=== PATIENT | female | born 1940 | race Caucasian/White ===

== ENCOUNTER → 2016-05-16 | Outpatient (CLI) | payer MEDICARE, OTHER ==
[2015-11-30 11:00] VITALS: BP 110/49
[~2016-05-16] MED LIST: ALPR0.254 PO; AMIT10TA PO; ASPI-482 PO; CA C1TAB28 PO; DICL100G7 TP; DICY20TA3 PO; HYDR-2666 PO; HYDR-2762 PO; HYDR-971 PO; HYDR12.553 PO; HYDR12.58 PO; HYDR1POW19 MC; HYDR1TAB20 PO; LACT1CAP6 PO; LACT1CAP8 PO; LEVO250T25 PO; LEVO25TA2 PO; LEVO500T8 PO; LEVO50TA PO; LISI10TA2 PO; LISI20TA PO; LISI40TA PO; MILN25TA PO; MILN50TA PO; POTA10CA PO; ROPI0.5T PO; SIMV10TA3 PO; SIMV80TA PO; SIMV80TA3 PO; [UNRECOGNIZED DRUG - OTHER] PO
--- NOTE | 2016-05-17 10:22 | CARD ---
APPROVED REPORT EXAM: Two-dimensional and M-mode echocardiogram with Doppler and color Doppler. Other Information Quality : AverageHR: 75bpm Rhythm : NSR INDICATION Dyspnea 2D DIMENSIONS RVDd2.9 (2.9-3.5cm)Left Atrium(2D)2.7 (1.6-4.0cm) IVSd0.8 (0.7-1.1cm)Aortic Root(2D)2.2 (2.0-3.7cm) LVDd4.3 (3.9-5.9cm)LVOT Diameter2.1 (1.8-2.4cm) PWd0.8 (0.7-1.1cm)LVDs3.0 (2.5-4.0cm) FS (%) 31.5 %SV50.6 ml LVEF(%)59.6 (>50%) Aortic Valve AoV Peak Chad.112.9cm/sAoV VTI24.1cm AO Peak GR.5.1mmHgLVOT Peak Chad.95.8cm/s AO Mean GR.3mmHgAVA (VMAX)2.89cm2 Mitral Valve MV E Wkqldljs84.1cm/sMV E Peak Gr.5mmHg MV DECEL [id number] A Ekrevtti26.9cm/s MV E Mean Gr.2mmHgE/A Ratio1.2 MV A Yaoifnmr112ur Tricuspid Valve TR P. Uoqmqtcr761gk/sRAP MPOCTXIL5kiEh TR Peak Gr.15dqKtBKLB84ewWi Pulmonary Vein S1 Zfsrpfnj07.0cm/sD2 Ialevygb17.3cm/s PVa revsvtbf413odrf LEFT VENTRICLE The left ventricle is normal size. There is normal left ventricular wall thickness. Left ventricle sy stolic function is normal. The Ejection Fraction is 55-60%. There is normal LV segmental wall motion. The left ventricular diastolic function and filling is normal for age. There is no ventricular septa l defect visualized. RIGHT VENTRICLE The right ventricle is normal size. The right ventricular systolic function is normal. ATRIA The left atrium size is normal. The right atrium size is normal. The interatrial septum is intact wit h no evidence for an atrial septal defect or patent foramen ovale as noted on 2-D or Doppler imaging. AORTIC VALVE The aortic valve is mildly sclerotic. The aortic valve is trileaflet. Doppler and Color Flow revealed no significant aortic regurgitation. There is no significant aortic valvular stenosis. MITRAL VALVE Mitral annular calcification is mild. There is no evidence of mitral valve prolapse. There is no mitr al valve stenosis. Doppler and Color Flow revealed mild mitral regurgitation. TRICUSPID VALVE The tricuspid valve is normal in structure. Doppler and Color Flow revealed trace to mild tricuspid r egurgitation. The PA pressure was estimated at 42 mmHg. There is no tricuspid valve stenosis. PULMONIC VALVE The pulmonic valve is not well visualized. Doppler and Color Flow revealed mild pulmonic valvular reg urgitation. There is no pulmonic valvular stenosis. GREAT VESSELS The aortic root is normal in size. The ascending aorta is normal in size. Normal pulmonary venous cammy w (Doppler). The IVC is normal in size and collapses <50% with inspiration. PERICARDIAL EFFUSION There is no pleural effusion. There is no evidence of significant pericardial effusion. Critical Notification Critical Value: No <Conclusion> The left ventricle is normal size. Left ventricle systolic function is normal. The Ejection Fraction is 55-60%. There is normal left ventricular wall thickness. There is no significant aortic valvular stenosis. Doppler and Color Flow revealed no significant aortic regurgitation. Doppler and Color Flow revealed mild mitral regurgitation. Doppler and Color Flow revealed trace to mild tricuspid regurgitation. The PA pressure was estimated at 42 mmHg. Doppler and Color Flow revealed mild pulmonic valvular regurgitation.
== END | disposition home or self-care (01) ==
LOC: ECHO 09:01
PROVIDERS: ATTEND Internal Medicine Cardiovascular Disease
DX: R06.02 Shortness of breath (principal); I34.0 Nonrheumatic mitral (valve) insufficiency; I37.1 Nonrheumatic pulmonary valve insufficiency; I07.1 Rheumatic tricuspid insufficiency; I34.8 Other nonrheumatic mitral valve disorders
CPT/HCPCS: 93306

== ENCOUNTER → 2016-05-17 | Outpatient (CLI) | payer MEDICARE, OTHER ==
[2015-11-30 11:00] VITALS: BP 110/49
--- NOTE | 2016-05-17 10:33 | RAD ---
APPROVED REPORT Patient Location : OUT-PATIENT Indications Lower Extremity Pain : Bilateral Lower Extremity Edema : Bilateral HTN, BILAT PAIN AND SWELLING LOWER EXT Risk Factors Grayscale images of the bilateral greater and lesser saphenous veins deomonstrate no evidence of thro mbus on limited images. The R GSV measures 5.8 mm and has reflux time of less than 1 second. The left GSV measures 7.2 mm and has a reflux time less than 1 second. Negative reflux in the bilateral lesse r saphenous veins. Bilateral solitary lymph nodes noted measuring 1.4x0.6x14 (right), and 1.5x0.5x0.8 (left). Past History Compression Stockings : No Deep System Deep Venous Reflux present : No Lesser Saphenous Veins (LSV) Right Thigh extension noted : No Leftt Thigh extension noted : No Right Giacomini Vein : Present : No Reflux : No Leftt Giacomini Vein : Present : No Reflux : No Accessory Veins Right Anterior Accessory Vein : Present : Yes Reflux : No Leftt Anterior Accessory Vein : Present : Yes Reflux : No Right Posterior Accessory Vein : Present : No Reflux : No Left Posterior Accessory Vein : Present : No Reflux : No Critical Notification Critical Value: No <Conclusion> No evidence of reflux in the bilateral greater and lesser saphenous veins Bilateral groin lymph notes, correlate clinically.
--- NOTE | 2016-05-17 10:41 | RAD ---
APPROVED REPORT Right Lower Extremity Venous Study for DVT Patient Location: OUT-PATIENT Indications Lower Extremity Pain: Right Lower Extremity Edema: Right HTN, RLE SWELLING, PAIN, REDNESS Risk Factors RLE araujo scale images from the CFV to the below knee veins does not demonstrate any evidence of throm bus. The veins are compressible. Below knee veins not well visualized but there is edema present in t he subcutaneous tissues. Cannot rule out lymph node in the right groin measuring approximately 0.5 cm in greatest diameter. Critical Notification Critical Value: No <Conclusion> Negative DVT study Incidental lymph node, measuring 0.5 cm in greatest dimension, correlate clinically.
== END | disposition home or self-care (01) ==
LOC: KCIC US 09:10
PROVIDERS: ATTEND Internal Medicine Cardiovascular Disease
DX: M79.604 Pain in right leg (principal); M79.89 Other specified soft tissue disorders; R60.0 Localized edema; M79.605 Pain in left leg
CPT/HCPCS: 93970; 93971

== ENCOUNTER → 2017-01-16 | Outpatient (CLI) | payer MEDICARE, OTHER ==
[2015-11-30 11:00] VITALS: BP 110/49
[~2017-01-16] MED LIST changes: +DICL100G18 TP; -DICL100G7 TP; -HYDR-2666 PO; +HYDR-2758 PO; -LEVO25TA2 PO; +LEVO25TA55 PO; -POTA10CA PO; +POTASSIUM CHLO10 MEQ PO
--- NOTE | 2017-01-16 15:16 | RAD ---
2 views of the left tibia and fibula 01/16/2017 2:00 AM Indication: LUMP ON INSIDE OF LEG Comparison: None Findings: There is no fracture or dislocation identified. Articular surfaces are uninterrupted. Soft tissues are unremarkable. Impression: No evidence of acute osseous abnormality
== END | disposition home or self-care (01) ==
LOC: RAD 14:20
PROVIDERS: ATTEND Family Medicine
DX: M79.662 Pain in left lower leg (principal); R22.9 Localized swelling, mass and lump, unspecified
CPT/HCPCS: 73590

== ENCOUNTER → 2017-03-28 | Outpatient (CLI) | payer MEDICARE, OTHER | END | disposition home or self-care (01) | LOC: MAMMO 13:51 | DX: Z12.31 Encounter for screening mammogram for malignant neoplasm of breast (principal) | CPT/HCPCS: 77067 ==

== ENCOUNTER → 2017-11-10 | Outpatient (CLI) | payer MEDICARE, OTHER ==
[2015-11-30 11:00] VITALS: BP 110/49
[~2017-11-10] MED LIST changes: +LISI-130 PO; -LISI40TA PO; +POTA10TA12 PO; -POTASSIUM CHLO10 MEQ PO; -SIMV80TA3 PO; +SIMV80TA7 PO
--- NOTE | 2017-11-10 14:31 | CARD ---
MR#: [id number] Date of Study: 11/10/2017 Ordering Physician: LEÓN GOLDMAN, Referring Physician: LEÓN GOLDMAN, Tech: Neema Garcia STEPHANY APPROVED REPORT EXAM: Two-dimensional and M-mode echocardiogram with Doppler and color Doppler. Other Information Quality : Good INDICATION Murmur 2D DIMENSIONS RVDd2.0 (2.9-3.5cm)Left Atrium(2D)2.3 (1.6-4.0cm) IVSd1.1 (0.7-1.1cm)Aortic Root(2D)2.4 (2.0-3.7cm) LVDd3.0 (3.9-5.9cm)LVOT Diameter1.9 (1.8-2.4cm) PWd0.8 (0.7-1.1cm)LVDs2.2 (2.5-4.0cm) FS (%) 28.6 %SV20.2 ml LVEF(%)56.6 (>50%) Aortic Valve AoV Peak Chad.85.4cm/sAoV VTI17.3cm AO Peak GR.2.9mmHgLVOT Peak Chad.83.0cm/s AO Mean GR.2mmHgAVA (VMAX)2.67cm2 SITA (VTI)2.80cm2 Mitral Valve MV E Zlrokvat83.0cm/sMV DECEL TSOG775au MV A Ecepdkxk56.3cm/sE/A Ratio0.9 Tricuspid Valve TR P. Jokkcfeb511uh/sRAP NULBVECK6xrTz TR Peak Gr.34vlMdEASE22zkRq Pulmonary Vein S1 Kztzylrj49.9cm/sD2 Resfofqr56.8cm/s LEFT VENTRICLE The left ventricle is normal size. There is normal left ventricular wall thickness. The left ventricu lar systolic function is normal and the ejection fraction is within normal range. The Ejection Fracti on is 55-60%. There is normal LV segmental wall motion. Transmitral Doppler flow pattern is Grade I-a bnormal relaxation pattern. RIGHT VENTRICLE The right ventricle is normal size. The right ventricular systolic function is normal. ATRIA The left atrium size is normal. The right atrium size is normal. The interatrial septum is intact wit h no evidence for an atrial septal defect or patent foramen ovale as noted on 2-D or Doppler imaging. AORTIC VALVE The aortic valve is calcified but opens well. Doppler and Color Flow revealed no significant aortic r egurgitation. There is no significant aortic valvular stenosis. MITRAL VALVE The mitral valve is normal in structure and function. There is no evidence of mitral valve prolapse. There is no mitral valve stenosis. Doppler and Color-flow revealed trace mitral regurgitation. TRICUSPID VALVE The tricuspid valve is normal in structure and function. Doppler and Color Flow revealed mild tricusp id regurgitation. There is mild pulmonary hypertension. The PA pressure was estimated at 38 mmHg. The re is no tricuspid valve stenosis. PULMONIC VALVE The pulmonic valve is not well visualized. Doppler and Color Flow revealed mild pulmonic valvular reg urgitation. There is no pulmonic valvular stenosis. GREAT VESSELS The aortic root is normal in size. The ascending aorta is normal in size. The IVC is normal in size a nd collapses >50% with inspiration. PERICARDIAL EFFUSION There is no evidence of significant pericardial effusion. Critical Notification Critical Value: No <Conclusion> The left ventricle is normal size. The left ventricular systolic function is normal and the ejection fraction is within normal range. The Ejection Fraction is 55-60%. There is no significant aortic valvular stenosis. Doppler and Color Flow revealed no significant aortic regurgitation. Doppler and Color-flow revealed trace mitral regurgitation. Doppler and Color Flow revealed mild tricuspid regurgitation. There is mild pulmonary hypertension. The PA pressure was estimated at 38 mmHg. Signed by : León Goldman MD Electronically Approved : 11/10/2017 14:30:34
== END | disposition home or self-care (01) ==
LOC: ECHO 13:09
PROVIDERS: ATTEND Internal Medicine Cardiovascular Disease
DX: I08.8 Other rheumatic multiple valve diseases (principal); I27.20 Pulmonary hypertension, unspecified; E78.00 Pure hypercholesterolemia, unspecified; E03.9 Hypothyroidism, unspecified; G43.909 Migraine, unspecified, not intractable, without status migrainosus; Z90.49 Acquired absence of other specified parts of digestive tract; Z90.710 Acquired absence of both cervix and uterus; Z88.2 Allergy status to sulfonamides
CPT/HCPCS: 93306

== ENCOUNTER 2017-12-20 11:31 | Inpatient (IN) | payer MEDICARE, OTHER ==
[~2017-12-20] VITALS: Ht 149.9 cm; Wt 49.9 kg
--- NOTE | 2017-12-20 12:13 | PHYS DOC ---
Past Medical History Past Medical History: Arthritis, High Cholesterol, Hypertension, Hypothyroid Additional Past Medical Histor: THYROID DZ, RLS Past Surgical History: Appendectomy, Hysterectomy Additional Past Surgical Histo: REMOVED NODULE FROM THYROID, BACK, CATARACT, HERNIA Alcohol Use: None Drug Use: None Adult General Chief Complaint Chief Complaint: ABDOMINAL PAIN HPI HPI Patient is a 76 year old female who presents with abdominal pain. Pain started yesterday morning at 2:30 and came on suddenly. Since then the pain has been constant and worsening. She also complains of some distention of the abdomen. She does report normal bowel movements with the last being this morning. She is passing flatus. She denies fever or chills. No urinary symptoms. She did have some nausea this morning but no emesis. She does not currently have nausea. She has not had similar symptoms in the past. Her surgical history is positive for hysterectomy, appendectomy, cholecystectomy many years earlier. She also endorses one prior SBO in the 's that resolved w /o surgical intervention. Review of Systems Review of Systems Constitutional: Denies fever Eyes: Denies HENT: Denies Respiratory: Denies cough or shortness of breath Cardiovascular: No additional information not addressed in HPI GI: as documented above : Denies dysuria Integument: Denies rash or skin lesions Neurologic: Denies headache All other systems were reviewed and found to be within normal limits, except as documented in this note. Current Medications Current Medications Current Medications Medications (Trade) Dose Ordered Sig/Kirk Start Time Stop Time Status Last Admin Dose Admin Fentanyl Citrate (Fentanyl 2ml Vial) 50 mcg 1X ONCE 12/20/17 12:15 12/20/17 12:16 DC 12/20/17 12:21 50 MCG Info (CONTRAST GIVEN -- Rx MONITORING) 1 each PRN DAILY PRN 12/20/17 12:30 12/22/17 12:29 Iohexol (Omnipaque 300 Mg/ml) 75 ml 1X ONCE 12/20/17 12:15 12/20/17 12:16 DC 12/20/17 12:15 75 ML Morphine Sulfate (Morphine Sulfate) 5 mg 1X ONCE 12/20/17 12:45 12/20/17 12:46 DC 12/20/17 13:09 5 MG Ondansetron HCl (Zofran) 4 mg 1X ONCE 12/20/17 12:15 12/20/17 12:16 DC 12/20/17 12:21 4 MG Sodium Chloride 500 ml @ 250 mls/hr 1X ONCE 12/20/17 12:15 12/20/17 14:14 DC 12/20/17 12:15 250 MLS/HR Allergies Allergies Allergies Coded Allergies Type Severity Reaction Last Updated Verified Sulfa (Sulfonamide Antibiotics) Allergy Intermediate Nausea and Vomiting Yes Physical Exam Physical Exam Constitutional: Well developed, well nourished, mild distress 2/2 pain HENT: Normocephalic, atraumatic, bilateral external ears normal, oropharynx moist Eyes: PERRLA, EOMI, conjunctiva normal Neck: Normal range of motion, no tenderness Cardiovascular:Heart rate regular rhythm Lungs & Thorax: Bilateral breath sounds clear Abdomen: mildly distended, diffusely TTP, no rebound Skin: Warm, dry, no erythema Back: No tenderness Extremities: No tenderness, no edema Neurologic: Alert and oriented X 3 Psychologic: Affect normal Current Patient Data Vital Signs Vital Signs Date Time Temp Pulse Resp B/P (MAP) Pulse Ox O2 Delivery O2 Flow Rate FiO2 12/20/17 12:21 20 12/20/17 12:13 92 141/65 (90) 98 Room Air 12/20/17 11:40 98.4 98.4 Lab Values Laboratory Tests Test 12/20/17 11:35 12/20/17 11:48 Urine Collection Type Void Urine Color Yellow Urine Clarity Clear Urine pH 5.0 Urine Specific [place] >=1.030 Urine Protein Negative mg/dL (NEG-TRACE) Urine Glucose (UA) Negative mg/dL (NEG) Urine Ketones (Stick) Negative mg/dL (NEG) Urine Blood Small (NEG) Urine Nitrite Negative (NEG) Urine Bilirubin Negative (NEG) Urine Urobilinogen Dipstick 0.2 mg/dL (0.2 mg/dL) Urine Leukocyte Esterase Negative (NEG) Urine RBC Rare /HPF (0-2) Urine WBC 5-10 /HPF (0-4) Urine Squamous Epithelial Cells Few /LPF Urine Bacteria Mod /HPF (0-FEW) Urine Hyaline Casts Occasional /HPF Urine Mucus Slight /LPF White Blood Count 10.7 x10^3/uL (4.0-11.0) Red Blood Count 3.88 x10^6/uL (3.50-5.40) Hemoglobin 12.3 g/dL (12.0-15.5) Hematocrit 35.2 % (36.0-47.0) L Mean Corpuscular Volume 91 fL (79-100) Mean Corpuscular Hemoglobin 32 pg (25-35) Mean Corpuscular Hemoglobin Concent 35 g/dL (31-37) Red Cell Distribution Width 13.8 % (11.5-14.5) Platelet Count 272 x10^3/uL (140-400) Neutrophils (%) (Auto) 86 % (31-73) H Lymphocytes (%) (Auto) 7 % (24-48) L Monocytes (%) (Auto) 6 % (0-9) Eosinophils (%) (Auto) 1 % (0-3) Basophils (%) (Auto) 0 % (0-3) Neutrophils # (Auto) 9.3 x10^3uL (1.8-7.7) H Lymphocytes # (Auto) 0.8 x10^3/uL (1.0-4.8) L Monocytes # (Auto) 0.6 x10^3/uL (0.0-1.1) Eosinophils # (Auto) 0.1 x10^3/uL (0.0-0.7) Basophils # (Auto) 0.0 x10^3/uL (0.0-0.2) Sodium Level 132 mmol/L (136-145) L Potassium Level 3.6 mmol/L (3.5-5.1) Chloride Level 96 mmol/L (98-107) L Carbon Dioxide Level 24 mmol/L (21-32) Anion Gap 12 (6-14) Blood Urea Nitrogen 13 mg/dL (7-20) Creatinine 0.7 mg/dL (0.6-1.0) Estimated GFR (Cockcroft-Gault) 81.6 Glucose Level 128 mg/dL (70-99) H Calcium Level 9.6 mg/dL (8.5-10.1) Total Bilirubin 0.6 mg/dL (0.2-1.0) Direct Bilirubin 0.2 mg/dL (0.0-0.2) Aspartate Amino Transferase (AST) 17 U/L (15-37) Alanine Aminotransferase (ALT) 18 U/L (14-59) Alkaline Phosphatase 41 U/L (46-116) L Total Protein 8.1 g/dL (6.4-8.2) Albumin 4.1 g/dL (3.4-5.0) Lipase 75 U/L (73-393) Laboratory Tests 12/20/17 11:48 Laboratory Tests 12/20/17 11:48 EKG EKG [] Radiology/Procedures Radiology/Procedures Findings: The lung bases are clear. There is a peripheral low-attenuation area located posteriorly in the right lobe of the liver. This measures about 1 cm. No other liver parenchymal abnormality is seen. The spleen appears normal. Both kidneys enhance with contrast. No mass or obstruction is seen. The adrenal glands are not enlarged. The pancreas appears normal. No retroperitoneal or mesenteric adenopathy is seen. There is no apparent abdominal soft tissue mass. There is distention of much of the colon with gas. There is narrowing of the sigmoid colon with suggestion of some wall thickening over several centimeters. There is no obvious adjacent inflammation. A few diverticula are seen. Images through the pelvis show no apparent abnormality of the distal ureters or bladder. No pelvic or inguinal adenopathy is seen. There is no apparent pelvic soft tissue mass or other inflammatory process. IMPRESSION: There is diffuse colonic dilatation with relative narrowing through the sigmoid colon, where there appears to be some wall thickening. No obstructing mass is seen, and the appearance of the colon is more suggestive of an area of colitis rather than neoplasm. Endoscopic correlation may still be useful if symptoms do not resolve. Course & Med Decision Making Course & Med Decision Making Pertinent Labs and Imaging studies reviewed. (See chart for details) 12:05: Patient is seen and examined. Meds for pain. Standard abd pain workup. 14:00: All labs are reviewed. CT scan is also reviewed. The labs did not reveal any acute findings. The CT scan as documented above does reveal some dilated loops of bowel. There are a few small air-fluid levels as well. Cerner for early small bowel obstruction or ileus is present. The patient does not have any vomiting so NG tube was not placed. In the emergency department, the patient was given a single dose of fentanyl which did not relieve her pain symptoms. Following this, she was given morphine which did offer some relief of pain. Plan is for admission to the hospital. Patient is kept nothing by mouth and IV fluids are started. I spoke to her primary care physician who was agreeable to admit the patient, Dr. Kinsey. Consults placed for surgery to also follow this patient. Prior to admission all of her questions are answered and she is agreeable to the plan of care. Dragon Disclaimer Dragon Disclaimer This electronic medical record was generated, in whole or in part, using a voice recognition dictation system. Departure Departure Referrals: NYLA KINSEY MD (PCP) ERIK COATS DO Dec 20, 2017 12:13
[2017-12-20] MEDS ORDERED: ONDANSETRON PF 4 MG/2 ML VIAL. IV ONE (12:15)
[2017-12-20] MEDS ORDERED: IOHEXOL 300 MG/ML 100ML VIAL. IV ONE (12:15)
[2017-12-20] MEDS ORDERED: fentaNYL PF VIAL 100 MCG/2 ML VIAL IV ONE (12:15)
[2017-12-20] MEDS ORDERED: IV NORMAL SALINE 500ML BAG 500 ML IV ONE (12:15)
[2017-12-20 12:28] LABS: BASO % 0 % (0-3); EOS # 0.1 x10^3/uL (0.0-0.7); EOS % 1 % (0-3); HEMATOCRIT 35.2 % (36.0-47.0); HEMOGLOBIN 12.3 g/dL (12.0-15.5); LYMPH # 0.8 x10^3/uL (1.0-4.8); LYMPH % 7 % (24-48); MEAN CORPUSCULAR HEMOGLOBIN 32 pg (25-35); MEAN CORPUSCULAR HGB CONC 35 g/dL (31-37); MEAN CORPUSCULAR VOLUME 91 fL (79-100); MONO # 0.6 x10^3/uL (0.0-1.1); MONO % 6 % (0-9); NEUT # 9.3 x10^3uL (1.8-7.7); NEUT % 86 % (31-73); PLATELET COUNT 272 x10^3/uL (140-400); RED BLOOD COUNT 3.88 x10^6/uL (3.50-5.40); RED CELL DISTRIBUTION WIDTH 13.8 % (11.5-14.5); WHITE BLOOD COUNT 10.7 x10^3/uL (4.0-11.0)
[2017-12-20 12:29] LABS: BILIRUBIN,URINE NEGATIVE (NEG); CLARITY,URINE CLEAR; COLOR,URINE YELLOW; NITRITE,URINE NEGATIVE (NEG); PROTEIN,URINE NEGATIVE (NEG-TRACE); UROBILINOGEN,URINE 0.2 mg/dL (0.2 mg/dL)
[2017-12-20] MEDS ORDERED: CONTRAST GIVEN. MC PRN (12:30)
[2017-12-20 12:33] LABS: CALCIUM 9.6 mg/dL (8.5-10.1); CREATININE 0.7 mg/dL (0.6-1.0); GFR 81.6; POTASSIUM 3.6 mmol/L (3.5-5.1)
[2017-12-20 12:35] LABS: BACTERIA,URINE MOD /HPF (0-FEW); RBC,URINE RARE /HPF (0-2); SQUAMOUS EPITHELIAL CELL,UR FEW /LPF
[2017-12-20 12:36] LABS: HYALINE CASTS, URINE OCCASIONAL /HPF
[2017-12-20 12:39] LABS: ALBUMIN 4.1 g/dL (3.4-5.0); DIRECT BILIRUBIN 0.2 mg/dL (0.0-0.2); TOTAL BILIRUBIN 0.6 mg/dL (0.2-1.0); TOTAL PROTEIN 8.1 g/dL (6.4-8.2)
[2017-12-20] MEDS ORDERED: MORPHINE SULFATE 10 MG/ML VIAL. IV ONE ×2 (12:45→15:00)
--- NOTE | 2017-12-20 13:13 | RAD ---
CT ABD PELV W/ IV CONTRST ONLY dated 12/20/2017 12:44 PM Indication:lower abd pain x2days
Omni 300 75ml, no priors Comparison: No comparison is available. Technique: Helical CT images were performed. One or more of the following individualized dose reduction techniques were utilized for this examination: 1. Automated exposure control 2. Adjustment of the mA and/or kV according to patient size 3. Use of iterative reconstruction technique Findings: The lung bases are clear. There is a peripheral low-attenuation area located posteriorly in the right lobe of the liver. This measures about 1 cm. No other liver parenchymal abnormality is seen. The spleen appears normal. Both kidneys enhance with contrast. No mass or obstruction is seen. The adrenal glands are not enlarged. The pancreas appears normal. No retroperitoneal or mesenteric adenopathy is seen. There is no apparent abdominal soft tissue mass. There is distention of much of the colon with gas. There is narrowing of the sigmoid colon with suggestion of some wall thickening over several centimeters. There is no obvious adjacent inflammation. A few diverticula are seen. Images through the pelvis show no apparent abnormality of the distal ureters or bladder. No pelvic or inguinal adenopathy is seen. There is no apparent pelvic soft tissue mass or other inflammatory process. IMPRESSION: There is diffuse colonic dilatation with relative narrowing through the sigmoid colon, where there appears to be some wall thickening. No obstructing mass is seen, and the appearance of the colon is more suggestive of an area of colitis rather than neoplasm. Endoscopic correlation may still be useful if symptoms do not resolve. Electronically signed by: Roman Early Jr., MD (12/20/2017 1:09 PM) [facility] [place]
[2017-12-20] MEDS ORDERED: ONDANSETRON PF 4 MG/2 ML VIAL. IV PRN (13:30)
[2017-12-20] MEDS: MORPHINE SULFATE 4 MG/ML VIAL. IV PRN ×3 (15:00→21:05)
[2017-12-20 16:17] VITALS: BP 147/66
[2017-12-20] MEDS: IV NORMAL SALINE 1000ML BAG 1,000 ML IV SCH (17:18)
[2017-12-20 19:00] VITALS: BP 142/63
[2017-12-20 23:00] VITALS: BP 138/71
[2017-12-20] MEDS: MORPHINE SULFATE 10 MG/ML VIAL. IV PRN (23:15)
[2017-12-20] MEDS ORDERED: MORPHINE SULFATE 4 MG/ML VIAL. IV PRN (23:15)
[2017-12-21] MEDS: MORPHINE SULFATE 10 MG/ML VIAL. IV PRN ×7 (02:37→22:55)
[2017-12-21] MEDS: IV NORMAL SALINE 1000ML BAG 1,000 ML IV SCH (02:42)
[2017-12-21 05:32] LABS: BASO % 0 % (0-3); EOS # 0.1 x10^3/uL (0.0-0.7); EOS % 1 % (0-3); HEMATOCRIT 33.3 % (36.0-47.0); HEMOGLOBIN 11.1 g/dL (12.0-15.5); LYMPH # 0.9 x10^3/uL (1.0-4.8); LYMPH % 12 % (24-48); MEAN CORPUSCULAR HEMOGLOBIN 31 pg (25-35); MEAN CORPUSCULAR HGB CONC 34 g/dL (31-37); MEAN CORPUSCULAR VOLUME 92 fL (79-100); MONO # 0.6 x10^3/uL (0.0-1.1); MONO % 8 % (0-9); NEUT # 5.8 x10^3uL (1.8-7.7); NEUT % 78 % (31-73); PLATELET COUNT 249 x10^3/uL (140-400); RED BLOOD COUNT 3.63 x10^6/uL (3.50-5.40); RED CELL DISTRIBUTION WIDTH 14.5 % (11.5-14.5); WHITE BLOOD COUNT 7.3 x10^3/uL (4.0-11.0)
[2017-12-21 05:47] LABS: CALCIUM 8.3 mg/dL (8.5-10.1); CREATININE 0.7 mg/dL (0.6-1.0); GFR 81.6; POTASSIUM 3.1 mmol/L (3.5-5.1)
[2017-12-21 06:00] VITALS: BP 113/57
--- NOTE | 2017-12-21 09:42 | PDOC2 ---
CONSULT Date of Consult Date of Consult DATE: 12/21/17 TIME: 09:38 Reason for Consult Reason for Consult: Abdominal pain and distention Referring Physician Referring Physician: Jw Identification/Chief Complaint Chief Complaint Abdominal pain and distention Source Source: Patient History of Present Illness Reason for Visit: 76-year-old female developed severe abdominal pain yesterday eating worse throughout the day which is why she came to the emergency department she also states that her abdomen feels very distended she did have a bowel movement yesterday mostly loose. She denies any nausea vomiting. She is never had a colonoscopy. Denies any family history of colon cancer. Past Medical History Cardiovascular: HTN, Hyperlipidemia Pulmonary: No pertinent hx GI: No pertinent hx Hepatobiliary: No pertinent hx Psych: No pertinent hx Rheumatologic: No pertinent hx Infectious disease: No pertinent hx ENT: No pertinent hx Renal/: No pertinent hx Endocrine: No pertinent hx Dermatology: No pertinent hx Past Surgical History Past Surgical History: Appendectomy, Cholecystectomy, Other (thyroidectomy) Family History Family History: No Significant Social History ALCOHOL: rare Lives: with Family Current Problem List Problem List Problems Medical Problems: (1) Abdominal pain Status: Acute Current Medications Current Medications Current Medications Fentanyl Citrate (Fentanyl 2ml Vial) 50 mcg 1X ONCE IV Last administered on at 12:21; Start 12/20/17 at 12:15; Stop 12/20/17 at 12:16; Status DC Sodium Chloride 500 ml @ 250 mls/hr 1X ONCE IV Last administered on at 12:15; Start 12/20/17 at 12:15; Stop 12/20/17 at 14:14; Status DC Ondansetron HCl (Zofran) 4 mg 1X ONCE IV Last administered on 12/20/17at 12:21 ; Start 12/20/17 at 12:15; Stop 12/20/17 at 12:16; Status DC Iohexol (Omnipaque 300 Mg/ml) 75 ml 1X ONCE IV Last administered on at 12:15; Start 12/20/17 at 12:15; Stop 12/20/17 at 12:16; Status DC Info (CONTRAST GIVEN -- Rx MONITORING) 1 each PRN DAILY PRN MC SEE COMMENTS; Start 12/20/17 at 12:30; Stop 12/22/17 at 12:29 Morphine Sulfate (Morphine Sulfate) 5 mg 1X ONCE IV Last administered on 12/20at 13:09; Start 12/20/17 at 12:45; Stop 12/20/17 at 12:46; Status DC Ondansetron HCl (Zofran) 4 mg PRN Q8HRS PRN IV NAUSEA/VOMITING; Start at 13:30; Stop 12/21/17 at 13:29 Morphine Sulfate (Morphine Sulfate) 4 mg PRN Q2HR PRN IV PAIN Last administered on 12/20/17at 21:05; Start 12/20/17 at 13:30; Stop 12/21/17 at 13 :29 Sodium Chloride 1,000 ml @ 75 mls/hr [id number] IV Last administered on at 02:42; Start 12/20/17 at 13:22; Stop 12/21/17 at 13:21 Morphine Sulfate (Morphine Sulfate) 5 mg 1X ONCE IV ; Start 12/20/17 at 15:00 ; Stop 12/20/17 at 15:01; Status DC Influenza Virus Vaccine (Afluria Trivalent [id number] Syringe) 0.5 ml ONCE ONCE VAX IM Last administered on 12/20/17at 17:20; Start 12/20/17 at 16:00; Stop 12/20/17 at 16:01; Status DC Morphine Sulfate (Morphine Sulfate) 6 mg PRN Q2HR PRN IV PAIN Last administered on 12/21/17at 07:36; Start 12/20/17 at 23:15 Morphine Sulfate (Morphine Sulfate) 6 mg PRN Q2HR PRN IV PAIN; Start 12/20/17 at 23:15; Status UNV Active Scripts Active Levaquin (Levofloxacin) 250 Mg Tablet 250 Mg PO DAILY06 complete course originated on 11/25. Reported Potassium Chloride 10 Meq Capsule.er 20 Meq PO BID Synthroid (Levothyroxine Sodium) 50 Mcg Tablet 1 Tab PO DAILY Simvastatin 80 Mg Tablet 1 Tab PO DAILY Lisinopril 40 Mg Tablet 1 Tab PO DAILY Hydrocodone-Apap 7.5-325 (Hydrocodone Bit/Acetaminophen) 1 Each Tablet 1 Tab PO PRN Q4HRS PRN Allergies Allergies: Coded Allergies: Sulfa (Sulfonamide Antibiotics) (Verified Allergy, Intermediate, Nausea and Vomiting, 05/13/13) ROS Gastrointestinal: Yes Abdominal Pain Physical Exam General: Alert, Oriented X3, Cooperative, mild distress HEENT: Atraumatic, PERRLA, EOMI Lungs: Clear to auscultation, Normal air movement Heart: Regular rate, No murmurs Abdomen: Normal bowel sounds, Soft, Other (tender to palpation left lower quadrant mildly distended) Extremities: No edema Skin: No significant lesion Neuro: Normal speech Psych/Mental Status: Mental status NL Vitals VITALS Vital Signs Date Time Temp Pulse Resp B/P (MAP) Pulse Ox O2 Delivery O2 Flow Rate FiO2 12/21/17 07:36 Room Air 12/21/17 06:00 98.6 93 18 113/57 (75) 95 98.6 Labs Labs Laboratory Tests Test 12/20/17 11:35 12/20/17 11:48 12/21/17 04:45 Urine Collection Type Void Urine Color Yellow Urine Clarity Clear Urine pH 5.0 Urine Specific Faith >=1.030 Urine Protein Negative mg/dL (NEG-TRACE) Urine Glucose (UA) Negative mg/dL (NEG) Urine Ketones (Stick) Negative mg/dL (NEG) Urine Blood Small (NEG) Urine Nitrite Negative (NEG) Urine Bilirubin Negative (NEG) Urine Urobilinogen Dipstick 0.2 mg/dL (0.2 mg/dL) Urine Leukocyte Esterase Negative (NEG) Urine RBC Rare /HPF (0-2) Urine WBC 5-10 /HPF (0-4) Urine Squamous Epithelial Cells Few /LPF Urine Bacteria Mod /HPF (0-FEW) Urine Hyaline Casts Occasional /HPF Urine Mucus Slight /LPF White Blood Count 10.7 x10^3/uL (4.0-11.0) 7.3 x10^3/uL (4.0-11.0) Red Blood Count 3.88 x10^6/uL (3.50-5.40) 3.63 x10^6/uL (3.50-5.40) Hemoglobin 12.3 g/dL (12.0-15.5) 11.1 g/dL (12.0-15.5) Hematocrit 35.2 % (36.0-47.0) 33.3 % (36.0-47.0) Mean Corpuscular Volume 91 fL (79-100) 92 fL (79-100) Mean Corpuscular Hemoglobin 32 pg (25-35) 31 pg (25-35) Mean Corpuscular Hemoglobin Concent 35 g/dL (31-37) 34 g/dL (31-37) Red Cell Distribution Width 13.8 % (11.5-14.5) 14.5 % (11.5-14.5) Platelet Count 272 x10^3/uL (140-400) 249 x10^3/uL (140-400) Neutrophils (%) (Auto) 86 % (31-73) 78 % (31-73) Lymphocytes (%) (Auto) 7 % (24-48) 12 % (24-48) Monocytes (%) (Auto) 6 % (0-9) 8 % (0-9) Eosinophils (%) (Auto) 1 % (0-3) 1 % (0-3) Basophils (%) (Auto) 0 % (0-3) 0 % (0-3) Neutrophils # (Auto) 9.3 x10^3uL (1.8-7.7) 5.8 x10^3uL (1.8-7.7) Lymphocytes # (Auto) 0.8 x10^3/uL (1.0-4.8) 0.9 x10^3/uL (1.0-4.8) Monocytes # (Auto) 0.6 x10^3/uL (0.0-1.1) 0.6 x10^3/uL (0.0-1.1) Eosinophils # (Auto) 0.1 x10^3/uL (0.0-0.7) 0.1 x10^3/uL (0.0-0.7) Basophils # (Auto) 0.0 x10^3/uL (0.0-0.2) 0.0 x10^3/uL (0.0-0.2) Sodium Level 132 mmol/L (136-145) 140 mmol/L (136-145) Potassium Level 3.6 mmol/L (3.5-5.1) 3.1 mmol/L (3.5-5.1) Chloride Level 96 mmol/L (98-107) 102 mmol/L (98-107) Carbon Dioxide Level 24 mmol/L (21-32) 26 mmol/L (21-32) Anion Gap 12 (6-14) 12 (6-14) Blood Urea Nitrogen 13 mg/dL (7-20) 7 mg/dL (7-20) Creatinine 0.7 mg/dL (0.6-1.0) 0.7 mg/dL (0.6-1.0) Estimated GFR (Cockcroft-Gault) 81.6 81.6 Glucose Level 128 mg/dL (70-99) 96 mg/dL (70-99) Calcium Level 9.6 mg/dL (8.5-10.1) 8.3 mg/dL (8.5-10.1) Total Bilirubin 0.6 mg/dL (0.2-1.0) Direct Bilirubin 0.2 mg/dL (0.0-0.2) Aspartate Amino Transf (AST/SGOT) 17 U/L (15-37) Alanine Aminotransferase (ALT/SGPT) 18 U/L (14-59) Alkaline Phosphatase 41 U/L (46-116) Total Protein 8.1 g/dL (6.4-8.2) Albumin 4.1 g/dL (3.4-5.0) Lipase 75 U/L (73-393) Laboratory Tests Test 12/20/17 11:35 12/20/17 11:48 12/21/17 04:45 Urine Collection Type Void Urine Color Yellow Urine Clarity Clear Urine pH 5.0 Urine Specific Faith >=1.030 Urine Protein Negative mg/dL (NEG-TRACE) Urine Glucose (UA) Negative mg/dL (NEG) Urine Ketones (Stick) Negative mg/dL (NEG) Urine Blood Small (NEG) Urine Nitrite Negative (NEG) Urine Bilirubin Negative (NEG) Urine Urobilinogen Dipstick 0.2 mg/dL (0.2 mg/dL) Urine Leukocyte Esterase Negative (NEG) Urine RBC Rare /HPF (0-2) Urine WBC 5-10 /HPF (0-4) Urine Squamous Epithelial Cells Few /LPF Urine Bacteria Mod /HPF (0-FEW) Urine Hyaline Casts Occasional /HPF Urine Mucus Slight /LPF White Blood Count 10.7 x10^3/uL (4.0-11.0) 7.3 x10^3/uL (4.0-11.0) Red Blood Count 3.88 x10^6/uL (3.50-5.40) 3.63 x10^6/uL (3.50-5.40) Hemoglobin 12.3 g/dL (12.0-15.5) 11.1 g/dL (12.0-15.5) Hematocrit 35.2 % (36.0-47.0) 33.3 % (36.0-47.0) Mean Corpuscular Volume 91 fL (79-100) 92 fL (79-100) Mean Corpuscular Hemoglobin 32 pg (25-35) 31 pg (25-35) Mean Corpuscular Hemoglobin Concent 35 g/dL (31-37) 34 g/dL (31-37) Red Cell Distribution Width 13.8 % (11.5-14.5) 14.5 % (11.5-14.5) Platelet Count 272 x10^3/uL (140-400) 249 x10^3/uL (140-400) Neutrophils (%) (Auto) 86 % (31-73) 78 % (31-73) Lymphocytes (%) (Auto) 7 % (24-48) 12 % (24-48) Monocytes (%) (Auto) 6 % (0-9) 8 % (0-9) Eosinophils (%) (Auto) 1 % (0-3) 1 % (0-3) Basophils (%) (Auto) 0 % (0-3) 0 % (0-3) Neutrophils # (Auto) 9.3 x10^3uL (1.8-7.7) 5.8 x10^3uL (1.8-7.7) Lymphocytes # (Auto) 0.8 x10^3/uL (1.0-4.8) 0.9 x10^3/uL (1.0-4.8) Monocytes # (Auto) 0.6 x10^3/uL (0.0-1.1) 0.6 x10^3/uL (0.0-1.1) Eosinophils # (Auto) 0.1 x10^3/uL (0.0-0.7) 0.1 x10^3/uL (0.0-0.7) Basophils # (Auto) 0.0 x10^3/uL (0.0-0.2) 0.0 x10^3/uL (0.0-0.2) Sodium Level 132 mmol/L (136-145) 140 mmol/L (136-145) Potassium Level 3.6 mmol/L (3.5-5.1) 3.1 mmol/L (3.5-5.1) Chloride Level 96 mmol/L (98-107) 102 mmol/L (98-107) Carbon Dioxide Level 24 mmol/L (21-32) 26 mmol/L (21-32) Anion Gap 12 (6-14) 12 (6-14) Blood Urea Nitrogen 13 mg/dL (7-20) 7 mg/dL (7-20) Creatinine 0.7 mg/dL (0.6-1.0) 0.7 mg/dL (0.6-1.0) Estimated GFR (Cockcroft-Gault) 81.6 81.6 Glucose Level 128 mg/dL (70-99) 96 mg/dL (70-99) Calcium Level 9.6 mg/dL (8.5-10.1) 8.3 mg/dL (8.5-10.1) Total Bilirubin 0.6 mg/dL (0.2-1.0) Direct Bilirubin 0.2 mg/dL (0.0-0.2) Aspartate Amino Transf (AST/SGOT) 17 U/L (15-37) Alanine Aminotransferase (ALT/SGPT) 18 U/L (14-59) Alkaline Phosphatase 41 U/L (46-116) Total Protein 8.1 g/dL (6.4-8.2) Albumin 4.1 g/dL (3.4-5.0) Lipase 75 U/L (73-393) Images Images CT scan of the abdomen showing thickening of the sigmoid colon was some narrowing of the lumen and gaseous distention of the proximal colon Assessment/Plan Assessment/Plan Colitis versus sigmoid colon tumor Have requested a consult for gastroenterology for possible colonoscopy We'll follow up on colonoscopy results CLYDE THORPE MD Dec 21, 2017 09:42
--- NOTE | 2017-12-21 10:32 | PDOC2 ---
GI CONSULT Reason For Consult: Concern for possible neoplasm in sigmoid colon HPI: HPI: Jerrod Abdullahi is a 76 years old female patient with past medical history of hypertension, hyperlipidemia, hypothyroidism, congestive heart failure ( likely diastolic) and restless leg syndrome. Patient was admitted to the hospital after she presented with abdominal pain. that has worsened since Friday Patient reported that she has chronic constipation in the last several months and may go 3-4 days with out bowel movement. She rreports her stool has varying consistency from hard stool to loose bowel movement. She has chronic gas pain with bloating. She denies any overt GI bleeding with no hematemesis,melena or hematochezia. She has poor appetite but has not had significant weight loss. Patient reports she has lorenza stressed as she has been taking care of her sick lately. She appears to be tearful at time of exam and worried she may have colon cancer. She reports she had multiple colonoscopic exam in the past with the last one done by three years ago.the daughter reports that she was told have diverticulosis and hemorrhoids but no polyps. She was told to have repast colonoscopy in 5 years time as per the daughter. Patient denies smoking cigarettes, using illicit drugs or drinking alcohols. Patient reports that her grandmother might have had colon cancer. . PMH: PMH: Hypertension Hyperlipidemia Hypothyroidism Congestive heart failure Restless leg syndrome Social History: Smoke: No ALCOHOL: rare Drugs: None ROS: GEN: Denies fevers, chills, sweats HEENT: Denies blurred vision, sore throat CV: Denies chest pain RESP: Denies shortness of air, cough GI: Per HPI : Denies hematuria, dysuria ENDO: Denies weight changes NEURO: Denies confusion, dizziness MSK: Denies weakness, joint pain/swelling SKIN: Denies jaundice, pruritus Vitals: Vitals: Vital Signs Date Time Temp Pulse Resp B/P (MAP) Pulse Ox O2 Delivery O2 Flow Rate FiO2 12/21/17 10:26 Room Air 12/21/17 06:00 98.6 93 18 113/57 (75) 95 98.6 Labs: Labs: Laboratory Tests Test 12/20/17 11:35 12/20/17 11:48 12/21/17 04:45 Urine Collection Type Void Urine Color Yellow Urine Clarity Clear Urine pH 5.0 Urine Specific Rickreall >=1.030 Urine Protein Negative mg/dL (NEG-TRACE) Urine Glucose (UA) Negative mg/dL (NEG) Urine Ketones (Stick) Negative mg/dL (NEG) Urine Blood Small (NEG) Urine Nitrite Negative (NEG) Urine Bilirubin Negative (NEG) Urine Urobilinogen Dipstick 0.2 mg/dL (0.2 mg/dL) Urine Leukocyte Esterase Negative (NEG) Urine RBC Rare /HPF (0-2) Urine WBC 5-10 /HPF (0-4) Urine Squamous Epithelial Cells Few /LPF Urine Bacteria Mod /HPF (0-FEW) Urine Hyaline Casts Occasional /HPF Urine Mucus Slight /LPF White Blood Count 10.7 x10^3/uL (4.0-11.0) 7.3 x10^3/uL (4.0-11.0) Red Blood Count 3.88 x10^6/uL (3.50-5.40) 3.63 x10^6/uL (3.50-5.40) Hemoglobin 12.3 g/dL (12.0-15.5) 11.1 g/dL (12.0-15.5) Hematocrit 35.2 % (36.0-47.0) 33.3 % (36.0-47.0) Mean Corpuscular Volume 91 fL (79-100) 92 fL (79-100) Mean Corpuscular Hemoglobin 32 pg (25-35) 31 pg (25-35) Mean Corpuscular Hemoglobin Concent 35 g/dL (31-37) 34 g/dL (31-37) Red Cell Distribution Width 13.8 % (11.5-14.5) 14.5 % (11.5-14.5) Platelet Count 272 x10^3/uL (140-400) 249 x10^3/uL (140-400) Neutrophils (%) (Auto) 86 % (31-73) 78 % (31-73) Lymphocytes (%) (Auto) 7 % (24-48) 12 % (24-48) Monocytes (%) (Auto) 6 % (0-9) 8 % (0-9) Eosinophils (%) (Auto) 1 % (0-3) 1 % (0-3) Basophils (%) (Auto) 0 % (0-3) 0 % (0-3) Neutrophils # (Auto) 9.3 x10^3uL (1.8-7.7) 5.8 x10^3uL (1.8-7.7) Lymphocytes # (Auto) 0.8 x10^3/uL (1.0-4.8) 0.9 x10^3/uL (1.0-4.8) Monocytes # (Auto) 0.6 x10^3/uL (0.0-1.1) 0.6 x10^3/uL (0.0-1.1) Eosinophils # (Auto) 0.1 x10^3/uL (0.0-0.7) 0.1 x10^3/uL (0.0-0.7) Basophils # (Auto) 0.0 x10^3/uL (0.0-0.2) 0.0 x10^3/uL (0.0-0.2) Sodium Level 132 mmol/L (136-145) 140 mmol/L (136-145) Potassium Level 3.6 mmol/L (3.5-5.1) 3.1 mmol/L (3.5-5.1) Chloride Level 96 mmol/L (98-107) 102 mmol/L (98-107) Carbon Dioxide Level 24 mmol/L (21-32) 26 mmol/L (21-32) Anion Gap 12 (6-14) 12 (6-14) Blood Urea Nitrogen 13 mg/dL (7-20) 7 mg/dL (7-20) Creatinine 0.7 mg/dL (0.6-1.0) 0.7 mg/dL (0.6-1.0) Estimated GFR (Cockcroft-Gault) 81.6 81.6 Glucose Level 128 mg/dL (70-99) 96 mg/dL (70-99) Calcium Level 9.6 mg/dL (8.5-10.1) 8.3 mg/dL (8.5-10.1) Total Bilirubin 0.6 mg/dL (0.2-1.0) Direct Bilirubin 0.2 mg/dL (0.0-0.2) Aspartate Amino Transf (AST/SGOT) 17 U/L (15-37) Alanine Aminotransferase (ALT/SGPT) 18 U/L (14-59) Alkaline Phosphatase 41 U/L (46-116) Total Protein 8.1 g/dL (6.4-8.2) Albumin 4.1 g/dL (3.4-5.0) Lipase 75 U/L (73-393) Allergies: Coded Allergies: Sulfa (Sulfonamide Antibiotics) (Verified Allergy, Intermediate, Nausea and Vomiting, 05/13/13) Medications: Current Medications Medications (Trade) Dose Ordered Sig/Kirk Route PRN Reason Start Time Stop Time Status Last Admin Dose Admin Fentanyl Citrate (Fentanyl 2ml Vial) 50 mcg 1X ONCE IV 12/20/17 12:15 12/20/17 12:16 DC 12/20/17 12:21 Sodium Chloride 500 ml @ 250 mls/hr 1X ONCE IV 12/20/17 12:15 12/20/17 14:14 DC 12/20/17 12:15 Ondansetron HCl (Zofran) 4 mg 1X ONCE IV 12/20/17 12:15 12/20/17 12:16 DC 12/20/17 12:21 Iohexol (Omnipaque 300 Mg/ml) 75 ml 1X ONCE IV 12/20/17 12:15 12/20/17 12:16 DC 12/20/17 12:15 Morphine Sulfate (Morphine Sulfate) 5 mg 1X ONCE IV 12/20/17 12:45 12/20/17 12:46 DC 12/20/17 13:09 Morphine Sulfate (Morphine Sulfate) 4 mg PRN Q2HR PRN IV PAIN 12/20/17 13:30 12/21/17 13:29 12/20/17 21:05 Sodium Chloride 1,000 ml @ 75 mls/hr [id number] IV 12/20/17 13:22 12/21/17 13:21 12/21/17 02:42 Influenza Virus Vaccine (Afluria Trivalent [id number] Syringe) 0.5 ml ONCE ONCE VAX IM 12/20/17 16:00 12/20/17 16:01 DC 12/20/17 17:20 Morphine Sulfate (Morphine Sulfate) 6 mg PRN Q2HR PRN IV PAIN 12/20/17 23:15 12/21/17 10:26 Imaging: [facility] [address] [address] IMAGING REPORT Signed PATIENT: JERROD ABDULLAHI V ACCOUNT: [id number] : 1940 LOCATION: ER AGE: 76 SEX: F EXAM STATUS: REG ER ORD. PHYSICIAN: ERIK COATS DO REASON: Abdominal pain PROCEDURE: CT ABD PELV W/ IV CONTRST ONLY CT ABD PELV W/ IV CONTRST ONLY dated 12/20/2017 12:44 PM Indication:lower abd pain x2days
Omni 300 75ml, no priors Comparison: No comparison is available. Technique: Helical CT images were performed. One or more of the following individualized dose reduction techniques were utilized for this examination: 1. Automated exposure control 2. Adjustment of the mA and/or kV according to patient size 3. Use of iterative reconstruction technique Findings: The lung bases are clear. There is a peripheral low-attenuation area located posteriorly in the right lobe of the liver. This measures about 1 cm. No other liver parenchymal abnormality is seen. The spleen appears normal. Both kidneys enhance with contrast. No mass or obstruction is seen. The adrenal glands are not enlarged. The pancreas appears normal. No retroperitoneal or mesenteric adenopathy is seen. There is no apparent abdominal soft tissue mass. There is distention of much of the colon with gas. There is narrowing of the sigmoid colon with suggestion of some wall thickening over several centimeters. There is no obvious adjacent inflammation. A few diverticula are seen. Images through the pelvis show no apparent abnormality of the distal ureters or bladder. No pelvic or inguinal adenopathy is seen. There is no apparent pelvic soft tissue mass or other inflammatory process. IMPRESSION: There is diffuse colonic dilatation with relative narrowing through the sigmoid colon, where there appears to be some wall thickening. No obstructing mass is seen, and the appearance of the colon is more suggestive of an area of colitis rather than neoplasm. Endoscopic correlation may still be useful if symptoms do not resolve. Electronically signed by: León Early Jr., MD (12/20/2017 1:09 PM) [facility] [place] DICTATED and SIGNED BY: LEÓN EARLY Jr, MD DATE: 12/20/17 1304 PE: GEN: NAD HEENT: Atraumatic, PERRLA LUNGS: CTAB HEART: RRR, no murmurs ABD: NABS, S/ND/NT, no masses EXTREMITY: No edema SKIN: No rashes, no jaundice NEURO/PSYCH: A & O 3 A/P: A/P: A 76 years old female patient who is currently admitted to the hospital with concern of colitis versus underlying neoplasm in sigmoid colon after she presented with abdominal pain. She had multiple colonoscopic exam in the past with the last one done three years ago by as per patient. The exam was unremarkable except report of diverticulosis and hemorrhoids as per patient and her daughter. Abdominal exam notable for old well healed midline lower abdominal scar. Has moderate distension of the abdomen that is tympanitic to percussion. The abdomen was soft to palpation with no tenderness. Labs notable for normocytic anemia with Hgb 11.1. Imaging of abdomen and pelvis with computed tomography notable for diffuse colonic dilatation with relative narrowing through the sigmoid colon with some wall thickening. Concern she has at least partial large bowel obstruction based on my exam and imaging. 1- Abdominal pain. 2- partal large bowel obstruction with moderately distended abdomen. 3- Concern for sigmoid colon neoplasm versus colitis. 4- Normocytic anemia. Recommendations - Please send for folate, B12 and iron studies including ferritin. - Patient may not tolerate a large volume bowel prep with evidence of partial large bowel obstruction. - Please give her enema this evening and in the morning. - We will plan for flexible sigmoidoscopy tomorrow. - We will give further recommendations based on the lower endoscopic exam findings. - GI available for any Q's. MEGHANN HINTON MD Dec 21, 2017 10:32
[2017-12-21 11:00] VITALS: BP 108/55
[2017-12-21] MEDS: LISINOPRIL 20 MG TABLET PO SCH (13:00)
--- NOTE | 2017-12-21 13:07 | HP ---
ADMIT DATE: 12/20/2017 CHIEF COMPLAINT AND HISTORY OF PRESENT ILLNESS: This is a 76-year-old white female who is well known to me in followup in the office. The patient was awoken on the morning of admission with abdominal pain at 02:15 a.m. She eventually took herself to the Emergency Room where she was also felt she was quite distended. She was found to have sigmoid colon narrowing on CT scanning of the abdomen and pelvis with diffuse colonic dilation with a relative narrowing through the sigmoid colon where there appeared to be some wall thickening. No obstructing mass was seen and it was felt that the appearance of the colon was more consistent with colitis and neoplasm. She did have a colonoscopy approximately 3 years ago that was normal. PAST MEDICAL HISTORY: Remarkable for diffuse arthritis, hyperlipidemia, hypertension, hypothyroidism, restless legs. PAST SURGICAL HISTORY: She has had a prior hernia surgery, hysterectomy, thyroid nodule removal, back surgery. MEDICATIONS: Brought with the patient, listed on the computer, have been addressed. ALLERGIES: SHE IS ALLERGIC TO SULFA. SOCIAL HISTORY: She is , lives at home with her , is a nonsmoker, nondrinker, does not use drugs. FAMILY HISTORY: Noncontributory. REVIEW OF SYSTEMS: Remarkable for no significant change in stools recently. She denies any fevers, chills, sweats associated with this. PHYSICAL EXAMINATION: GENERAL: She is well-developed, well-nourished white female, in mild distress. VITAL SIGNS: Stable. She is afebrile. HEAD, EYES, EARS, NOSE, THROAT: Unremarkable. NECK: Supple, without adenopathy or thyromegaly. CHEST: Clear to auscultation. HEART: Regular rate and rhythm without S3, S4, or murmur. ABDOMEN: Mildly diffusely distended and diffusely tender to palpation without rebound or guarding, hepatosplenomegaly or masses. EXTREMITIES: Without cyanosis, clubbing, edema. NEUROLOGIC: She is intact. LABORATORY DATA: Initial laboratory shows a white count of 10,700 with 80% segs, hemoglobin is 12.3. Sodium initially 132, glucose 128. Urine is unremarkable. IMPRESSION: 1. Abdominal distention and pain with sigmoid narrowing as described above. 2. Multiple other problems listed above. PLAN: The patient is admitted. Surgery and GI will be consulted. Had been started on antibiotics for colitis. The patient will be monitored, managed and treated appropriately. NYLA KINSEY MD DR: Delia JOB#: [id number] / [id number]
[2017-12-21] MEDS: PIPERACILLIN/TAZOBACTAM 3.375 GM in IV NORMAL SALINE 50ML 50 ML IV SCH ×3 (14:13→22:54)
[2017-12-21] MEDS: LEVOTHYROXINE 50 MCG TABLET PO SCH (14:16)
[2017-12-21] MEDS: POTASSIUM CHLORIDE 10 MEQ TABLET.ER. PO SCH ×2 (14:17→17:26)
[2017-12-21] MEDS ORDERED: PRAM0.25 PO (14:25)
[2017-12-21] MEDS ORDERED: FURO20TA3 PO (14:25)
[2017-12-21 15:00] VITALS: BP 104/50
[2017-12-21] MEDS ORDERED: SODIUM PHOSPHATES 19/7GM 133 ML ENEMA. PR ONE (17:30)
[2017-12-21] MEDS ORDERED: MAGNESIUM CITRATE 296 ML SOLUTION. PO ONE (18:30)
[2017-12-21 19:45] VITALS: BP 117/47
[2017-12-21] MEDS ORDERED: DOCUSATE SODIUM 283 MG/5 ML ENEMA. PR PRN ×2 (20:00)
[2017-12-21] MEDS: ATORVASTATIN CALCIUM 40 MG TABLET. PO SCH (20:45)
[2017-12-21 23:25] VITALS: BP 119/60
[2017-12-22 03:31] VITALS: BP 131/70
[2017-12-22] MEDS: LEVOTHYROXINE 50 MCG TABLET PO SCH (03:34)
[2017-12-22] MEDS: MORPHINE SULFATE 10 MG/ML VIAL. IV PRN ×5 (03:34→23:11)
[2017-12-22] MEDS: PIPERACILLIN/TAZOBACTAM 3.375 GM in IV NORMAL SALINE 50ML 50 ML IV SCH ×3 (06:00→17:32)
[2017-12-22] MEDS ORDERED: SODIUM PHOSPHATES 19/7GM 133 ML ENEMA. PR ONE (06:00)
[2017-12-22] MEDS ORDERED: IV RINGERS,LACTATED 1000ML 1,000 ML IV SCH ×2 (07:24→07:45)
[2017-12-22] MEDS ORDERED: LIDOCAINE 1% PF 2 ML VIAL. ID PRN (07:45)
[2017-12-22] MEDS ORDERED: fentaNYL PF VIAL 100 MCG/2 ML VIAL IV PRN ×2 (07:45)
[2017-12-22] MEDS ORDERED: MIDAZOLAM HCL/PF 2 MG/2 ML VIAL. IV PRN (07:45)
--- NOTE | 2017-12-22 08:16 | PDOC ---
SURGICAL PROGRESS NOTE Subjective down for scope will fu on results Vital Signs Vital Signs Date Time Temp Pulse Resp B/P (MAP) Pulse Ox O2 Delivery O2 Flow Rate FiO2 12/22/17 08:09 97.8 100 18 98 97.8 12/22/17 07:35 Room Air 12/22/17 03:31 131/70 (90) I&O Intake and Output 12/22/17 07:00 Intake Total 0 ml Balance 0 ml Intake Oral 0 ml # Voids 13 # Bowel Movements 4 Labs Laboratory Tests Test 12/20/17 11:35 12/20/17 11:48 12/21/17 04:45 Urine Collection Type Void Urine Color Yellow Urine Clarity Clear Urine pH 5.0 Urine Specific [place] >=1.030 Urine Protein Negative mg/dL (NEG-TRACE) Urine Glucose (UA) Negative mg/dL (NEG) Urine Ketones (Stick) Negative mg/dL (NEG) Urine Blood Small (NEG) Urine Nitrite Negative (NEG) Urine Bilirubin Negative (NEG) Urine Urobilinogen Dipstick 0.2 mg/dL (0.2 mg/dL) Urine Leukocyte Esterase Negative (NEG) Urine RBC Rare /HPF (0-2) Urine WBC 5-10 /HPF (0-4) Urine Squamous Epithelial Cells Few /LPF Urine Bacteria Mod /HPF (0-FEW) Urine Hyaline Casts Occasional /HPF Urine Mucus Slight /LPF White Blood Count 10.7 x10^3/uL (4.0-11.0) 7.3 x10^3/uL (4.0-11.0) Red Blood Count 3.88 x10^6/uL (3.50-5.40) 3.63 x10^6/uL (3.50-5.40) Hemoglobin 12.3 g/dL (12.0-15.5) 11.1 g/dL (12.0-15.5) Hematocrit 35.2 % (36.0-47.0) 33.3 % (36.0-47.0) Mean Corpuscular Volume 91 fL (79-100) 92 fL (79-100) Mean Corpuscular Hemoglobin 32 pg (25-35) 31 pg (25-35) Mean Corpuscular Hemoglobin Concent 35 g/dL (31-37) 34 g/dL (31-37) Red Cell Distribution Width 13.8 % (11.5-14.5) 14.5 % (11.5-14.5) Platelet Count 272 x10^3/uL (140-400) 249 x10^3/uL (140-400) Neutrophils (%) (Auto) 86 % (31-73) 78 % (31-73) Lymphocytes (%) (Auto) 7 % (24-48) 12 % (24-48) Monocytes (%) (Auto) 6 % (0-9) 8 % (0-9) Eosinophils (%) (Auto) 1 % (0-3) 1 % (0-3) Basophils (%) (Auto) 0 % (0-3) 0 % (0-3) Neutrophils # (Auto) 9.3 x10^3uL (1.8-7.7) 5.8 x10^3uL (1.8-7.7) Lymphocytes # (Auto) 0.8 x10^3/uL (1.0-4.8) 0.9 x10^3/uL (1.0-4.8) Monocytes # (Auto) 0.6 x10^3/uL (0.0-1.1) 0.6 x10^3/uL (0.0-1.1) Eosinophils # (Auto) 0.1 x10^3/uL (0.0-0.7) 0.1 x10^3/uL (0.0-0.7) Basophils # (Auto) 0.0 x10^3/uL (0.0-0.2) 0.0 x10^3/uL (0.0-0.2) Sodium Level 132 mmol/L (136-145) 140 mmol/L (136-145) Potassium Level 3.6 mmol/L (3.5-5.1) 3.1 mmol/L (3.5-5.1) Chloride Level 96 mmol/L (98-107) 102 mmol/L (98-107) Carbon Dioxide Level 24 mmol/L (21-32) 26 mmol/L (21-32) Anion Gap 12 (6-14) 12 (6-14) Blood Urea Nitrogen 13 mg/dL (7-20) 7 mg/dL (7-20) Creatinine 0.7 mg/dL (0.6-1.0) 0.7 mg/dL (0.6-1.0) Estimated GFR (Cockcroft-Gault) 81.6 81.6 Glucose Level 128 mg/dL (70-99) 96 mg/dL (70-99) Calcium Level 9.6 mg/dL (8.5-10.1) 8.3 mg/dL (8.5-10.1) Total Bilirubin 0.6 mg/dL (0.2-1.0) Direct Bilirubin 0.2 mg/dL (0.0-0.2) Aspartate Amino Transf (AST/SGOT) 17 U/L (15-37) Alanine Aminotransferase (ALT/SGPT) 18 U/L (14-59) Alkaline Phosphatase 41 U/L (46-116) Total Protein 8.1 g/dL (6.4-8.2) Albumin 4.1 g/dL (3.4-5.0) Lipase 75 U/L (73-393) Iron Level 17 ug/dL (50-170) Total Iron Binding Capacity 271 ug/dL (250-450) Iron Saturation 6 % (15-34) Ferritin 120 ng/mL (8-252) Problem List Problems Medical Problems: (1) Abdominal pain Status: Acute NICKEL,MELY Finn [employer]ATOR Dec 22, 2017 08:16
[2017-12-22] MEDS ORDERED: PROPOFOL 40 ML IV ONE (08:30)
--- NOTE | 2017-12-22 08:51 | PDOC4 ---
PROCEDURE Procedure :Limited colonoscopy partial large bowel obstruction anesthesia- propofol Findings- tortuosity in sigmoid- segmental colitis ( likely mild ischemic colitis)- no mass or polyp- scope passed into transverse Plan- liquid diet, Miralax TJ DWYER MD Dec 22, 2017 08:51
[2017-12-22] MEDS: POLYETHYLENE GLYCOL 3350 17 GM PACKET. PO SCH (09:30)
[2017-12-22] MEDS: POTASSIUM CHLORIDE 10 MEQ TABLET.ER. PO SCH ×2 (11:03→17:32)
[2017-12-22] MEDS: LISINOPRIL 20 MG TABLET PO SCH (11:03)
[2017-12-22 11:10] VITALS: BP 145/60
[2017-12-22 15:00] VITALS: BP 98/50
[2017-12-22 19:00] VITALS: BP 121/54
[2017-12-22] MEDS: ATORVASTATIN CALCIUM 40 MG TABLET. PO SCH (20:29)
[2017-12-22 23:00] VITALS: BP 129/46
[2017-12-22] MEDS: HYDROcodone/APAP 7.5/325MG 1 TAB TABLET PO PRN (23:11)
[2017-12-23] MEDS: PIPERACILLIN/TAZOBACTAM 3.375 GM in IV NORMAL SALINE 50ML 50 ML IV SCH ×4 (00:31→17:11)
[2017-12-23 03:00] VITALS: BP 138/59
[2017-12-23] MEDS: MORPHINE SULFATE 10 MG/ML VIAL. IV PRN ×4 (03:50→21:39)
[2017-12-23 07:00] VITALS: BP 146/56
[2017-12-23] MEDS: LEVOTHYROXINE 50 MCG TABLET PO SCH (07:15)
--- NOTE | 2017-12-23 08:47 | PN ---
DATE: 12/23/2017 SUBJECTIVE: The patient is awake and alert, getting ready to eat breakfast, still has abdominal pain and bloating. OBJECTIVE: VITAL SIGNS: Stable. She is afebrile. CHEST: Clear. HEART: Regular. ABDOMEN: Still mildly distended. Lab is remarkable for low potassium on her last BMP and we will replace the same. Colonoscopy yesterday with findings of some sigmoid narrowing, most likely secondary felt by GI to ischemic colitis, mild, with the scope being passed into the transverse colon. IMPRESSION: Sigmoid narrowing likely due to ischemic colitis with abdominal distention and pain, currently on IV antibiotics for the same. PLAN: Continue present. Follow GI's lead as far as further management of this to resolution. NYLA KINSEY MD DR: CRISTA/shon JOB#: [id number] / [id number]
[2017-12-23] MEDS: POTASSIUM CHLORIDE 10 MEQ TABLET.ER. PO SCH ×2 (08:56→17:11)
[2017-12-23] MEDS: LISINOPRIL 20 MG TABLET PO SCH (08:57)
[2017-12-23] MEDS: POLYETHYLENE GLYCOL 3350 17 GM PACKET. PO SCH (08:57)
[2017-12-23] MEDS ORDERED: POTASSIUM CHLORIDE 20 MEQ TABLET.ER. PO ONE (09:00)
--- NOTE | 2017-12-23 09:36 | PDOC ---
MELY CORBIN APRN 12/23/17 0936: SURGICAL PROGRESS NOTE Subjective pain off and on loose stools no n/v Vital Signs Vital Signs Date Time Temp Pulse Resp B/P (MAP) Pulse Ox O2 Delivery O2 Flow Rate FiO2 12/23/17 08:57 93 146/56 12/23/17 07:00 97.9 18 99 Room Air 97.9 12/23/17 04:20 97.0 I&O Intake and Output 12/23/17 07:00 Intake Total 2520 ml Balance 2520 ml Intake Oral 1820 ml IV Total 700 ml # Voids 8 # Bowel Movements 1 General: Alert, Oriented X3, Cooperative, No acute distress Abdomen: Soft, Other (mild diffuse TTP) Problem List Problems Medical Problems: (1) Abdominal pain Status: Acute Assessment/Plan ischemic colitis medical therapy CLYDE THORPE MD 12/23/17 1020: SURGICAL PROGRESS NOTE Assessment/Plan Patient seen and examined by me continues to have some mild abdominal discomfort. Abdomen is soft nondistended mildly tender to palpation left lower quadrant. Colonoscopy results reviewed showing ischemic colitis no obstruction. No surgical plans at this time agree with Naveed assessment and plan MELY CORBIN APRN Dec 23, 2017 09:36 CLYDE THORPE MD Dec 23, 2017 10:20
[2017-12-23 11:00] VITALS: BP 150/54
--- NOTE | 2017-12-23 14:08 | PATHOLOGY ---
[facility] Accession Number: [id number] . 01 Material submitted: . SIGMOID BX . 01 Clinical history: . Bowel obstruction, segmental colitis . 02 Diagnosis: Colon biopsies, sigmoid colon: - Focal acute colitis. See comment. . (JPM/at;12/23/2017) QTA/12/23/2017 . 02 Comment: Sections of the sigmoid colon biopsy reveal several segments of colonic mucosa containing a few mucosal - associated lymphoid aggregates. There is focal mild mucosal edema and acute inflammatory cell infiltration of the lamina propria. The colonic glands appear viable and show no evidence of necrosis. The findings are consistent with an acute self-limited colitis or infectious colitis. There is no evidence of ischemic colitis or chronic destructive colitis. . (JPM/at;12/23/2017) . 02 Electronically signed: . Caleb Wu MD, Pathologist NPI- [id number] . 01 Gross description: . The specimen is received in formalin, labeled "Patricia Abdullahi, sigmoid biopsy". Received are two segments of pale gillespie soft tissue measuring 0.4 and 0.7 cm in maximum dimensions. The specimen is submitted entirely in cassette A1. (CAA; 12/22/2017) QAC/QAC . 02 Pathologist provided ICD-10: K52.9 . 02 CPT . 127121 Specimen Comment: A courtesy copy of this report has been sent to Specimen Comment: [phone], . Specimen Comment: Report sent to / DR KINSEY Specimen Comment: A duplicate report has been generated due to demographic updates. Performed at: [address], [place], [place] [id number] MD Duane Chacko MD Phone: [phone] Performed at: [address] [id number] MD Caleb Wu MD Phone: [phone]
--- NOTE | 2017-12-23 14:16 | PDOC ---
Subjective: Subjective: D/w daughter Lucia this morning - still has abd pain, noted after eating soup yesterday. I saw the pt earlier during [employer] downtime - describes "black diarrhea" ( says dark brown and black) yesterday and this afternoon. Takes Pepto at home. Has abd cramping - lower, bilateral. Hard to establish a pattern but think generally after eating - did better w/ cream of wheat for breakfast, had more pain after soup for lunch. In general, feels "sore." Objective: Vital Signs: Vital Signs Date Time Temp Pulse Resp B/P (MAP) Pulse Ox O2 Delivery O2 Flow Rate FiO2 12/23/17 11:05 Room Air 12/23/17 11:00 98.4 85 18 150/54 (86) 98 98.4 12/23/17 04:20 97.0 Imaging: CT A/P 12/20 IMPRESSION: There is diffuse colonic dilatation with relative narrowing through the sigmoid colon, where there appears to be some wall thickening. No obstructing mass is seen, and the appearance of the colon is more suggestive of an area of colitis rather than neoplasm. Endoscopic correlation may still be useful if symptoms do not resolve. Limited colonoscopy 12/22/17 tortuosity in sigmoid- segmental colitis ( likely mild ischemic colitis)- no mass or polyp- scope passed into transverse PE: GEN: NAD LUNGS: CTAB HEART: RRR ABD: vague tender BLQ (left > right), BS+ NEURO/PSYCH: A & O 3 A/P: Abd pain, distention - better -on CT: colonic dilatation, narrowing in sigmoid w/ wall thickening -on scope: sigmoid tortuosity, segmental colitis (?ischemic) "Black" diarrhea -on Pepto at home, had prep prior to 'scope here -- Still some concern w/ cramping and diarrhea. Will review additional recs w/ Dr. Lazar. SU URRUTIA Dec 23, 2017 14:16
[2017-12-23 15:00] VITALS: BP 151/69
[2017-12-23 15:55] LABS: HEMATOCRIT 32.2 % (36.0-47.0); HEMOGLOBIN 10.9 g/dL (12.0-15.5); RED BLOOD COUNT 3.55 x10^6/uL (3.50-5.40); RED CELL DISTRIBUTION WIDTH 14.1 % (11.5-14.5); WHITE BLOOD COUNT 5.3 x10^3/uL (4.0-11.0)
[2017-12-23] MEDS ORDERED: FUROSEMIDE 20 MG TABLET PO PRN (16:30)
[2017-12-23 19:30] VITALS: BP 147/74
[2017-12-23] MEDS: ACETAMINOPHEN 325 MG TABLET. PO PRN (20:28)
[2017-12-23] MEDS: LACTOBACILLUS RHAMNOSUS GG 1 CAPSULE. PO SCH (20:29)
[2017-12-23] MEDS: ATORVASTATIN CALCIUM 40 MG TABLET. PO SCH (20:29)
[2017-12-23 23:03] VITALS: BP 118/66
[2017-12-24] MEDS: PIPERACILLIN/TAZOBACTAM 3.375 GM in IV NORMAL SALINE 50ML 50 ML IV SCH ×5 (00:42→23:57)
[2017-12-24] MEDS: HYDROcodone/APAP 7.5/325MG 1 TAB TABLET PO PRN ×3 (00:45→23:56)
[2017-12-24 03:22] VITALS: BP 122/68
[2017-12-24 05:02] LABS: CALCIUM 7.9 mg/dL (8.5-10.1); CREATININE 0.6 mg/dL (0.6-1.0); GFR 97.5; POTASSIUM 3.8 mmol/L (3.5-5.1)
[2017-12-24] MEDS: LEVOTHYROXINE 50 MCG TABLET PO SCH (06:25)
[2017-12-24] MEDS: MORPHINE SULFATE 10 MG/ML VIAL. IV PRN ×5 (06:30→20:54)
[2017-12-24 07:00] VITALS: BP 172/75
[2017-12-24] MEDS ORDERED: ONDANSETRON PF 4 MG/2 ML VIAL. IV PRN (07:15)
[2017-12-24] MEDS: LISINOPRIL 20 MG TABLET PO SCH (08:14)
[2017-12-24] MEDS: POTASSIUM CHLORIDE 10 MEQ TABLET.ER. PO SCH ×2 (08:14→16:26)
[2017-12-24] MEDS: LACTOBACILLUS RHAMNOSUS GG 1 CAPSULE. PO SCH ×2 (08:14→20:54)
[2017-12-24] MEDS: POLYETHYLENE GLYCOL 3350 17 GM PACKET. PO SCH (08:20)
[2017-12-24 09:24] LABS: INFLUENZA A PATIENT NEGATIVE (NEGATIVE); INFLUENZA B PATIENT NEGATIVE (NEGATIVE)
[2017-12-24 11:00] VITALS: BP 157/64
--- NOTE | 2017-12-24 13:04 | PDOC ---
Subjective: Subjective: I returned to talk to her yesterday afternoon. She takes hydrocodone regularly at home for arthritis pain and headaches, admits to occasional constipation. She also takes Pepto Bismol for "nervous stomach" - denies nausea, vomiting, reflux, and diarrhea - just feels nervous/anxious sometimes, relates to ' s health problems occasionally. Today is not feeling as well. Lower abdominal cramping is better and she is not having diarrhea - says "little pieces" of stool. However, feels like there is a tight belt across her mid abdomen and feels a little bloated. Doesn't feel like eating much - says she was nauseated earlier but might have been related to sinus drainage. Wonders if she has abd pain related to a hernia. D/w daughter Lucia - felt feverish last night, c/o feeling chilled despite having heat turned up in her room and being under blankets. No evidence of sinus drainage - thinks nausea a separate issue. Hasn't eaten much last night or today. Objective: Objective: Continued on IV atbx. Tmax documented 99.1. Vital Signs: Vital Signs Date Time Temp Pulse Resp B/P (MAP) Pulse Ox O2 Delivery O2 Flow Rate FiO2 12/24/17 12:21 Room Air 12/24/17 11:00 98.6 82 16 157/64 (95) 98 98.6 12/24/17 07:00 97.0 Labs: Laboratory Tests Test 12/23/17 15:45 12/24/17 03:15 12/24/17 08:30 White Blood Count 5.3 x10^3/uL Red Blood Count 3.55 x10^6/uL Hemoglobin 10.9 g/dL Hematocrit 32.2 % Mean Corpuscular Volume 91 fL Mean Corpuscular Hemoglobin 31 pg Mean Corpuscular Hemoglobin Concent 34 g/dL Red Cell Distribution Width 14.1 % Platelet Count 282 x10^3/uL Sodium Level 133 mmol/L Potassium Level 3.8 mmol/L Chloride Level 98 mmol/L Carbon Dioxide Level 27 mmol/L Anion Gap 8 Blood Urea Nitrogen 2 mg/dL Creatinine 0.6 mg/dL Estimated GFR (Cockcroft-Gault) 97.5 Glucose Level 87 mg/dL Calcium Level 7.9 mg/dL Influenza Type A Antigen Negative Influenza Type B Antigen Negative Material submitted: . SIGMOID BX Clinical history: . Bowel obstruction, segmental colitis Diagnosis: Colon biopsies, sigmoid colon: - Focal acute colitis. See comment. (JPM/at;12/23/2017) QTA/12/23/2017 Comment: Sections of the sigmoid colon biopsy reveal several segments of colonic mucosa containing a few mucosal - associated lymphoid aggregates. There is focal mild mucosal edema and acute inflammatory cell infiltration of the lamina propria. The colonic glands appear viable and show no evidence of necrosis. The findings are consistent with an acute self-limited colitis or infectious colitis. There is no evidence of ischemic colitis or chronic destructive colitis. PE: GEN: looks a bit uncomfortable LUNGS: CTAB HEART: RRR ABD: NABS, perhaps a bit more distended and less soft, tender across at level of umbilicus NEURO/PSYCH: A & O 3 A/P: Abd pain, distention, nausea -on CT: colonic dilatation, narrowing in sigmoid w/ wall thickening -on scope: sigmoid tortuosity, segmental colitis (no ischemia on biopsies) -some h/o constipation, takes hydrocodone and Pepto JORDANA H/o Arley fundoplication -- Some difference in pain today, perhaps more distention. Reviewed w/ Dr. Lazar - check abd x-ray, keep only on liquids. SU URRUTIA Dec 24, 2017 13:04
[2017-12-24] MEDS: PANTOPRAZOLE 40 MG TABLET.DR. PO SCH (13:26)
--- NOTE | 2017-12-24 14:10 | PN ---
DATE: 12/24/2017 LOCATION: She is in room 416. SUBJECTIVE: The patient is awake, alert and is getting ready to eat some cream of wheat. She did have some vomiting earlier and Zofran has been added to her regimen. She also ran a low grade fever again yesterday and received Tylenol for the same. OBJECTIVE: VITAL SIGNS: Stable with a T-max of 99.8. GENERAL: GI feels full liquid diet at this point is the most she should have. CHEST: Clear. HEART: Regular. ABDOMEN: Probably a little less distended and it may be due to the vomiting earlier. NEUROLOGIC: She is intact. LABORATORY DATA: Hemoglobin is 10.9. Potassium is up to 3.8. ASSESSMENT: 1. Ischemic colitis with functional partial colonic obstruction. 2. Abdominal pain. 3. Vomiting. 4. Hypokalemia, improved. 5. Low-grade fevers. PLAN: Continue antibiotics. Diet will be per GI and discharge planning per GI. NYLA KINSEY MD DR: CRISTA/shon JOB#: [id number] / [id number]
[2017-12-24 15:00] VITALS: BP 147/71
--- NOTE | 2017-12-24 15:41 | RAD ---
Acute abdomen series with chest, 3 views, 12/24/2017: HISTORY: Abdominal pain, nausea, distention There is mild gaseous distention of the stomach. There is a moderate amount gas in large and small bowel in a nonspecific pattern. The amount of bowel gas has diminished since the CT study of 12/20/2017. No free air is evident in the abdomen. Numerous surgical clips are present in the upper abdomen. The heart size and poor a vascularity are normal. No pulmonary consolidation is seen. There is no evidence of pleural fluid. IMPRESSION: 1. Gaseous distention of predominantly large bowel evident on 12/20/2017 has improved. 2. No acute abnormality in the chest. Electronically signed by: Cj Simon MD (12/24/2017 3:39 PM) [facility]
[2017-12-24 19:21] VITALS: BP 142/67
[2017-12-24] MEDS: ATORVASTATIN CALCIUM 40 MG TABLET. PO SCH (20:54)
[2017-12-24] MEDS: PRAMIPEXOLE 0.25 MG TABLET. PO SCH (20:54)
[2017-12-24 23:07] VITALS: BP 141/68
[2017-12-25] MEDS: ACETAMINOPHEN 325 MG TABLET. PO PRN (01:36)
[2017-12-25] MEDS: MORPHINE SULFATE 10 MG/ML VIAL. IV PRN ×4 (01:36→22:07)
[2017-12-25 03:39] VITALS: BP 141/71
[2017-12-25 05:33] LABS: BASO % 1 % (0-3); EOS # 0.2 x10^3/uL (0.0-0.7); EOS % 4 % (0-3); HEMATOCRIT 32.6 % (36.0-47.0); HEMOGLOBIN 11.2 g/dL (12.0-15.5); LYMPH # 1.5 x10^3/uL (1.0-4.8); LYMPH % 31 % (24-48); MEAN CORPUSCULAR HEMOGLOBIN 31 pg (25-35); MEAN CORPUSCULAR HGB CONC 34 g/dL (31-37); MEAN CORPUSCULAR VOLUME 90 fL (79-100); MONO # 0.6 x10^3/uL (0.0-1.1); MONO % 12 % (0-9); NEUT # 2.6 x10^3uL (1.8-7.7); NEUT % 53 % (31-73); PLATELET COUNT 287 x10^3/uL (140-400); RED BLOOD COUNT 3.62 x10^6/uL (3.50-5.40)
[2017-12-25 05:54] LABS: ALBUMIN 3.1 g/dL (3.4-5.0); ALBUMIN/GLOBULIN RATIO 0.8 (1.0-1.7); CREATININE 0.6 mg/dL (0.6-1.0); GFR 97.5; POTASSIUM 3.7 mmol/L (3.5-5.1); TOTAL BILIRUBIN 0.4 mg/dL (0.2-1.0); TOTAL PROTEIN 6.8 g/dL (6.4-8.2)
[2017-12-25] MEDS: PIPERACILLIN/TAZOBACTAM 3.375 GM in IV NORMAL SALINE 50ML 50 ML IV SCH ×3 (06:13→18:26)
[2017-12-25] MEDS: HYDROcodone/APAP 7.5/325MG 1 TAB TABLET PO PRN ×3 (06:13→20:56)
[2017-12-25] MEDS: LEVOTHYROXINE 50 MCG TABLET PO SCH (06:14)
[2017-12-25 07:00] VITALS: BP_SYST 130; BP_SYST 86; BP_DIAS 54; BP_DIAS 69
[2017-12-25] MEDS: POLYETHYLENE GLYCOL 3350 17 GM PACKET. PO SCH (09:00)
[2017-12-25] MEDS: PANTOPRAZOLE 40 MG TABLET.DR. PO SCH (09:44)
[2017-12-25] MEDS: LISINOPRIL 20 MG TABLET PO SCH (09:45)
[2017-12-25] MEDS: POTASSIUM CHLORIDE 10 MEQ TABLET.ER. PO SCH ×2 (09:45→18:25)
[2017-12-25] MEDS: LACTOBACILLUS RHAMNOSUS GG 1 CAPSULE. PO SCH ×2 (09:46→20:56)
[2017-12-25 11:00] VITALS: BP 158/76
--- NOTE | 2017-12-25 11:19 | PDOC ---
Subjective: Subjective: Better today - mid abd "tightness" comes and goes - no pattern necessarily. No stools. Indicates would like something other than broth. Objective: Vital Signs: Vital Signs Date Time Temp Pulse Resp B/P (MAP) Pulse Ox O2 Delivery O2 Flow Rate FiO2 12/25/17 09:45 85 141/71 12/25/17 08:00 Room Air 12/25/17 07:00 97.3 16 98 97.3 12/25/17 06:51 97.0 Labs: Laboratory Tests Test 12/25/17 04:15 White Blood Count 5.0 x10^3/uL Red Blood Count 3.62 x10^6/uL Hemoglobin 11.2 g/dL Hematocrit 32.6 % Mean Corpuscular Volume 90 fL Mean Corpuscular Hemoglobin 31 pg Mean Corpuscular Hemoglobin Concent 34 g/dL Red Cell Distribution Width 14.0 % Platelet Count 287 x10^3/uL Neutrophils (%) (Auto) 53 % Lymphocytes (%) (Auto) 31 % Monocytes (%) (Auto) 12 % Eosinophils (%) (Auto) 4 % Basophils (%) (Auto) 1 % Neutrophils # (Auto) 2.6 x10^3uL Lymphocytes # (Auto) 1.5 x10^3/uL Monocytes # (Auto) 0.6 x10^3/uL Eosinophils # (Auto) 0.2 x10^3/uL Basophils # (Auto) 0.0 x10^3/uL Sodium Level 133 mmol/L Potassium Level 3.7 mmol/L Chloride Level 97 mmol/L Carbon Dioxide Level 26 mmol/L Anion Gap 10 Blood Urea Nitrogen 2 mg/dL Creatinine 0.6 mg/dL Estimated GFR (Cockcroft-Gault) 97.5 BUN/Creatinine Ratio 3 Glucose Level 74 mg/dL Calcium Level 8.0 mg/dL Total Bilirubin 0.4 mg/dL Aspartate Amino Transf (AST/SGOT) 19 U/L Alanine Aminotransferase (ALT/SGPT) 17 U/L Alkaline Phosphatase 29 U/L Total Protein 6.8 g/dL Albumin 3.1 g/dL Albumin/Globulin Ratio 0.8 Imaging: Acute Abd Series 12/24 IMPRESSION: 1. Gaseous distention of predominantly large bowel evident on 12/20/2017 has improved. 2. No acute abnormality in the chest. PE: GEN: NAD, walking back from restroom, RN present to check BP - looks much better today LUNGS: CTAB HEART: RRR ABD: softer and less distended, less tender, BS+ NEURO/PSYCH: A & O 3 A/P: Abd "tightness" and distention/partial bowel obstruction and colitis - better JORDANA - stable -reviewed office records: EGD in 2011 w/ inflammation in distal esophagus (no Ronquillo's), esophageal ring (dilated), small hiatal hernia, erythema and congestion in the antrum (no biopsy), and normal duodenum Arley fundoplication 2010 last complete colonoscopy 06/2013 w/ sigmoid diverticulosis w/ tortuosity -- Try full liquids. Add dicyclomine. She has Miralax ordered. ?still needs IV atbx - will check w/ SU Hurt Dec 25, 2017 11:19
[2017-12-25] MEDS ORDERED: DICYCLOMINE HCL 10 MG CAPSULE PO PRN (11:30)
[2017-12-25 15:00] VITALS: BP 135/58
[2017-12-25 19:00] VITALS: BP 136/66
[2017-12-25] MEDS: ATORVASTATIN CALCIUM 40 MG TABLET. PO SCH (20:56)
[2017-12-25] MEDS: PRAMIPEXOLE 0.25 MG TABLET. PO SCH (20:56)
[2017-12-25 23:00] VITALS: BP 133/64
[2017-12-26 03:34] VITALS: BP 113/53
[2017-12-26] MEDS: PIPERACILLIN/TAZOBACTAM 3.375 GM in IV NORMAL SALINE 50ML 50 ML IV SCH ×3 (05:12)
[2017-12-26] MEDS: MORPHINE SULFATE 10 MG/ML VIAL. IV PRN ×2 (05:12→14:03)
[2017-12-26] MEDS: LEVOTHYROXINE 50 MCG TABLET PO SCH (06:40)
[2017-12-26 07:00] VITALS: BP 121/70
[2017-12-26] MEDS ORDERED: metroNIDAZOLE 500 MG TABLET PO SCH (09:00)
[2017-12-26] MEDS: POLYETHYLENE GLYCOL 3350 17 GM PACKET. PO SCH (09:00)
[2017-12-26] MEDS ORDERED: CIPROFLOXACIN HCL 250 MG TABLET. PO SCH (09:00)
[2017-12-26] MEDS: PANTOPRAZOLE 40 MG TABLET.DR. PO SCH (09:27)
[2017-12-26] MEDS: LACTOBACILLUS RHAMNOSUS GG 1 CAPSULE. PO SCH ×2 (09:27→20:28)
[2017-12-26] MEDS: POTASSIUM CHLORIDE 10 MEQ TABLET.ER. PO SCH ×2 (09:28→17:38)
[2017-12-26] MEDS: LISINOPRIL 20 MG TABLET PO SCH (09:28)
[2017-12-26] MEDS: HYDROcodone/APAP 7.5/325MG 1 TAB TABLET PO PRN ×3 (09:29→21:54)
[2017-12-26 11:00] VITALS: BP 147/77
--- NOTE | 2017-12-26 11:14 | PN ---
DATE: 12/25/2017 PATIENT LOCATION: She is in room 416. SUBJECTIVE: The patient is awake and alert, generally is feeling somewhat better and is still on a full liquid diet at this point in time per GI. She denies any stools. OBJECTIVE: VITAL SIGNS: Stable. She is afebrile. GENERAL: She is awake and alert. CHEST: Clear. HEART: Regular. ABDOMEN: Soft and much less distended. DIAGNOSTIC DATA: KUB shows improvement from yesterday and the same. ASSESSMENT: Ischemic colitis with partial obstruction, improving. PLAN: Advance diet per GI. When she is taking these, I feel she can go. She is still on IV antibiotics and we will defer to GI with how much longer that needs to go. NYLA KINSEY MD DR: CRISTA/shon JOB#: [id number] / [id number]
--- NOTE | 2017-12-26 11:23 | PDOC ---
Subjective: Subjective: Feeling better. Had some loose stools. Still has intermittent mid abdominal tightness but better overall. Tolerating full liquids - would like more, feels really hungry. Objective: Vital Signs: Vital Signs Date Time Temp Pulse Resp B/P (MAP) Pulse Ox O2 Delivery O2 Flow Rate FiO2 12/26/17 10:30 Room Air 12/26/17 09:28 82 121/70 12/26/17 07:00 98.5 18 98 98.5 12/26/17 05:42 97.0 PE: GEN: NAD LUNGS: CTAB HEART: RRR ABD: NABS, noticeably softer, "sore" NEURO/PSYCH: A & O 3 A/P: Partial bowel obstruction and colitis - resolving JORDANA - last EGD 2011, last complete colonoscopy 2013 -- Okay to stop atbx. Will review possibility of advancing diet w/ Dr. Lazar. Hopefully can DC soon. SU URRUTIA Dec 26, 2017 11:23
[2017-12-26 15:00] VITALS: BP 128/74
[2017-12-26 19:00] VITALS: BP 149/85
--- NOTE | 2017-12-26 19:28 | PN ---
DATE: 12/26/2017 LOCATION: She is in room 416. SUBJECTIVE: The patient is awake, alert, getting ready to eat a full liquid breakfast. States the GI wanted her to be on a full regular diet for at least a day prior to discharge. She has daily feeling somewhat better, has had multiple loose stools in the last 24 hours. OBJECTIVE: VITAL SIGNS: Stable. She is afebrile. CHEST: Clear. HEART: Regular. ABDOMEN: Soft and distention is essentially resolved. NEUROLOGIC: She is intact. ASSESSMENT: 1. Colitis with sigmoid colon narrowing and functional obstruction. 2. Abdominal pain, improved. 3. Vomiting, resolved. 4. Hypokalemia, resolved. PLAN: Advance diet per GI. When she is tolerating full regular diet, she could be discharged from my perspective. I am going to change her antibiotics over today to p.o. antibiotics. NYLA KINSEY MD DR: CRISTA/shon JOB#: [id number] / [id number]
[2017-12-26] MEDS: PRAMIPEXOLE 0.25 MG TABLET. PO SCH (20:27)
[2017-12-26] MEDS: ATORVASTATIN CALCIUM 40 MG TABLET. PO SCH (20:28)
[2017-12-26 23:00] VITALS: BP 147/82
[2017-12-27] MEDS: MORPHINE SULFATE 10 MG/ML VIAL. IV PRN ×2 (01:12→09:07)
[2017-12-27 03:00] VITALS: BP 138/84
[2017-12-27] MEDS: HYDROcodone/APAP 7.5/325MG 1 TAB TABLET PO PRN ×2 (05:57→10:52)
[2017-12-27] MEDS: LEVOTHYROXINE 50 MCG TABLET PO SCH (05:57)
[2017-12-27] MEDS: PANTOPRAZOLE 40 MG TABLET.DR. PO SCH (05:57)
[2017-12-27 07:00] VITALS: BP 164/69
[2017-12-27] MEDS: LACTOBACILLUS RHAMNOSUS GG 1 CAPSULE. PO SCH (09:09)
[2017-12-27] MEDS: POTASSIUM CHLORIDE 10 MEQ TABLET.ER. PO SCH (09:09)
[2017-12-27] MEDS: LISINOPRIL 20 MG TABLET PO SCH (09:10)
[2017-12-27] MEDS: POLYETHYLENE GLYCOL 3350 17 GM PACKET. PO SCH (09:10)
--- NOTE | 2017-12-27 10:23 | DISCH ---
DISCHARGE INSTRUCTIONS Condition on Discharge Condition on Discharge: Stable Activity After Discharge Activity Instructions for Disc: No restrictions, Activity as tolerated Lifting Instructions after Dis: No heavy lifting, No pulling or pushing Driving Instructions after Dis: Other, see below Weight Bearing Status after Di: Full weight bearing Diet after Discharge Diet after Discharge: Regular Diet Texture: Regular Liquid Texture: Thin Liquid Swallowing Supervision: None needed Wound Incision Care Wound/Incision Care: No wound care needed Contacting the after DC Call your doctor for: Concerns you may have Follow-Up Follow up with: dr schneider 2d Treatment/Equipment after DC Adaptive Equipment Issued: None ANU LEE MD Dec 27, 2017 10:23
--- NOTE | 2017-12-27 10:28 | PDOC ---
Provider Note Provider Note [id number] ANU LEE MD Dec 27, 2017 10:28
[2017-12-27 11:00] VITALS: BP 178/90
--- NOTE | 2017-12-27 20:41 | DS ---
DATE OF DISCHARGE: 12/27/2017 HOSPITAL SUMMARY: A 76-year-old admitted with recurrent abdominal pain. CBC, chemistry profile, all laboratory studies were unremarkable. CT scan showed some diffuse colonic dilatation with narrowing through the sigmoid colon with mild wall thickening present. She initially was treated with Cipro and metronidazole, but this was stopped the day prior to dismissal as there was no clinical evidence of actual diverticulitis present. Limited colonoscopy was done on 12/22/2017 which revealed a small segmental colitis area, possibly ischemic in nature, but mild and scope was able to be passed to the transverse colon. The patient is eating and drinking and is comfortable to be discharged as an outpatient at this point. FINAL DIAGNOSIS: Segmental colitis, likely ischemic in nature. OPERATIONS AND PROCEDURES: Colonoscopy. COMPLICATIONS: None. CONSULTATIONS: Dr. Coe and Dr. Umaña. DISPOSITION: She will continue all home meds the same. Avoid tobacco, high fiber diet and avoid anticholinergic medication if possible. She will see Dr. Escalera in 2 days and followup and her prognosis is guarded. ANU LEE MD DR: SHIRA/shon JOB#: [id number] / [id number]
== END 2017-12-27 15:50 | disposition home or self-care (01) | DRG 394 ==
LOC: ER 11:31 → 4 NORTH 13:00
PROVIDERS: ADMIT Family Medicine; ATTEND Family Medicine
PROC: 0DBN8ZX Excision of Sigmoid Colon, Via Natural or Artificial Opening Endoscopic, Diagnostic (ICD-10-PCS; principal; 2017-12-20)
DX: K55.9 Vascular disorder of intestine, unspecified (principal); I50.32 Chronic diastolic (congestive) heart failure; K56.600 Partial intestinal obstruction, unspecified as to cause; E78.5 Hyperlipidemia, unspecified; E78.00 Pure hypercholesterolemia, unspecified; E87.6 Hypokalemia; G25.81 Restless legs syndrome; I11.0 Hypertensive heart disease with heart failure; E03.9 Hypothyroidism, unspecified; K57.30 Diverticulosis of large intestine without perforation or abscess without bleeding; M19.90 Unspecified osteoarthritis, unspecified site; D64.9 Anemia, unspecified; Z90.49 Acquired absence of other specified parts of digestive tract; Z90.710 Acquired absence of both cervix and uterus; Z88.2 Allergy status to sulfonamides; Z79.899 Other long term (current) drug therapy
CPT/HCPCS: 36415; 45331; 74022; 74177; 80048; 80053; 80076; 81001; 82607; 82728; 83540; 83550; 83690; 85025; 85027; 87804; 88305; 90471; 90756; 96361; 96374; 96375; J2270; J2405; J2543; J2704; J3010; J3490; J7030; J7040; J7120; Q9967; 99285-25; Q2035

== ENCOUNTER → 2018-04-27 | Outpatient (CLI) | payer MEDICARE, OTHER ==
[~2018-04-27] MED LIST changes: +FURO20TA3 PO; -HYDR-2758 PO; +HYDR-2761 PO; -HYDR-2762 PO; +HYDR-2765 PO; +HYDR-3164 PO; -HYDR-971 PO; +PRAM0.25 PO; +SIMV80TA17 PO; -SIMV80TA7 PO
--- NOTE | 2018-04-28 10:53 | RAD ---
DATE: April 28, 2019 EXAM: MAMMO DEJA SCREENING BILATERAL HISTORY: Screening study. COMPARISON: 2015 and 2017. 2-D digital mammographic views of both breasts were performed in the CC and MLO projections. 3-D digital tomosynthesis images of both breasts were performed in the CC and MLO projections and reviewed on a computer workstation. This study was interpreted with the benefit of Computerized Aided Detection (CAD). FINDINGS: Breast Density: SCATTERED The breast parenchyma shows scattered fibroglandular densities. Breast parenchyma level B.. There are no dominant suspicious masses, suspicious microcalcifications or evidence of architectural distortion. IMPRESSION: No mammographic indicators for malignancy. BI-RADS CATEGORY: 1 NEGATIVE RECOMMENDED FOLLOW-UP: 12M 12 MONTH FOLLOW-UP PQRS compliance statement: Patient information was entered into a reminder system with a target due date April 28, 2019 for the next mammogram. Mammography is a sensitive method for finding small breast cancers, but it does not detect them all and is not a substitute for careful clinical examination. A negative mammogram does not negate a clinically suspicious finding and should not result in delay in biopsying a clinically suspicious abnormality. "Our facility is accredited by the [employer] Mammography Program." The patient's breast density may affect the ability of mammography to detect breast cancer. There are 4 categories of breast density, A, B, C and D. Breast density A means that most of the breast tissue is replaced with adipose tissue and therefore is not dense. Breast density B means that the breast tissue is mildly dense and scattered. Breast density C means that the breast tissue is heterogeneously dense. Breast density D means that the breast tissue is very dense. Breast densities especially C and D may decrease the sensitivity of mammography to detect breast cancer. Therefore, the patient may benefit from 3-D breast mammography (3D breast tomography) as a part of their screening mammogram. Insurance may or may not pay for this additional imaging. The patient's breast density based on today's mammogram is category B.
== END | disposition home or self-care (01) ==
LOC: MAMMO 10:32
PROVIDERS: ATTEND Family Medicine
DX: Z12.31 Encounter for screening mammogram for malignant neoplasm of breast (principal)
CPT/HCPCS: 77063; 77067

== ENCOUNTER → 2018-10-19 | Outpatient (CLI) | payer MEDICARE, OTHER ==
--- NOTE | 2018-10-20 11:23 | RAD ---
MR#: [id number] Date of Study: 10/19/2018 Ordering Physician: LEÓN ELLISON, Referring Physician: LEÓN ELLISON, Tech: Florentin Rodriguez MBA, RDMS, RVT, RDCS, RTR APPROVED REPORT Patient Location: OUT-PATIENT Indications Rest Pain:Bilaterally VELOCITY AND DOPPLER WAVEFORM ANALYSIS RIGHT cm/secWaveformSeverity LEFT cm/secWaveform Severity dCFA 149.0BiphasicdCFA 127.0Triphasic Prof Fem Art. 72.0BiphasicProf Fem Art. 64.0Biphasic Fem Art Prox. 123.0TriphasicFem Art Prox. 135.0Triphasic Fem Art Mid. 125.0TriphasicFem Art Mid. 124.0Triphasic Fem Art Dist. 82.0TriphasicFem Art Dist. 116.0Triphasic Pop Art(Fossa) 82.0TriphasicPop Art(AK) 76.0Biphasic ROVING HAND Prox. 91.0TriphasicPTA Prox. 86.0Biphasic ROVING HAND Dist. 105.0TriphasicPTA Dist. 105.0Biphasic Per Art Mid. 66.0BiphasicPer Art Mid. 60.0Biphasic LEO Prox. 53.0BiphasicATA Prox. 81.0Triphasic DPA 96TriphasicDPA 142Triphasic Findings Grayscale images of the bilateral lower extremity arterial vessels reveals mild diffuse plaque. No si gnificant high-grade stenosis is identified. Normal triphasic color Doppler flow and spectral signals are noted. There is three-vessel runoff below the knee. Critical Notification Critical Value: No <Conclusion> No significant lower extremity arterial disease noted. Signed by : Remberto Gomez, Electronically Approved : 10/20/2018 11:23:09
== END | disposition home or self-care (01) ==
LOC: US 13:02
PROVIDERS: ATTEND Internal Medicine Cardiovascular Disease
DX: M79.605 Pain in left leg (principal); M79.604 Pain in right leg
CPT/HCPCS: 93925

== ENCOUNTER 2018-11-03 07:30 | Inpatient (IN) | payer MEDICARE, OTHER ==
[~2018-11-03] VITALS: Ht 147.3 cm; Wt 44.0 kg
[2018-11-03] VITALS (8 sets, daily range): BP systolic 97–136; BP diastolic 52–71
[~2018-11-03 07:30] MED LIST changes: +HYDROmorphone 2 MG/ML VIAL IV PRN; +IV RINGERS,LACTATED 1000ML 1,000 ML IV SCH; +LIDOCAINE 1% PF 2 ML VIAL. ID PRN; +ONDANSETRON PF 4 MG/2 ML VIAL. IV PRN; +PROCHLORPERAZINE 10 MG/2 ML VIAL. IV PRN; +fentaNYL PF VIAL 100 MCG/2 ML VIAL IV PRN
[2018-11-03] MEDS ORDERED: SIMV40TA3 PO (08:29)
[2018-11-03] MEDS ORDERED: FURO20TA3 PO (08:31)
[2018-11-03] MEDS ORDERED: POTA10TA12 PO (08:32)
[2018-11-03] MEDS ORDERED: LACT1CAP8 PO (08:33)
[2018-11-03] MEDS ORDERED: AMLO5TAB4 PO (08:33)
[2018-11-03] MEDS ORDERED: PARO20TA3 PO (08:33)
[2018-11-03] MEDS ORDERED: CELE200C PO (08:34)
[2018-11-03] MEDS ORDERED: ROCURONIUM 50 MG/5 ML VIAL. ONE (09:35)
[2018-11-03] MEDS ORDERED: PROPOFOL 20 ML IV ONE (09:35)
[2018-11-03] MEDS ORDERED: ONDANSETRON PF 4 MG/2 ML VIAL. ONE (09:35)
[2018-11-03] MEDS ORDERED: LIDOCAINE 2% PF 5 ML VIAL. ONE (09:35)
[2018-11-03] MEDS ORDERED: DEXAMETHASONE SOD PHOS 4 MG/ML VIAL ONE (09:35)
[2018-11-03] MEDS ORDERED: fentaNYL PF VIAL 250 MCG/5 ML VIAL ONE (09:35)
--- NOTE | 2018-11-03 10:34 | HP ---
ADMIT DATE: 11/03/2018 PREOPERATIVE HISTORY AND PHYSICAL CHIEF COMPLAINT: Left hip pain. HISTORY: The patient is known to me from previous hyaluronic acid, viscosupplementation shots for both knees, which are otherwise doing well. She has been having ongoing and recurrent trochanteric bursitis, recurrent post-injection and stretching that is continuing to affect her activities of daily living. PAST MEDICAL HISTORY: Significant for hypothyroidism, depression, hyperlipidemia and hypertension. PAST SURGICAL HISTORY: Appendectomy, hysterectomy, x 2, cholecystectomy, laparoscopic hiatal hernia repair with Arley fundoplication. FAMILY HISTORY: Denies any family history. SOCIAL HISTORY: Denies smoking, alcohol or drug use. She does take care of her at home who has a frequent history of falls and she tried to catch him the other day ended up falling and having some bruising on the left side of her body. MEDICATIONS: List is reviewed. ALLERGIES: INCLUDE SULFA. REVIEW OF SYSTEMS: Negative for any chest pain, shortness of breath, recent fever, chills, constitutional symptoms. Both knees are doing well following the injections. PHYSICAL EXAMINATION: VITAL SIGNS: Height 4 feet 10 inches, weight 96.8 pounds, BMI 20. Remainder of her vitals are documented in the chart. HEENT: Atraumatic, normocephalic. HEART: Regular rate and rhythm. LUNGS: Clear to auscultation bilaterally. ABDOMEN: Benign. EXTREMITIES: Examination of the left hip reveals tenderness over the trochanteric bursa compared to the right. Negative straight leg raise sign. Leg lengths are equal. Normal alignment, stability, bilateral knees and ankles. IMPRESSION: Left hip trochanteric bursitis. TREATMENT PLAN: She was previously discussed in clinic and I previously discussed the possibility of arthroscopic treatment with iliotibial band release and debridement of the trochanteric bursa, given her ongoing limiting symptoms, especially since her knees are doing well. She is aware of the possibility of medical or other anesthetic complications, infection, continued pain, weakness, among others. All her questions were answered. She wishes to proceed with surgical evaluation and treatment and likely as expected for overnight admission with physical therapy as well, especially as her is unable to provide any care for her at home. SADIA KAY MD DR: NATALIE/shon JOB#: [id number] / [id number]
[2018-11-03] MEDS ORDERED: BUPIVACAINE MPF 0.5% 30 ML VIAL. ONE (10:35)
[2018-11-03] MEDS ORDERED: ROPIVacaine 0.2% PF 10 ML VIAL. ONE (10:35)
[2018-11-03] MEDS ORDERED: ePHEDrine PF IN SALINE 50 MG/10 ML SYRINGE. IV ONE (11:47)
[2018-11-03] MEDS ORDERED: SEVOFLURANE 61 TO 120 MINUTES. IH ONE (11:48)
[2018-11-03] MEDS ORDERED: GLYCOPYRROLATE 1 MG/5 ML VIAL. ONE (11:50)
[2018-11-03] MEDS ORDERED: NEOSTIGMINE METHYLSULFATE 5 MG/5 ML SYRINGE. ONE (11:50)
[2018-11-03] MEDS ORDERED: IV NORMAL SALINE 1000ML BAG 1,000 ML IV SCH (11:57)
[2018-11-03] MEDS ORDERED: MORPHINE SULFATE 2 MG/ML VIAL. IV PRN (12:00)
[2018-11-03] MEDS ORDERED: 0.9 % SODIUM CHLORIDE 10 ML DISP.SYRIN. IV PRN (12:00)
[2018-11-03] MEDS ORDERED: IV DEXTROSE 5% 250 ML BAG. IV PRN (12:00)
[2018-11-03] MEDS ORDERED: DEXTROSE 50% 25 GM / 50ML DISP.SYRIN. IV PRN (12:00)
[2018-11-03] MEDS ORDERED: PROCHLORPERAZINE 5 MG TABLET. PO PRN (12:00)
[2018-11-03] MEDS ORDERED: CALCIUM CARBONATE 500 MG TAB.CHEW PO PRN (12:00)
[2018-11-03] MEDS ORDERED: fentaNYL PF VIAL 100 MCG/2 ML VIAL IV PRN (12:00)
[2018-11-03] MEDS ORDERED: diphenhydrAMINE 50 MG/ML VIAL IV PRN (12:00)
[2018-11-03] MEDS: ONDANSETRON ODT 4 MG TAB.RAPDIS. PO SCH ×3 (12:00→23:14)
[2018-11-03] MEDS ORDERED: ZOLPIDEM 5 MG TABLET. PO PRN (12:00)
[2018-11-03] MEDS: ONDANSETRON PF 4 MG/2 ML VIAL. IV SCH ×3 (12:00→23:14)
--- NOTE | 2018-11-03 12:17 | PDOC4 ---
Operative Note Operative Note Date of surgery: 11/03/2018 Preoperative diagnosis: Refractory trochanteric bursitis left hip Postoperative diagnosis: Same Operative procedure: Left hip arthroscopy release iliotibial band and debridement trochanteric bursa Surgeon: Naseem Assist: Chris Grajeda nurse practitioner Anesthesia: Gen. Estimated blood loss: 30 mL Complications: None Operative indications: Please see my preoperative history and physical for details operative indications Operative text: Patient was identified procedure verified patient placed in the supine position on operating table. After adequate amounts of general anesthesia were administered she was placed decubitus left side up all bony prominences well-padded and stabilized with the Stulberg hip positioner. The left hip was then prepped and draped in standard sterile fashion. After timeout was performed patient procedure identified and verified arthroscopic portals were established proximal and distal to the greater trochanter along the midline of the femur laterally arthroscopic trocar was used to clear subcutaneous tissue off the iliotibial band bleeding points were controlled by bipolar electrocautery and under direct visualization the bipolar electrocautery was used to release the iliotibial band along the lateral midline iliotibial band opened up widely trochanteric bursa was debrided with the arthroscopic shaver again bleeding points controlled by electrocautery and release of the band noted above the i ntact insertion of the gluteus medius were muscle fibers were visualized as well as over the visualization of the vastus lateralis. Motion of the hip was verified with minimal contact of the iliotibial band after release third flushing with arthroscopic fluid subcutaneous closure with Vicryl suture skin closure with nylon suture sterile dressings were applied patient was returned r ecovery room in stable condition having tolerated procedure well SADIA KAY MD Nov 03, 2018 12:17
[2018-11-03] MEDS ORDERED: MORPHINE SULFATE 2 MG/ML VIAL. ONE (12:30)
[2018-11-03] MEDS: MORPHINE SULFATE 2 MG/ML VIAL. IV PRN ×2 (12:33→12:52)
[2018-11-03] MEDS ORDERED: HYDROmorphone 2 MG/ML VIAL ONE (13:07)
--- NOTE | 2018-11-03 13:25 | NUR ---
Rec'd from PACU per bed, alert/oriented, dressing clean, dry & intact, ambulated to bathroom with assistance of 1 person & walker, bilateral SCD's, IVF infusing into left wrist, oriented to surroundings, call light within reach, dtr here to see
[2018-11-03] MEDS: FERROUS SULFATE 325 MG TABLET. PO SCH (16:48)
[2018-11-03] MEDS: ceFAZolin SODIUM IV Push 1 GM VIAL. IVP SCH ×2 (16:49→23:14)
[2018-11-03] MEDS: PRAMIPEXOLE 0.25 MG TABLET. PO SCH (21:11)
[2018-11-03] MEDS: oxyCODONE IR 5 MG TABLET PO PRN (21:11)
[2018-11-03] MEDS: ATORVASTATIN CALCIUM 20 MG TABLET PO SCH (21:11)
[2018-11-03] MEDS: HYDROcodone/APAP 7.5/325MG 1 TAB TABLET PO PRN (23:14)
[2018-11-04 03:10] VITALS: BP 97/65
[2018-11-04] MEDS ORDERED: MAGNESIUM HYDROXIDE 2,400 MG/30 ML ORAL.SUSP. PO PRN (06:00)
[2018-11-04] MEDS: ONDANSETRON ODT 4 MG TAB.RAPDIS. PO SCH (06:00)
[2018-11-04 06:07] VITALS: BP 106/72
[2018-11-04] MEDS: ONDANSETRON PF 4 MG/2 ML VIAL. IV SCH (06:09)
[2018-11-04] MEDS: LEVOTHYROXINE 50 MCG TABLET PO SCH (06:09)
[2018-11-04] MEDS: traMADol 50 MG TABLET PO SCH ×3 (06:09→18:16)
[2018-11-04] MEDS: ceFAZolin SODIUM IV Push 1 GM VIAL. IVP SCH (06:10)
--- NOTE | 2018-11-04 07:24 | PDOC ---
ORTHO PROGRESS NOTES Subjective Patient states painful before meds taken bet better now. Post-op Day: 1 Procedure Left hip iliotibial band release and debridement of trochanteric bursa. Vitals Vital Signs Date Time Temp Pulse Resp B/P (MAP) Pulse Ox O2 Delivery O2 Flow Rate FiO2 11/04/18 06:10 16 99 Room Air 11/04/18 06:07 98.5 106 106/72 (83) 98.5 11/03/18 13:10 3.0 Notes Awake and alert Assessment and Plan POD # ! S/P left hip iliotibial band release with debridement of trochanteric bursa motor and sensory intact distally dressing dry and intact calf soft and non tender PT then home later this afternoon SARKIS MEIER APRN Nov 04, 2018 07:24
[2018-11-04 08:34] VITALS: BP 102/51
[2018-11-04] MEDS: SENNOSIDES/DOCUSATE 8.6/50MG TABLET. PO SCH (08:36)
[2018-11-04] MEDS: MELOXICAM 7.5 MG TABLET PO SCH (08:36)
[2018-11-04] MEDS: PARoxetine 20 MG TABLET PO SCH (08:36)
[2018-11-04] MEDS: LACTOBACILLUS RHAMNOSUS GG 1 CAPSULE. PO SCH (08:36)
[2018-11-04] MEDS: ACETAMINOPHEN 500 MG TABLET PO SCH ×2 (08:37→21:03)
[2018-11-04] MEDS: FERROUS SULFATE 325 MG TABLET. PO SCH ×2 (08:37→16:56)
[2018-11-04] MEDS: POTASSIUM CHLORIDE 10 MEQ TABLET.ER. PO SCH (08:37)
[2018-11-04] MEDS: MULTIVITAMIN with MINERAL TABLET. PO SCH (08:37)
[2018-11-04] MEDS: FUROSEMIDE 20 MG TABLET PO SCH (08:47)
[2018-11-04] MEDS: amLODIPine BESYLATE 5 MG TABLET PO SCH (08:47)
[2018-11-04 11:20] VITALS: BP 115/56
[2018-11-04] MEDS ORDERED: ONDANSETRON ODT 4 MG TAB.RAPDIS. PO PRN (12:00)
[2018-11-04] MEDS ORDERED: ONDANSETRON PF 4 MG/2 ML VIAL. IV PRN (12:00)
[2018-11-04] MEDS: HYDROcodone/APAP 7.5/325MG 1 TAB TABLET PO PRN (13:15)
[2018-11-04] MEDS ORDERED: BISACODYL 10 MG SUPP.RECT. PR PRN (16:00)
[2018-11-04 18:38] VITALS: BP 113/54
[2018-11-04] MEDS: PRAMIPEXOLE 0.25 MG TABLET. PO SCH (21:03)
[2018-11-04] MEDS: ATORVASTATIN CALCIUM 20 MG TABLET PO SCH (21:03)
[2018-11-05] MEDS: traMADol 50 MG TABLET PO SCH ×4 (00:31→17:11)
[2018-11-05] MEDS: LEVOTHYROXINE 50 MCG TABLET PO SCH (05:53)
[2018-11-05 06:40] VITALS: BP 125/71
[2018-11-05] MEDS: POTASSIUM CHLORIDE 10 MEQ TABLET.ER. PO SCH (08:06)
[2018-11-05] MEDS: SENNOSIDES/DOCUSATE 8.6/50MG TABLET. PO SCH (08:06)
[2018-11-05] MEDS: MULTIVITAMIN with MINERAL TABLET. PO SCH (08:06)
[2018-11-05] MEDS: FERROUS SULFATE 325 MG TABLET. PO SCH ×2 (08:06→17:10)
[2018-11-05] MEDS: PARoxetine 20 MG TABLET PO SCH (08:06)
[2018-11-05] MEDS: amLODIPine BESYLATE 5 MG TABLET PO SCH (08:06)
[2018-11-05] MEDS: MELOXICAM 7.5 MG TABLET PO SCH (08:07)
[2018-11-05] MEDS: FUROSEMIDE 20 MG TABLET PO SCH (08:07)
[2018-11-05] MEDS: LACTOBACILLUS RHAMNOSUS GG 1 CAPSULE. PO SCH (08:09)
[2018-11-05] MEDS: ACETAMINOPHEN 500 MG TABLET PO SCH (08:09)
[2018-11-05] MEDS: oxyCODONE IR 5 MG TABLET PO PRN (15:00)
[2018-11-05 18:00] VITALS: BP 130/70
--- NOTE | 2018-11-05 18:01 | NUR ---
Patient left the building around 1800 in a wheelchair with her daughter. Discharge education done by this nurse, therapy, and the doctor prior to discharge. Teaching was completed with the patient and her daughter present. Aquacel dressing instructions were discussed and also when to make a follow up appointment. Script given for lortab to the patient. They both stated understanding and had no concerns upon discharge.
== END 2018-11-05 18:02 | disposition home or self-care (01) | DRG 502 ==
LOC: EDSTATUS 07:30 → OPSVCIP 08:48 → 4 SOUTHEST 13:32
PROVIDERS: ADMIT Orthopaedic Surgery; ATTEND Orthopaedic Surgery
PROC: 0JN Subcutaneous Tissue and Fascia, Release (ICD-10-PCS; 2018-11-03)
PROC: 0Y3 Anatomical Regions, Lower Extremities, Control (ICD-10-PCS; 2018-11-03)
PROC: 0MBM4ZZ Excision of Left Hip Bursa and Ligament, Percutaneous Endoscopic Approach (ICD-10-PCS; principal; 2018-11-03 10:05)
DX: M70.62 Trochanteric bursitis, left hip (principal); E03.9 Hypothyroidism, unspecified; F32.9 Major depressive disorder, single episode, unspecified; I10 Essential (primary) hypertension; E78.5 Hyperlipidemia, unspecified; Z90.710 Acquired absence of both cervix and uterus; Z90.49 Acquired absence of other specified parts of digestive tract; Z91.81 History of falling; Z88.2 Allergy status to sulfonamides
CPT/HCPCS: A7015; J0171; J0690; J1100; J1170; J2001; J2270; J2405; J2704; J2710; J2795; J3010; J3490; J7030; J7120; 97110; 97116; 97150; 97530; 97535; G0378

== ENCOUNTER → 2018-11-13 | Outpatient (CLI) | payer MEDICARE, OTHER ==
[2018-11-05 18:00] VITALS: BP 130/70
[~2018-11-13] MED LIST changes: +AMLO5TAB4 PO; +CELE200C PO; -HYDROmorphone 2 MG/ML VIAL IV PRN; -IV RINGERS,LACTATED 1000ML 1,000 ML IV SCH; -LIDOCAINE 1% PF 2 ML VIAL. ID PRN; -ONDANSETRON PF 4 MG/2 ML VIAL. IV PRN; +PARO20TA3 PO; -PROCHLORPERAZINE 10 MG/2 ML VIAL. IV PRN; +SIMV40TA3 PO; -fentaNYL PF VIAL 100 MCG/2 ML VIAL IV PRN
[2018-11-13 14:03] LABS: BASO % 1 % (0-3); EOS # 0.2 x10^3/uL (0.0-0.7); EOS % 3 % (0-3); HEMATOCRIT 29.1 % (36.0-47.0); HEMOGLOBIN 9.8 g/dL (12.0-15.5); LYMPH # 1.6 x10^3/uL (1.0-4.8); LYMPH % 26 % (24-48); MEAN CORPUSCULAR HEMOGLOBIN 32 pg (25-35); MEAN CORPUSCULAR HGB CONC 34 g/dL (31-37); MEAN CORPUSCULAR VOLUME 94 fL (79-100); MONO # 0.8 x10^3/uL (0.0-1.1); MONO % 12 % (0-9); NEUT # 3.7 x10^3/uL (1.8-7.7); NEUT % 59 % (31-73); PLATELET COUNT 477 x10^3/uL (140-400); RED BLOOD COUNT 3.11 x10^6/uL (3.50-5.40); RED CELL DISTRIBUTION WIDTH 15.6 % (11.5-14.5); WHITE BLOOD COUNT 6.2 x10^3/uL (4.0-11.0)
--- NOTE | 2018-11-13 14:03 | EKG ---
[facility] [address] [place] [address] Test Date: 2018-11-13 Test Time: 14:06:27 Pat Name: JERROD MCCARTNEY Department: Room: Gender: F Family Service Worker: : 1940 Requested By: GERBER BAILEY Order Number: [id number] Reading MD: Remberto Gomez MD Measurements Intervals [place] Rate: 74 P: 58 AR: 158 QRS: 20 QRSD: 86 T: 49 QT: 400 QTc: 444 Interpretive Statements SINUS RHYTHM Electronically Signed On 11-17-2018 14:25:14 CDT by Remberto Gomez MD
[2018-11-13 14:20] LABS: ALBUMIN 3.7 g/dL (3.4-5.0); ALBUMIN/GLOBULIN RATIO 1.1 (1.0-1.7); CALCIUM 9.4 mg/dL (8.5-10.1); CREATININE 0.6 mg/dL (0.6-1.0); GFR 97.2; POTASSIUM 3.5 mmol/L (3.5-5.1); TOTAL BILIRUBIN 0.9 mg/dL (0.2-1.0); TOTAL PROTEIN 7.2 g/dL (6.4-8.2)
== END | disposition home or self-care (01) ==
LOC: SURGPAT 13:34
PROVIDERS: ATTEND Neurological Surgery
DX: Z01.818 Encounter for other preprocedural examination (principal); M48.061 Spinal stenosis, lumbar region without neurogenic claudication; Z88.2 Allergy status to sulfonamides
CPT/HCPCS: 36415; 80053; 85025; 87641; 93005

== ENCOUNTER → 2018-11-19 | Day surgery (SDC) | payer MEDICARE, OTHER ==
[2018-11-13 13:55] VITALS: BP 159/74
--- NOTE | 2018-11-18 16:45 | HP ---
ADMIT DATE: 11/27/2018 PREOPERATIVE HISTORY AND PHYSICAL DATE OF SURGERY: 11/27/18 HISTORY OF PRESENT ILLNESS: The patient is a pleasant 77-year-old who in 2014 underwent laminectomy and discectomy at L3-L4 and did well. Her current problem is low back pain and pain which radiates into her left hip and lateral thigh and leg. She notes left greater than right calf numbness and tingling. She says that standing and walking increase her discomfort. Sitting helps her. She takes [place] daily. She has had physical therapy, which was not of significant benefit. She has been working with Dr. Gusman with regard to her left hip and leg pain. PAST MEDICAL HISTORY: Arthritis, headaches and migraines, hypertension, rheumatoid arthritis, ulcers, depression, osteoporosis, stomach and intestinal disease, thyroid disease. PAST SURGICAL HISTORY: Tonsillectomy in 1949, C-sections in 1967 and 1972, hysterectomy in 1986, cholecystectomy in 1987, thyroid surgery in 2005, cataract surgery in 2009, eyelid surgery in 2009, hiatal hernia repair in 2010, lumbar microdecompression at L3-L4. FAMILY HISTORY: Alzheimer disease, cancer, diabetes, cardiac disease, hypertension and migraines. SOCIAL HISTORY: She is and currently lives with the spouse. She is retired. She is a nondrinker and nonsmoker. She has no personal history of illicit drug use or prescription misuse. She rarely exercises. ALLERGIES: SULFA. CURRENT MEDICATIONS: Simvastatin, Synthroid, amlodipine, potassium, pramipexole dihydrochloride, probiotic, arthritis, melatonin, [place], furosemide. REVIEW OF SYSTEMS: A 12-point review of systems was obtained and is noncontributory except for the mentioned above. PHYSICAL EXAMINATION: On neurosurgery examination: GENERAL APPEARANCE: Alert, pleasant, no acute distress. HEAD: Normocephalic and atraumatic. SKIN: Warm and dry. Well-healed lumbar incision. MUSCULOSKELETAL: Lumbar paraspinal muscle bulk is normal, restricted range of motion of the lumbar spine, normal range of motion of the lower extremities bilaterally. EXTREMITIES: No clubbing, cyanosis or edema. NEUROLOGIC: Alert and oriented x 3, normal recent and remote memory. Strength 5/5 in bilateral upper and lower extremities, sensory was intact to light touch in the upper and lower extremities, reflexes were present and symmetric in upper and lower extremities bilaterally, normal gait. IMAGING DATA: I reviewed a lumbar MRI scan. Postoperative changes are seen at L3-L4 on the left. She does have lumbar spinal stenosis of moderate degree present at L4-L5. ASSESSMENT: Spinal stenosis, lumbar region with neurogenic claudication. PLAN: I believe the problem is at L4-L5 contributing to her pain. I recommend a lumbar bilateral microdecompressive surgery at this level to see if this might help her. I did discuss this with her including the risks and expected postoperative course. She understands. She would like to go ahead. We will make the arrangements. GERBER BAILEY MD DR: VIDHYA/shon JOB#: [id number] / [id number] MIKE
[~2018-11-19] VITALS: Ht 147.3 cm; Wt 46.7 kg
[~2018-11-19] MED LIST changes: +BACITRACIN 50,000 UNIT in IV NORMAL SALINE 1000ML BAG 1,000 ML IRR ONE; +BUPIVACAINE-EPI 0.5%-1:200000 MPF 30 ML VIAL. INJ ONE; +DEXAMETHASONE SOD PHOS 20 MG/5 ML VIAL. ONE; +DOCU-109 PO; +GELATIN SPONGE SIZE 100. ONE; +HYDROmorphone 2 MG/ML VIAL IV PRN; +IV RINGERS,LACTATED 1000ML 1,000 ML IV SCH; +KETOROLAC 60 MG/2 ML VIAL. ONE; +LIDOCAINE 1% PF 2 ML VIAL. ID PRN; +LIDOCAINE 2% PF 5 ML VIAL. ONE; +MORPHINE SULFATE 2 MG/ML VIAL. IV PRN; +ONDANSETRON PF 4 MG/2 ML VIAL. IV PRN; +ONDANSETRON PF 4 MG/2 ML VIAL. ONE; +PROCHLORPERAZINE 10 MG/2 ML VIAL. IV PRN; +PROPOFOL 0 ML IV ONE; +REMIFENTANIL 2 MG VIAL. IV ONE; +ROCURONIUM 50 MG/5 ML VIAL. ONE; +THROMBIN TOPICAL 20,000 UNIT SPRAY.SYRN KIT TP ONE; +fentaNYL PF VIAL 100 MCG/2 ML VIAL IV PRN
== END ==
LOC: SURG 07:24
PROVIDERS: ATTEND Neurological Surgery
DX: M48.062 Spinal stenosis, lumbar region with neurogenic claudication (principal); Z53.9 Procedure and treatment not carried out, unspecified reason; E78.00 Pure hypercholesterolemia, unspecified; I11.0 Hypertensive heart disease with heart failure; I50.9 Heart failure, unspecified; K44.9 Diaphragmatic hernia without obstruction or gangrene; K57.30 Diverticulosis of large intestine without perforation or abscess without bleeding; F41.9 Anxiety disorder, unspecified; Z98.890 Other specified postprocedural states; Z98.42 Cataract extraction status, left eye; Z98.41 Cataract extraction status, right eye; Z90.710 Acquired absence of both cervix and uterus; Z90.721 Acquired absence of ovaries, unilateral; Z96.1 Presence of intraocular lens
CPT/HCPCS: J1885; J3490; J1100; J2001; J2405; J2704; J7030

== ENCOUNTER 2018-11-27 08:41 | Observation (INO) | payer MEDICARE, OTHER ==
[~2018-11-27] VITALS: Ht 149.9 cm; Wt 46.9 kg
[~2018-11-27 08:41] MED LIST changes: +DESFLURANE > 120 MINUTES IH ONE; -DOCU-109 PO; -GELATIN SPONGE SIZE 100. ONE; +GELATIN SPONGE SIZE 12-7MM SPONGE. ONE; +GLYCOPYRROLATE 1 MG/5 ML VIAL. ONE; -MORPHINE SULFATE 2 MG/ML VIAL. IV PRN; +PHENYLEPHRINE 10 MG/ML VIAL. ONE; -PROPOFOL 0 ML IV ONE; +PROPOFOL 20 ML IV ONE; +PROPOFOL 50 ML IV ONE; +ceFAZolin 2GM PREMIX 2 GM/50 ML BAG IV ONE
[2018-11-27] MEDS ORDERED: fentaNYL PF VIAL 100 MCG/2 ML VIAL ONE ×2 (10:45→14:26)
[2018-11-27] MEDS ORDERED: DESFLURANE > 120 MINUTES IH ONE (12:07)
[2018-11-27] MEDS ORDERED: NEOSTIGMINE METHYLSULFATE 5 MG/5 ML SYRINGE. ONE (12:57)
[2018-11-27] MEDS ORDERED: GELATIN SPONGE SIZE 12-7MM SPONGE. ONE ×2 (13:02)
[2018-11-27] MEDS ORDERED: DOCU-109 PO (14:05)
--- NOTE | 2018-11-27 14:08 | DISCH ---
DISCHARGE INSTRUCTIONS Condition on Discharge Condition on Discharge: Stable Activity After Discharge Activity Instructions for Disc: Activity as tolerated, Avoid exertion Bathing Instructions: Shower-keep dressing dry Lifting Instructions after Dis: No heavy lifting, No pulling or pushing Exercise Instruction after Dis: Exercise per therapy, Progress as tolerated Driving Instructions after Dis: Do not drive today Weight Bearing Status after Di: As tolerated Diet after Discharge Diet after Discharge: Regular Additional Diet Restrictions: resume home diet Diet Texture: Regular Liquid Texture: Thin Liquid Swallowing Supervision: None needed Wound Incision Care Wound/Incision Care: Ice to area for comfort Other wound/incision instructi: may remove dressing in 48 hours if dry then may shower, no soaking Contacting the DRKayla after DC Call your doctor for: Concerns you may have Follow-Up Follow up with: Dr. Hernandez's nurse in 2 weeks [phone] Treatment/Equipment after DC Adaptive Equipment Issued: GERBER Soriano MD Nov 27, 2018 14:08
[2018-11-27] MEDS ORDERED: MORPHINE SULFATE 2 MG/ML VIAL. ONE (14:13)
[2018-11-27] MEDS: MORPHINE SULFATE 2 MG/ML VIAL. IV PRN ×2 (14:23→14:38)
[2018-11-27] MEDS: fentaNYL PF VIAL 100 MCG/2 ML VIAL IV PRN ×2 (14:29→14:38)
[2018-11-27] MEDS: POTASSIUM CL 20MEQ D5-0.45NACL 1,000 ML IV SCH (14:50)
[2018-11-27] MEDS ORDERED: CALCIUM CARBONATE 500 MG TAB.CHEW PO PRN (15:00)
[2018-11-27] MEDS ORDERED: MAG HYDROX/ALUMINUM HYD/SIMETH 30 ML ORAL.SUSP PO PRN (15:00)
[2018-11-27] MEDS ORDERED: 0.9 % SODIUM CHLORIDE 10 ML DISP.SYRIN. IV PRN (15:00)
[2018-11-27] MEDS ORDERED: diphenhydrAMINE HCL 25 MG CAPSULE PO PRN (15:00)
[2018-11-27] MEDS ORDERED: ACETAMINOPHEN 325 MG TABLET. PO PRN (15:00)
[2018-11-27] MEDS ORDERED: HYDROcodone/APAP 7.5/325MG 1 TAB TABLET PO PRN ×2 (15:00)
[2018-11-27] MEDS ORDERED: MAGNESIUM HYDROXIDE 2,400 MG/30 ML ORAL.SUSP. PO PRN (15:00)
--- NOTE | 2018-11-27 15:12 | OP ---
DATE OF SURGERY: 11/27/2018 PREOPERATIVE DIAGNOSES: Lumbar spinal stenosis, L4-L5. POSTOPERATIVE DIAGNOSIS: Lumbar spinal stenosis, L4-L5. OPERATION PERFORMED: Bilateral hemilaminotomies with decompression of dura and nerve root, L4-L5. The operation was done with EMG monitoring, SSEP monitoring, fluoroscopy, microscopic dissection. SURGEON: Fred Bailey M.D. SUPERINTENDENT [employer]: Dionna Spencer APRN assisted with the surgery. She assisted with the exposure, the bilateral microdecompression as well as the closure. OPERATIVE INDICATIONS: The patient is a pleasant 77-year-old woman who developed intractable back and bilateral leg pain and was found to have lumbar spinal stenosis at L4-L5. I recommended bilateral lumbar microdecompressive surgery. I spoke with her about the surgery and the risks. I also discussed the technique of the operation and expected postoperative course and she wished to go ahead. DESCRIPTION OF PROCEDURE: Following general endotracheal anesthesia, the patient was positioned prone on the Pasquale table. Lumbar region prepped and draped in the standard fashion. JOLYNN hose and AV impulse boots were applied for DVT prophylaxis. A microscope was draped. Fluoroscopy was draped and brought into the field. Monitoring was established. Ancef 2 gram was given less than 1 hour prior to initiation of surgery. Using fluoroscopic guidance, an incision was made directly over the L4-L5 interspace, dissected skin and subcutaneous tissue, reflected the paraspinal muscles toward the left and placed a microdisk retractor. I brought in the microscope and using the high speed air drill, I burred down a generous hemilaminotomy. I then trimmed away the very thickened ligamentum flavum, which was markedly compressing the L5 roots and peeled this back and I performed partial foraminotomies and fully decompressed the entire region. There were a number of large epidural veins, which I coagulated and I fully decompressed this area. I removed the retractor, obtained hemostasis in the muscle and then switched to the right side in a similar fashion, burred down a generous hemilaminotomy through the microscope using microscopic technique. I trimmed away thickened ligamentum flavum and I performed a partial foraminotomy and I fully decompressed the area. I explored carefully on both sides and assured myself, the disc was flat, no discectomy was warranted. Again, there was a large epidural vein, which I coagulated. At this point, then I irrigated with antibiotic solution. After removing the retractors, I obtained hemostasis in the muscle and I assured myself that hemostasis was excellent. I closed the fascia with absorbable sutures and the skin was closed with 4-0 subcuticular stitch. The operation went very well and I was quite pleased with the surgery. FRED BAILEY MD DR: VIDHYA/shon JOB#: [id number] / [id number] MIKE
[2018-11-27 15:15] VITALS: BP 132/61
[2018-11-27] MEDS ORDERED: INFLUENZA VAX SCREEN BY RX. MC PRN (18:15)
[2018-11-27 19:00] VITALS: BP 136/64
[2018-11-27] MEDS: DOCUSATE SODIUM 100 MG CAPSULE. PO SCH (20:05)
[2018-11-27] MEDS: HYDROcodone/APAP 7.5/325MG 1 TAB TABLET PO PRN (20:10)
[2018-11-27] MEDS ORDERED: ATORVASTATIN CALCIUM 40 MG TABLET. PO SCH (21:00)
[2018-11-27] MEDS ORDERED: PRAMIPEXOLE 0.25 MG TABLET. PO SCH (21:00)
[2018-11-27 22:51] VITALS: BP 126/51
[2018-11-28 03:00] VITALS: BP 140/61
[2018-11-28] MEDS: HYDROcodone/APAP 7.5/325MG 1 TAB TABLET PO PRN ×2 (03:03→09:03)
[2018-11-28] MEDS: POTASSIUM CL 20MEQ D5-0.45NACL 1,000 ML IV SCH (04:10)
[2018-11-28 07:00] VITALS: BP 132/55
[2018-11-28] MEDS ORDERED: LEVOTHYROXINE 50 MCG TABLET PO SCH (07:00)
[2018-11-28] MEDS ORDERED: PARoxetine 20 MG TABLET PO SCH (09:00)
[2018-11-28] MEDS ORDERED: FLU VAX QS 2019-20 (36MOS+)/PF 0.5 ML SYRINGE. VAX IM ONE (09:00)
[2018-11-28] MEDS ORDERED: CELECOXIB 100 MG CAPSULE. PO SCH (09:00)
[2018-11-28] MEDS ORDERED: LACTOBACILLUS RHAMNOSUS GG 1 CAPSULE. PO SCH (09:00)
[2018-11-28] MEDS ORDERED: POTASSIUM CHLORIDE 10 MEQ TABLET.ER. PO SCH (09:00)
[2018-11-28] MEDS ORDERED: FUROSEMIDE 20 MG TABLET PO SCH (09:00)
[2018-11-28] MEDS ORDERED: amLODIPine BESYLATE 5 MG TABLET PO SCH (09:00)
[2018-11-28] MEDS: DOCUSATE SODIUM 100 MG CAPSULE. PO SCH (09:04)
[2018-11-28 11:00] VITALS: BP 115/51
--- NOTE | 2018-11-28 14:41 | NUR ---
Pt. discharged to home, verbalized understanding of discharge instructions. Back dressing CDI.
--- NOTE | 2018-12-01 15:07 | PATHOLOGY ---
[facility] Accession Number: [id number] . 01 Material submitted: . vertebral column - LUMBAR DECOMPRESSION . 01 Clinical history: . Lumbar stenosis . 02 Diagnosis: Segments of fibrocartilaginous tissue and bone, lumbar decompression: - Degenerative changes of fibrocartilaginous tissue. . (JPM:[facility] 12/01/2018) [facility] 12/01/2018 1259 Local . 02 Comment: There is no evidence of an acute inflammatory process or malignancy. (JPM:[facility] 12/01/2018) . 02 Electronically signed: . Caleb Wu MD, Pathologist NPI- [id number] . 01 Gross description: . The specimen is received in formalin, labeled "South, Patricia, lumbar decompression" and consists of multiple fragments of yellow-gillespie soft tissue and bone measuring 3.9 x 2.9 x 0.8 cm in aggregate. A brewery representative portion is submitted in A1 following decalcification. (SDY; 11/30/2018) [facility] 12/01/2018 1257 Local . 02 Pathologist provided ICD-10: M51.36 . 02 CPT . 174531, [id number] Specimen Comment: A courtesy copy of this report has been sent to Specimen Comment: [phone], . Specimen Comment: Report sent to / DR KINSEY Specimen Comment: Report sent to Performed at: 01 [facility] [address], [place] [id number] MD Duane Chakco MD Phone: [phone] Performed at: 02 [facility] [address], [place] [id number] MD Caleb Wu MD Phone: [phone]
== END 2018-11-28 14:26 | disposition home or self-care (01) ==
LOC: SURG 08:41 → 4 NORTH 14:59
PROVIDERS: ADMIT Neurological Surgery; ATTEND Neurological Surgery
DX: M48.061 Spinal stenosis, lumbar region without neurogenic claudication (principal); I10 Essential (primary) hypertension; F32.9 Major depressive disorder, single episode, unspecified; M19.90 Unspecified osteoarthritis, unspecified site; M81.0 Age-related osteoporosis without current pathological fracture; G43.909 Migraine, unspecified, not intractable, without status migrainosus; E07.9 Disorder of thyroid, unspecified; Z88.2 Allergy status to sulfonamides
CPT/HCPCS: 36415; 63030; 76000; 84132; 88304; 88311; 90471; 90686; 97161; A7015; G0378; G0379; J0696; J1100; J1885; J2001; J2270; J2405; J2704; J2710; J3010; J3490; J7030

== ENCOUNTER 2019-01-02 15:52 | Emergency (ER) | payer MEDICARE, OTHER ==
[~2019-01-02] VITALS: Ht 149.9 cm; Wt 46.7 kg
[~2019-01-02 15:52] MED LIST changes: -BACITRACIN 50,000 UNIT in IV NORMAL SALINE 1000ML BAG 1,000 ML IRR ONE; -BUPIVACAINE-EPI 0.5%-1:200000 MPF 30 ML VIAL. INJ ONE; -DESFLURANE > 120 MINUTES IH ONE; -DEXAMETHASONE SOD PHOS 20 MG/5 ML VIAL. ONE; +DOCU-109 PO; -GELATIN SPONGE SIZE 12-7MM SPONGE. ONE; -GLYCOPYRROLATE 1 MG/5 ML VIAL. ONE; -HYDROmorphone 2 MG/ML VIAL IV PRN; -IV RINGERS,LACTATED 1000ML 1,000 ML IV SCH; -KETOROLAC 60 MG/2 ML VIAL. ONE; -LIDOCAINE 1% PF 2 ML VIAL. ID PRN; -LIDOCAINE 2% PF 5 ML VIAL. ONE; -ONDANSETRON PF 4 MG/2 ML VIAL. IV PRN; -ONDANSETRON PF 4 MG/2 ML VIAL. ONE; -PHENYLEPHRINE 10 MG/ML VIAL. ONE; -PROCHLORPERAZINE 10 MG/2 ML VIAL. IV PRN; -PROPOFOL 20 ML IV ONE; -PROPOFOL 50 ML IV ONE; -REMIFENTANIL 2 MG VIAL. IV ONE; -ROCURONIUM 50 MG/5 ML VIAL. ONE; +SIMV10TA15 PO; -SIMV10TA3 PO; +SIMV40TA18 PO; -SIMV40TA3 PO; -THROMBIN TOPICAL 20,000 UNIT SPRAY.SYRN KIT TP ONE; -ceFAZolin 2GM PREMIX 2 GM/50 ML BAG IV ONE; -fentaNYL PF VIAL 100 MCG/2 ML VIAL IV PRN
[2019-01-02 16:47] LABS: BASO % 0 % (0-3); EOS # 0.1 x10^3/uL (0.0-0.7); EOS % 2 % (0-3); HEMOGLOBIN 12.4 g/dL (12.0-15.5); LYMPH # 2.4 x10^3/uL (1.0-4.8); LYMPH % 28 % (24-48); MEAN CORPUSCULAR HEMOGLOBIN 30 pg (25-35); MEAN CORPUSCULAR HGB CONC 34 g/dL (31-37); MEAN CORPUSCULAR VOLUME 90 fL (79-100); MONO % 12 % (0-9); NEUT # 5.1 x10^3/uL (1.8-7.7); NEUT % 59 % (31-73); PLATELET COUNT 364 x10^3/uL (140-400); RED BLOOD COUNT 4.12 x10^6/uL (3.50-5.40); RED CELL DISTRIBUTION WIDTH 13.8 % (11.5-14.5); WHITE BLOOD COUNT 8.7 x10^3/uL (4.0-11.0)
[2019-01-02 16:57] LABS: PROTHROMBIN TIME PATIENT 11.9 SEC (11.7-14.0)
[2019-01-02 16:58] LABS: CALCIUM 8.8 mg/dL (8.5-10.1); CREATININE 0.7 mg/dL (0.6-1.0); GFR 81.1; POTASSIUM 3.4 mmol/L (3.5-5.1)
[2019-01-02 17:03] LABS: ALBUMIN 3.9 g/dL (3.4-5.0); ALBUMIN/GLOBULIN RATIO 1.1 (1.0-1.7); MAGNESIUM 2.1 mg/dL (1.8-2.4); TOTAL BILIRUBIN 0.3 mg/dL (0.2-1.0); TOTAL PROTEIN 7.5 g/dL (6.4-8.2)
--- NOTE | 2019-01-02 17:19 | PHYS DOC ---
Past Medical History Past Medical History: Arthritis, High Cholesterol, Hypertension, Hypothyroid Additional Past Medical Histor: THYROID DZ, RLS Past Surgical History: Appendectomy, Hysterectomy Additional Past Surgical Histo: REMOVED NODULE FROM THYROID, BACK, CATARACT, HERNIA Alcohol Use: None Drug Use: None Adult General Chief Complaint Chief Complaint: ALTERED MENTAL STATUS HPI HPI Patient is a 78 year old female who presents with her mother with complaining of confusion. Patient's daughter states for the last few days she is acting confused and forgetting about events and asking about something that did not happened at all. Patient's daughter she had history of hypernatremia and she wondered if she has electrolyte problem again. Patient denies chest pain, obdulio rtness of breath, urinary symptom, nausea and vomiting, focal neuro deficit, headache, blurred vision, falls. Patient is alert and oriented 3 and answers the questions appropriately. Review of Systems Review of Systems Constitutional: Denies fever or chills [] Eyes: Denies change in visual acuity, redness, or eye pain [] HENT: Denies nasal congestion or sore throat [] Respiratory: Denies cough or shortness of breath [] Cardiovascular: No additional information not addressed in HPI [] GI: Denies abdominal pain, nausea, vomiting, bloody stools or diarrhea [] : Denies dysuria or hematuria [] Musculoskeletal: Denies back pain or joint pain [] Integument: Denies rash or skin lesions [] Neurologic: Denies headache, focal weakness or sensory changes [] Endocrine: Denies polyuria or polydipsia [] All other systems were reviewed and found to be within normal limits, except as documented in this note. Allergies Allergies Allergies Coded Allergies Type Severity Reaction Last Updated Verified Sulfa (Sulfonamide Antibiotics) Adverse Reaction Intermediate Nausea and Vomiting 11/27/18 Yes Physical Exam Physical Exam Constitutional: Well developed, well nourished, no acute distress, non-toxic appearance. [] HENT: Normocephalic, atraumatic, bilateral external ears normal, oropharynx mo ist, no oral exudates, nose normal. [] Eyes: PERRLA, EOMI, conjunctiva normal, no discharge. [] Neck: Normal range of motion, no tenderness, supple, no stridor. [] Cardiovascular:Heart rate regular rhythm, no murmur [] Lungs & Thorax: Bilateral breath sounds clear to auscultation [] Abdomen: Bowel sounds normal, soft, no tenderness, no masses, no pulsatile masses. [] Skin: Warm, dry, no erythema, no rash. [] Back: No tenderness, no CVA tenderness. [] Extremities: No tenderness, no cyanosis, no clubbing, ROM intact, no edema. [] Neurologic: Alert and oriented X 3, normal motor function, normal sensory function, no focal deficits noted. [] Psychologic: Affect normal, judgement normal, mood normal. [] Current Patient Data Vital Signs Vital Signs Date Time Temp Pulse Resp B/P (MAP) Pulse Ox O2 Delivery O2 Flow Rate FiO2 01/02/19 16:25 98.6 77 14 158/71 (100) 96 Room Air 98.6 Lab Values Laboratory Tests Test 01/02/19 16:22 01/02/19 17:10 White Blood Count 8.7 x10^3/uL (4.0-11.0) Red Blood Count 4.12 x10^6/uL (3.50-5.40) Hemoglobin 12.4 g/dL (12.0-15.5) Hematocrit 37.0 % (36.0-47.0) Mean Corpuscular Volume 90 fL (79-100) Mean Corpuscular Hemoglobin 30 pg (25-35) Mean Corpuscular Hemoglobin Concent 34 g/dL (31-37) Red Cell Distribution Width 13.8 % (11.5-14.5) Platelet Count 364 x10^3/uL (140-400) Neutrophils (%) (Auto) 59 % (31-73) Lymphocytes (%) (Auto) 28 % (24-48) Monocytes (%) (Auto) 12 % (0-9) H Eosinophils (%) (Auto) 2 % (0-3) Basophils (%) (Auto) 0 % (0-3) Neutrophils # (Auto) 5.1 x10^3/uL (1.8-7.7) Lymphocytes # (Auto) 2.4 x10^3/uL (1.0-4.8) Monocytes # (Auto) 1.0 x10^3/uL (0.0-1.1) Eosinophils # (Auto) 0.1 x10^3/uL (0.0-0.7) Basophils # (Auto) 0.0 x10^3/uL (0.0-0.2) Prothrombin Time 11.9 SEC (11.7-14.0) Prothrombin Time INR 0.9 (0.8-1.1) Sodium Level 137 mmol/L (136-145) Potassium Level 3.4 mmol/L (3.5-5.1) L Chloride Level 97 mmol/L (98-107) L Carbon Dioxide Level 33 mmol/L (21-32) H Anion Gap 7 (6-14) Blood Urea Nitrogen 19 mg/dL (7-20) Creatinine 0.7 mg/dL (0.6-1.0) Estimated GFR (Cockcroft-Gault) 81.1 BUN/Creatinine Ratio 27 (6-20) H Glucose Level 95 mg/dL (70-99) Lactic Acid Level 0.9 mmol/L (0.4-2.0) Calcium Level 8.8 mg/dL (8.5-10.1) Magnesium Level 2.1 mg/dL (1.8-2.4) Total Bilirubin 0.3 mg/dL (0.2-1.0) Aspartate Amino Transferase (AST) 12 U/L (15-37) L Alanine Aminotransferase (ALT) 16 U/L (14-59) Alkaline Phosphatase 40 U/L (46-116) L Creatine Kinase 37 U/L (26-192) Troponin I Quantitative < 0.017 ng/mL (0.000-0.055) SE-Wrf-A-Type Natriuretic Peptide 124 pg/mL (0-449) Total Protein 7.5 g/dL (6.4-8.2) Albumin 3.9 g/dL (3.4-5.0) Albumin/Globulin Ratio 1.1 (1.0-1.7) Urine Collection Type Unknown Urine Color Yellow Urine Clarity Clear Urine pH 6.5 Urine Specific Rowdy 1.020 Urine Protein Negative mg/dL (NEG-TRACE) Urine Glucose (UA) Negative mg/dL (NEG) Urine Ketones (Stick) Negative mg/dL (NEG) Urine Blood Negative (NEG) Urine Nitrite Negative (NEG) Urine Bilirubin Negative (NEG) Urine Urobilinogen Dipstick 0.2 mg/dL (0.2 mg/dL) Urine Leukocyte Esterase Negative (NEG) Urine RBC Occ /HPF (0-2) Urine WBC 0 /HPF (0-4) Urine Squamous Epithelial Cells Few /LPF Urine Bacteria Few /HPF (0-FEW) Urine Mucus Marked /LPF Laboratory Tests 01/02/19 16:22 Laboratory Tests 01/02/19 16:22 EKG EKG EKG interpreted by me. EKG at 1644 showed normal sinus rhythm at rate of 75, left chacon axis, normal CO and QT intervals, no acute distress. Elevation. Radiology/Procedures Radiology/Procedures []Signed PATIENT: JERROD MCCARTNEY V ACCOUNT: [id number] : 1940 LOCATION: ER AGE: 78 SEX: F EXAM STATUS: REG ER ORD. PHYSICIAN: ANURADHA HUERTAS MD REASON: confusion PROCEDURE: CHEST PA & LATERAL Chest PA and lateral: Reason for examination: Confusion. Comparison is made to previous chest dated 12/24/2017. The heart size is normal. Mediastinum is unremarkable. Lung kline are clear. No acute bony abnormalities are seen. Impression: No acute cardiopulmonary disease. CT head without contrast: Axial images were obtained through the brain. No contrast was administered. Exposure: One or more of the following individualized dose reduction techniques were utilized for this examination: 1. Automated exposure control 2. Adjustment of the mA and/or kV according to patient size 3. Use of iterative reconstruction technique. Ventricular systems are symmetric and not abnormally dilated considering patient's advanced age. No midline shift is seen. There is no evidence of intracranial hemorrhage, infarct, mass or edema. No abnormalities of seen at the orbits. The paranasal sinuses and mastoid air cells are clear. No acute abnormality seen in the skull. IMPRESSION: No acute intracranial abnormality evident. Electronically signed by: Natasha Martinez MD (01/02/2019 5:16 PM) [facility] DICTATED and SIGNED BY: NATASHA MARTINEZ MD DATE: 01/02/19 7847 Course & Med Decision Making Course & Med Decision Making Pertinent Labs and Imaging studies reviewed. (See chart for details) [] Dragon Disclaimer Dragon Disclaimer This electronic medical record was generated, in whole or in part, using a voice recognition dictation system. Departure Departure Impression: Primary Impression: Confusion Additional Impressions: Hypokalemia Hypochloremia Disposition: 01 HOME, SELF-CARE (at 1804) Condition: STABLE Referrals: NYLA KINSEY MD (PCP) Patient Instructions: Hypokalemia, Insomnia Additional Instructions: Drink plenty of liquids Follow-up with your primary care physician in 3-5 days Return to ER if not getting better Problem Qualifiers ANURADHA HUERTAS MD Jan 02, 2019 17:19
[2019-01-02 17:28] LABS: BILIRUBIN,URINE NEGATIVE (NEG); CLARITY,URINE CLEAR; COLOR,URINE YELLOW; NITRITE,URINE NEGATIVE (NEG); PH,URINE 6.5; PROTEIN,URINE NEGATIVE (NEG-TRACE); UROBILINOGEN,URINE 0.2 mg/dL (0.2 mg/dL)
[2019-01-02 17:30] VITALS: BP 155/68
[2019-01-02 17:38] LABS: BACTERIA,URINE FEW /HPF (0-FEW); RBC,URINE OCC /HPF (0-2); SQUAMOUS EPITHELIAL CELL,UR FEW /LPF; WBC,URINE 0 /HPF (0-4)
--- NOTE | 2019-01-04 07:37 | EKG ---
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
== END 2019-01-02 18:15 | disposition home or self-care (01) ==
LOC: ER 15:52
DX: R41.0 Disorientation, unspecified (principal); E87.6 Hypokalemia; E87.8 Other disorders of electrolyte and fluid balance, not elsewhere classified; E78.00 Pure hypercholesterolemia, unspecified; R51 Headache; I10 Essential (primary) hypertension; E03.9 Hypothyroidism, unspecified; Z88.2 Allergy status to sulfonamides
CPT/HCPCS: 36415; 70450; 71046; 80053; 81001; 82550; 83605; 83735; 83880; 84484; 85025; 85610; 93005; 99285-25

== ENCOUNTER → 2019-01-26 | Outpatient (CLI) | payer MEDICARE, OTHER ==
[2019-01-02 17:30] VITALS: BP 155/68
[~2019-01-26] MED LIST changes: +GADOTERATE 5 MMOL/10ML VIAL. IVP ONE
--- NOTE | 2019-01-26 18:16 | RAD ---
MRI Lumbar Spine without and with contrast History: Lumbar radiculopathy Technique: Multiplanar, multi sequential pre and postcontrast MR imaging was performed of the lumbar spine. Comparison: None Findings: There is grade 1 anterior spondylolisthesis at L4-5 and L3-4. Lumbar vertebral body stature is maintained. Conus terminates at T12-L1. There is no nodular enhancement conus or cauda equina. There is nonspecific edema of the posterior subcutaneous fat of the lower back with associated enhancement. There is also fluid collection in the posterior paraspinous soft tissues extending posterior to the L4 spinous process, fluid collection in this region about 2.1 cm CC by about 0.4 cm transverse by about 3.4 cm AP with posterior extent near the skin surface/wound site. There are also small pockets of fluid at sites of bilateral laminectomies at L4-5, on the left about 1.3 cm AP by 0.6 cm transverse and on the right about 1 cm AP by 0.5 cm transverse. There is [id number]-juwudmru L3-4 and mild L4-5 degenerative disc disease, mild disc desiccation L1-2 and L2-3. There is small hemangioma of the L5 vertebral body. L1-L2: There is very shallow protrusion in the right lateral recess. Neural foramina and spinal canal are adequate. L2-L3: There is shallow posterior protrusion centrally. Spinal canal and neural foramina are adequate. L3-L4: There is posterior annular tear. There is left laminectomy defect. Spinal canal is adequate. Neural foramina are overall adequate. There is right facet degenerative change and mild buckling of the ligamentum flavum. L4-L5: There have been laminectomies and partial facetectomies bilaterally. As stated previously, there are small fluid collections at sites of laminectomies with surrounding enhancement. There is partial uncovering of the posterior aspect of the gastric due to spondylolisthesis. Combination of findings results in overall mild spinal stenosis, degree lateral recess stenosis bilaterally. Left neural foramen is adequate. There is an enhancing fibrosis in the inferior right neural foramen contacting the undersurface exiting right L4 nerve root. L5-S1: Neural foramina and spinal canal are adequate. Impression: 1. There has been bilateral laminectomies and partial facetectomies at L4-5. There are nonspecific fluid collections posteriorly at sites of laminectomies extending posteriorly, also fluid collection coursing posterior to the L4 spinous process extending closer to the skin surface, uncertain sterility. There is mild spinal stenosis L4-5. There is grade 1 anterior spondylolisthesis L4-5 and to lesser degree at L3-4. There is mild to moderate L3-4 and mild L4-5 degenerative disc disease. Electronically signed by: Robin Peter MD (01/26/2019 6:13 PM) [id number]
--- NOTE | 2019-01-26 18:29 | RAD ---
Study: LUMBAR SPINE FLEX/EXTI ONLY Indication: Lumbar radiculopathy. Comparison: Same day lumbar spine MRI. Findings: Lateral flexion and extension views are submitted for review. Grade 1 anterolisthesis of L4 on L5 more so than L3 on L4 or. No change in alignment upon flexion or extension. Partially visualized surgical changes of dorsal decompression at L4-L5. Degenerative changes as better characterized on the MRI. Scattered surgical clips and vascular calcifications. Osteopenia. Impression: Grade 1 anterolisthesis of L4 on L5 more so than L3 on L4. No change in alignment upon flexion or extension. Electronically signed by: DELMI NEUMANN MD (01/26/2019 6:26 PM) [facility]
== END | disposition home or self-care (01) ==
LOC: MRI 13:28
PROVIDERS: ATTEND Neurological Surgery
DX: M43.16 Spondylolisthesis, lumbar region (principal); M51.16 Intervertebral disc disorders with radiculopathy, lumbar region; M48.061 Spinal stenosis, lumbar region without neurogenic claudication
CPT/HCPCS: 72120; 72158; A9575

== ENCOUNTER → 2019-03-31 | Outpatient (CLI) | payer MEDICARE, OTHER ==
[~2019-03-31] MED LIST changes: -GADOTERATE 5 MMOL/10ML VIAL. IVP ONE; +IOHEXOL 180 MG/ML 10 ML VIAL. ONE; +POTASSIUM CHLO10 ME1 PO; +methylPREDNISolone ACETATE 40 MG/ML VIAL. ONE; +methylPREDNISolone ACETATE 80 MG/ML VIAL. ONE
--- NOTE | 2019-04-01 03:32 | PAIN ---
DATE OF SERVICE: 03/31/2019 INITIAL CONSULTATION FOR PAIN CLINIC CHIEF COMPLAINT: Low back and right greater than left lower extremity pain. HISTORY OF PRESENT ILLNESS: This is a 78-year-old female who presents with history of pain in the low back and right lower extremity, status post lumbar laminectomy in 11/2018 with good results. States she fell about 4-5 weeks after the procedure and reports the pain returned in the low back, right lower extremity, has been fairly steady since that time, radiating to posterior gluteus, posterolateral thigh, lateral anterior thigh, medial thigh, posterior calf, posterior thigh as well. The patient reports it awakens her from sleep at least 3 times a night, does not affect her bowel or bladder control, does affect her ability to walk. She uses a walker occasionally, does not have one with her today; however, the patient reports she has tried hydrocodone, which does decrease the pain, also Tylenol and she had some trigger point injections in her hip, which did not help very well. She has not had any formal physical therapies recently, any chiropractic treatments or other modalities at this time. The patient did have MRI scan of the lumbar spine dated 01/25/2019 showing bilateral laminectomies at L4-L5 and nonspecific fluid collections posterior to the site of laminectomy extending posteriorly. The patient shows mild stenosis at L4-L5 with grade 1 anterior spondylolisthesis at L4-L5 and to a lesser degree at L3-L4, [id number] at L3-L4 and L4-L5 degenerative disk disease with enhancing fibrosis at the L4-L5 level, inferior right neural foramen and contacting undersurface, exiting right L4 nerve root. The patient rates her disability from 0-10, 10 being the worst, is a 10 with family and home responsibilities and occupation, 9 with recreation and social activity, 8 with self-care and 7 with life support activities. The patient reports no loss of motor function in the lower extremities, but significant fatigability of the right leg with walking, standing, changing positions, better with sitting down or lying down, but again is awakening her from sleep at least 3 times at night. PAST MEDICAL HISTORY: Significant for hypertension, arthritis. PREVIOUS SURGERIES: Include hysterectomy, cataract extractions, blepharoplasty, tonsillectomy, IT band release on the left hip, thyroidectomy, appendectomy, cholecystectomy and lumbar laminectomy x 2, most recently in 11/2018. CURRENT MEDICATIONS: Include hydrocodone, Lasix, pramipexole, Colace, Synthroid, Celebrex, probiotics, potassium, paroxetine, and Norvasc. ALLERGIES: THE PATIENT IS ALLERGIC TO SULFA. FAMILY HISTORY: Significant for no major medical conditions that she is aware of at least. SOCIAL HISTORY: The patient does not drink alcohol, does not use any illegal, illicit or recreational drugs, does not smoke. She is and lives locally in [place], [place] and has her daughter accompanying her to visit today. REVIEW OF SYSTEMS: The patient's review of systems is positive for those items mentioned in history of present illness. All systems reviewed and otherwise negative. It is complete, full and well documented on the patient's chart. PHYSICAL EXAMINATION: VITAL SIGNS: The patient's blood pressure is 149/72, pulse 91, respirations 18, temperature 98.7 degrees Fahrenheit, height is 4 feet 10 inches, weight is 107 pounds. GENERAL: The patient is awake, alert, oriented, appropriate, very pleasant demeanor. HEENT: Head shows normocephalic, atraumatic. Extraocular movements are intact and symmetrical. Oral cavity: Mucous membranes moist and pink. Dentition is intact. NECK: Shows anterior throat supple without palpable lymphadenopathy noted. Swallow reflex symmetrical. CHEST: Shows normal on inspection. Breath sounds clear to auscultation bilaterally. HEART: Shows S1, S2 clear. No murmurs auscultated. ABDOMEN: Soft, nontender, nondistended. No palpable organomegaly is noted. No rebound or guarding demonstrated. BACK: Shows spine grossly in the midline, normal-appearing cervical lordotic curvature, thoracic kyphotic curvature is slightly increased and some flattening of lumbar lordotic curvature with well-healed surgical scarring noted. Lumbar paraspinous musculature shows symmetrical on inspection, on palpation shows some moderate tenderness diffusely in the middle and lower distribution of paraspinous muscles bilaterally, but only diffusely without significant radiation. The patient has good rotational motion of lumbar spine, both laterally as well as extension and flexion without significant increase in pain, no tenderness over the spinous processes, sacrum or sacroiliac regions. EXTREMITIES: The patient's lower extremities show deep tendon reflexes at 1+ in the patellar and tendo-calcaneus tendons are equal. Motor exam is strong with 5/5 dorsiflexion, extension, quadriceps and hamstring flexion and symmetrical. Peripheral pulses are 1+ posterior tibia. No peripheral edema is noted. Lower extremities are warm and dry to touch, equal in color and appearance. Straight leg raise noted to be positive on the right about 40 degrees with decreased pain with knee flexion, left side is negative. Gaenslen's and Rom's maneuvers are negative bilaterally as well. The patient is able to stand, has difficulty trying to stand on her toes as she loses balance easily, but is walking with a normal appearing gait, does not appear to favor the right or left lower extremity significantly for short distance in the office, again not using any assistive devices to ambulate. SKIN: Shows warm and dry, good turgor. No edema. No sores, rashes or bruising throughout. IMPRESSION: 1. This is a 78-year-old female with approximate 4-month history of low back and right lower extremity pain in a radicular fashion. 2. Previous lumbar laminectomy. 3. Lumbar MRI scan as noted. 4. Hypertension. 5. Arthritis. PLAN: Options were discussed with the patient and the patient's daughter who is accompanied with her to visit today including conservative medical managements, continued physical therapies, interventional techniques and she would like to pursue interventional techniques. We discussed a lumbar epidural steroid injection using description as well as anatomical models to describe the procedure. Risks were then discussed including, but not limited to bleeding, infection, possibility of epidural hematoma, subsequent neurological compromise, dural puncture, headaches, spinal cord and/or nerve damage, side effects of steroid medication and poor results regarding pain control. The patient understands and wished to proceed. The patient will return to clinic in approximately 2 weeks for followup. She was counseled as to return appointment, activity level and side effects to be aware of. DIAGNOSES: Lumbar radiculopathy with lumbar degenerative disk disease and lumbar spinal stenosis and post-lumbar laminectomy syndrome. PROCEDURE: Lumbar epidural steroid injection with translaminar approach at L4-L5 level using C-arm fluoroscopic guidance under sterile prep and drape using local anesthetic. MEDICATION INJECTED: A total of 120 mg Depo-Medrol plus 10 mL of preservative-free normal saline and 2 mL of contrast. CONDITION AT DISCHARGE: Stable. The patient did have a slight headache following the injection, but after about 30 minutes, this resolved. The patient was discharged under her own power with the accompaniment of her daughter. ERIK FORD MD DR: DAVE/shon JOB#: [id number] / [id number] NYLA Small MD
== END | disposition home or self-care (01) ==
LOC: PNCL 08:16
PROVIDERS: ATTEND Anesthesiology
DX: M51.16 Intervertebral disc disorders with radiculopathy, lumbar region (principal); M48.061 Spinal stenosis, lumbar region without neurogenic claudication; M96.1 Postlaminectomy syndrome, not elsewhere classified; M79.662 Pain in left lower leg; I10 Essential (primary) hypertension; M19.90 Unspecified osteoarthritis, unspecified site; Z90.710 Acquired absence of both cervix and uterus; Z90.49 Acquired absence of other specified parts of digestive tract; Z98.890 Other specified postprocedural states; Z79.899 Other long term (current) drug therapy; Z88.1 Allergy status to other antibiotic agents
CPT/HCPCS: 62323; J1030; J1040; Q9965

== ENCOUNTER → 2019-04-12 | Outpatient (CLI) | payer MEDICARE, OTHER ==
--- NOTE | 2019-04-12 12:44 | PAIN ---
DATE OF SERVICE: 04/12/2019 PROGRESS NOTE FOR PAIN CLINIC DIAGNOSES: Lumbar radiculopathy with lumbar degenerative disk disease, lumbar spinal stenosis, and post-lumbar laminectomy syndrome. HISTORY OF PRESENT ILLNESS: The patient is a 78-year-old female who returns for followup status post lumbar epidural steroid injection x 1. The patient reports about 25% improvement after the last injection with pain returning in the low back and right lower extremity, posterior gluteus, posterior thigh, posterior lateral thigh, anterior thigh, medial thigh, medial and posterior lower leg. The patient reports it is aching, sharp, tight, shooting, tingling, becoming more noticeable with walking and standing. Initially, she was doing much better, increased her distance walking, doing household activities with greater ease and comfort and traveling with greater ease, but the pain has returned now over the past 1-1/2 days. The patient reports no new motor or sensory deficits, no new bowel or bladder incontinence. Rates her pain as an 8 on a scale of 10 at its worst over the past week, 8 on average and 6 at its least and is an 8 today. PHYSICAL EXAMINATION: VITAL SIGNS: The patient's blood pressure is 138/80, pulse 76, respirations 18, temperature 98.3 degrees Fahrenheit. Height is 4 feet 10 inches, weight is 109 pounds. GENERAL: The patient is awake, alert, oriented, appropriate, very pleasant demeanor. HEENT: Head shows normocephalic, atraumatic. Extraocular movements are intact and symmetrical. Oral cavity: Mucous membranes moist and pink. Dentition is intact. NECK: Shows anterior throat supple without palpable lymphadenopathy noted. Swallow reflex symmetrical. CHEST: Shows normal on inspection. Breath sounds clear bilaterally. HEART: Shows S1, S2 clear. No murmurs auscultated. ABDOMEN: Soft, nontender, nondistended. BACK: Shows spine grossly in the midline, slight exaggerated thoracic kyphosis, some minor flattening of lumbar lordotic curvature. Well-healed surgical scars again noted. Lumbar paraspinous muscle shows symmetrical on inspection, on palpation shows some moderate tenderness diffusely bilaterally, going diffusely without significant radiation. EXTREMITIES: The patient's lower extremities show deep tendon reflexes at 1+ in the patellar and tendo-calcaneus tendons. Motor exam is approximately 4 on a scale of 5 on the right, 5/5 on the left with dorsiflexion, extension, quadriceps and hamstring flexion. Peripheral pulses are 1+ posterior tibia. No peripheral edema bilaterally. Options were discussed with the patient. The patient's old chart was reviewed as her current medication regimen updated. Current review of systems updated today as well. We will proceed with a second in a series of lumbar epidural steroid injections today with fluoroscopic guidance. Risks were again discussed including, but not limited to bleeding, infection, possibility of epidural hematoma, subsequent neurological compromise, dural puncture, headaches, spinal cord and/or nerve damage, side effects of steroid medication, and poor results regarding pain control. The patient understands and wished to proceed. The patient will return to clinic in approximately 2 weeks for followup. She was counseled on return appointment, activity level, and side effects to be aware of. DIAGNOSIS: Lumbar radiculopathy with lumbar degenerative disk disease, lumbar spinal stenosis, and post-lumbar laminectomy syndrome. PROCEDURE: Lumbar epidural steroid injection with translaminar approach L5-S1 level using C-arm fluoroscopic guidance under sterile prep and drape using local anesthetic. MEDICATION INJECTED: A total of 120 mg Depo-Medrol plus 10 mL of preservative-free normal saline and 2 mL of contrast. CONDITION AT DISCHARGE: Stable. The patient tolerated the procedure well, had no complications. ERIK FORD MD DR: DAVE/shon JOB#: [id number] / [id number]
== END ==
LOC: PNCL 10:14
PROVIDERS: ATTEND Anesthesiology
DX: M51.16 Intervertebral disc disorders with radiculopathy, lumbar region (principal); M48.061 Spinal stenosis, lumbar region without neurogenic claudication; M96.1 Postlaminectomy syndrome, not elsewhere classified
CPT/HCPCS: 62323; J1030; J1040; Q9965

== ENCOUNTER → 2019-04-26 | Outpatient (CLI) | payer MEDICARE, OTHER ==
--- NOTE | 2019-04-26 21:29 | PAIN ---
DATE OF SERVICE: 04/26/2019 PROGRESS NOTE FOR PAIN CLINIC DIAGNOSES: Lumbar radiculopathy with lumbar degenerative disc disease and lumbar spinal stenosis. HISTORY OF PRESENT ILLNESS: This is a 78-year-old female who returns for followup status post lumbar epidural steroid injections x 2. The patient reports only minimal decrease in pain in her low back and right lower extremity. The patient reports still some pain in the low back itself and it increased in the left hip, but better with stretching and strengthening. The patient reports her pain is 10 on a scale of 10 at its worst over the past week, 9 on average, 8 at its least, and is an 8 today. Describes as aching and shooting across the low back into the right lower extremity, posterior gluteus, posterior thigh, lateral thigh, and medial lower leg as well as in the calf on the right side. The patient reports it is radiating, becoming more constant, more unbearable with activity. The patient reports after the injection her pain is gone for about 100% for about 2-3 days, then the pain returns fairly quickly and then it persists. The patient reports no new motor or sensory deficits, no new bowel or bladder incontinence. PHYSICAL EXAMINATION: VITAL SIGNS: The patient's blood pressure is 140/88, pulse 81, respirations 18, temperature is 98.2 degrees Fahrenheit, height is 4 feet 10 inches, and weight is 113 pounds. GENERAL: The patient is awake, alert, oriented, appropriate, very pleasant demeanor. HEENT: Shows normocephalic and atraumatic. Extraocular movements are intact and symmetrical. Oral cavity, mucous membranes are moist and pink. Dentition is intact. NECK: Shows anterior throat supple without palpable lymphadenopathy noted. Swallow reflex symmetrical. CHEST: Shows normal on inspection. Breath sounds are clear bilaterally. HEART: Shows S1 and S2 clear. No murmurs auscultated. ABDOMEN: Soft, nontender, and nondistended. BACK: Shows spine grossly in the midline. Normal-appearing thoracic kyphosis and minor flattening of the lumbar lordotic curvature. Well-healed surgical scarring noted. Lumbar paraspinous muscle shows symmetrical on inspection. With palpation, some mild tenderness throughout the upper, middle, and lower distribution of paraspinous muscles bilaterally, but only diffusely without radiation. The patient has good rotational motion of lumbar spine without significant increase in pain. EXTREMITIES: Lower extremities show deep tendon reflexes 1+ in the patellar and tendo-calcaneus tendons. Motor exam is approximately 4 on a scale of 5 on the right, 5/5 on the left with dorsiflexion and extension. Peripheral pulses are 1+. No peripheral edema is noted. Options were discussed with the patient. The patient's old chart was reviewed as her current medication regimen updated. Current review of systems updated today as well. We will proceed with a third in the series of lumbar epidural steroid injection today with fluoroscopic guidance. Risks were again discussed including, but not limited to bleeding, infection, possibility of epidural hematoma, subsequent neurological compromise, dural puncture, headaches, spinal cord and/or nerve damage, side effects of steroid medication, and poor results regarding pain control. The patient understands and wished to proceed. The patient will return to the clinic in approximately 2 weeks for followup. She was counseled on return appointment, activity level, and side effects to be aware of. DIAGNOSES: Lumbar radiculopathy with lumbar degenerative disc disease and lumbar spinal stenosis and lumbar post-laminectomy syndrome. PROCEDURE: Lumbar epidural steroid injection, translaminar approach L5-S1 level using C-arm fluoroscopic guidance under sterile prep and drape using local anesthetic. MEDICATION INJECTED: A total of 120 mg of Depo-Medrol plus 10 mL of preservative-free normal saline and 2 mL of contrast. CONDITION AT DISCHARGE: Stable. The patient tolerated the procedure well, had no complications. ERIK FORD MD DR: DAVE/shon JOB#: [id number] / [id number]
== END ==
LOC: PNCL 14:13
PROVIDERS: ATTEND Anesthesiology
DX: M51.16 Intervertebral disc disorders with radiculopathy, lumbar region (principal); M48.061 Spinal stenosis, lumbar region without neurogenic claudication; M96.1 Postlaminectomy syndrome, not elsewhere classified
CPT/HCPCS: 62323; J1030; J1040; Q9965

== ENCOUNTER → 2019-05-10 | Outpatient (CLI) | payer MEDICARE, OTHER ==
[~2019-05-10] MED LIST changes: -IOHEXOL 180 MG/ML 10 ML VIAL. ONE; -methylPREDNISolone ACETATE 40 MG/ML VIAL. ONE; -methylPREDNISolone ACETATE 80 MG/ML VIAL. ONE
--- NOTE | 2019-05-10 19:16 | RAD ---
BILATERAL SCREENING MAMMOGRAM, 3-D History: Routine screening. Comparison: 126 2017-201812/29/2015 10/25/2014. Technique: MLO and CC digital tomosynthesis (3D) images obtained. Radiologist reviewed these images on dedicated workstation. Findings: Breast Tissue Density B : There are scattered areas of fibroglandular density. There are no dominant masses, suspicious microcalcifications, or architectural distortion. Benign calcifications are present. IMPRESSION: No mammographic evidence of malignancy. Recommend routine screening. BI-RADS category 1: Negative. The images were reviewed with computer-aided detection. Patient information is entered into reminder system with a target due date for the next screening mammogram. Mammography is the most sensitive method for finding small breast cancers, but it does not detect them all and is not a substitute for careful clinical examination. A negative mammogram does not negate a clinically suspicious finding and should not result in delay in biopsying a clinically suspicious abnormality. "Our facility is accredited by the [employer] Mammography Program." Electronically signed by: Thong Das MD (05/10/2019 7:13 PM) [id number]
== END ==
LOC: MAMMO 13:59
PROVIDERS: ATTEND Family Medicine
DX: Z12.31 Encounter for screening mammogram for malignant neoplasm of breast (principal)
CPT/HCPCS: 77063; 77067

== ENCOUNTER → 2019-05-24 | Outpatient (CLI) | payer MEDICARE, OTHER ==
--- NOTE | 2019-05-24 10:56 | RAD ---
Examination: ABDOMEN LTD History: Right upper quadrant fullness Comparison/Correlation: CT abdomen and pelvis with contrast 12/20/2017 Findings: Limited right upper quadrant abdominal wall ultrasound exam was performed. The patient was imaged while supine and standing. The intraperitoneal organs were not imaged for purposes of this exam. No mass, fluid collection, or hernia identified. Impression: Normal ultrasound examination of the right upper quadrant abdominal wall. Electronically signed by: Thong Das MD (05/24/2019 10:53 AM) [id number]
== END | disposition home or self-care (01) ==
LOC: US 09:58
PROVIDERS: ATTEND Family Medicine
DX: R19.01 Right upper quadrant abdominal swelling, mass and lump (principal)
CPT/HCPCS: 76705

== ENCOUNTER → 2019-07-12 | Outpatient (CLI) | payer MEDICARE, OTHER ==
[~2019-07-12] MED LIST changes: -DICL100G18 TP; +DICL100G54 TP
--- NOTE | 2019-07-12 12:33 | RAD ---
EXAM: Lumbar spine, flexion and extension. HISTORY: Pain. COMPARISON: 01/26/2019 FINDINGS: Lateral neutral, flexion and extension views of the lumbar spine are obtained. There is grade 1-2 anterolisthesis of L4 and L5 which measures approximately 11 mm in neutral position and increases to approximately 14 mm with flexion. This does not change with extension. There are bilateral pars defects at this level. There is grade 1 anterolisthesis of L3 on L4 which measures 3 mm in neutral position and increases to 4 mm with flexion. There is endplate remodeling predominantly at L4-L5. There is facet arthropathy predominantly at L4-5. IMPRESSION: 1. Grade 1-2 anterolisthesis of L4 and L5 which increases with flexion. There are associated pars defects at this level. There is also minimal grade 1 anterolisthesis of L3 on L4 which slightly increases with flexion. 2. Degenerative endplate remodeling and facet arthropathy predominantly at L4-L5. Electronically signed by: Lulu Morales MD (07/12/2019 12:30 PM) [email or web address]
== END | disposition home or self-care (01) ==
LOC: RAD 11:09
PROVIDERS: ATTEND Neurological Surgery
DX: M47.816 Spondylosis without myelopathy or radiculopathy, lumbar region (principal); M43.16 Spondylolisthesis, lumbar region
CPT/HCPCS: 72020; 72120

== ENCOUNTER → 2019-07-12 | Outpatient (CLI) | payer MEDICARE, OTHER ==
--- NOTE | 2019-07-13 10:03 | RAD ---
MR#: [id number] Date of Study: 07/12/2019 Ordering Physician: LEÓN ELLISON, Referring Physician: LEÓN ELLISON, Tech: Florentin Rodriguez MBA, RDMS, RVT, RDCS, RTR APPROVED REPORT Patient Location: OUT-PATIENT Indications Rest Pain:Bilaterally VELOCITY AND DOPPLER WAVEFORM ANALYSIS RIGHT cm/secWaveformSeverity LEFT cm/secWaveform Severity dCFA 152.0BiphasicdCFA 156.0Biphasic Prof Fem Art. 64.0BiphasicProf Fem Art. 72.0Biphasic Fem Art Prox. 125.0BiphasicFem Art Prox. 121.0Biphasic Fem Art Mid. 127.0BiphasicFem Art Mid. 124.0Biphasic Fem Art Dist. 109.0BiphasicFem Art Dist. 115.0Biphasic Pop Art(Fossa) 81.0BiphasicPop Art(AK) 103.0Biphasic SUPERVISOR INSPECTION ROOM Prox. 90.0BiphasicPTA Prox. 110.0Biphasic SUPERVISOR INSPECTION ROOM Dist. 107.0BiphasicPTA Dist. 67.0Biphasic Per Art Mid. 50.0BiphasicPer Art Mid. 74.0Biphasic LEO Prox. 63.0BiphasicATA Prox. 62.0Biphasic DPA 56BiphasicDPA 95Biphasic Findings Flynn scale images demonstrate mild diffuse luminal irregularities. Biphasic spectral waveforms with normal velocities Critical Notification Critical Value: No <Conclusion> 1. No significant lower extremity arterial disease Signed by : Remberto Gomez, Electronically Approved : 07/13/2019 10:02:29
== END | disposition home or self-care (01) ==
LOC: US 11:04
PROVIDERS: ATTEND Internal Medicine Cardiovascular Disease
DX: M79.604 Pain in right leg (principal); M79.605 Pain in left leg
CPT/HCPCS: 93925

== ENCOUNTER → 2019-07-12 | Outpatient (CLI) | payer MEDICARE, OTHER ==
--- NOTE | 2019-07-12 13:32 | CARD ---
MR#: [id number] Date of Study: 07/12/2019 Ordering Physician: LEÓN GOLDMAN, Referring Physician: LEÓN GOLDMAN, Tech: Neema Garcia STEPHANY APPROVED REPORT EXAM: Two-dimensional and M-mode echocardiogram with Doppler and color Doppler. Other Information Quality : Good INDICATION Congestive Heart Failure 2D DIMENSIONS RVDd2.4 (2.9-3.5cm)Left Atrium(2D)3.0 (1.6-4.0cm) IVSd1.0 (0.7-1.1cm)Aortic Root(2D)2.5 (2.0-3.7cm) LVDd3.9 (3.9-5.9cm)LVOT Diameter2.0 (1.8-2.4cm) PWd1.0 (0.7-1.1cm)LVDs2.3 (2.5-4.0cm) FS (%) 30.0 %SV47.2 ml LVEF(%)60.0 (>50%) Aortic Valve AoV Peak Chad.114.4cm/sAoV VTI19.5cm AO Peak GR.5.2mmHgLVOT Peak Chad.91.3cm/s AO Mean GR.3mmHgAVA (VMAX)2.43cm2 SITA (VTI)3.60cm2 Mitral Valve MV E Mxidavax49.0cm/sMV DECEL [id number] MV A Ixtbyecu10.1cm/sE/A Ratio0.9 Tricuspid Valve TR P. Svdmlrvi363oo/sRAP [id number] TR Peak Gr.42ojAaLLKR08ihXe Pulmonary Vein S1 Zyxzwiol30.6cm/sD2 Kmbxmudp78.4cm/s LEFT VENTRICLE The left ventricle is normal size. There is borderline concentric left ventricular hypertrophy. The l eft ventricular systolic function is normal and the ejection fraction is within normal range. The Eje ction Fraction is 55-60%. There is normal LV segmental wall motion. Transmitral Doppler flow pattern is Grade I-abnormal relaxation pattern. RIGHT VENTRICLE The right ventricle is normal size. The right ventricular systolic function is normal. ATRIA The left atrium size is normal. The right atrium size is normal. The interatrial septum is intact wit h no evidence for an atrial septal defect or patent foramen ovale as noted on 2-D or Doppler imaging. AORTIC VALVE The aortic valve is mildly thickened but opens well. Doppler and Color Flow revealed no significant a ortic regurgitation. There is no significant aortic valvular stenosis. MITRAL VALVE The mitral valve is calcified but opens well. There is no evidence of mitral valve prolapse. There is no mitral valve stenosis. Doppler and Color-flow revealed trace to mild mitral regurgitation. TRICUSPID VALVE The tricuspid valve is normal in structure and function. Doppler and Color Flow revealed trace tricus pid regurgitation. The PA pressure was estimated at 26 mmHg. There is no tricuspid valve stenosis. PULMONIC VALVE The pulmonic valve is not well visualized. Doppler and Color Flow revealed mild pulmonic valvular reg urgitation. There is no pulmonic valvular stenosis. GREAT VESSELS The aortic root is normal in size. The ascending aorta is normal in size. The IVC is normal in size a nd collapses >50% with inspiration. PERICARDIAL EFFUSION There is no evidence of significant pericardial effusion. Critical Notification Critical Value: No <Conclusion> The left ventricle is normal size. The left ventricular systolic function is normal and the ejection fraction is within normal range. The Ejection Fraction is 55-60%. There is borderline concentric left ventricular hypertrophy. Doppler and Color Flow revealed no significant aortic regurgitation. There is no significant aortic valvular stenosis. Doppler and Color-flow revealed trace to mild mitral regurgitation. Doppler and Color Flow revealed trace tricuspid regurgitation. The PA pressure was estimated at 26 mmHg. Signed by : León Goldman MD Electronically Approved : 07/12/2019 13:31:53
== END | disposition home or self-care (01) ==
LOC: ECHO 10:57
PROVIDERS: ATTEND Internal Medicine Cardiovascular Disease
DX: I08.8 Other rheumatic multiple valve diseases (principal); I50.33 Acute on chronic diastolic (congestive) heart failure
CPT/HCPCS: 93306

== ENCOUNTER → 2019-08-25 | Outpatient (CLI) | payer MEDICARE, OTHER ==
[2019-08-25 14:02] LABS: BASO # 0.1 x10^3/uL (0.0-0.2); BASO % 1 % (0-3); EOS # 0.2 x10^3/uL (0.0-0.7); EOS % 3 % (0-3); HEMATOCRIT 36.9 % (36.0-47.0); HEMOGLOBIN 12.5 g/dL (12.0-15.5); LYMPH # 1.7 x10^3/uL (1.0-4.8); LYMPH % 29 % (24-48); MEAN CORPUSCULAR HEMOGLOBIN 31 pg (25-35); MEAN CORPUSCULAR HGB CONC 34 g/dL (31-37); MEAN CORPUSCULAR VOLUME 91 fL (79-100); MONO # 0.6 x10^3/uL (0.0-1.1); MONO % 10 % (0-9); NEUT # 3.4 x10^3/uL (1.8-7.7); NEUT % 57 % (31-73); PLATELET COUNT 288 x10^3/uL (140-400); RED BLOOD COUNT 4.06 x10^6/uL (3.50-5.40); WHITE BLOOD COUNT 5.9 x10^3/uL (4.0-11.0)
[2019-08-25 14:11] LABS: PROTHROMBIN TIME PATIENT 12.7 SEC (11.7-14.0)
[2019-08-25 14:29] LABS: ALBUMIN 3.7 g/dL (3.4-5.0); ALBUMIN/GLOBULIN RATIO 1.3 (1.0-1.7); CALCIUM 8.9 mg/dL (8.5-10.1); CREATININE 0.7 mg/dL (0.6-1.0); GFR 81.1; POTASSIUM 3.6 mmol/L (3.5-5.1); TOTAL BILIRUBIN 0.4 mg/dL (0.2-1.0); TOTAL PROTEIN 6.5 g/dL (6.4-8.2)
== END | disposition home or self-care (01) ==
LOC: EDSTATUS 13:00 → SURG 13:04 → SURGPAT 13:25
PROVIDERS: ATTEND Neurological Surgery
DX: Z01.818 Encounter for other preprocedural examination (principal); Z11.59 Encounter for screening for other viral diseases; M43.16 Spondylolisthesis, lumbar region; M54.16 Radiculopathy, lumbar region; I08.8 Other rheumatic multiple valve diseases; I50.33 Acute on chronic diastolic (congestive) heart failure; Z79.899 Other long term (current) drug therapy
CPT/HCPCS: 36415; 80053; 82306; 85025; 85610; 85730; 87641; U0003

== ENCOUNTER 2019-08-30 06:10 | Inpatient (IN) | payer MEDICARE, OTHER ==
--- NOTE | 2019-08-27 17:59 | PREOP HP ---
DATE OF SERVICE: 08/30/2019 PREOPERATIVE HISTORY AND PHYSICAL DATE OF SURGERY: 08/30/2019. HISTORY OF PRESENT ILLNESS: The patient is a pleasant 78-year-old who is having difficulty with low back pain and pain which radiates into both of her hips and anterior thighs as well as her lateral thighs and anterior lateral legs to her feet. Both sides are about the same. She rates her pain as a 9/10. Activity increases her pain. Lying down helps her. She has been taking [place]. She is using a walker. She had 3 epidural steroid injections, which she did say gave her no long lasting relief. PAST MEDICAL HISTORY: Arthritis, headaches and migraines, hypertension, rheumatoid arthritis, ulcers, depression, osteoporosis, stomach or intestinal disease, thyroid disease. PAST SURGICAL HISTORY: She had tonsillectomy in 1949, C-sections in 1967 and 1972, hysterectomy in 1986, cholecystectomy in 1987, thyroid surgery in 2005, cataract surgery in 2009, eyelid surgery in 2009, hiatal hernia repair in 2010, lumbar decompression L3-L4 with Dr. Bailey in 2013, hemorrhage in 2015, lumbar decompression L4-L5 bilaterally in 2018. FAMILY HISTORY: Alzheimer's disease, cancer, diabetes, cardiac disease, hypertension, migraine headaches. SOCIAL HISTORY: She is . Lives with her spouse. She is retired. She does not drink alcohol. She is a nonsmoker. She consumes caffeine minimally. She exercises rarely. ALLERGIES: SULFA. CURRENT MEDICATIONS: Simvastatin, Synthroid, amlodipine, potassium, pramipexole, probiotic, melatonin, [place], and furosemide. REVIEW OF SYSTEMS: A 12-point review of systems was obtained and is noncontributory except that mentioned above. PHYSICAL EXAMINATION: NEUROSURGERY EXAMINATION: GENERAL APPEARANCE: Alert, pleasant, no acute distress. HEAD: Normocephalic, atraumatic. SKIN: Warm and dry. Well-healed lumbar incision. MUSCULOSKELETAL: Lumbar paraspinal muscle bulk is normal, restricted range of motion of the lumbar spine, vefh-ah-ldgbiwpy tenderness of the lower lumbar spine with palpation, normal range of motion of the lower extremities bilaterally. EXTREMITIES: No clubbing, cyanosis or edema. NEUROLOGIC: Alert and oriented x 3, normal recent and remote memory, strength 5/5 in bilateral lower extremities, sensory was intact to light touch in the lower extremities bilaterally, reflexes were trace and symmetric in bilateral lower extremities, negative straight leg raising bilaterally, forward stooped antalgic gait with a walker. IMAGING: I again reviewed the imaging study. There is an anterolisthesis primarily at L4-L5, which increases when comparing plain lumbar spine films to the MRI scanner when she is supine. There is also lesser anterolisthesis of L3-L4. There is surgical decompression at L4-L5. Additionally, I reviewed flexion and extension x-rays, which do show motion at L4-L5 on flexion and extension views. ASSESSMENT/ PLAN: I believe the motion at L4-L5 is responsible for her pain. I have recommended an instrumented fusion at this level. I did discuss this with her and also spoke with her daughter via telephone. She understands the surgery and the surgical risks as well as the expected postoperative course. She would like to go ahead. We will make the arrangements. GERBER BAILEY MD DR: VIDHYA/shon JOB#: [id number] / [id number] MIKE
[2019-08-30] VITALS (8 sets, daily range): BP systolic 98–137; BP diastolic 46–71
[~2019-08-30] VITALS: Ht 147.3 cm; Wt 53.5 kg
[~2019-08-30 06:10] MED LIST changes: +BACITRACIN 50,000 UNIT in IV NORMAL SALINE 1000ML BAG 1,000 ML IRR ONE
[2019-08-30] MEDS ORDERED: GELATIN SPONGE SIZE 100. ONE (06:55)
[2019-08-30] MEDS ORDERED: THROMBIN TOPICAL 20,000 UNIT SPRAY.SYRN KIT TP ONE (06:56)
[2019-08-30] MEDS ORDERED: KETOROLAC 60 MG/2 ML VIAL. ONE (06:56)
[2019-08-30] MEDS ORDERED: BUPIVACAINE-EPI 0.5%-1:200000 MPF 30 ML VIAL. ONE (06:56)
[2019-08-30] MEDS ORDERED: LIDOCAINE 1% PF 2 ML VIAL. ID PRN (07:00)
[2019-08-30] MEDS ORDERED: MORPHINE SULFATE 2 MG/ML VIAL. IV PRN (07:00)
[2019-08-30] MEDS ORDERED: PROCHLORPERAZINE 10 MG/2 ML VIAL. IV PRN (07:00)
[2019-08-30] MEDS ORDERED: ONDANSETRON PF 4 MG/2 ML VIAL. IV PRN (07:00)
[2019-08-30] MEDS ORDERED: fentaNYL PF VIAL 100 MCG/2 ML VIAL IV PRN (07:00)
[2019-08-30] MEDS ORDERED: IV RINGERS,LACTATED 1000ML 1,000 ML IV SCH (07:00)
[2019-08-30] MEDS ORDERED: HYDROmorphone 2 MG/ML VIAL IV PRN (07:00)
--- NOTE | 2019-08-30 08:16 | RAD ---
Examination: CT LUMBAR SPINE WO CONTRAST History: Reason: BRAIN LAB, LUMBAR RADICULOPATHY, LOW BACK PAIN. / Spl. Instructions: / History: Comparison/Correlation: 07/12/2019 lumbar spine x-ray exams, 12/20/2017 CT abdomen and pelvis with contrast Findings: Axial images of the lumbar spine were obtained without contrast. Sagittal and coronal reformatted images were provided. T11-12: Unremarkable T12-L1: Concentric disc bulge. No nerve root effacement. L1-2: Slight concentric disc bulge, disc osteophyte complex with mild effacement of the thecal sac L2-3: Moderate concentric disc bulge. Moderate to severe spinal canal stenosis. No nerve root effacement. L3-4: Concentric disc bulge. Moderate spinal canal stenosis. Left-sided laminotomy defect. L4-5: Grade 2 anterolisthesis of L4 over L5. Moderate severe spinal canal stenosis. Moderate disc space narrowing. Absence of the bilateral L4 lower facet laterally noted. This is new since 12/20/2017. Correlate with surgical history. L5-S1: Unremarkable Vertebral body heights are adequate. No bony destructive findings. The partially visualized lung bases are unremarkable. Epigastric surgical clips are present. Diverticulosis of the sigmoid colon is present. Retained contrast within the sigmoid colon is present. Impression: Grade 2 anterolisthesis of L4 over L5 with moderate to severe spinal canal stenosis and disc space narrowing. Anterolisthesis of L4 over L5 is new since the previous CT abdomen and pelvis with contrast dated 12/20/2017. It is similar upon comparison with x-ray exams of 07/12/2019. Postoperative findings. L3-4 moderate spinal canal stenosis. Concentric disc bulge. Moderate L2-3 concentric concentric disc bulge with spinal canal stenosis. Slight L1-2 concentric disc bulge. PQRS Compliance Statement: One or more of the following individualized dose reduction techniques were utilized for this examination: 1. Automated exposure control 2. Adjustment of the mA and/or kV according to patient size 3. Use of iterative reconstruction technique Electronically signed by: Thong Das MD (08/30/2019 8:13 AM) [id number]
[2019-08-30] MEDS ORDERED: SUCCINYLCHOLINE 200 MG/10 ML VIAL. ONE (08:19)
[2019-08-30] MEDS ORDERED: ROCURONIUM 50 MG/5 ML VIAL. ONE (08:19)
[2019-08-30] MEDS ORDERED: DEXAMETHASONE SOD PHOS 20 MG/5 ML VIAL. ONE (08:20)
[2019-08-30] MEDS ORDERED: PROPOFOL 10 MG/ML (20ML) VIAL. IV ONE (08:20)
[2019-08-30] MEDS ORDERED: REMIFENTANIL 2 MG VIAL. IV ONE (08:20)
[2019-08-30] MEDS ORDERED: ONDANSETRON PF 4 MG/2 ML VIAL. ONE (08:20)
[2019-08-30] MEDS ORDERED: fentaNYL PF VIAL 100 MCG/2 ML VIAL ONE ×2 (08:21→12:58)
[2019-08-30] MEDS ORDERED: PROPOFOL 50 ML IV ONE ×2 (10:59)
[2019-08-30] MEDS ORDERED: DESFLURANE > 120 MINUTES IH ONE (11:15)
[2019-08-30] MEDS ORDERED: NEOSTIGMINE METHYLSULFATE 5 MG/5 ML SYRINGE. ONE (11:16)
[2019-08-30] MEDS ORDERED: POTASSIUM CL 20MEQ D5-0.45NACL 1,000 ML IV SCH (12:56)
[2019-08-30] MEDS ORDERED: PROCHLORPERAZINE 10 MG/2 ML VIAL. ONE (12:58)
[2019-08-30] MEDS ORDERED: MAGNESIUM HYDROXIDE 2,400 MG/30 ML ORAL.SUSP. PO PRN (13:00)
[2019-08-30] MEDS ORDERED: CALCIUM CARBONATE 500 MG TAB.CHEW PO PRN (13:00)
[2019-08-30] MEDS: fentaNYL PF VIAL 100 MCG/2 ML VIAL IV PRN ×2 (13:00→13:33)
[2019-08-30] MEDS ORDERED: MAG HYDROX/ALUMINUM HYD/SIMETH 30 ML ORAL.SUSP PO PRN (13:00)
[2019-08-30] MEDS ORDERED: 0.9 % SODIUM CHLORIDE 10 ML DISP.SYRIN. IV PRN (13:00)
[2019-08-30] MEDS ORDERED: NALOXONE 0.4 MG/ML VIAL. IV PRN (13:00)
[2019-08-30] MEDS ORDERED: ACETAMINOPHEN 325 MG TABLET. PO PRN (13:00)
[2019-08-30] MEDS ORDERED: diphenhydrAMINE HCL 25 MG CAPSULE PO PRN (13:00)
[2019-08-30] MEDS: oxyCODONE/APAP 5/325 1 TAB TABLET PO PRN (14:33)
[2019-08-30] MEDS: fentaNYL PF VIAL 100 MCG/2 ML VIAL IVP PRN ×2 (16:33→21:32)
[2019-08-30] MEDS: ceFAZolin SODIUM IV Push 1 GM VIAL. IVP SCH (18:07)
--- NOTE | 2019-08-30 19:44 | NUR ---
1430 Rec'd from PACU per bed, alert/oriented, states discomfort level 10/10, appears restless, moving BLE constantly, dressing to back (midline) clean, dry & intact, sm hip dressing with shadowing noted, bilateral JOLYNN hose & LOUIE for DVT prevention, noted bruising around neck & right hand form surgical positioning, oriented to surroundings, call light within reach. Notified pt/dtr pain medication may be held at times r/t low blood pressure, pt/family aware of this from conversation with PACU, call light within reach, will continue to observe
[2019-08-30] MEDS: PRAMIPEXOLE 0.25 MG TABLET. PO SCH (20:32)
[2019-08-30] MEDS: LACTOBACILLUS RHAMNOSUS GG 1 CAPSULE. PO SCH (20:32)
[2019-08-30] MEDS: DOCUSATE SODIUM 100 MG CAPSULE. PO SCH ×2 (21:00)
[2019-08-31] MEDS: ceFAZolin SODIUM IV Push 1 GM VIAL. IVP SCH ×2 (01:23→08:11)
[2019-08-31] MEDS: oxyCODONE/APAP 5/325 1 TAB TABLET PO PRN ×3 (01:31→10:54)
[2019-08-31 02:40] VITALS: BP 154/72
[2019-08-31] MEDS: METHOCARBAMOL 750 MG TABLET PO PRN (03:55)
--- NOTE | 2019-08-31 04:45 | NUR ---
pt up several times to use the bathroom patient stated missing the hat when she void denies pressure on the bladder area bladder scan pt showing 114 ml at this time
--- NOTE | 2019-08-31 04:53 | NUR ---
pt voided 100 ml at this time
[2019-08-31] MEDS: LEVOTHYROXINE 50 MCG TABLET PO SCH (06:28)
[2019-08-31 07:00] VITALS: BP 142/77
[2019-08-31] MEDS: LACTOBACILLUS RHAMNOSUS GG 1 CAPSULE. PO SCH ×2 (08:03→21:06)
[2019-08-31] MEDS: POTASSIUM CHLORIDE 10 MEQ TABLET.ER. PO SCH (08:04)
[2019-08-31] MEDS: PARoxetine 20 MG TABLET PO SCH (08:04)
[2019-08-31] MEDS: DOCUSATE SODIUM 100 MG CAPSULE. PO SCH ×4 (08:04→21:00)
[2019-08-31] MEDS: FUROSEMIDE 20 MG TABLET PO SCH (08:04)
[2019-08-31] MEDS: amLODIPine BESYLATE 5 MG TABLET PO SCH (08:05)
[2019-08-31 11:00] VITALS: BP 124/66
--- NOTE | 2019-08-31 13:34 | NUR ---
Reminded several times to call for assistance when needing to get up from bed/toilet r/t bed alarm going off as she has been exiting bed or toilet without assistance
--- NOTE | 2019-08-31 14:39 | PDOC ---
PROGRESS NOTES Subjective Subjective POD #1 S/P Instrumented fusion L4-5 resting in bed, back / incisional pain nauseated, would like to switch back to [place] has ambulated in laws awaiting brace Objective Objective Vital Signs Date Time Temp Pulse Resp B/P (MAP) Pulse Ox O2 Delivery O2 Flow Rate FiO2 08/31/19 11:00 97.9 90 16 124/66 (85) 94 Room Air 97.9 08/31/19 06:28 2.0 Intake and Output 08/31/19 07:00 Intake Total 1355 ml Output Total 1130 ml Balance 225 ml Intake Oral 455 ml IV Total 900 ml Output Urine Total 1100 ml Estimated Blood Loss 30 ml # Voids 6 Physical Exam General: Alert, Oriented X3, Cooperative MUSCULOSKELETAL: Other (MATHIAS) Neuro: Normal speech, Other (strength 5/5 in BLE) Skin: Other (Dressing C,D,I, flat) Plan Plan of Care encouraged increased activity as tolerated brace PT Likely dc tomorrow Comment Review of Relevant I have reviewed the following items domingo (where applicable) has been applied. Medications Current Medications Ondansetron HCl (Zofran) 4 mg PRN Q6HRS PRN IV NAUSEA/VOMITING; Start 08/30/19 at 07:00; Stop 08/30/19 at 17:55; Status DC Fentanyl Citrate (Fentanyl 2ml Vial) 25 mcg PRN Q5MIN PRN IV MILD PAIN 1-3; Start 08/30/19 at 07:00; Stop 08/30/19 at 17:55; Status DC Fentanyl Citrate (Fentanyl 2ml Vial) 50 mcg PRN Q5MIN PRN IV MODERATE TO SEVERE PAIN Last administered on 08/30/19at 13:33; Start 08/30/19 at 07:00; Stop 08/30/19 at 17:55; Status DC Morphine Sulfate (Morphine Sulfate) 1 mg PRN Q10MIN PRN IV SEVERE PAIN 7-10; Start 08/30/19 at 07:00; Stop 08/30/19 at 17:55; Status DC Ringer's Solution 1,000 ml @ 30 mls/hr Q24H IV Last administered on 08/30/19at 07:15; Start 08/30/19 at 07:00; Stop 08/30/19 at 17:55; Status DC Lidocaine HCl (Xylocaine-Mpf 1% 2ml Vial) 2 ml PRN 1X PRN ID PRIOR TO IV START; Start 08/30/19 at 07:00; Stop 08/30/19 at 17:55; Status DC Hydromorphone HCl (Dilaudid) 0.5 mg PRN Q10MIN PRN IV SEV PAIN, Second choice; Start 08/30/19 at 07:00; Stop 08/30/19 at 17:55; Status DC Prochlorperazine Edisylate (Compazine) 5 mg PACU PRN PRN IV NAUSEA, MRX1 Last administered on 08/30/19at 13:00; Start 08/30/19 at 07:00; Stop 08/30/19 at 17:55; Status DC Bacitracin 19576 unit/Sodium Chloride 1,000 ml @ 1,000 mls/hr 1X ONCE IRR Last administered on 08/30/19at 09:39; Start 08/30/19 at 06:00; Stop 08/30/19 at 06:59; Status DC Gelatin (Gelfoam Size 100) 1 each STK-MED ONCE .ROUTE Last administered on 08/30/19at 09:39; Start 08/30/19 at 06:55; Stop 08/30/19 at 06:56; Status DC Bupivacaine HCl/ Epinephrine Bitart (Sensorcain-Epi 0.5%-1:824064 Mpf) 30 ml STK-MED ONCE .ROUTE Last administered on 08/30/19at 09:39; Start 08/30/19 at 06:56; Stop 08/30/19 at 06:56; Status DC Ketorolac Tromethamine (Toradol Im) 60 mg STK-MED ONCE .ROUTE Last administered on 08/30/19at 09:39; Start 08/30/19 at 06:56; Stop 08/30/19 at 06:56; Status DC Thrombin 20,000 unit STK-MED ONCE TP Last administered on 08/30/19at 09:39; Start 08/30/19 at 06:56; Stop 08/30/19 at 06:56; Status DC Cefazolin Sodium/ Dextrose 50 ml @ 100 mls/hr 1X PREOP PRN IV PRIOR TO PROCEDURE Last administered on 08/30/19at 09:05; Start 08/30/19 at 08:00; Stop 08/31/19 at 07:59; Status DC Succinylcholine Chloride (Anectine) 200 mg STK-MED ONCE .ROUTE ; Start 08/30/19 at 08:19; Stop 08/30/19 at 08:19; Status DC Rocuronium Taylor (Zemuron) 50 mg STK-MED ONCE .ROUTE ; Start 08/30/19 at 08:19; Stop 08/30/19 at 08:19; Status DC Propofol (Diprivan) 200 mg STK-MED ONCE IV ; Start 08/30/19 at 08:20; Stop 08/30/19 at 08:21; Status DC Dexamethasone Sodium Phosphate (Decadron) 20 mg STK-MED ONCE .ROUTE ; Start 08/30/19 at 08:20; Stop 08/30/19 at 08:21; Status DC Ondansetron HCl (Zofran) 4 mg STK-MED ONCE .ROUTE ; Start 08/30/19 at 08:20; Stop 08/30/19 at 08:21; Status DC Remifentanil HCl (Ultiva) 2 mg STK-MED ONCE IV ; Start 08/30/19 at 08:20; Stop 08/30/19 at 08:21; Status DC Fentanyl Citrate (Fentanyl 2ml Vial) 100 mcg STK-MED ONCE .ROUTE ; Start 08/30/19 at 08:21; Stop 08/30/19 at 08:21; Status DC Propofol 50 ml @ As Directed STK-MED ONCE IV ; Start 08/30/19 at 10:59; Stop 08/30/19 at 10:59; Status DC Propofol 50 ml @ As Directed STK-MED ONCE IV ; Start 08/30/19 at 10:59; Stop 08/30/19 at 10:59; Status DC Desflurane (Suprane) 90 ml STK-MED ONCE IH ; Start 08/30/19 at 11:15; Stop 08/30/19 at 11:16; Status DC Neostigmine Taylor (Neostigmine Methylsulfate) 5 mg STK-MED ONCE .ROUTE ; Start 08/30/19 at 11:16; Stop 08/30/19 at 11:16; Status DC Fentanyl Citrate (Fentanyl 2ml Vial) 100 mcg STK-MED ONCE .ROUTE ; Start 08/30/19 at 12:58; Stop 08/30/19 at 12:59; Status DC Prochlorperazine Edisylate (Compazine) 10 mg STK-MED ONCE .ROUTE ; Start 08/30/19 at 12:58; Stop 08/30/19 at 12:59; Status DC Amlodipine Besylate (Norvasc) 5 mg DAILY PO Last administered on 08/31/19 08:05; Start 08/31/19 at 09:00 Docusate Sodium (Colace) 100 mg BID PO Last administered on 08/31/19at 08:04; Start 08/30/19 at 21:00 Furosemide (Lasix) 20 mg DAILY PO Last administered on 08/31/19 08:04; Start 08/31/19 at 09:00 Levothyroxine Sodium (Synthroid) 50 mcg DAILY06 PO Last administered on 08/31/19 06:28; Start 08/31/19 at 06:00 Paroxetine HCl (Paxil) 20 mg DAILY PO Last administered on 08/31/19 08:04; Start 08/31/19 at 09:00 Pramipexole Dihydrochloride (miraPEX) 0.25 mg HS PO Last administered on 08/30/19at 20:32; Start 08/30/19 at 21:00 Lactobacillus Rhamnosus (Culturelle) 1 cap BID PO Last administered on 08/31/19 08:03; Start 08/30/19 at 21:00 Potassium Chloride (Klor-Con) 10 meq DAILYWBKFT PO Last administered on 08/31/19at 08:04; Start 08/31/19 at 08:00 Fentanyl Citrate (Fentanyl 2ml Vial) 50 mcg PRN Q2HR PRN IVP PAIN Last administered on 08/30/19at 21:32; Start 08/30/19 at 13:00 Acetaminophen (Tylenol) 650 mg PRN Q6HRS PRN PO MILD PAIN / TEMP > 100.3'F; Start 08/30/19 at 13:00 Al Hydroxide/Mg Hydroxide (Mylanta Plus Xs) 30 ml PRN Q3HRS PRN PO HEARTBURN / GAS; Start 08/30/19 at 13:00 Calcium Carbonate/ Glycine (Tums) 500 mg PRN Q3HRS PRN PO INDIGESTION; Start 08/30/19 at 13:00 Diphenhydramine HCl (Benadryl) 25 mg PRN Q6HRS PRN PO ITCHING; Start 08/30/19 at 13:00 Naloxone HCl (Narcan) 0.1 mg PRN Q2MIN PRN IV ADMIN; Start 08/30/19 at 13:00 Sodium Chloride (Normal Saline Flush) 3 ml QSHIFT PRN IV AFTER MEDS AND BLOOD DRAWS; Start 08/30/19 at 13:00 Potassium Chloride/Dextrose/ Sod Cl 1,000 ml @ 75 mls/hr [id number] IV Last administered on 08/30/19at 14:33; Start 08/30/19 at 12:56; Stop 08/31/19 at 08:13; Status DC Oxycodone/ Acetaminophen (Percocet 5/325) 1 tab PRN Q4HRS PRN PO MILD PAIN, 1ST CHOICE Last administered on 08/31/19at 10:54; Start 08/30/19 at 13:00 Methocarbamol (Robaxin) 750 mg PRN TID PRN PO MUSCLE SPASMS Last administered on 08/31/19at 03:55; Start 08/30/19 at 13:00 Docusate Sodium (Colace) 100 mg BID PO ; Start 08/30/19 at 21:00 Magnesium Hydroxide (Milk Of Magnesia) 2,400 mg PRN Q12HR PRN PO CONSTIPATION; Start 08/30/19 at 13:00 Cefazolin Sodium (Ancef) 1 gm Q8H IVP Last administered on 08/31/19at 08:11; Start 08/30/19 at 17:00; Stop 08/31/19 at 09:01; Status DC Active Scripts Active Colace (Docusate Sodium) 100 Mg Capsule 100 Mg PO BID Reported Celebrex (Celecoxib) 200 Mg Capsule 1 Cap PO DAILY Norvasc (Amlodipine Besylate) 5 Mg Tablet 1 Tab PO DAILY Probiotic (Lactobacillus Combo No.11) 1 Each Cap.sprink 1 Each PO DAILY Paroxetine Hcl 20 Mg Tablet 1 Tab PO DAILY Potassium Chloride 10 Meq Tablet.er 10 Meq PO DAILY Furosemide 20 Mg Tablet 1 Tab PO DAILY Pramipexole Dihydrochloride (Pramipexole Di-Hcl) 0.25 Mg Tablet 0.25 Mg PO HS Synthroid (Levothyroxine Sodium) 50 Mcg Tablet 1 Tab PO DAILY Hydrocodone-Apap 7.5-325 (Hydrocodone Bit/Acetaminophen) 1 Each Tablet 1 Tab PO PRN Q6HRS PRN Vitals/I & O Vital Sign - Last 24 Hours 08/30/19 08/30/19 08/30/19 08/30/19 14:45 15:00 15:15 15:30 Pulse 98 100 103 109 B/P (MAP) 121/63 (82) 122/57 (78) 126/54 (78) 98/46 (63) Pulse Ox 100 98 98 99 O2 Delivery Nasal Cannula Nasal Cannula Nasal Cannula Nasal Cannula O2 Flow Rate 2.0 2.0 2.0 2.0 08/30/19 08/30/19 08/30/19 08/30/19 16:33 19:30 19:36 21:32 Temp 98.3 98.3 Pulse 99 Resp 20 20 B/P (MAP) 128/62 (84) Pulse Ox 99 2 O2 Delivery Nasal Cannula Nasal Cannula Nasal Cannula Nasal Cannula O2 Flow Rate 2.0 2.0 2.0 08/30/19 08/30/19 08/31/19 08/31/19 22:02 22:15 01:31 02:40 Temp 99.2 99.8 99.2 99.8 Pulse 99 110 Resp 20 18 18 20 B/P (MAP) 137/71 (93) 154/72 (99) Pulse Ox 95 94 94 97 O2 Delivery Nasal Cannula Nasal Cannula Nasal Cannula Nasal Cannula O2 Flow Rate 2.0 2.0 2.0 2.0 08/31/19 08/31/19 08/31/19 08/31/19 02:45 06:28 07:00 08:05 Temp 98.3 98.3 Pulse 112 111 Resp 18 20 16 B/P (MAP) 142/77 (98) 122/66 Pulse Ox 97 O2 Delivery Nasal Cannula Nasal Cannula Room Air O2 Flow Rate 2.0 2.0 08/31/19 08/31/19 08/31/19 08:30 10:54 11:00 Temp 97.9 97.9 Pulse 90 Resp 16 B/P (MAP) 124/66 (85) Pulse Ox 94 O2 Delivery Room Air Room Air Room Air Intake and Output 08/30/19 08/30/19 08/31/19 15:00 23:00 07:00 Intake Total 915 ml 240 ml 200 ml Output Total 930 ml 200 ml Balance -15 ml 240 ml 0 ml Justicifation of Admission Dx: Justifications for Admission: Justification of Admission Dx: Yes Comments: s/p lumbar fusion, pain SHADY LOERA CHIEF MEDICAL TECHNOLOGIST Aug 31, 2019 14:39
[2019-08-31 15:00] VITALS: BP 124/62
--- NOTE | 2019-08-31 15:02 | NUR ---
Transferred across from nurses desk for pt safety, stated she didn't feel good and wants to go home, found getting up on side of bed without assistance, will continue to observe, in bathroom at present
[2019-08-31] MEDS: HYDROcodone/APAP 7.5/325MG 1 TAB TABLET PO PRN ×2 (15:57→21:58)
[2019-08-31 19:00] VITALS: BP 132/66
--- NOTE | 2019-08-31 19:58 | NUR ---
Spoke with aure/ Lucia Nava about possible SNF for continued therapy, inability to care for self safely, spouse & son here also to witness events, thinking about [facility] as short term solution, will continue to give support, spoke with shoe planner early about this issue also.
[2019-08-31] MEDS: PRAMIPEXOLE 0.25 MG TABLET. PO SCH (21:06)
[2019-08-31 23:08] VITALS: BP 138/64
[2019-09-01 03:00] VITALS: BP_SYST 130; BP_SYST 138; BP_DIAS 64
--- NOTE | 2019-09-01 03:59 | NUR ---
Patient is confused and disoriented at times. Looking for her " in the front room." Ambulates w/ a slumped over posture and slowly. Needs frequent cues.
[2019-09-01] MEDS: HYDROcodone/APAP 7.5/325MG 1 TAB TABLET PO PRN ×3 (04:20→18:21)
[2019-09-01] MEDS: LEVOTHYROXINE 50 MCG TABLET PO SCH (07:08)
[2019-09-01 07:15] VITALS: BP 159/77
[2019-09-01] MEDS: PARoxetine 20 MG TABLET PO SCH (08:15)
[2019-09-01] MEDS: LACTOBACILLUS RHAMNOSUS GG 1 CAPSULE. PO SCH ×2 (08:15→20:51)
[2019-09-01] MEDS: amLODIPine BESYLATE 5 MG TABLET PO SCH (08:16)
[2019-09-01] MEDS: POTASSIUM CHLORIDE 10 MEQ TABLET.ER. PO SCH (08:16)
[2019-09-01] MEDS: FUROSEMIDE 20 MG TABLET PO SCH (09:00)
[2019-09-01] MEDS: DOCUSATE SODIUM 100 MG CAPSULE. PO SCH ×2 (09:00→20:51)
[2019-09-01 11:08] VITALS: BP 157/79
[2019-09-01] MEDS: METHOCARBAMOL 750 MG TABLET PO PRN ×2 (13:36→22:23)
[2019-09-01 15:07] VITALS: BP 130/56
--- NOTE | 2019-09-01 16:17 | PDOC ---
PROGRESS NOTES Subjective Subjective POD #2 Sitting up on side of bed leg pain improved back/ incisional pain, controlled with meds ambulated in laws Objective Objective Vital Signs Date Time Temp Pulse Resp B/P (MAP) Pulse Ox O2 Delivery O2 Flow Rate FiO2 09/01/19 15:07 98.4 83 20 130/56 (80) 96 Room Air 98.4 08/31/19 06:28 2.0 Intake and Output 09/01/19 07:00 Intake Total 300 ml Balance 300 ml Intake Oral 300 ml # Voids 7 Physical Exam General: Alert, Cooperative MUSCULOSKELETAL: Other (MATHIAS) Neuro: Other (Normal strength in LE) Skin: Other (Dressing C,D,I, flat) Plan Plan of Care encouraged increased activity as tolerated PT will dc home tomorrow with services D/W RN and daughter Comment Review of Relevant I have reviewed the following items domingo (where applicable) has been applied. Medications Current Medications Ondansetron HCl (Zofran) 4 mg PRN Q6HRS PRN IV NAUSEA/VOMITING; Start 08/30/19 at 07:00; Stop 08/30/19 at 17:55; Status DC Fentanyl Citrate (Fentanyl 2ml Vial) 25 mcg PRN Q5MIN PRN IV MILD PAIN 1-3; Start 08/30/19 at 07:00; Stop 08/30/19 at 17:55; Status DC Fentanyl Citrate (Fentanyl 2ml Vial) 50 mcg PRN Q5MIN PRN IV MODERATE TO SEVERE PAIN Last administered on 08/30/19at 13:33; Start 08/30/19 at 07:00; Stop 08/30/19 at 17:55; Status DC Morphine Sulfate (Morphine Sulfate) 1 mg PRN Q10MIN PRN IV SEVERE PAIN 7-10; Start 08/30/19 at 07:00; Stop 08/30/19 at 17:55; Status DC Ringer's Solution 1,000 ml @ 30 mls/hr Q24H IV Last administered on 08/30/19at 07:15; Start 08/30/19 at 07:00; Stop 08/30/19 at 17:55; Status DC Lidocaine HCl (Xylocaine-Mpf 1% 2ml Vial) 2 ml PRN 1X PRN ID PRIOR TO IV START; Start 08/30/19 at 07:00; Stop 08/30/19 at 17:55; Status DC Hydromorphone HCl (Dilaudid) 0.5 mg PRN Q10MIN PRN IV SEV PAIN, Second choice; Start 08/30/19 at 07:00; Stop 08/30/19 at 17:55; Status DC Prochlorperazine Edisylate (Compazine) 5 mg PACU PRN PRN IV NAUSEA, MRX1 Last administered on 08/30/19at 13:00; Start 08/30/19 at 07:00; Stop 08/30/19 at 17:55; Status DC Bacitracin 02495 unit/Sodium Chloride 1,000 ml @ 1,000 mls/hr 1X ONCE IRR Last administered on 08/30/19at 09:39; Start 08/30/19 at 06:00; Stop 08/30/19 at 06:59; Status DC Gelatin (Gelfoam Size 100) 1 each STK-MED ONCE .ROUTE Last administered on 08/30/19at 09:39; Start 08/30/19 at 06:55; Stop 08/30/19 at 06:56; Status DC Bupivacaine HCl/ Epinephrine Bitart (Sensorcain-Epi 0.5%-1:525677 Mpf) 30 ml STK-MED ONCE .ROUTE Last administered on 08/30/19at 09:39; Start 08/30/19 at 06:56; Stop 08/30/19 at 06:56; Status DC Ketorolac Tromethamine (Toradol Im) 60 mg STK-MED ONCE .ROUTE Last administered on 08/30/19at 09:39; Start 08/30/19 at 06:56; Stop 08/30/19 at 06:56; Status DC Thrombin 20,000 unit STK-MED ONCE TP Last administered on 08/30/19at 09:39; Start 08/30/19 at 06:56; Stop 08/30/19 at 06:56; Status DC Cefazolin Sodium/ Dextrose 50 ml @ 100 mls/hr 1X PREOP PRN IV PRIOR TO PROCEDURE Last administered on 08/30/19at 09:05; Start 08/30/19 at 08:00; Stop 08/31/19 at 07:59; Status DC Succinylcholine Chloride (Anectine) 200 mg STK-MED ONCE .ROUTE ; Start 08/30/19 at 08:19; Stop 08/30/19 at 08:19; Status DC Rocuronium Hasty (Zemuron) 50 mg STK-MED ONCE .ROUTE ; Start 08/30/19 at 08:19; Stop 08/30/19 at 08:19; Status DC Propofol (Diprivan) 200 mg STK-MED ONCE IV ; Start 08/30/19 at 08:20; Stop 08/30/19 at 08:21; Status DC Dexamethasone Sodium Phosphate (Decadron) 20 mg STK-MED ONCE .ROUTE ; Start 08/30/19 at 08:20; Stop 08/30/19 at 08:21; Status DC Ondansetron HCl (Zofran) 4 mg STK-MED ONCE .ROUTE ; Start 08/30/19 at 08:20; Stop 08/30/19 at 08:21; Status DC Remifentanil HCl (Ultiva) 2 mg STK-MED ONCE IV ; Start 08/30/19 at 08:20; Stop 08/30/19 at 08:21; Status DC Fentanyl Citrate (Fentanyl 2ml Vial) 100 mcg STK-MED ONCE .ROUTE ; Start 08/30/19 at 08:21; Stop 08/30/19 at 08:21; Status DC Propofol 50 ml @ As Directed STK-MED ONCE IV ; Start 08/30/19 at 10:59; Stop 08/30/19 at 10:59; Status DC Propofol 50 ml @ As Directed STK-MED ONCE IV ; Start 08/30/19 at 10:59; Stop 08/30/19 at 10:59; Status DC Desflurane (Suprane) 90 ml STK-MED ONCE IH ; Start 08/30/19 at 11:15; Stop 08/30/19 at 11:16; Status DC Neostigmine Hasty (Neostigmine Methylsulfate) 5 mg STK-MED ONCE .ROUTE ; Start 08/30/19 at 11:16; Stop 08/30/19 at 11:16; Status DC Fentanyl Citrate (Fentanyl 2ml Vial) 100 mcg STK-MED ONCE .ROUTE ; Start 08/30/19 at 12:58; Stop 08/30/19 at 12:59; Status DC Prochlorperazine Edisylate (Compazine) 10 mg STK-MED ONCE .ROUTE ; Start 08/30/19 at 12:58; Stop 08/30/19 at 12:59; Status DC Amlodipine Besylate (Norvasc) 5 mg DAILY PO Last administered on 09/01/19 08:16; Start 08/31/19 at 09:00 Docusate Sodium (Colace) 100 mg BID PO Last administered on 08/31/19at 08:04; Start 08/30/19 at 21:00; Stop 09/01/19 at 07:38; Status DC Furosemide (Lasix) 20 mg DAILY PO Last administered on 08/31/19at 08:04; Start 08/31/19 at 09:00 Levothyroxine Sodium (Synthroid) 50 mcg DAILY06 PO Last administered on 09/01/19 07:08; Start 08/31/19 at 06:00 Paroxetine HCl (Paxil) 20 mg DAILY PO Last administered on 09/01/19at 08:15; Start 08/31/19 at 09:00 Pramipexole Dihydrochloride (miraPEX) 0.25 mg HS PO Last administered on 08/31/19at 21:06; Start 08/30/19 at 21:00 Lactobacillus Rhamnosus (Culturelle) 1 cap BID PO Last administered on 09/01/19at 08:15; Start 08/30/19 at 21:00 Potassium Chloride (Klor-Con) 10 meq DAILYWBKFT PO Last administered on 09/01/19at 08:16; Start 08/31/19 at 08:00 Fentanyl Citrate (Fentanyl 2ml Vial) 50 mcg PRN Q2HR PRN IVP PAIN Last administered on 08/30/19at 21:32; Start 08/30/19 at 13:00 Acetaminophen (Tylenol) 650 mg PRN Q6HRS PRN PO MILD PAIN / TEMP > 100.3'F; Start 08/30/19 at 13:00 Al Hydroxide/Mg Hydroxide (Mylanta Plus Xs) 30 ml PRN Q3HRS PRN PO HEARTBURN / GAS; Start 08/30/19 at 13:00 Calcium Carbonate/ Glycine (Tums) 500 mg PRN Q3HRS PRN PO INDIGESTION; Start 08/30/19 at 13:00 Diphenhydramine HCl (Benadryl) 25 mg PRN Q6HRS PRN PO ITCHING; Start 08/30/19 at 13:00 Naloxone HCl (Narcan) 0.1 mg PRN Q2MIN PRN IV ADMIN; Start 08/30/19 at 13:00 Sodium Chloride (Normal Saline Flush) 3 ml QSHIFT PRN IV AFTER MEDS AND BLOOD DRAWS; Start 08/30/19 at 13:00 Potassium Chloride/Dextrose/ Sod Cl 1,000 ml @ 75 mls/hr [id number] IV Last administered on 08/30/19at 14:33; Start 08/30/19 at 12:56; Stop 08/31/19 at 08:13; Status DC Oxycodone/ Acetaminophen (Percocet 5/325) 1 tab PRN Q4HRS PRN PO MILD PAIN, 1ST CHOICE Last administered on 08/31/19at 10:54; Start 08/30/19 at 13:00; Stop 08/31/19 at 14:43; Status DC Methocarbamol (Robaxin) 750 mg PRN TID PRN PO MUSCLE SPASMS Last administered on 09/01/19at 13:36; Start 08/30/19 at 13:00 Docusate Sodium (Colace) 100 mg BID PO ; Start 08/30/19 at 21:00 Magnesium Hydroxide (Milk Of Magnesia) 2,400 mg PRN Q12HR PRN PO CONSTIPATION; Start 08/30/19 at 13:00 Cefazolin Sodium (Ancef) 1 gm Q8H IVP Last administered on 08/31/19at 08:11; Start 08/30/19 at 17:00; Stop 08/31/19 at 09:01; Status DC Acetaminophen/ Hydrocodone Bitart (Lortab 7.5/325) 1 tab PRN Q6HRS PRN PO MODERATE-SEVERE PAIN Last administered on 09/01/19at 10:31; Start 08/31/19 at 16:00 Active Scripts Active Colace (Docusate Sodium) 100 Mg Capsule 100 Mg PO BID Reported Celebrex (Celecoxib) 200 Mg Capsule 1 Cap PO DAILY Norvasc (Amlodipine Besylate) 5 Mg Tablet 1 Tab PO DAILY Probiotic (Lactobacillus Combo No.11) 1 Each Cap.sprink 1 Each PO DAILY Paroxetine Hcl 20 Mg Tablet 1 Tab PO DAILY Potassium Chloride 10 Meq Tablet.er 10 Meq PO DAILY Furosemide 20 Mg Tablet 1 Tab PO DAILY Pramipexole Dihydrochloride (Pramipexole Di-Hcl) 0.25 Mg Tablet 0.25 Mg PO HS Synthroid (Levothyroxine Sodium) 50 Mcg Tablet 1 Tab PO DAILY Hydrocodone-Apap 7.5-325 (Hydrocodone Bit/Acetaminophen) 1 Each Tablet 1 Tab PO PRN Q6HRS PRN Vitals/I & O Vital Sign - Last 24 Hours 08/31/19 08/31/19 08/31/19 08/31/19 19:00 20:00 21:58 23:00 Temp 100.2 100.2 Pulse 103 Resp 18 20 16 B/P (MAP) 132/66 (88) Pulse Ox 95 O2 Delivery Room Air Room Air Room Air Room Air 08/31/19 09/01/19 09/01/19 09/01/19 23:08 03:00 04:20 05:50 Temp 99.6 98.9 99.6 98.9 Pulse 99 89 Resp 18 18 22 22 B/P (MAP) 138/64 (88) 130/64 (86) Pulse Ox 94 94 O2 Delivery Room Air Room Air Room Air 09/01/19 09/01/19 09/01/19 09/01/19 07:15 07:35 08:16 10:31 Temp 99.4 99.4 Pulse 90 90 Resp 16 B/P (MAP) 159/77 (104) 159/77 Pulse Ox 95 O2 Delivery Room Air Room Air Room Air 09/01/19 09/01/19 09/01/19 11:08 11:30 15:07 Temp 100.2 98.4 100.2 98.4 Pulse 96 83 Resp 18 20 B/P (MAP) 157/79 (105) 130/56 (80) Pulse Ox 96 96 O2 Delivery Room Air Room Air Room Air Intake and Output 08/31/19 08/31/19 09/01/19 15:00 23:00 07:00 Intake Total 100 ml 200 ml Balance 100 ml 200 ml Justicifation of Admission Dx: Justifications for Admission: Justification of Admission Dx: Yes SHADY LOERA PERSONNEL RECORDS CLERK Sep 01, 2019 16:17
[2019-09-01 19:00] VITALS: BP 131/55
[2019-09-01] MEDS: PRAMIPEXOLE 0.25 MG TABLET. PO SCH (20:51)
[2019-09-01 23:00] VITALS: BP 114/46
[2019-09-02] MEDS: HYDROcodone/APAP 7.5/325MG 1 TAB TABLET PO PRN ×2 (00:44→10:39)
[2019-09-02 03:00] VITALS: BP 125/53
[2019-09-02] MEDS: LEVOTHYROXINE 50 MCG TABLET PO SCH (06:13)
[2019-09-02] MEDS: METHOCARBAMOL 750 MG TABLET PO PRN (06:39)
[2019-09-02 07:15] VITALS: BP 91/64
[2019-09-02] MEDS: DOCUSATE SODIUM 100 MG CAPSULE. PO SCH (08:55)
[2019-09-02] MEDS: PARoxetine 20 MG TABLET PO SCH (08:55)
[2019-09-02] MEDS: POTASSIUM CHLORIDE 10 MEQ TABLET.ER. PO SCH (08:55)
[2019-09-02] MEDS: LACTOBACILLUS RHAMNOSUS GG 1 CAPSULE. PO SCH (08:55)
[2019-09-02] MEDS: FUROSEMIDE 20 MG TABLET PO SCH (09:00)
[2019-09-02] MEDS: amLODIPine BESYLATE 5 MG TABLET PO SCH (09:00)
--- NOTE | 2019-09-02 09:52 | SNU/HH DC ---
DISCHARGE WITH HOME HEALTH DISCHARGE INFORMATION: Discharge Date: Sep 02, 2019 Final Diagnosis: m43.16 Condition on Discharge: Stable CODE STATUS: Code Status: Full HOME HEALTH: Face to Face: I certify this patient is under my care and that I, or a nurse practitioner or physician's clerical administrative assistant working with me, had a face to face encounter that meets the physician face to face encounter requirements with this patient on []. RN For Eval/Treatment: Yes Physical Therapy For: Evalulation/Treatment Pt Meets Homebound Status: Unsteady balance w/ amb,, Poor cognition POST DISCHARGE ORDERS: Activity Instructions for Disc: Activity as tolerated, Avoid exertion Weight Bearing Status after Di: As tolerated Bathing Instructions: Shower-keep dressing dry DIET AFTER DISCHARGE: Cardiac Wound/Incision Care: Ice to area for comfort Other wound/incision instructi: daily dressing change as needed FOLLOW-UP: PCP to follow Home Health: Dr. Bailey to follow Follow up with: Dr. Bailey in 2 weeks [phone] TREATMENT/EQUIPMENT ORDERS: Adaptive Equipment Issued: Maximus CERTIFICATION STATEMENT: Certification Statement: Certification Statement: Based on the above finding, I certify that this patient is confined to the home and needs intermittent prison care, physical therapy and/or speech therapy, or continues to need occupational therapy.~ This patient is under my care, and I have initiated the establishment of the plan of care.~ This patient will be followed by myself or a community physician who will periodically review the plan of care. Home Meds Active Scripts Docusate Sodium (COLACE) 100 Mg Capsule, 100 MG PO BID for constipation, #60 CAP Prov:GERBER BAILEY MD 11/27/18 Reported Medications Amlodipine Besylate (NORVASC) 5 Mg Tablet, 1 TAB PO DAILY for HTN, #30 TAB 5 Refills 11/03/18 Lactobacillus Combo No.11 (PROBIOTIC) 1 Each Cap.sprink, 1 EACH PO DAILY for supplement, CAP 11/03/18 Paroxetine Hcl (PAROXETINE HCL) 20 Mg Tablet, 1 TAB PO DAILY for antidepresant, #30 TAB 5 Refills 11/03/18 Potassium Chloride (POTASSIUM CHLORIDE) 10 Meq Tablet.er, 10 MEQ PO DAILY for supplement, TAB 11/03/18 Furosemide (FUROSEMIDE) 20 Mg Tablet, 1 TAB PO DAILY for fluid retention, #90 TAB 1 Refill 11/03/18 Pramipexole Di-Hcl (PRAMIPEXOLE DIHYDROCHLORIDE) 0.25 Mg Tablet, 0.25 MG PO HS for RESTLESS LEG SYNDROME, TAB 12/21/17 Levothyroxine Sodium (SYNTHROID) 50 Mcg Tablet, 1 TAB PO DAILY, #30 TAB 5 Refills 11/25/15 Hydrocodone Bit/Acetaminophen (HYDROCODONE-APAP 7.5-325 ) 1 Each Tablet, 1 TAB PO PRN Q6HRS PRN for PAIN, TAB 0 Refills 08/30/13 Discontinued Reported Medications Celecoxib (CELEBREX) 200 Mg Capsule, 1 CAP PO DAILY for pain, #30 CAP 2 Refills 11/03/18 GERBER BAILEY MD Sep 02, 2019 09:51
--- NOTE | 2019-09-02 10:00 | NUR ---
Pt is more alert and calling for assistance. Ambulating with steady gait with walker. No c/o at this time. Cont. monitor
[2019-09-02 11:04] VITALS: BP 117/45
[2019-09-02 15:02] VITALS: BP 118/64
--- NOTE | 2019-09-02 15:23 | PDOC ---
PROGRESS NOTES Subjective Subjective seen at 1210 sitting up in chair back / incisional pain improved today wants to go home Objective Objective Vital Signs Date Time Temp Pulse Resp B/P (MAP) Pulse Ox O2 Delivery O2 Flow Rate FiO2 09/02/19 15:02 98.2 88 20 118/64 (82) 97 Room Air 98.2 08/31/19 06:28 2.0 Intake and Output 09/02/19 07:00 Intake Total 360 ml Balance 360 ml Intake Oral 360 ml # Voids 3 Physical Exam General: Alert, Oriented X3, Cooperative, No acute distress Neuro: Normal speech, Other (strength normal in LE) Skin: Other (Dressing C,D,I, flat) Plan Plan of Care dc home with home health f/u in 2 weeks D/W RN and daughter Comment Review of Relevant I have reviewed the following items domingo (where applicable) has been applied. Medications Current Medications Ondansetron HCl (Zofran) 4 mg PRN Q6HRS PRN IV NAUSEA/VOMITING; Start 08/30/19 at 07:00; Stop 08/30/19 at 17:55; Status DC Fentanyl Citrate (Fentanyl 2ml Vial) 25 mcg PRN Q5MIN PRN IV MILD PAIN 1-3; Start 08/30/19 at 07:00; Stop 08/30/19 at 17:55; Status DC Fentanyl Citrate (Fentanyl 2ml Vial) 50 mcg PRN Q5MIN PRN IV MODERATE TO SEVERE PAIN Last administered on 08/30/19at 13:33; Start 08/30/19 at 07:00; Stop 08/30/19 at 17:55; Status DC Morphine Sulfate (Morphine Sulfate) 1 mg PRN Q10MIN PRN IV SEVERE PAIN 7-10; Start 08/30/19 at 07:00; Stop 08/30/19 at 17:55; Status DC Ringer's Solution 1,000 ml @ 30 mls/hr Q24H IV Last administered on 08/30/19at 07:15; Start 08/30/19 at 07:00; Stop 08/30/19 at 17:55; Status DC Lidocaine HCl (Xylocaine-Mpf 1% 2ml Vial) 2 ml PRN 1X PRN ID PRIOR TO IV START; Start 08/30/19 at 07:00; Stop 08/30/19 at 17:55; Status DC Hydromorphone HCl (Dilaudid) 0.5 mg PRN Q10MIN PRN IV SEV PAIN, Second choice; Start 08/30/19 at 07:00; Stop 08/30/19 at 17:55; Status DC Prochlorperazine Edisylate (Compazine) 5 mg PACU PRN PRN IV NAUSEA, MRX1 Last administered on 08/30/19at 13:00; Start 08/30/19 at 07:00; Stop 08/30/19 at 17 :55; Status DC Bacitracin 77726 unit/Sodium Chloride 1,000 ml @ 1,000 mls/hr 1X ONCE IRR Last administered on 08/30/19at 09:39; Start 08/30/19 at 06:00; Stop 08/30/19 at 06:59; Status DC Gelatin (Gelfoam Size 100) 1 each STK-MED ONCE .ROUTE Last administered on 08/30/19at 09:39; Start 08/30/19 at 06:55; Stop 08/30/19 at 06:56; Status DC Bupivacaine HCl/ Epinephrine Bitart (Sensorcain-Epi 0.5%-1:308777 Mpf) 30 ml STK-MED ONCE .ROUTE Last administered on 08/30/19at 09:39; Start 08/30/19 at 06:56; Stop 08/30/19 at 06:56; Status DC Ketorolac Tromethamine (Toradol Im) 60 mg STK-MED ONCE .ROUTE Last administered on 08/30/19at 09:39; Start 08/30/19 at 06:56; Stop 08/30/19 at 06:56; Status DC Thrombin 20,000 unit STK-MED ONCE TP Last administered on 08/30/19at 09:39; Start 08/30/19 at 06:56; Stop 08/30/19 at 06:56; Status DC Cefazolin Sodium/ Dextrose 50 ml @ 100 mls/hr 1X PREOP PRN IV PRIOR TO PROCEDURE Last administered on 08/30/19at 09:05; Start 08/30/19 at 08:00; Stop 08/31/19 at 07:59; Status DC Succinylcholine Chloride (Anectine) 200 mg STK-MED ONCE .ROUTE ; Start 08/30/19 at 08:19; Stop 08/30/19 at 08:19; Status DC Rocuronium [place] (Zemuron) 50 mg STK-MED ONCE .ROUTE ; Start 08/30/19 at 08:19; Stop 08/30/19 at 08:19; Status DC Propofol (Diprivan) 200 mg STK-MED ONCE IV ; Start 08/30/19 at 08:20; Stop 08/30/19 at 08:21; Status DC Dexamethasone Sodium Phosphate (Decadron) 20 mg STK-MED ONCE .ROUTE ; Start 08/30/19 at 08:20; Stop 08/30/19 at 08:21; Status DC Ondansetron HCl (Zofran) 4 mg STK-MED ONCE .ROUTE ; Start 08/30/19 at 08:20; Stop 08/30/19 at 08:21; Status DC Remifentanil HCl (Ultiva) 2 mg STK-MED ONCE IV ; Start 08/30/19 at 08:20; Stop 08/30/19 at 08:21; Status DC Fentanyl Citrate (Fentanyl 2ml Vial) 100 mcg STK-MED ONCE .ROUTE ; Start at 08:21; Stop 08/30/19 at 08:21; Status DC Propofol 50 ml @ As Directed STK-MED ONCE IV ; Start 08/30/19 at 10:59; Stop 08/30/19 at 10:59; Status DC Propofol 50 ml @ As Directed STK-MED ONCE IV ; Start 08/30/19 at 10:59; Stop 08/30/19 at 10:59; Status DC Desflurane (Suprane) 90 ml STK-MED ONCE IH ; Start 08/30/19 at 11:15; Stop 08/30/19 at 11:16; Status DC Neostigmine [place] (Neostigmine Methylsulfate) 5 mg STK-MED ONCE .ROUTE ; Start 08/30/19 at 11:16; Stop 08/30/19 at 11:16; Status DC Fentanyl Citrate (Fentanyl 2ml Vial) 100 mcg STK-MED ONCE .ROUTE ; Start 08/30/19 at 12:58; Stop 08/30/19 at 12:59; Status DC Prochlorperazine Edisylate (Compazine) 10 mg STK-MED ONCE .ROUTE ; Start 08/30/19 at 12:58; Stop 08/30/19 at 12:59; Status DC Amlodipine Besylate (Norvasc) 5 mg DAILY PO Last administered on 09/01/19 08:16; Start 08/31/19 at 09:00 Docusate Sodium (Colace) 100 mg BID PO Last administered on 08/31/19at 08:04; Start 08/30/19 at 21:00; Stop 09/01/19 at 07:38; Status DC Furosemide (Lasix) 20 mg DAILY PO Last administered on 08/31/19 08:04; Start 08/31/19 at 09:00 Levothyroxine Sodium (Synthroid) 50 mcg DAILY06 PO Last administered on 09/02/19 06:13; Start 08/31/19 at 06:00 Paroxetine HCl (Paxil) 20 mg DAILY PO Last administered on 09/02/19 08:55; Start 08/31/19 at 09:00 Pramipexole Dihydrochloride (miraPEX) 0.25 mg HS PO Last administered on 09/01/19at 20:51; Start 08/30/19 at 21:00 Lactobacillus Rhamnosus (Culturelle) 1 cap BID PO Last administered on 09/02/19 08:55; Start 08/30/19 at 21:00 Potassium Chloride (Klor-Con) 10 meq [id number] PO Last administered on 09/02/19 08:55; Start 08/31/19 at 08:00 Fentanyl Citrate (Fentanyl 2ml Vial) 50 mcg PRN Q2HR PRN IVP PAIN Last administered on 08/30/19at 21:32; Start 08/30/19 at 13:00 Acetaminophen (Tylenol) 650 mg PRN Q6HRS PRN PO MILD PAIN / TEMP > 100.3'F Last administered on 09/02/19 06:39; Start 08/30/19 at 13:00 Al Hydroxide/Mg Hydroxide (Mylanta Plus Xs) 30 ml PRN Q3HRS PRN PO HEARTBURN / GAS; Start 08/30/19 at 13:00 Calcium Carbonate/ Glycine (Tums) 500 mg PRN Q3HRS PRN PO INDIGESTION; Start 08/30/19 at 13:00 Diphenhydramine HCl (Benadryl) 25 mg PRN Q6HRS PRN PO ITCHING; Start 08/30/19 at 13:00 Naloxone HCl (Narcan) 0.1 mg PRN Q2MIN PRN IV ADMIN; Start 08/30/19 at 13:00 Sodium Chloride (Normal Saline Flush) 3 ml QSHIFT PRN IV AFTER MEDS AND BLOOD DRAWS; Start 08/30/19 at 13:00 Potassium Chloride/Dextrose/ Sod Cl 1,000 ml @ 75 mls/hr [id number] IV Last administered on 08/30/19at 14:33; Start 08/30/19 at 12:56; Stop 08/31/19 at 08:13; Status DC Oxycodone/ Acetaminophen (Percocet 5/325) 1 tab PRN Q4HRS PRN PO MILD PAIN, 1ST CHOICE Last administered on 08/31/19at 10:54; Start 08/30/19 at 13:00; Stop 08/31/19 at 14:43; Status DC Methocarbamol (Robaxin) 750 mg PRN TID PRN PO MUSCLE SPASMS Last administered on 09/02/19at 06:39; Start 08/30/19 at 13:00 Docusate Sodium (Colace) 100 mg BID PO Last administered on 09/02/19at 08:55; Start 08/30/19 at 21:00 Magnesium Hydroxide (Milk Of Magnesia) 2,400 mg PRN Q12HR PRN PO CONSTIPATION; Start 08/30/19 at 13:00 Cefazolin Sodium (Ancef) 1 gm Q8H IVP Last administered on 08/31/19at 08:11; Start 08/30/19 at 17:00; Stop 08/31/19 at 09:01; Status DC Acetaminophen/ Hydrocodone Bitart (Lortab 7.5/325) 1 tab PRN Q6HRS PRN PO MODERATE-SEVERE PAIN Last administered on 09/02/19at 10:39; Start 08/31/19 at 16:00 Active Scripts Active Colace (Docusate Sodium) 100 Mg Capsule 100 Mg PO BID Reported Norvasc (Amlodipine Besylate) 5 Mg Tablet 1 Tab PO DAILY Probiotic (Lactobacillus Combo No.11) 1 Each Cap.sprink 1 Each PO DAILY Paroxetine Hcl 20 Mg Tablet 1 Tab PO DAILY Potassium Chloride 10 Meq Tablet.er 10 Meq PO DAILY Furosemide 20 Mg Tablet 1 Tab PO DAILY Pramipexole Dihydrochloride (Pramipexole Di-Hcl) 0.25 Mg Tablet 0.25 Mg PO HS Synthroid (Levothyroxine Sodium) 50 Mcg Tablet 1 Tab PO DAILY Hydrocodone-Apap 7.5-325 (Hydrocodone Bit/Acetaminophen) 1 Each Tablet 1 Tab PO PRN Q6HRS PRN Vitals/I & O Vital Sign - Last 24 Hours 09/01/19 09/01/19 09/01/19 09/01/19 18:21 19:00 19:21 19:30 Temp 100.6 100.6 Pulse 101 Resp 18 18 B/P (MAP) 131/55 (80) Pulse Ox 97 97 O2 Delivery Room Air Room Air Room Air Room Air 09/01/19 09/02/19 09/02/19 09/02/19 23:00 00:44 01:44 03:00 Temp 99.9 99.7 99.9 99.7 Pulse 94 84 Resp 18 20 18 B/P (MAP) 114/46 (68) 125/53 (77) Pulse Ox 97 97 96 O2 Delivery Room Air Room Air Room Air Room Air 09/02/19 09/02/19 09/02/19 09/02/19 07:15 08:15 10:39 11:04 Temp 98.9 99.1 98.9 99.1 Pulse 85 86 Resp 16 16 B/P (MAP) 91/64 (73) 117/45 (69) Pulse Ox 95 96 O2 Delivery Room Air Room Air Room Air Room Air 09/02/19 15:02 Temp 98.2 98.2 Pulse 88 Resp 20 B/P (MAP) 118/64 (82) Pulse Ox 97 O2 Delivery Room Air Intake and Output 09/01/19 09/01/19 09/02/19 15:00 23:00 07:00 Intake Total 120 ml 240 ml Balance 120 ml 240 ml Justicifation of Admission Dx: Justifications for Admission: Justification of Admission Dx: Yes SHADY LOERA [employer] Sep 02, 2019 15:23
--- NOTE | 2019-09-02 15:30 | NUR ---
Discharge instructions given with prescriptions. Answered questions and concerns. Both pt and daughter verbalized understanding. Also demonstrate how to change dressing. Extra dressings given. Pt discharged home with home health. Escorted out by w/c.
--- NOTE | 2019-09-08 18:37 | OP ---
DATE OF SURGERY: 08/30/2019 PREOPERATIVE DIAGNOSES: Spondylolisthesis at L4-L5 with motion on flexion and extension films and lumbar radiculopathy. POSTOPERATIVE DIAGNOSES: Spondylolisthesis at L4-L5 with motion on flexion and extension films and lumbar radiculopathy. OPERATION PERFORMED: Posterior instrumentation, L4-L5 with posterolateral fusion, L4-L5. The operation was done with EMG monitoring, SSEP monitoring, fluoroscopy, microscopic dissection, stimulated EMG monitoring, BrainLAB guidance. SURGEON: Fred Bailey M.D. FAMILY LIVING EDUCATOR: NYA Macias assisted with the surgery. She assisted with the exposure, the placement of the pedicle screws and placement of the fusion bone in the lateral gutters as well as the closure. OPERATIVE INDICATIONS: The patient is a pleasant 78-year-old woman who is having difficulty with back and pain, which radiated into both of her lower extremities. She had undergone 2 previous lumbar surgeries at L4-5. On imaging studies, there was a definite spondylolisthesis at that level with evidence of motion. I recommended an instrumented lumbar fusion. I spoke with her about the surgery and the risks after she failed with conservative measures. She understood, she wished to go ahead. DESCRIPTION OF PROCEDURE: Following general endotracheal anesthesia, the patient was positioned prone on the Pasquale table. Lumbar region prepped and draped in standard fashion. JOLYNN hose and AV impulse boots were applied for DVT prophylaxis. The microscope was draped. Fluoroscopy was draped and brought into the field. Monitoring was established. Ancef 2 grams was given less than 1 hour prior to initiation of the surgery. She was prepped and draped in standard fashion and the BrainLAB system was first initialized. Following this, bilateral incisions were made over the L4-L5 pedicles beginning on the left side. I dissected down through skin and subcutaneous tissue and placed self-retaining retractors. I exposed the facets as well as the transverse processes. I did aspirate 20 mL of bone marrow at this time from the left iliac crest. I then drilled in the posterior aspect of the pedicle of L4 and L5, followed by the black ball, followed by ball tip probe, followed by tap. I then placed wax in the openings as well. I excoriated the lateral portion of the facets and the transverse processes and then packed bone in the lateral gutter. The screws were placed using the [place] system screws. Toni was placed. The system was torqued. I then went to the contralateral side. I made the skin incision, dissected down through skin and subcutaneous tissue and exposed the facets and the lateral facets as well as the transverse processes of L4 and L5 and again drilled in the posterior aspect of the pedicles followed by the black ball tip probe tap. I did use stimulated EMG monitoring during this time. I then excoriated the transverse processes and lateral pedicles and facets and placed packed allograft bone, which had been mixed with bone graft material into the lateral gutter and then the screws were placed and the system on this side was also torqued. Fluoroscopic images were obtained when we irrigated. They looked quite good. The wounds were closed with absorbable suture after we obtain excellent hemostasis. The skin was closed with a 4-0 subcuticular stitch. I felt that the surgery went very well. FRED BAILEY MD DR: VIDHYA/shon JOB#: [id number] / [id number] MIKE
--- NOTE | 2019-09-09 14:08 | DS ---
DATE OF DISCHARGE: 09/02/2019 DATE OF SURGERY: 08/30/2019 DISCHARGE DIAGNOSES: Spondylolisthesis at L4-L5 with motion on flexion and extension films with lumbar radiculopathy. OPERATION PERFORMED: Posterior instrumentation, L4-L5 with posterolateral fusion, L4-L5. HISTORY OF PRESENT ILLNESS: The patient is a pleasant 78-year-old woman who is having difficulty with back pain, which radiates to both of her lower extremities. She had undergone 2 previous lumbar surgeries at L4-5. On imaging studies, there was a definite spondylolisthesis at that level with evidence of motion. I recommended an instrumented lumbar fusion. I spoke with her about the surgery, the risk and the technique as well as the expected postoperative course. She understood and wished to proceed. HOSPITAL COURSE: She was admitted to the floor postoperatively. She did well. She has been up ambulating in the room and in the halls with physical therapy. Her pain is well controlled. She is in good condition to discharge home with home health services. DISCHARGE INSTRUCTIONS: She was instructed regarding activity, restrictions and incision care. She will follow up with us in 2 weeks in the office. She understands to call us with any questions or concerns. GERBER BAILEY MD DR: KHARI/shon JOB#: [id number] / [id number]
== END 2019-09-02 15:30 | disposition home health service (06) | DRG 460 ==
LOC: OPSVCIP 06:10 → 4 NORTH 15:17
PROVIDERS: ADMIT Neurological Surgery; ATTEND Neurological Surgery
PROC: 07DR0ZZ Extraction of Iliac Bone Marrow, Open Approach (ICD-10-PCS; 2019-08-30)
PROC: 4A11X4G Monitoring of Peripheral Nervous Electrical Activity, Intraoperative, External Approach (ICD-10-PCS; 2019-08-30)
PROC: 0SG00K1 Fusion of Lumbar Vertebral Joint with Nonautologous Tissue Substitute, Posterior Approach, Posterior Column, Open Approach (ICD-10-PCS; principal; 2019-08-30 08:30)
DX: M43.16 Spondylolisthesis, lumbar region (principal); I10 Essential (primary) hypertension; M06.9 Rheumatoid arthritis, unspecified; M54.16 Radiculopathy, lumbar region; E07.9 Disorder of thyroid, unspecified; F32.9 Major depressive disorder, single episode, unspecified; G43.909 Migraine, unspecified, not intractable, without status migrainosus; M19.90 Unspecified osteoarthritis, unspecified site; M81.0 Age-related osteoporosis without current pathological fracture; Z82.0 Family history of epilepsy and other diseases of the nervous system; Z82.49 Family history of ischemic heart disease and other diseases of the circulatory system; Z83.3 Family history of diabetes mellitus; Z90.49 Acquired absence of other specified parts of digestive tract; Z90.710 Acquired absence of both cervix and uterus; Z88.2 Allergy status to sulfonamides; Z79.899 Other long term (current) drug therapy
CPT/HCPCS: 36415; 72131; 76000; 86850; 86900; 86901; A7015; C1713; J0330; J0690; J0780; J1100; J1885; J2405; J2704; J2710; J3010; J3480; J7030; J7120; 97116-GP; 97530-GO; 97530-GP; 97535-GO; G0378

== ENCOUNTER → 2019-09-27 | Outpatient (CLI) | payer MEDICARE, OTHER ==
[2019-09-02 15:02] VITALS: BP 118/64
[~2019-09-27] MED LIST changes: -BACITRACIN 50,000 UNIT in IV NORMAL SALINE 1000ML BAG 1,000 ML IRR ONE
--- NOTE | 2019-09-27 16:52 | KCIC ---
EXAM: Lumbar spine, 3 views. HISTORY: Pain. Fusion. COMPARISON: 08/30/2019 FINDINGS: 3 views of the lumbar spine are obtained. There is instrumented posterior spinal fusion at L4-L5. There is grade 1-2 anterolisthesis, endplate remodeling and disc space narrowing at this level. There is also grade 1 anterolisthesis of L3 on L4 with associated endplate remodeling and disc space during which are stable in appearance. There is facet arthropathy predominantly at the lumbosacral junction. There are surgical clips within the left upper quadrant. IMPRESSION: 1. Instrumented fusion at L4-L5. There is grade 1-2 anterolisthesis and degenerative change at this level, not appreciably changed. 2. Mild grade 1 anterolisthesis of L3 on L4 with associated degenerative change, also stable in appearance. 3. Facet arthropathy predominantly at the lumbosacral junction. Electronically signed by: Lulu Morales MD (09/27/2019 4:49 PM) [id number]
== END | disposition home or self-care (01) ==
LOC: KCIC 14:14
PROVIDERS: ATTEND Neurological Surgery
DX: M47.817 Spondylosis without myelopathy or radiculopathy, lumbosacral region (principal); M43.26 Fusion of spine, lumbar region; M43.16 Spondylolisthesis, lumbar region
CPT/HCPCS: 72100

== ENCOUNTER 2019-09-30 20:34 | Inpatient (IN) | payer MEDICARE, OTHER ==
[~2019-09-30] VITALS: Ht 149.9 cm; Wt 44.8 kg
[2019-09-30] MEDS ORDERED: IV NORMAL SALINE 1000ML BAG 1,000 ML IV SCH (20:56)
[2019-09-30] MEDS ORDERED: ACETAMINOPHEN 325 MG TABLET. PO PRN (21:00)
[2019-09-30] MEDS ORDERED: diphenhydrAMINE HCL 25 MG CAPSULE PO PRN (21:00)
[2019-09-30] MEDS ORDERED: NALOXONE 0.4 MG/ML VIAL. IV PRN ×2 (21:00)
[2019-09-30] MEDS ORDERED: 0.9 % SODIUM CHLORIDE 10 ML DISP.SYRIN. IV PRN (21:00)
[2019-09-30] MEDS ORDERED: HYDROcodone/APAP 5/325MG 1 TAB TABLET PO PRN (21:00)
[2019-09-30] MEDS ORDERED: MAG HYDROX/ALUMINUM HYD/SIMETH 30 ML ORAL.SUSP PO PRN (21:00)
[2019-09-30 21:24] VITALS: BP 159/81
[2019-09-30] MEDS: PRAMIPEXOLE 0.25 MG TABLET. PO SCH (21:55)
[2019-09-30] MEDS: DOCUSATE SODIUM 100 MG CAPSULE. PO SCH (21:55)
[2019-09-30] MEDS: HYDROcodone/APAP 5/325MG 1 TAB TABLET PO PRN (21:55)
[2019-09-30 23:40] VITALS: BP 169/77
[2019-10-01] MEDS: fentaNYL PF VIAL 100 MCG/2 ML VIAL IVP PRN ×8 (00:13→22:22)
[2019-10-01 01:07] LABS: BASO % 0 % (0-3); EOS % 0 % (0-3); HEMATOCRIT 36.1 % (36.0-47.0); LYMPH # 1.2 x10^3/uL (1.0-4.8); LYMPH % 15 % (24-48); MEAN CORPUSCULAR HEMOGLOBIN 29 pg (25-35); MEAN CORPUSCULAR HGB CONC 33 g/dL (31-37); MEAN CORPUSCULAR VOLUME 88 fL (79-100); MONO # 0.4 x10^3/uL (0.0-1.1); MONO % 5 % (0-9); NEUT % 79 % (31-73); PLATELET COUNT 384 x10^3/uL (140-400); RED CELL DISTRIBUTION WIDTH 14.3 % (11.5-14.5); WHITE BLOOD COUNT 7.6 x10^3/uL (4.0-11.0)
[2019-10-01 01:34] LABS: CALCIUM 8.2 mg/dL (8.5-10.1); CREATININE 0.6 mg/dL (0.6-1.0); GFR 96.9
[2019-10-01 03:35] VITALS: BP 176/91
[2019-10-01] MEDS: LEVOTHYROXINE 50 MCG TABLET PO SCH (06:00)
[2019-10-01 07:00] VITALS: BP 167/84
[2019-10-01] MEDS ORDERED: BACITRACIN 50,000 UNIT in IV NORMAL SALINE 1000ML BAG 1,000 ML IRR ONE (07:00)
[2019-10-01] MEDS ORDERED: BUPIVACAINE-EPI 0.5%-1:200000 MPF 30 ML VIAL. ONE (07:19)
[2019-10-01] MEDS ORDERED: THROMBIN TOPICAL 20,000 UNIT SPRAY.SYRN KIT TP ONE (07:19)
[2019-10-01] MEDS ORDERED: KETOROLAC 60 MG/2 ML VIAL. ONE (07:19)
[2019-10-01] MEDS ORDERED: GELATIN SPONGE SIZE 100. ONE (07:19)
--- NOTE | 2019-10-01 07:49 | PDOC ---
GENERAL General: seen and examined. lots pain cw right lumbar radiculopathy. admitted for surgery today. chest clear, heart regular, abdomen benign. ok for surgery. VITAL SIGNS/I&O Vital Signs/I&O: Vital Signs Date Time Temp Pulse Resp B/P (MAP) Pulse Ox O2 Delivery O2 Flow Rate FiO2 10/01/19 06:58 20 98 Room Air 10/01/19 03:35 98.5 84 176/91 (119) 98.5 I & O 09/30/19 09/30/19 10/01/19 15:00 23:00 07:00 Intake Total 60 ml Balance 60 ml ALLERGIES Allergies: Allergies Coded Allergies Type Severity Reaction Last Updated Verified Sulfa (Sulfonamide Antibiotics) Adverse Reaction Mild Nausea and Vomiting 10/01/19 Yes acetaminophen Adverse Reaction Mild Hallucination 10/01/19 Yes oxycodone Adverse Reaction Mild Hallucination 10/01/19 Yes MEDS Medications: Current Medications Medications (Trade) Dose Ordered Sig/Kirk Route PRN Reason Start Time Stop Time Status Last Admin Dose Admin Docusate Sodium (Colace) 100 mg BID PO 09/30/19 21:00 09/30/19 21:55 Pramipexole Dihydrochloride (miraPEX) 0.25 mg HS PO 09/30/19 21:00 09/30/19 21:55 Acetaminophen/ Hydrocodone Bitart (Lortab 5/325) 2 tab PRN Q4HRS PRN PO MODERATE PAIN, SEVERE PAIN 09/30/19 21:00 09/30/19 21:55 Fentanyl Citrate (Fentanyl 2ml Vial) 50 mcg PRN Q2HR PRN IVP SEVERE PAIN 7-10 09/30/19 21:15 10/01/19 06:28 LAB Lab: Laboratory Tests Test 09/30/19 22:35 10/01/19 00:11 SARS-CoV-2 Antigen (Rapid) Negative (NEGATIVE) White Blood Count 7.6 x10^3/uL (4.0-11.0) Red Blood Count 4.10 x10^6/uL (3.50-5.40) Hemoglobin 12.0 g/dL (12.0-15.5) Hematocrit 36.1 % (36.0-47.0) Mean Corpuscular Volume 88 fL (79-100) Mean Corpuscular Hemoglobin 29 pg (25-35) Mean Corpuscular Hemoglobin Concent 33 g/dL (31-37) Red Cell Distribution Width 14.3 % (11.5-14.5) Platelet Count 384 x10^3/uL (140-400) Neutrophils (%) (Auto) 79 % (31-73) H Lymphocytes (%) (Auto) 15 % (24-48) L Monocytes (%) (Auto) 5 % (0-9) Eosinophils (%) (Auto) 0 % (0-3) Basophils (%) (Auto) 0 % (0-3) Neutrophils # (Auto) 6.0 x10^3/uL (1.8-7.7) Lymphocytes # (Auto) 1.2 x10^3/uL (1.0-4.8) Monocytes # (Auto) 0.4 x10^3/uL (0.0-1.1) Eosinophils # (Auto) 0.0 x10^3/uL (0.0-0.7) Basophils # (Auto) 0.0 x10^3/uL (0.0-0.2) Sodium Level 132 mmol/L (136-145) L Potassium Level 3.0 mmol/L (3.5-5.1) L Chloride Level 97 mmol/L (98-107) L Carbon Dioxide Level 27 mmol/L (21-32) Anion Gap 8 (6-14) Blood Urea Nitrogen 19 mg/dL (7-20) Creatinine 0.6 mg/dL (0.6-1.0) Estimated GFR (Cockcroft-Gault) 96.9 Glucose Level 119 mg/dL (70-99) H Calcium Level 8.2 mg/dL (8.5-10.1) L Laboratory Tests 10/01/19 00:11 Laboratory Tests 10/01/19 00:11 Justicifation of Admission Dx: Justifications for Admission: Justification of Admission Dx: Yes NYLA KINSEY MD Oct 01, 2019 07:49
[2019-10-01] MEDS ORDERED: MULTIVITAMIN with MINERAL TABLET. PO SCH (09:00)
[2019-10-01] MEDS: FUROSEMIDE 20 MG TABLET PO SCH (09:00)
[2019-10-01] MEDS ORDERED: MIDAZOLAM HCL/PF 2 MG/2 ML VIAL. IV PRN (09:15)
[2019-10-01] MEDS ORDERED: fentaNYL PF VIAL 100 MCG/2 ML VIAL IV PRN (09:15)
[2019-10-01] MEDS ORDERED: LIDOCAINE 2% PF 5 ML VIAL. ONE (09:21)
[2019-10-01] MEDS ORDERED: PROPOFOL 10 MG/ML (20ML) VIAL. IV ONE ×2 (09:21→14:22)
[2019-10-01] MEDS ORDERED: 0.9 % SODIUM CHLORIDE 20 ML VIAL. IJ ONE ×2 (09:21→13:18)
[2019-10-01] MEDS ORDERED: REMIFENTANIL 1 MG VIAL. IV ONE ×2 (09:22→13:18)
[2019-10-01] MEDS ORDERED: SUCCINYLCHOLINE 200 MG/10 ML VIAL. ONE (09:22)
[2019-10-01] MEDS ORDERED: ROCURONIUM 50 MG/5 ML VIAL. ONE (09:22)
[2019-10-01] MEDS: IV RINGERS,LACTATED 1000ML 1,000 ML IV SCH ×2 (09:26→15:23)
[2019-10-01] MEDS ORDERED: PROPOFOL 50 ML IV ONE (09:33)
--- NOTE | 2019-10-01 11:00 | HP ---
ADMIT DATE: 09/30/2019 HISTORY OF PRESENT ILLNESS: The patient is a pleasant woman who underwent lumbar fusion surgery with posterior instrumentation and posterolateral fusion at L4-L5 on 08/30/2019. She did well following that surgery and discharged home. Over the last few weeks, she has noted increasing right leg pain. Over the weekend, her pain became severe. The pain is in her back and radiates down her right leg. She denies any pain on the left side. She has been taking hydrocodone as needed. We did try oral steroids as well, which did not help her. She was admitted to the hospital for further evaluation and treatment. PAST MEDICAL HISTORY: Arthritis, headaches, hypertension, rheumatoid arthritis, ulcers, depression, osteoporosis, thyroid disease. PAST SURGICAL HISTORY: Lumbar surgery on 08/29 as mentioned above, tonsillectomy, C-sections, hysterectomy, cholecystectomy, thyroid surgery, cataract surgery, hernia repair, lumbar decompressive surgery at L3-L4 in 2013, lumbar decompressive surgery at L4-L5 in 2019. FAMILY HISTORY: Alzheimer's, cancer, diabetes, cardiac disease, hypertension, and headaches. SOCIAL HISTORY: , lives with her spouse. She is retired. She does not drink alcohol. She is a nonsmoker. ALLERGIES: SULFA. CURRENT MEDICATIONS: See the MRAD. REVIEW OF SYSTEMS: A 12-point review of systems was performed and is noncontributory except that mentioned above. PHYSICAL EXAMINATION: GENERAL: Alert, pleasant, in significant distress with back and right leg pain. HEAD: Normocephalic, atraumatic. SKIN: Warm and dry. Incision has healed well. MUSCULOSKELETAL: Lumbar paraspinal muscle bulk is normal, restricted range of motion of the lumbar spine, moderate tenderness of the lower lumbar spine with palpation. Normal range of motion of the lower extremities bilaterally. EXTREMITIES: No clubbing, cyanosis or edema. NEUROLOGIC: Alert and oriented x 3. Recent and remote memory is normal. Strength is 5/5 in the lower extremities bilaterally. Sensory is intact to light touch in the lower extremities bilaterally. Reflexes were trace and symmetric in the lower extremities bilaterally. IMAGING DATA: I reviewed a lumbar CT scan, there is an anterolisthesis at L4-L5. The instrumentation is seen. It appears that the anterolisthesis has increased from her postoperative films. ASSESSMENT AND PLAN: I believe the motion at L4-L5 is responsible for her pain. I recommended revising fusion and reducing the anterolisthesis at L4-L5. I spoke with her about this. She and her daughter understand the rationale, the technique, the risk and the expected postoperative course. They would like to proceed. GERBER BAILEY MD DR: KHARI/shon JOB#: [id number] / [id number]
--- NOTE | 2019-10-01 11:16 | NUR ---
SW following. Discussed with RN, pt having surgery today to remove hardware. Pt from home with family. PT/OT to work with pt after surgery. SW will continue to follow.
[2019-10-01] MEDS: POTASSIUM CHLORIDE 10MEQ 100 ML IV SCH ×2 (11:30→13:30)
[2019-10-01] MEDS ORDERED: ONDANSETRON PF 4 MG/2 ML VIAL. ONE (11:51)
[2019-10-01] MEDS ORDERED: DEXAMETHASONE SOD PHOS 4 MG/ML VIAL ONE (11:51)
[2019-10-01] MEDS ORDERED: METOPROLOL TARTRATE 5 MG/5 ML VIAL. IVP ONE (14:56)
[2019-10-01] MEDS ORDERED: PROCHLORPERAZINE 10 MG/2 ML VIAL. ONE (15:02)
[2019-10-01] MEDS ORDERED: MORPHINE SULFATE 4 MG/ML VIAL. ONE (15:03)
[2019-10-01] MEDS ORDERED: MORPHINE SULFATE 4 MG/ML VIAL. IV ONE (15:15)
[2019-10-01] MEDS: PROCHLORPERAZINE 10 MG/2 ML VIAL. IV PRN ×2 (15:29→15:49)
--- NOTE | 2019-10-01 16:08 | RAD ---
EXAM: CT Lumbar Spine without IV contrast INDICATION: Reason: with brainlab, pre op / Spl. Instructions: / History: TECHNIQUE: Multi-detector row CT images were obtained through the lumbar spine without the use of IV contrast. BrainLab protocol utilized. Post-processing sagittal and coronal reconstructed images were obtained for interpretation. All CT scans performed at this facility utilize dose optimization techniques as appropriate to the exam, including the following: Automated exposure control and adjustment of the mA and/or KV according to patient size (this includes techniques or standardized protocols for targeted exams where dose is indication/reason for exam). COMPARISON: 09/30/[address] without IV contrast. FINDINGS: The lowest fully formed disc is referred to as the L5-S1 level. ALIGNMENT: Alignment again shows grade 1-2 anterolisthesis of L4 on L5 of 1.2 cm, similar to prior. Stable minimal anterolisthesis of L3 on L4 as well. OSSEOUS: Bones show no new acute fracture or aggressive osseous lesions. Stable superior endplate fracture at L5 with mild loss of height. Posterior decompressive surgical changes at L4-L5 with colin and pedicle screw construct fusion are again seen. As previously noted, the L5 screws are eccentrically positioned in L5 and slightly cephalad to the pedicles. DISC SPACES: Multilevel disc bulging with mild loss of height. This is most conspicuous at L4-5 where anterolisthesis is also evident. FACET JOINTS: Facet hypertrophic change is present at L5-S1, relatively mild. SPINAL CANAL: Severe canal stenosis at L4-L5 due to anterolisthesis and disc loss of height. NEUROFORAMINA: Varying degrees of foraminal narrowing due to disc loss of height, similar to prior. SOFT TISSUES: Postoperative changes with surgical clips in the midline upper abdomen around the stomach are noted. Stable left posterior subcutaneous fluid collection, only partially imaged. IMPRESSION: Similar appearance to the lumbar spine with L4-L5 anterolisthesis and minimal L3-L4 anterolisthesis, status post previous posterior decompression and colin and pedicle screw construct fusion with malpositioning of the L5 screws and anterior endplate fracture at L5 in similar configuration. Images acquired for presurgical planning using BrainLab protocol. Electronically signed by: Taylor Pulido MD (10/01/2019 4:05 PM) [id number]
[2019-10-01] MEDS ORDERED: fentaNYL PF VIAL 100 MCG/2 ML VIAL ONE (16:30)
[2019-10-01] MEDS: fentaNYL PF VIAL 100 MCG/2 ML VIAL IV PRN ×2 (16:32→16:47)
--- NOTE | 2019-10-01 17:00 | NUR ---
returned from surgery. pain is "tolerable at this time. daughter at bedside. up to the bsc with 1 voided approx 150 cc returned to bed. is eating supper.and tolerating well. dressing to back is clean and dry
[2019-10-01 18:00] VITALS: BP 158/68
[2019-10-01] MEDS: POTASSIUM CHLORIDE 10 MEQ TABLET.ER. PO SCH (18:00)
[2019-10-01] MEDS: LACTOBACILLUS RHAMNOSUS GG 1 CAPSULE. PO SCH (18:00)
[2019-10-01] MEDS: DOCUSATE SODIUM 100 MG CAPSULE. PO SCH ×2 (18:00→19:58)
[2019-10-01] MEDS: PARoxetine 20 MG TABLET PO SCH (18:00)
[2019-10-01] MEDS: amLODIPine BESYLATE 5 MG TABLET PO SCH (18:01)
[2019-10-01] MEDS: PRAMIPEXOLE 0.25 MG TABLET. PO SCH (19:58)
[2019-10-01 23:00] VITALS: BP 135/56
[2019-10-02] MEDS: fentaNYL PF VIAL 100 MCG/2 ML VIAL IVP PRN ×2 (01:27→04:03)
[2019-10-02 03:00] VITALS: BP 157/70
--- NOTE | 2019-10-02 04:00 | NUR ---
Hydrocodone 2 tabs given for c/o "restless leg syndrome." "That's what I take at home for it."
[2019-10-02] MEDS: LEVOTHYROXINE 50 MCG TABLET PO SCH (05:09)
[2019-10-02] MEDS: HYDROcodone/APAP 5/325MG 1 TAB TABLET PO PRN ×4 (05:09→22:50)
[2019-10-02 07:00] VITALS: BP 131/62
[2019-10-02] MEDS: DOCUSATE SODIUM 100 MG CAPSULE. PO SCH ×2 (08:00→21:02)
[2019-10-02] MEDS: LACTOBACILLUS RHAMNOSUS GG 1 CAPSULE. PO SCH (08:00)
[2019-10-02] MEDS: PARoxetine 20 MG TABLET PO SCH (08:01)
[2019-10-02] MEDS: amLODIPine BESYLATE 5 MG TABLET PO SCH (08:01)
[2019-10-02] MEDS: POTASSIUM CHLORIDE 10 MEQ TABLET.ER. PO SCH (08:01)
[2019-10-02 08:29] LABS: CALCIUM 7.6 mg/dL (8.5-10.1); CREATININE 0.5 mg/dL (0.6-1.0); GFR 119.6; POTASSIUM 3.2 mmol/L (3.5-5.1)
[2019-10-02] MEDS: FUROSEMIDE 20 MG TABLET PO SCH (09:00)
--- NOTE | 2019-10-02 10:00 | PDOC ---
Provider Note Provider Note sleeping after surg- labs ok, dc per dr ca Justicifation of Admission Dx: Justifications for Admission: Justification of Admission Dx: Yes ANU LEE MD Oct 02, 2019 10:00
[2019-10-02 11:00] VITALS: BP 122/85
[2019-10-02] MEDS: PRAMIPEXOLE 0.25 MG TABLET. PO SCH ×2 (11:47→21:02)
[2019-10-02] MEDS: ALPRAZolam 0.25 MG TABLET PO PRN (11:47)
--- NOTE | 2019-10-02 13:32 | PDOC ---
PROGRESS NOTES Subjective Subjective patient seen and examined at 1130 POD #1 s/p laminectomy and revision of fusion L4-5 c/o back pain, no leg pain brace on normal strength in BLE PT will need SNF D/W daughter and RN Objective Objective Vital Signs Date Time Temp Pulse Resp B/P (MAP) Pulse Ox O2 Delivery O2 Flow Rate FiO2 10/02/19 12:58 20 Room Air 10/02/19 11:00 98.8 82 122/85 (97) 93 98.8 10/01/19 15:39 10.0 Intake and Output 10/02/19 07:00 Intake Total 1350 ml Output Total 720 ml Balance 630 ml Intake Oral 100 ml IV Total 1250 ml Output Urine Total 700 ml Estimated Blood Loss 20 ml # Voids 2 Comment Review of Relevant I have reviewed the following items domingo (where applicable) has been applied. Labs Laboratory Tests Test 09/30/19 22:35 10/01/19 00:11 10/02/19 07:40 Coronavirus (PCR) Not detected (Not Detected) SARS-CoV-2 Antigen (Rapid) Negative (NEGATIVE) White Blood Count 7.6 x10^3/uL (4.0-11.0) Red Blood Count 4.10 x10^6/uL (3.50-5.40) Hemoglobin 12.0 g/dL (12.0-15.5) Hematocrit 36.1 % (36.0-47.0) Mean Corpuscular Volume 88 fL (79-100) Mean Corpuscular Hemoglobin 29 pg (25-35) Mean Corpuscular Hemoglobin Concent 33 g/dL (31-37) Red Cell Distribution Width 14.3 % (11.5-14.5) Platelet Count 384 x10^3/uL (140-400) Neutrophils (%) (Auto) 79 % (31-73) Lymphocytes (%) (Auto) 15 % (24-48) Monocytes (%) (Auto) 5 % (0-9) Eosinophils (%) (Auto) 0 % (0-3) Basophils (%) (Auto) 0 % (0-3) Neutrophils # (Auto) 6.0 x10^3/uL (1.8-7.7) Lymphocytes # (Auto) 1.2 x10^3/uL (1.0-4.8) Monocytes # (Auto) 0.4 x10^3/uL (0.0-1.1) Eosinophils # (Auto) 0.0 x10^3/uL (0.0-0.7) Basophils # (Auto) 0.0 x10^3/uL (0.0-0.2) Sodium Level 132 mmol/L (136-145) 134 mmol/L (136-145) Potassium Level 3.0 mmol/L (3.5-5.1) 3.2 mmol/L (3.5-5.1) Chloride Level 97 mmol/L (98-107) 99 mmol/L (98-107) Carbon Dioxide Level 27 mmol/L (21-32) 28 mmol/L (21-32) Anion Gap 8 (6-14) 7 (6-14) Blood Urea Nitrogen 19 mg/dL (7-20) 11 mg/dL (7-20) Creatinine 0.6 mg/dL (0.6-1.0) 0.5 mg/dL (0.6-1.0) Estimated GFR (Cockcroft-Gault) 96.9 119.6 Glucose Level 119 mg/dL (70-99) 92 mg/dL (70-99) Calcium Level 8.2 mg/dL (8.5-10.1) 7.6 mg/dL (8.5-10.1) Laboratory Tests Test 10/02/19 07:40 Sodium Level 134 mmol/L (136-145) Potassium Level 3.2 mmol/L (3.5-5.1) Chloride Level 99 mmol/L (98-107) Carbon Dioxide Level 28 mmol/L (21-32) Anion Gap 7 (6-14) Blood Urea Nitrogen 11 mg/dL (7-20) Creatinine 0.5 mg/dL (0.6-1.0) Estimated GFR (Cockcroft-Gault) 119.6 Glucose Level 92 mg/dL (70-99) Calcium Level 7.6 mg/dL (8.5-10.1) Medications Current Medications Amlodipine Besylate (Norvasc) 5 mg DAILY PO Last administered on 10/02/19at 08:01; Start 10/01/19 at 09:00 Docusate Sodium (Colace) 100 mg BID PO Last administered on 10/02/19at 08:00; Start 09/30/19 at 21:00 Furosemide (Lasix) 20 mg DAILY PO ; Start 10/01/19 at 09:00 Levothyroxine Sodium (Synthroid) 50 mcg DAILY06 PO Last administered on 10/02/19at 05:09; Start 10/01/19 at 06:00 Paroxetine HCl (Paxil) 20 mg DAILY PO Last administered on 10/02/19at 08:01; Start 10/01/19 at 09:00 Pramipexole Dihydrochloride (miraPEX) 0.25 mg HS PO Last administered on 10/01/19at 19:58; Start 09/30/19 at 21:00; Stop 10/02/19 at 11:08; Status DC Lactobacillus Rhamnosus (Culturelle) 1 cap DAILY PO Last administered on 10/02/19at 08:00; Start 10/01/19 at 09:00 Potassium Chloride (Klor-Con) 10 meq DAILYWBKFT PO Last administered on 10/02/19at 08:01; Start 10/01/19 at 08:00 Multivitamins (Thera M Plus) 1 tab DAILY PO ; Start 10/01/19 at 09:00; Status Cancel Acetaminophen (Tylenol) 650 mg PRN Q6HRS PRN PO MILD PAIN / TEMP > 100.3'F; Start 09/30/19 at 21:00 Al Hydroxide/Mg Hydroxide (Mylanta Plus Xs) 30 ml PRN Q3HRS PRN PO HEARTBURN / GAS; Start 09/30/19 at 21:00 Diphenhydramine HCl (Benadryl) 25 mg PRN Q6HRS PRN PO ITCHING; Start 09/30/19 at 21:00 Naloxone HCl (Narcan) 0.1 mg PRN Q2MIN PRN IV SEE COMMENTS; Start 09/30/19 at 21:00; Stop 09/30/19 at 21:16; Status DC Sodium Chloride (Normal Saline Flush) 3 ml QSHIFT PRN IV AFTER MEDS AND BLOOD DRAWS; Start 09/30/19 at 21:00 Naloxone HCl (Narcan) 0.4 mg PRN Q2MIN PRN IV SEE INSTRUCTIONS; Start 09/30/19 at 21:00; Status Cancel Sodium Chloride 1,000 ml @ 25 mls/hr Q24H IV ; Start 09/30/19 at 20:56; Stop 10/02/19 at 00:44; Status DC Acetaminophen/ Hydrocodone Bitart (Lortab 5/325) 1 tab PRN Q4HRS PRN PO MILD PAIN 1-3; Start 09/30/19 at 21:00 Acetaminophen/ Hydrocodone Bitart (Lortab 5/325) 2 tab PRN Q4HRS PRN PO MODERATE PAIN, SEVERE PAIN Last administered on 10/02/19at 12:58; Start 09/30/19 at 21:00 Fentanyl Citrate (Fentanyl 2ml Vial) 50 mcg PRN Q2HR PRN IVP SEVERE PAIN 7-10 Last administered on 10/02/19at 04:03; Start 09/30/19 at 21:15 Cefazolin Sodium/ Dextrose 50 ml @ 100 mls/hr PREOP PRN PRN IV PREOP Last administered on 10/01/19at 11:32; Start 10/01/19 at 07:00; Stop 10/01/19 at 14:10; Status DC Bacitracin 62361 unit/Sodium Chloride 1,000 ml @ 1,000 mls/hr 1X ONCE IRR Las t administered on 10/01/19at 12:01; Start 10/01/19 at 07:00; Stop 10/01/19 at 07:59; Status DC Gelatin (Gelfoam Size 100) 1 each STK-MED ONCE .ROUTE Last administered on 10/01/19at 12:01; Start 10/01/19 at 07:19; Stop 10/01/19 at 07:19; Status DC Bupivacaine HCl/ Epinephrine Bitart (Sensorcain-Epi 0.5%-1:358476 Mpf) 30 ml STK-MED ONCE .ROUTE Last administered on 10/01/19at 12:01; Start 10/01/19 at 07:19; Stop 10/01/19 at 07:19; Status DC Ketorolac Tromethamine (Toradol Im) 60 mg STK-MED ONCE .ROUTE Last administered on 10/01/19at 12:01; Start 10/01/19 at 07:19; Stop 10/01/19 at 07:20; Status DC Thrombin 20,000 unit STK-MED ONCE TP Last administered on 10/01/19at 12:01; Start 10/01/19 at 07:19; Stop 10/01/19 at 07:20; Status DC Potassium Chloride/Water 100 ml @ 50 mls/hr Q1H IV Last administered on 10/01/19at 13:30; Start 10/01/19 at 08:00; Stop 10/01/19 at 09:59; Status DC Midazolam HCl (Versed) 2 mg PRN 1X PRN IV PRIOR TO PROCEDURE; Start 10/01/19 at 09:15; Stop 10/01/19 at 18:00; Status DC Fentanyl Citrate (Fentanyl 2ml Vial) 25 mcg PRN Q5MIN PRN IV X 2 DOSES FOR PAIN; Start 10/01/19 at 09:15; Stop 10/01/19 at 18:00; Status DC Fentanyl Citrate (Fentanyl 2ml Vial) 50 mcg PRN Q5MIN PRN IV X 2 DOSES FOR PAIN Last administered on 10/01/19at 16:47; Start 10/01/19 at 09:15; Stop 10/01/19 at 18:00; Status DC Ringer's Solution 1,000 ml @ 125 mls/hr Q8H IV Last administered on 10/01/19at 15:23; Start 10/01/19 at 09:12; Stop 10/01/19 at 21:11; Status DC Propofol (Diprivan) 200 mg STK-MED ONCE IV ; Start 10/01/19 at 09:21; Stop 10/01/19 at 09:22; Status DC Lidocaine HCl (Lidocaine Pf 2% Vial) 5 ml STK-MED ONCE .ROUTE ; Start 10/01/19 at 09:21; Stop 10/01/19 at 09:22; Status DC Sodium Chloride (SODIUM CHLORIDE 20ml) 20 ml STK-MED ONCE IJ ; Start 10/01/19 at 09:21; Stop 10/01/19 at 09:22; Status DC Succinylcholine Chloride (Anectine) 200 mg STK-MED ONCE .ROUTE ; Start 10/01/19 at 09:22; Stop 10/01/19 at 09:22; Status DC Rocuronium [place] (Zemuron) 50 mg STK-MED ONCE .ROUTE ; Start 10/01/19 at 09:22; Stop 10/01/19 at 09:22; Status DC Remifentanil HCl (Ultiva) 1 mg STK-MED ONCE IV ; Start 10/01/19 at 09:22; Stop 10/01/19 at 09:22; Status DC Propofol 50 ml @ As Directed STK-MED ONCE IV ; Start 10/01/19 at 09:33; Stop 10/01/19 at 09:33; Status DC Ondansetron HCl (Zofran) 4 mg STK-MED ONCE .ROUTE ; Start 10/01/19 at 11:51; Stop 10/01/19 at 11:52; Status DC Dexamethasone Sodium Phosphate (Decadron) 4 mg STK-MED ONCE .ROUTE ; Start 10/01/19 at 11:51; Stop 10/01/19 at 11:52; Status DC Remifentanil HCl (Ultiva) 1 mg STK-MED ONCE IV ; Start 10/01/19 at 13:18; Stop 10/01/19 at 13:18; Status DC Sodium Chloride (SODIUM CHLORIDE 20ml) 20 ml STK-MED ONCE IJ ; Start 10/01/19 at 13:18; Stop 10/01/19 at 13:18; Status DC Propofol (Diprivan) 200 mg STK-MED ONCE IV ; Start 10/01/19 at 14:22; Stop 10/01/19 at 14:23; Status DC Metoprolol Tartrate (Lopressor Vial) 5 mg STK-MED ONCE IVP ; Start 10/01/19 at 14:56; Stop 10/01/19 at 14:56; Status DC Prochlorperazine Edisylate (Compazine) 10 mg STK-MED ONCE .ROUTE ; Start at 15:02; Stop 10/01/19 at 15:03; Status DC Morphine Sulfate (Morphine Sulfate) 4 mg STK-MED ONCE .ROUTE ; Start 10/01/19 at 15:03; Stop 10/01/19 at 15:03; Status DC Morphine Sulfate (Morphine Sulfate) 4 mg 1X ONCE IV Last administered on 10/01/19at 15:39; Start 10/01/19 at 15:15; Stop 10/01/19 at 15:16; Status DC Prochlorperazine Edisylate (Compazine) 5 mg PRN Q10MIN PRN IV NAUSEA/VOMITING Last administered on 10/01/19at 15:49; Start 10/01/19 at 15:07; Stop 10/01/19 at 22:00; Status DC Fentanyl Citrate (Fentanyl 2ml Vial) 100 mcg STK-MED ONCE .ROUTE ; Start 10/01/19 at 16:30; Stop 10/01/19 at 16:30; Status DC Pramipexole Dihydrochloride (miraPEX) 0.5 mg HS PO ; Start 10/02/19 at 21:00 Pramipexole Dihydrochloride (miraPEX) 0.25 mg QAM PO Last administered on 10/02/19at 11:47; Start 10/02/19 at 11:15 Alprazolam (Xanax) 0.25 mg TID PRN PRN PO ANXIETY / AGITATION Last administered on 10/02/19at 11:47; Start 10/02/19 at 11:15 Active Scripts Active Colace (Docusate Sodium) 100 Mg Capsule 100 Mg PO BID Reported Norvasc (Amlodipine Besylate) 5 Mg Tablet 1 Tab PO DAILY Probiotic (Lactobacillus Combo No.11) 1 Each Cap.sprink 1 Each PO DAILY Paroxetine Hcl 20 Mg Tablet 1 Tab PO DAILY Potassium Chloride 10 Meq Tablet.er 10 Meq PO QODAY [id number] Furosemide 20 Mg Tablet 1 Tab PO QODAY [id number] Pramipexole Dihydrochloride (Pramipexole Di-Hcl) 0.25 Mg Tablet 0.25 Mg PO HS Synthroid (Levothyroxine Sodium) 50 Mcg Tablet 1 Tab PO DAILY Hydrocodone-Apap 7.5-325 (Hydrocodone Bit/Acetaminophen) 1 Each Tablet 1 Tab PO PRN Q6HRS PRN Vitals/I & O Vital Sign - Last 24 Hours 10/01/19 10/01/19 10/01/19 10/01/19 15:14 15:14 15:29 15:39 Temp 98.1 98.1 Pulse 85 95 Resp 20 20 20 B/P (MAP) 115/85 136/85 Pulse Ox 100 98 100 O2 Delivery Simple Mask Mask Simple Mask Simple Mask O2 Flow Rate 10 10 10 10.0 10/01/19 10/01/19 10/01/19 10/01/19 15:44 15:59 16:14 16:29 Pulse 87 86 86 78 Resp 20 20 20 20 B/P (MAP) 131/63 144/61 155/69 158/78 Pulse Ox 99 98 98 96 O2 Delivery Room Air Room Air Room Air Room Air 10/01/19 10/01/19 10/01/19 10/01/19 16:32 16:44 16:47 18:00 Temp 98.2 98.2 Pulse 78 94 Resp 20 20 20 18 B/P (MAP) 178/78 158/68 (98) Pulse Ox 99 99 95 97 O2 Delivery Room Air Room Air Room Air Room Air 10/01/19 10/01/19 10/01/19 10/01/19 18:01 19:36 20:00 20:10 Pulse 76 Resp 20 16 B/P (MAP) 138/74 O2 Delivery Room Air Room Air 10/01/19 10/01/19 10/01/19 10/02/19 22:22 22:55 23:00 01:27 Temp 98.2 98.2 Pulse 82 Resp 24 16 16 20 B/P (MAP) 135/56 (82) Pulse Ox 97 O2 Delivery Room Air Room Air Room Air Room Air 10/02/19 10/02/19 10/02/19 10/02/19 02:00 03:00 04:03 04:35 Temp 98.1 98.1 Pulse 88 Resp 16 16 22 20 B/P (MAP) 157/70 (99) Pulse Ox 99 O2 Delivery Room Air Room Air Room Air 10/02/19 10/02/19 10/02/19 10/02/19 05:09 06:13 07:00 08:01 Temp 98.9 98.9 Pulse 83 88 Resp 22 20 18 B/P (MAP) 131/62 (85) 157/70 Pulse Ox 97 O2 Delivery Room Air Room Air Room Air 10/02/19 10/02/19 11:00 12:58 Temp 98.8 98.8 Pulse 82 Resp 18 20 B/P (MAP) 122/85 (97) Pulse Ox 93 O2 Delivery Room Air Room Air Intake and Output 10/01/19 10/01/19 10/02/19 15:00 23:00 07:00 Intake Total 0 ml 1250 ml 100 ml Output Total 720 ml Balance 0 ml 530 ml 100 ml Justicifation of Admission Dx: Justifications for Admission: Justification of Admission Dx: Yes GERBER BAILEY MD Oct 02, 2019 13:32
[2019-10-02 15:00] VITALS: BP 135/64
[2019-10-02 19:00] VITALS: BP 139/52
[2019-10-02 23:00] VITALS: BP 156/60
[2019-10-03 03:00] VITALS: BP 149/64
[2019-10-03] MEDS: LEVOTHYROXINE 50 MCG TABLET PO SCH (05:40)
[2019-10-03] MEDS: HYDROcodone/APAP 5/325MG 1 TAB TABLET PO PRN ×4 (05:41→22:08)
[2019-10-03 07:00] VITALS: BP 141/64
--- NOTE | 2019-10-03 08:38 | PDOC ---
Provider Note Provider Note stable, K+ 3.2 so will boost po- will need snf at dc Justicifation of Admission Dx: Justifications for Admission: Justification of Admission Dx: Yes ANU LEE MD Oct 03, 2019 08:38
[2019-10-03] MEDS: POTASSIUM CHLORIDE 10 MEQ TABLET.ER. PO SCH ×3 (09:00→17:55)
[2019-10-03] MEDS: PRAMIPEXOLE 0.25 MG TABLET. PO SCH ×2 (09:01→21:13)
[2019-10-03] MEDS: FUROSEMIDE 20 MG TABLET PO SCH (09:01)
[2019-10-03] MEDS: LACTOBACILLUS RHAMNOSUS GG 1 CAPSULE. PO SCH (09:01)
[2019-10-03] MEDS: DOCUSATE SODIUM 100 MG CAPSULE. PO SCH ×2 (09:01→21:13)
[2019-10-03] MEDS: ALPRAZolam 0.25 MG TABLET PO PRN (09:01)
[2019-10-03] MEDS: PARoxetine 20 MG TABLET PO SCH (09:01)
[2019-10-03] MEDS: amLODIPine BESYLATE 5 MG TABLET PO SCH (09:02)
[2019-10-03 11:00] VITALS: BP 138/62
--- NOTE | 2019-10-03 14:01 | PDOC ---
PROGRESS NOTES Subjective Subjective POD #2 s/p laminectomy and revision of fusion L4-5 resting in bed with brace on reports some back pain controlled with medication, denies leg pain MATHIAS, normal strength in LE, dressing C,D,I, flat encouraged activity as tolerated will need SNF at dc Objective Objective Vital Signs Date Time Temp Pulse Resp B/P (MAP) Pulse Ox O2 Delivery O2 Flow Rate FiO2 10/03/19 11:00 98.2 79 18 138/62 (87) 96 Room Air 98.2 10/01/19 15:39 10.0 Intake and Output 10/03/19 07:00 Intake Total 1480 ml Output Total 600 ml Balance 880 ml Intake Oral 1480 ml Output Urine Total 600 ml # Voids 13 # Bowel Movements 1 Comment Review of Relevant I have reviewed the following items domingo (where applicable) has been applied. Labs Laboratory Tests Test 10/02/19 07:40 Sodium Level 134 mmol/L (136-145) Potassium Level 3.2 mmol/L (3.5-5.1) Chloride Level 99 mmol/L (98-107) Carbon Dioxide Level 28 mmol/L (21-32) Anion Gap 7 (6-14) Blood Urea Nitrogen 11 mg/dL (7-20) Creatinine 0.5 mg/dL (0.6-1.0) Estimated GFR (Cockcroft-Gault) 119.6 Glucose Level 92 mg/dL (70-99) Calcium Level 7.6 mg/dL (8.5-10.1) Medications Current Medications Amlodipine Besylate (Norvasc) 5 mg DAILY PO Last administered on 10/03/19at 09:02; Start 10/01/19 at 09:00 Docusate Sodium (Colace) 100 mg BID PO Last administered on 10/03/19at 09:01; Start 09/30/19 at 21:00 Furosemide (Lasix) 20 mg DAILY PO Last administered on 10/03/19at 09:01; Start 10/01/19 at 09:00 Levothyroxine Sodium (Synthroid) 50 mcg DAILY06 PO Last administered on 10/03/19at 05:40; Start 10/01/19 at 06:00 Paroxetine HCl (Paxil) 20 mg DAILY PO Last administered on 10/03/19at 09:01; Start 10/01/19 at 09:00 Pramipexole Dihydrochloride (miraPEX) 0.25 mg HS PO Last administered on 09/02 03/22at 19:58; Start 09/30/19 at 21:00; Stop 10/02/19 at 11:08; Status DC Lactobacillus Rhamnosus (Culturelle) 1 cap DAILY PO Last administered on 10/03/19at 09:01; Start 10/01/19 at 09:00 Potassium Chloride (Klor-Con) 10 meq DAILYWBKFT PO Last administered on 10/02/19at 08:01; Start 10/01/19 at 08:00; Stop 10/03/19 at 08:38; Status DC Multivitamins (Thera M Plus) 1 tab DAILY PO ; Start 10/01/19 at 09:00; Status Cancel Acetaminophen (Tylenol) 650 mg PRN Q6HRS PRN PO MILD PAIN / TEMP > 100.3'F; Start 09/30/19 at 21:00 Al Hydroxide/Mg Hydroxide (Mylanta Plus Xs) 30 ml PRN Q3HRS PRN PO HEARTBURN / GAS; Start 09/30/19 at 21:00 Diphenhydramine HCl (Benadryl) 25 mg PRN Q6HRS PRN PO ITCHING; Start 09/30/19 at 21:00 Naloxone HCl (Narcan) 0.1 mg PRN Q2MIN PRN IV SEE COMMENTS; Start 09/30/19 at 21:00; Stop 09/30/19 at 21:16; Status DC Sodium Chloride (Normal Saline Flush) 3 ml QSHIFT PRN IV AFTER MEDS AND BLOOD DRAWS; Start 09/30/19 at 21:00 Naloxone HCl (Narcan) 0.4 mg PRN Q2MIN PRN IV SEE INSTRUCTIONS; Start 09/30/19 at 21:00; Status Cancel Sodium Chloride 1,000 ml @ 25 mls/hr Q24H IV ; Start 09/30/19 at 20:56; Stop 10/02/19 at 00:44; Status DC Acetaminophen/ Hydrocodone Bitart (Lortab 5/325) 1 tab PRN Q4HRS PRN PO MILD PAIN 1-3; Start 09/30/19 at 21:00 Acetaminophen/ Hydrocodone Bitart (Lortab 5/325) 2 tab PRN Q4HRS PRN PO MODERATE PAIN, SEVERE PAIN Last administered on 10/03/19 09:01; Start 09/30/19 at 21:00 Fentanyl Citrate (Fentanyl 2ml Vial) 50 mcg PRN Q2HR PRN IVP SEVERE PAIN 7-10 Last administered on 10/02/19at 04:03; Start 09/30/19 at 21:15 Cefazolin Sodium/ Dextrose 50 ml @ 100 mls/hr PREOP PRN PRN IV PREOP Last administered on 10/01/19at 11:32; Start 10/01/19 at 07:00; Stop 10/01/19 at 14:10; Status DC Bacitracin 21451 unit/Sodium Chloride 1,000 ml @ 1,000 mls/hr 1X ONCE IRR Last administered on 10/01/19at 12:01; Start 10/01/19 at 07:00; Stop 10/01/19 at 07:59; Status DC Gelatin (Gelfoam Size 100) 1 each STK-MED ONCE .ROUTE Last administered on 10/01/19at 12:01; Start 10/01/19 at 07:19; Stop 10/01/19 at 07:19; Status DC Bupivacaine HCl/ Epinephrine Bitart (Sensorcain-Epi 0.5%-1:313118 Mpf) 30 ml STK-MED ONCE .ROUTE Last administered on 10/01/19at 12:01; Start 10/01/19 at 07:19; Stop 10/01/19 at 07:19; Status DC Ketorolac Tromethamine (Toradol Im) 60 mg STK-MED ONCE .ROUTE Last administered on 10/01/19at 12:01; Start 10/01/19 at 07:19; Stop 10/01/19 at 07:20; Status DC Thrombin 20,000 unit STK-MED ONCE TP Last administered on 10/01/19at 12:01; Start 10/01/19 at 07:19; Stop 10/01/19 at 07:20; Status DC Potassium Chloride/Water 100 ml @ 50 mls/hr Q1H IV Last administered on 10/01/19at 13:30; Start 10/01/19 at 08:00; Stop 10/01/19 at 09:59; Status DC Midazolam HCl (Versed) 2 mg PRN 1X PRN IV PRIOR TO PROCEDURE; Start 10/01/19 at 09:15; Stop 10/01/19 at 18:00; Status DC Fentanyl Citrate (Fentanyl 2ml Vial) 25 mcg PRN Q5MIN PRN IV X 2 DOSES FOR PAIN; Start 10/01/19 at 09:15; Stop 10/01/19 at 18:00; Status DC Fentanyl Citrate (Fentanyl 2ml Vial) 50 mcg PRN Q5MIN PRN IV X 2 DOSES FOR PAIN Last administered on 10/01/19at 16:47; Start 10/01/19 at 09:15; Stop 10/01/19 at 18:00; Status DC Ringer's Solution 1,000 ml @ 125 mls/hr Q8H IV Last administered on 10/01/19at 15:23; Start 10/01/19 at 09:12; Stop 10/01/19 at 21:11; Status DC Propofol (Diprivan) 200 mg STK-MED ONCE IV ; Start 10/01/19 at 09:21; Stop 10/01/19 at 09:22; Status DC Lidocaine HCl (Lidocaine Pf 2% Vial) 5 ml STK-MED ONCE .ROUTE ; Start 10/01/19 at 09:21; Stop 10/01/19 at 09:22; Status DC Sodium Chloride (SODIUM CHLORIDE 20ml) 20 ml STK-MED ONCE IJ ; Start 10/01/19 at 09:21; Stop 10/01/19 at 09:22; Status DC Succinylcholine Chloride (Anectine) 200 mg STK-MED ONCE .ROUTE ; Start 10/01/19 at 09:22; Stop 10/01/19 at 09:22; Status DC Rocuronium [place] (Zemuron) 50 mg STK-MED ONCE .ROUTE ; Start 10/01/19 at 09:22; Stop 10/01/19 at 09:22; Status DC Remifentanil HCl (Ultiva) 1 mg STK-MED ONCE IV ; Start 10/01/19 at 09:22; Stop 10/01/19 at 09:22; Status DC Propofol 50 ml @ As Directed STK-MED ONCE IV ; Start 10/01/19 at 09:33; Stop 10/01/19 at 09:33; Status DC Ondansetron HCl (Zofran) 4 mg STK-MED ONCE .ROUTE ; Start 10/01/19 at 11:51; Stop 10/01/19 at 11:52; Status DC Dexamethasone Sodium Phosphate (Decadron) 4 mg STK-MED ONCE .ROUTE ; Start 10/01/19 at 11:51; Stop 10/01/19 at 11:52; Status DC Remifentanil HCl (Ultiva) 1 mg STK-MED ONCE IV ; Start 10/01/19 at 13:18; Stop 10/01/19 at 13:18; Status DC Sodium Chloride (SODIUM CHLORIDE 20ml) 20 ml STK-MED ONCE IJ ; Start 10/01/19 at 13:18; Stop 10/01/19 at 13:18; Status DC Propofol (Diprivan) 200 mg STK-MED ONCE IV ; Start 10/01/19 at 14:22; Stop 10/01/19 at 14:23; Status DC Metoprolol Tartrate (Lopressor Vial) 5 mg STK-MED ONCE IVP ; Start 10/01/19 at 14:56; Stop 10/01/19 at 14:56; Status DC Prochlorperazine Edisylate (Compazine) 10 mg STK-MED ONCE .ROUTE ; Start 10/01/19 at 15:02; Stop 10/01/19 at 15:03; Status DC Morphine Sulfate (Morphine Sulfate) 4 mg STK-MED ONCE .ROUTE ; Start 10/01/19 at 15:03; Stop 10/01/19 at 15:03; Status DC Morphine Sulfate (Morphine Sulfate) 4 mg 1X ONCE IV Last administered on 10/01/19at 15:39; Start 10/01/19 at 15:15; Stop 10/01/19 at 15:16; Status DC Prochlorperazine Edisylate (Compazine) 5 mg PRN Q10MIN PRN IV NAUSEA/VOMITING Last administered on 10/01/19at 15:49; Start 10/01/19 at 15:07; Stop 10/01/19 at 22:00; Status DC Fentanyl Citrate (Fentanyl 2ml Vial) 100 mcg STK-MED ONCE .ROUTE ; Start 10/01/19 at 16:30; Stop 10/01/19 at 16:30; Status DC Pramipexole Dihydrochloride (miraPEX) 0.5 mg HS PO Last administered on 10/02/19at 21:02; Start 10/02/19 at 21:00 Pramipexole Dihydrochloride (miraPEX) 0.25 mg QAM PO Last administered on 10/03/19at 09:01; Start 10/02/19 at 11:15 Alprazolam (Xanax) 0.25 mg TID PRN PRN PO ANXIETY / AGITATION Last administered on 10/03/19at 09:01; Start 10/02/19 at 11:15 Potassium Chloride (Klor-Con) 10 meq TIDAFTMEAL PO Last administered on 10/03/19at 13:00; Start 10/03/19 at 08:45 Active Scripts Active Colace (Docusate Sodium) 100 Mg Capsule 100 Mg PO BID Reported Norvasc (Amlodipine Besylate) 5 Mg Tablet 1 Tab PO DAILY Probiotic (Lactobacillus Combo No.11) 1 Each Cap.sprink 1 Each PO DAILY Paroxetine Hcl 20 Mg Tablet 1 Tab PO DAILY Potassium Chloride 10 Meq Tablet.er 10 Meq PO QODAY Zsm-Bqaea-Leu Furosemide 20 Mg Tablet 1 Tab PO QODAY Fbh-Fzbrn-Mvj Pramipexole Dihydrochloride (Pramipexole Di-Hcl) 0.25 Mg Tablet 0.25 Mg PO HS Synthroid (Levothyroxine Sodium) 50 Mcg Tablet 1 Tab PO DAILY Hydrocodone-Apap 7.5-325 (Hydrocodone Bit/Acetaminophen) 1 Each Tablet 1 Tab PO PRN Q6HRS PRN Vitals/I & O Vital Sign - Last 24 Hours 10/02/19 10/02/19 10/02/19 10/02/19 15:00 18:36 19:00 19:36 Temp 98.6 99.0 98.6 99.0 Pulse 76 81 Resp 18 20 18 B/P (MAP) 135/64 (87) 139/52 (81) Pulse Ox 96 96 96 O2 Delivery Room Air Room Air Room Air Room Air 10/02/19 10/02/19 10/02/19 10/02/19 20:00 22:50 23:00 23:50 Temp 98.7 98.7 Pulse 87 Resp 18 B/P (MAP) 156/60 (92) Pulse Ox 96 97 97 O2 Delivery Room Air Room Air Room Air Room Air 10/03/19 10/03/19 10/03/19 10/03/19 03:00 05:41 06:41 07:00 Temp 98.9 98.4 98.9 98.4 Pulse 88 82 Resp 18 20 18 B/P (MAP) 149/64 (92) 141/64 (89) Pulse Ox 99 99 96 O2 Delivery Room Air Room Air Room Air Room Air 10/03/19 10/03/19 10/03/19 10/03/19 09:01 09:02 10:01 11:00 Temp 98.2 98.2 Pulse 82 79 Resp 20 20 18 B/P (MAP) 141/64 138/62 (87) Pulse Ox 96 O2 Delivery Room Air Room Air Room Air Intake and Output 10/02/19 10/02/19 10/03/19 15:00 23:00 07:00 Intake Total 540 ml 440 ml 500 ml Output Total 300 ml 300 ml Balance 540 ml 140 ml 200 ml Justicifation of Admission Dx: Justifications for Admission: Justification of Admission Dx: Yes SHADY LOERA APRN Oct 03, 2019 14:01
[2019-10-03 15:00] VITALS: BP 130/58
[2019-10-03 19:00] VITALS: BP 136/65
[2019-10-03 23:00] VITALS: BP 165/72
[2019-10-04 03:00] VITALS: BP 153/75
[2019-10-04] MEDS: LEVOTHYROXINE 50 MCG TABLET PO SCH (06:02)
[2019-10-04] MEDS: HYDROcodone/APAP 5/325MG 1 TAB TABLET PO PRN ×2 (06:02→13:08)
[2019-10-04 07:26] VITALS: BP 149/71
[2019-10-04] MEDS: LACTOBACILLUS RHAMNOSUS GG 1 CAPSULE. PO SCH (08:03)
[2019-10-04] MEDS: PRAMIPEXOLE 0.25 MG TABLET. PO SCH (08:03)
[2019-10-04] MEDS: PARoxetine 20 MG TABLET PO SCH (08:03)
[2019-10-04] MEDS: DOCUSATE SODIUM 100 MG CAPSULE. PO SCH (08:03)
[2019-10-04] MEDS: POTASSIUM CHLORIDE 10 MEQ TABLET.ER. PO SCH ×2 (08:04→13:07)
[2019-10-04] MEDS: amLODIPine BESYLATE 5 MG TABLET PO SCH (08:04)
[2019-10-04] MEDS: FUROSEMIDE 20 MG TABLET PO SCH (08:04)
--- NOTE | 2019-10-04 09:55 | PDOC ---
PROGRESS NOTES Subjective Subjective sitting up in bed no significant pain brace on has been ambulating dressing C,D,I strength 5/5 in BLE plan for DC to SNF Objective Objective Vital Signs Date Time Temp Pulse Resp B/P (MAP) Pulse Ox O2 Delivery O2 Flow Rate FiO2 10/04/19 08:07 14 Room Air 10/04/19 08:04 91 149/71 10/04/19 07:26 98.8 97 98.8 10/03/19 08:00 10.0 Intake and Output 10/04/19 07:00 Intake Total 500 ml Balance 500 ml Intake Oral 500 ml # Voids 4 Comment Review of Relevant I have reviewed the following items domingo (where applicable) has been applied. Medications Current Medications Amlodipine Besylate (Norvasc) 5 mg DAILY PO Last administered on 10/04/19at 08:04; Start 10/01/19 at 09:00 Docusate Sodium (Colace) 100 mg BID PO Last administered on 10/03/19at 21:13; Start 09/30/19 at 21:00 Furosemide (Lasix) 20 mg DAILY PO Last administered on 10/04/19at 08:04; Start 10/01/19 at 09:00 Levothyroxine Sodium (Synthroid) 50 mcg DAILY06 PO Last administered on 10/04/19at 06:02; Start 10/01/19 at 06:00 Paroxetine HCl (Paxil) 20 mg DAILY PO Last administered on 10/04/19at 08:03; Start 10/01/19 at 09:00 Pramipexole Dihydrochloride (miraPEX) 0.25 mg HS PO Last administered on 10/01/19at 19:58; Start 09/30/19 at 21:00; Stop 10/02/19 at 11:08; Status DC Lactobacillus Rhamnosus (Culturelle) 1 cap DAILY PO Last administered on 10/04/19at 08:03; Start 10/01/19 at 09:00 Potassium Chloride (Klor-Con) 10 meq DAILYWBKFT PO Last administered on 10/02/19at 08:01; Start 10/01/19 at 08:00; Stop 10/03/19 at 08:38; Status DC Multivitamins (Thera M Plus) 1 tab DAILY PO ; Start 10/01/19 at 09:00; Status Cancel Acetaminophen (Tylenol) 650 mg PRN Q6HRS PRN PO MILD PAIN / TEMP > 100.3'F; Start 09/30/19 at 21:00 Al Hydroxide/Mg Hydroxide (Mylanta Plus Xs) 30 ml PRN Q3HRS PRN PO HEARTBURN / GAS; Start 09/30/19 at 21:00 Diphenhydramine HCl (Benadryl) 25 mg PRN Q6HRS PRN PO ITCHING; Start 09/30/19 at 21:00 Naloxone HCl (Narcan) 0.1 mg PRN Q2MIN PRN IV SEE COMMENTS; Start 09/30/19 at 21:00; Stop 09/30/19 at 21:16; Status DC Sodium Chloride (Normal Saline Flush) 3 ml QSHIFT PRN IV AFTER MEDS AND BLOOD DRAWS; Start 09/30/19 at 21:00 Naloxone HCl (Narcan) 0.4 mg PRN Q2MIN PRN IV SEE INSTRUCTIONS; Start 09/30/19 at 21:00; Status Cancel Sodium Chloride 1,000 ml @ 25 mls/hr Q24H IV ; Start 09/30/19 at 20:56; Stop 10/02/19 at 00:44; Status DC Acetaminophen/ Hydrocodone Bitart (Lortab 5/325) 1 tab PRN Q4HRS PRN PO MILD PAIN 1-3; Start 09/30/19 at 21:00 Acetaminophen/ Hydrocodone Bitart (Lortab 5/325) 2 tab PRN Q4HRS PRN PO MODERATE PAIN, SEVERE PAIN Last administered on 10/04/19at 06:02; Start 09/30/19 at 21:00 Fentanyl Citrate (Fentanyl 2ml Vial) 50 mcg PRN Q2HR PRN IVP SEVERE PAIN 7-10 Last administered on 10/02/19at 04:03; Start 09/30/19 at 21:15 Cefazolin Sodium/ Dextrose 50 ml @ 100 mls/hr PREOP PRN PRN IV PREOP Last administered on 10/01/19at 11:32; Start 10/01/19 at 07:00; Stop 10/01/19 at 14:10; Status DC Bacitracin 91251 unit/Sodium Chloride 1,000 ml @ 1,000 mls/hr 1X ONCE IRR Last administered on 10/01/19at 12:01; Start 10/01/19 at 07:00; Stop 10/01/19 at 07:59; Status DC Gelatin (Gelfoam Size 100) 1 each STK-MED ONCE .ROUTE Last administered on 10/01/19at 12:01; Start 10/01/19 at 07:19; Stop 10/01/19 at 07:19; Status DC Bupivacaine HCl/ Epinephrine Bitart (Sensorcain-Epi 0.5%-1:964194 Mpf) 30 ml STK-MED ONCE .ROUTE Last administered on 10/01/19at 12:01; Start 10/01/19 at 07:19; Stop 10/01/19 at 07:19; Status DC Ketorolac Tromethamine (Toradol Im) 60 mg STK-MED ONCE .ROUTE Last administered on 10/01/19at 12:01; Start 10/01/19 at 07:19; Stop 10/01/19 at 07:20; Status DC Thrombin 20,000 unit STK-MED ONCE TP Last administered on 10/01/19at 12:01; Start 10/01/19 at 07:19; Stop 10/01/19 at 07:20; Status DC Potassium Chloride/Water 100 ml @ 50 mls/hr Q1H IV Last administered on at 13:30; Start 10/01/19 at 08:00; Stop 10/01/19 at 09:59; Status DC Midazolam HCl (Versed) 2 mg PRN 1X PRN IV PRIOR TO PROCEDURE; Start 10/01/19 at 09:15; Stop 10/01/19 at 18:00; Status DC Fentanyl Citrate (Fentanyl 2ml Vial) 25 mcg PRN Q5MIN PRN IV X 2 DOSES FOR PAIN; Start 10/01/19 at 09:15; Stop 10/01/19 at 18:00; Status DC Fentanyl Citrate (Fentanyl 2ml Vial) 50 mcg PRN Q5MIN PRN IV X 2 DOSES FOR PAIN Last administered on 10/01/19at 16:47; Start 10/01/19 at 09:15; Stop 10/01/19 at 18:00; Status DC Ringer's Solution 1,000 ml @ 125 mls/hr Q8H IV Last administered on 10/01/19at 15:23; Start 10/01/19 at 09:12; Stop 10/01/19 at 21:11; Status DC Propofol (Diprivan) 200 mg STK-MED ONCE IV ; Start 10/01/19 at 09:21; Stop 10/01/19 at 09:22; Status DC Lidocaine HCl (Lidocaine Pf 2% Vial) 5 ml STK-MED ONCE .ROUTE ; Start 10/01/19 at 09:21; Stop 10/01/19 at 09:22; Status DC Sodium Chloride (SODIUM CHLORIDE 20ml) 20 ml STK-MED ONCE IJ ; Start 10/01/19 at 09:21; Stop 10/01/19 at 09:22; Status DC Succinylcholine Chloride (Anectine) 200 mg STK-MED ONCE .ROUTE ; Start 10/01/19 at 09:22; Stop 10/01/19 at 09:22; Status DC Rocuronium Ke[place] (Zemuron) 50 mg STK-MED ONCE .ROUTE ; Start 10/01/19 at 09:22; Stop 10/01/19 at 09:22; Status DC Remifentanil HCl (Ultiva) 1 mg STK-MED ONCE IV ; Start 10/01/19 at 09:22; Stop 10/01/19 at 09:22; Status DC Propofol 50 ml @ As Directed STK-MED ONCE IV ; Start 10/01/19 at 09:33; Stop 10/01/19 at 09:33; Status DC Ondansetron HCl (Zofran) 4 mg STK-MED ONCE .ROUTE ; Start 10/01/19 at 11:51; Stop 10/01/19 at 11:52; Status DC Dexamethasone Sodium Phosphate (Decadron) 4 mg STK-MED ONCE .ROUTE ; Start 10/01/19 at 11:51; Stop 10/01/19 at 11:52; Status DC Remifentanil HCl (Ultiva) 1 mg STK-MED ONCE IV ; Start 10/01/19 at 13:18; Stop 10/01/19 at 13:18; Status DC Sodium Chloride (SODIUM CHLORIDE 20ml) 20 ml STK-MED ONCE IJ ; Start 10/01/19 at 13:18; Stop 10/01/19 at 13:18; Status DC Propofol (Diprivan) 200 mg STK-MED ONCE IV ; Start 10/01/19 at 14:22; Stop 10/01/19 at 14:23; Status DC Metoprolol Tartrate (Lopressor Vial) 5 mg STK-MED ONCE IVP ; Start 10/01/19 at 14:56; Stop 10/01/19 at 14:56; Status DC Prochlorperazine Edisylate (Compazine) 10 mg STK-MED ONCE .ROUTE ; Start 10/01/19 at 15:02; Stop 10/01/19 at 15:03; Status DC Morphine Sulfate (Morphine Sulfate) 4 mg STK-MED ONCE .ROUTE ; Start 10/01/19 at 15:03; Stop 10/01/19 at 15:03; Status DC Morphine Sulfate (Morphine Sulfate) 4 mg 1X ONCE IV Last administered on 10/01/19at 15:39; Start 10/01/19 at 15:15; Stop 10/01/19 at 15:16; Status DC Prochlorperazine Edisylate (Compazine) 5 mg PRN Q10MIN PRN IV NAUSEA/VOMITING Last administered on 10/01/19at 15:49; Start 10/01/19 at 15:07; Stop 10/01/19 at 22:00; Status DC Fentanyl Citrate (Fentanyl 2ml Vial) 100 mcg STK-MED ONCE .ROUTE ; Start 10/01/19 at 16:30; Stop 10/01/19 at 16:30; Status DC Pramipexole Dihydrochloride (miraPEX) 0.5 mg HS PO Last administered on 10/03/19at 21:13; Start 10/02/19 at 21:00 Pramipexole Dihydrochloride (miraPEX) 0.25 mg QAM PO Last administered on at 08:03; Start 10/02/19 at 11:15 Alprazolam (Xanax) 0.25 mg TID PRN PRN PO ANXIETY / AGITATION Last administered on 10/03/19at 09:01; Start 10/02/19 at 11:15 Potassium Chloride (Klor-Con) 10 meq TIDAFTMEAL PO Last administered on 10/04/19at 08:04; Start 10/03/19 at 08:45 Active Scripts Active Colace (Docusate Sodium) 100 Mg Capsule 100 Mg PO BID Reported Norvasc (Amlodipine Besylate) 5 Mg Tablet 1 Tab PO DAILY Probiotic (Lactobacillus Combo No.11) 1 Each Cap.sprink 1 Each PO DAILY Paroxetine Hcl 20 Mg Tablet 1 Tab PO DAILY Potassium Chloride 10 Meq Tablet.er 10 Meq PO QODAY Uvt-Bhdwg-Qny Furosemide 20 Mg Tablet 1 Tab PO QODAY Tej-Tszyf-Jch Pramipexole Dihydrochloride (Pramipexole Di-Hcl) 0.25 Mg Tablet 0.25 Mg PO HS Synthroid (Levothyroxine Sodium) 50 Mcg Tablet 1 Tab PO DAILY Hydrocodone-Apap 7.5-325 (Hydrocodone Bit/Acetaminophen) 1 Each Tablet 1 Tab PO PRN Q6HRS PRN Vitals/I & O Vital Sign - Last 24 Hours 10/03/19 10/03/19 10/03/19 10/03/19 10:01 11:00 15:00 17:56 Temp 98.2 98.0 98.2 98.0 Pulse 79 72 Resp 20 18 18 20 B/P (MAP) 138/62 (87) 130/58 (82) Pulse Ox 96 96 O2 Delivery Room Air Room Air Room Air Room Air 10/03/19 10/03/19 10/03/19 10/03/19 18:56 19:00 20:00 22:08 Temp 100.0 100.0 Pulse 99 Resp 20 18 18 B/P (MAP) 136/65 (88) Pulse Ox 96 96 O2 Delivery Room Air Room Air Room Air Room Air 10/03/19 10/03/19 10/04/19 10/04/19 23:00 23:08 03:00 06:02 Temp 98.8 98.9 98.8 98.9 Pulse 87 87 Resp 18 18 18 B/P (MAP) 165/72 (103) 153/75 (101) Pulse Ox 96 96 97 97 O2 Delivery Room Air Room Air Room Air Room Air 10/04/19 10/04/19 10/04/19 10/04/19 07:26 08:00 08:04 08:07 Temp 98.8 98.8 Pulse 91 91 Resp 18 14 B/P (MAP) 149/71 (97) 149/71 Pulse Ox 97 O2 Delivery Room Air Room Air Room Air Intake and Output 10/03/19 10/03/19 10/04/19 15:00 23:00 07:00 Intake Total 500 ml Balance 500 ml Justicifation of Admission Dx: Justifications for Admission: Justification of Admission Dx: Yes SHADY LOERA CONSULTING GROUP ANALYST Oct 04, 2019 09:55
[2019-10-04] MEDS ORDERED: HYDR-2761 PO (09:58)
--- NOTE | 2019-10-04 09:59 | SNU/HH DC ---
DISCHARGE ORDERS DISCHARGE INFORMATION: DISCHARGE DATE: Oct 04, 2019 FINAL DIAGNOSIS spondylolisthesis, lumbar stenosis, lumbar radiculopathy CONDITION ON DISCHARGE: Stable CODE STATUS: Code Status: Full INTERMEDIATE: SNF STAY <30 DAYS: Yes HOSPICE: HOSPICE: No POST DISCHARGE ORDERS: ACTIVITY ORDERS: Activity as tolerated, Avoid exertion, Progressive ambulation WEIGHT BEARING STATUS: No restrictions BATHING ORDERS: Shower-keep dressing dry, No Tub Bath until see DIET AFTER DISCHARGE: Cardiac WOUND/INCISION CARE: Ice to area for comfort, Change dressing, May get incision wet OTHER WOUND INSTRUCTIONS: daily dressing change as needed FOLLOW-UP: PHYSICIAN FOLLOW-UP: Dr. Bailey in 2 weeks [phone] ADDITIONAL FOLLOW-UP: Dr. Escalera TREATMENT/EQUIPMENT ORDERS: ADAPTIVE EQUIPMENT NEEDED: None Physical Therapy For: Evalulation/Treatment DISCHARGE MEDICATIONS: Home Meds Active Scripts Docusate Sodium (COLACE) 100 Mg Capsule, 100 MG PO BID for constipation, #60 CAP Prov:GERBER BAILEY MD 11/27/18 Reported Medications Amlodipine Besylate (NORVASC) 5 Mg Tablet, 1 TAB PO DAILY for HTN, #30 TAB 5 Refills 11/03/18 Lactobacillus Combo No.11 (PROBIOTIC) 1 Each Cap.sprink, 1 EACH PO DAILY for supplement, CAP 11/03/18 Paroxetine Hcl (PAROXETINE HCL) 20 Mg Tablet, 1 TAB PO DAILY for antidepresant, #30 TAB 5 Refills 11/03/18 Potassium Chloride (POTASSIUM CHLORIDE) 10 Meq Tablet.er, 10 MEQ PO QODAY for supplement, TAB Nyc-Qzmkx-Lcy 11/03/18 Furosemide (FUROSEMIDE) 20 Mg Tablet, 1 TAB PO QODAY for fluid retention, #90 TAB 1 Refill Bsj-Mbbxx-Axv 11/03/18 Pramipexole Di-Hcl (PRAMIPEXOLE DIHYDROCHLORIDE) 0.25 Mg Tablet, 0.25 MG PO HS for RESTLESS LEG SYNDROME, TAB 12/21/17 Levothyroxine Sodium (SYNTHROID) 50 Mcg Tablet, 1 TAB PO DAILY, #30 TAB 5 Refills 11/25/15 Hydrocodone Bit/Acetaminophen (HYDROCODONE-APAP 7.5-325 ) 1 Each Tablet, 1 TAB PO PRN Q6HRS PRN for PAIN, TAB 0 Refills 08/30/13 GERBER BAILEY MD Oct 04, 2019 09:59
[2019-10-04 11:08] VITALS: BP 153/68
[2019-10-04] MEDS: ALPRAZolam 0.25 MG TABLET PO PRN (11:14)
--- NOTE | 2019-10-04 11:50 | NUR ---
SW following. Discussed with RN, PT/OT recommending SNU. KARLA met with pt and pt's daughter at bedside (no isolation precautions at the time). Pt agreeable to SNU, would like referral to [facility]. SW faxed referral to [facility], pt accepted. Transportation set up for 1400. RN and family notified. Pt choice of vendor form completed.
--- NOTE | 2019-10-04 12:47 | NUR ---
Called report to Abi @ [facility].
--- NOTE | 2019-10-04 15:08 | NUR ---
Pt discharged to via wheelchair by transportation. Belongings were packed. IV removed. Dressing on back incision changed. No further needs at this time
--- NOTE | 2019-10-04 17:30 | PDOC ---
DATE OF SERVICE: DATE: 10/04/19 TIME: 17:29 GENERAL General: vss with tmax 100.0 as I saw this am. doing better from pain standpoint. chest clear, heart regular, abdomen benign. wrestling with decision to go home or snu. will follow at snu if same chosen. VITAL SIGNS/I&O Vital Signs/I&O: Vital Signs Date Time Temp Pulse Resp B/P (MAP) Pulse Ox O2 Delivery O2 Flow Rate FiO2 10/04/19 13:08 Room Air 10/04/19 11:08 98.9 84 18 153/68 (96) 99 98.9 10/03/19 08:00 10.0 I & O 10/03/19 10/03/19 10/04/19 15:00 23:00 07:00 Intake Total 500 ml Balance 500 ml ALLERGIES Allergies: Allergies Coded Allergies Type Severity Reaction Last Updated Verified Sulfa (Sulfonamide Antibiotics) Adverse Reaction Mild Nausea and Vomiting 10/01/19 Yes acetaminophen Adverse Reaction Mild Hallucination 10/01/19 Yes oxycodone Adverse Reaction Mild Hallucination 10/01/19 Yes Justicifation of Admission Dx: Justifications for Admission: Justification of Admission Dx: Yes NYLA KINSEY MD Oct 04, 2019 17:30
--- NOTE | 2019-10-04 23:57 | OP ---
DATE OF SURGERY: 10/01/2019 PREOPERATIVE DIAGNOSIS: Foraminal narrowing and severe lumbar radiculopathy, L4-L5, right. Worsening spondylolisthesis L4-5. Superior endplate and pedicle fracture with superior translation of right L5 screw. POSTOPERATIVE DIAGNOSIS: Foraminal narrowing and severe lumbar radiculopathy, L4-L5, right. Worsening spondylolisthesis L4-5. Superior endplate and pedicle fracture with superior translation of right L5 screw. OPERATION PERFORMED: Removal of hardware, L4-L5; augmentation of fusion, L4-L5; microdecompression, right, L4-L5, with decompression of the right L5 and L4 nerve roots; placement of and redirection of hardware, L4-L5. The operation was done with bone marrow aspiration, BrainLAB guidance, fluoroscopy, microscopic dissection. SURGEON: Fred Bailey M.D. CONCRETE STONE FINISHER: Dionna Spencer APRN, assisted with the surgery. She assisted with the exposure, the removal and replacement of hardware, the microdecompression as well as the closure. OPERATIVE INDICATIONS: The patient is a very pleasant 78-year-old woman, who a month ago underwent decompression and instrumented lumbar fusion for intractable back and right leg pain. She did very well from that surgery with virtual complete resolution of her pain; however, she became active, did not wear her brace as instructed and developed acutely severe pain in her lower back on the right side, which radiated into her right lower extremity. On imaging studies, it appeared the superiorly L5 screw on the right side had broken partially up the pedicle of the L5 and was associated with increased foraminal narrowing. There was also increased spondylolisthesis. I recommended removal and replacement of hardware, to provide fixation as well as decompression of the right L4 and L5 nerve roots. She understood the surgery and the risks and she wished to go ahead. DESCRIPTION OF PROCEDURE: Following general endotracheal anesthesia, the patient was positioned prone on the Pasquale table. Lumbar region prepped and draped in standard fashion. JOLYNN hose and AV impulse boots were applied for DVT prophylaxis. Microscope was draped, fluoroscopy was draped and brought into the field, and monitoring was established. Ancef 2 g given less than 1 hour prior to the initiation of the surgery. Iliac pins were placed into the left iliac crest and the BrainLAB system was initialized. We then reopened her incisions over the L4-L5 interspace, dissected down through skin and subcutaneous tissue and removed the hardware bilaterally. There was some loosening of the L5 screws bilaterally and I removed these screws. The right L5 screw was replaced more inferiorly. I replaced them with larger screws to improve fixation. During this time I brought in the microscope. I drilled and did further decompressive work and followed the nerve roots on the right out over the foramen and also assured myself that the traversing L5 root was well decompressed. This accomplished, then I irrigated copiously, I then packed more bone into the lateral gutters bilaterally after aspirating 20 mL of bone marrow from the right iliac crest. The screws were replaced using the [place] system. Rods were applied. I did use reduction screws to aid in decreasing the amount of spondylolisthesis that she had, which appeared to have worsened. I re-torqued the system sequentially, irrigated copiously, then I closed the wound in layers with absorbable suture. The skin was closed with 4-0 subcuticular stitch. The monitoring, which included EMG, stimulated EMG and SSEP, was excellent throughout. I was quite pleased with the surgery and postop films were excellent. I was quite pleased with the surgery. FRED BAILEY MD DR: VIDHYA/shon JOB#: [id number] / [id number] MIKE
--- NOTE | 2019-10-06 09:07 | PATHOLOGY ---
[facility] Accession Number: [id number] . 01 Material submitted: . vertebral column - LUMBAR DECOMPRESSION . 01 Clinical history: . Anterolisthesis L4-5; lumbar radiculopathy . 02 Diagnosis: Segments of fibrocartilaginous tissue and bone, lumbar decompression: - Degenerative changes of fibrocartilaginous tissue. LBQ 10/06/2019 0850 Local . 02 Comment: There is no evidence of an acute inflammatory process or malignancy. (JPM/db; 10/05/2019) . 02 Electronically signed: . Caleb Wu MD, Pathologist NPI- [id number] . 01 Gross description: . The specimen is received in formalin, labeled "Patricia South, lumbar decompression". Received are multiple segments of pale gillespie gritty, fibrous tissue admixed with fragments of bone measuring 1.8 x 1.3 x 0.6 cm in aggregate dimensions. The specimen is filtered and entirely submitted in cassette A1, following decalcification. (CAA; 10/04/2019) QAC/QAC 10/05/2019 1533 Local . 02 Pathologist provided ICD-10: M54.16 . 02 CPT . 890169, [id number] Specimen Comment: A courtesy copy of this report has been sent to [phone], [phone] Specimen Comment: [id number] Specimen Comment: Report sent to / DR KINSEY Performed at: 01 [facility] [address], [place] [id number] MD Duane Chacko MD Phone: [phone] Performed at: 02 [facility] [address], [place] [id number] MD Caleb Wu MD Phone: [phone]
--- NOTE | 2019-10-27 15:36 | DS ---
DATE OF DISCHARGE: 10/04/2019 HISTORY OF PRESENT ILLNESS: The patient is a very pleasant 78-year-old woman who approximately a month ago underwent decompression and instrumented lumbar fusion for intractable back and right leg pain. She did well from that surgery with virtual resolution of her pain; however, she became more active. She was not wearing her brace and developed acutely severe pain in her lower back on the right side, which radiated into her right lower extremity. On imaging studies, it appeared to the superior L5 screw on the right side that broke and partially of the pedicle of the L5 and was associated with increased foraminal narrowing. There was also increased spondylolisthesis. I recommended removal and replacement of the hardware to provide fixation as well as decompression of the right L4 and L5 nerve roots. She understood and her daughter understood the rationale, technique and risk. They wished to proceed. HOSPITAL COURSE: She was admitted to the floor following surgery. She did well. She was able to be up ambulating in the room and in the halls. Physical therapy was initiated and instruction was given to her regarding her activities. Her pain was controlled and she was in good condition to discharge to half-way facility. DISCHARGE MEDICATIONS: She will resume her medications per the MRAD. DISCHARGE INSTRUCTIONS: She was instructed regarding incision care, activity restrictions and expectations for the next several weeks. She will follow up in our office in 2 weeks. She understands to call with any questions or concerns. GERBER BAILEY MD DR: KHARI/shon JOB#: [id number] / [id number]
== END 2019-10-04 14:15 | DRG 496 ==
LOC: 4 NORTH 20:34
PROVIDERS: ADMIT Neurological Surgery; ATTEND Neurological Surgery
PROC: 0QP004Z Removal of Internal Fixation Device from Lumbar Vertebra, Open Approach (ICD-10-PCS; principal; 2019-09-30)
PROC: 0QH004Z Insertion of Internal Fixation Device into Lumbar Vertebra, Open Approach (ICD-10-PCS; 2019-09-30)
PROC: 01NB0ZZ Release Lumbar Nerve, Open Approach (ICD-10-PCS; 2019-09-30)
PROC: 4A11X4G Monitoring of Peripheral Nervous Electrical Activity, Intraoperative, External Approach (ICD-10-PCS; 2019-09-30)
PROC: 07DR3ZZ Extraction of Iliac Bone Marrow, Percutaneous Approach (ICD-10-PCS; 2019-09-30)
DX: T84.216A Breakdown (mechanical) of internal fixation device of vertebrae, initial encounter (principal); E87.1 Hypo-osmolality and hyponatremia; M54.16 Radiculopathy, lumbar region; I10 Essential (primary) hypertension; M06.9 Rheumatoid arthritis, unspecified; Y83.8 Other surgical procedures as the cause of abnormal reaction of the patient, or of later complication, without mention of misadventure at the time of the procedure; M43.10 Spondylolisthesis, site unspecified; M19.90 Unspecified osteoarthritis, unspecified site; M81.0 Age-related osteoporosis without current pathological fracture; F32.9 Major depressive disorder, single episode, unspecified; Z20.828 Contact with and (suspected) exposure to other viral communicable diseases; Z82.0 Family history of epilepsy and other diseases of the nervous system; Z82.49 Family history of ischemic heart disease and other diseases of the circulatory system; Z83.3 Family history of diabetes mellitus; Z90.710 Acquired absence of both cervix and uterus; Y92.89 Other specified places as the place of occurrence of the external cause; Z90.49 Acquired absence of other specified parts of digestive tract; Z90.89 Acquired absence of other organs; Z88.2 Allergy status to sulfonamides; Z88.5 Allergy status to narcotic agent; Z88.8 Allergy status to other drugs, medicaments and biological substances
CPT/HCPCS: 36415; 72100; 72131; 76000; 80048; 85025; 87426; 88304; 88311; A7015; C1713; J0330; J0690; J0780; J1100; J1885; J2270; J2405; J2704; J3010; J3480; J3490; J7120; 97110-GP; 97116-GP; 97530-GP; 97535-GO; G0378; U0003-CS

== ENCOUNTER → 2019-09-30 | Outpatient (CLI) | payer MEDICARE, OTHER ==
[2019-09-02 15:02] VITALS: BP 118/64
--- NOTE | 2019-10-01 15:58 | KCIC ---
Study: CT lumbar spine without contrast INDICATION: Low back pain with radiculopathy. Reported surgery in August 2019. COMPARISON: 08/30/2019 TECHNIQUE: Axial CT imaging of the lumbar spine performed without the use of intravenous contrast. One or more of the following individualized dose reduction techniques were utilized for this examination: 1. Automated exposure control 2. Adjustment of the mA and/or kV according to patient size 3. Use of iterative reconstruction technique. FINDINGS: Since the prior CT, operative changes of dorsal decompression and posterior instrumented fusion at L4-L5. The hardware is intact. The L4 pedicle screws are normally positioned. Both L5 pedicle screws extend above their respective pedicles and there is a newly developed L5 superior endplate fracture with approximately 10 percent height loss. The lateral cortices adjacent to the pedicle screws are fractured as well. Anterolisthesis of L4 on L5 is redemonstrated but has worsened in the interim now measured at 1.2 cm compared to 1 cm. Unchanged trace anterolisthesis of L3 on L4. Soft tissue sequela of interval surgery along the dorsum of the lower lumbar spine. A subcutaneous fluid collection tracks to the left of midline at approximately the L5-S1 level, measuring up to 1.5 cm AP and the visualized portion tracks for 5.2 cm before extending beyond the obtained [id number]. Vascular calcifications. Surgical material again seen at the upper central abdomen. Colonic diverticuli. Redemonstrated disc bulges above the operative level appearing largest at L2-L3. No newly seen severe neural foraminal encroachment above L4-L5 Limited assessment of the neural foramina at the operative levels due to streak artifact there is no severe osseous encroachment. Unchanged L5-S1 level. IMPRESSION: 1. Interval operative changes of dorsal decompression and posterior instrumented fusion at L4-L5. Both L5 screws are located above their respective pedicles and are eccentric within the L5 vertebral body. Newly developed L5 superior endplate fracture with approximately 10 percent height loss as well as fractures of the lateral cortices adjacent to the pedicle screws. The degree of anterolisthesis of L4 on L5 has mildly worsened now measuring around 1.2 cm compared to 1 cm. 2. Unchanged alignment and similar extent of degenerative changes above L4-L5 as well as L5-S1. 3. Dorsal subcutaneous fluid collection to the left of midline that is partially included in the [id number]. This could represent a bland postoperative fluid collection though the sterility is uncertain based off its imaging appearance alone. Electronically signed by: DELMI NEUMANN MD (10/01/2019 3:55 PM) [id number]
== END | disposition home or self-care (01) ==
LOC: KCIC CT 15:01
PROVIDERS: ATTEND Neurological Surgery
DX: M84.48XA Pathological fracture, other site, initial encounter for fracture (principal); M54.16 Radiculopathy, lumbar region
CPT/HCPCS: 72131

== ENCOUNTER → 2019-10-28 | Outpatient (CLI) | payer MEDICARE, OTHER ==
[2019-10-04 11:08] VITALS: BP 153/68
--- NOTE | 2019-10-28 19:42 | KCIC ---
Lumbar spine radiographs; sacrum and coccyx radiographs History: Status post fusion, low back pain, bilateral leg pain Comparison: September 27, 2019 Lumbar spine: Findings: 5 views of the lumbar spine are submitted. There are again bilateral pedicle screws attached to intact vertical rods at L4-5. There is similar grade 1 anterior spondylolisthesis at L4-5 and to a lesser degree L3-4. Lumbar vertebral body stature is unchanged, mild superior height loss of L5. There is moderate degenerative disc disease at L4-5. There are clips in the upper abdomen. There is gas in segments of the small bowel. Impression: 1. There is intact posterolateral fusion hardware L4-5, similar degree of grade 1 anterior spondylolisthesis at this level. There is similar degree of mild superior height loss of L5. Sacrum and coccyx radiographs FINDINGS: 4 views of the sacrum and coccyx are submitted. There is mild degenerative change pubic symphysis. Sacrum is poorly seen due to bowel gas on AP views. Sacroiliac joints are symmetric in appearance. IMPRESSION: 1.Sacrum is poorly evaluated on the AP views due to bowel gas. Electronically signed by: Robin Peter MD (10/28/2019 7:39 PM) [facility]
== END | disposition home or self-care (01) ==
LOC: KCIC 16:01
PROVIDERS: ATTEND Neurological Surgery
DX: M51.16 Intervertebral disc disorders with radiculopathy, lumbar region (principal); M43.16 Spondylolisthesis, lumbar region; M53.3 Sacrococcygeal disorders, not elsewhere classified
CPT/HCPCS: 72110; 72220

== ENCOUNTER → 2020-01-24 | Outpatient (CLI) | payer MEDICARE, OTHER ==
--- NOTE | 2020-01-24 14:28 | RAD ---
CT HEAD INDICATION: Reason: MEMORY LOSS / Spl. Instructions: / History: COMPARISON: None Available. Exposure: One or more of the following individualized dose reduction techniques were utilized for this examination: 1. Automated exposure control 2. Adjustment of the mA and/or kV according to patient size 3. Use of iterative reconstruction technique TECHNIQUE: 5 mm contiguous axial images were obtained from the skull base to the vertex in both bone and soft tissue algorithm. FINDINGS: Mild bilateral periventricular white matter hypodensities likely chronic small vessel ischemic disease. No evidence of acute intracranial hemorrhage. No extra-axial fluid collections. No mass effect or midline shift. Ventricular size is appropriate. Basal cisterns are patent. No fractures identified.Flynn-white differentiation is preserved.Globes and orbits are within normal limits. Paranasal sinuses and mastoid air cells are clear. IMPRESSION: No acute intracranial findings. Electronically signed by: Rashaad Herrera MD (01/24/2020 2:26 PM) [id number]
== END ==
LOC: CT 13:56
PROVIDERS: ATTEND Family Medicine
DX: R41.3 Other amnesia (principal)
CPT/HCPCS: 70450

== ENCOUNTER → 2020-01-24 | Outpatient (CLI) | payer MEDICARE, OTHER ==
--- NOTE | 2020-01-24 17:45 | RAD ---
Three-view lumbar spine radiographs 01/24/2020 CLINICAL HISTORY: Post lumbar fusion. AP and 2 lateral digital radiographs of the lumbar spine were obtained. Comparison study is dated 10/28/2019. Minimal S-shaped curvature of the thoracolumbar spine is seen. Very mild anterolisthesis of L3 in relation L4 is noted. Mild to moderate anterolisthesis of L4 in relation L5 is seen. The patient is post posterolateral fusion using pedicle screws and stabilizing rods at L4-5. Surgical clips are seen throughout the upper abdomen. No fracture or subluxation of the lumbar vertebrae is seen. Degenerative changes consisting of varying degrees of disc space narrowing, vertebral endplate sclerosis and minimal to mild anterior and posterior vertebral body osteophyte formation are seen involving the mid and lower lumbar disc spaces. Degenerative changes are seen involving the facet joints throughout the mid and lower lumbar spine. These findings are unchanged. Atherosclerotic calcification of the abdominal aorta and its branches is noted. IMPRESSION: Postsurgical and degenerative changes are seen involving the lumbar spine, unchanged. No acute osseous abnormality is seen. Electronically signed by: Bruce Nicole MD (01/24/2020 5:42 PM) [id number]
== END ==
LOC: RAD 14:01
PROVIDERS: ATTEND Neurological Surgery
DX: M43.16 Spondylolisthesis, lumbar region (principal); M43.26 Fusion of spine, lumbar region; M43.8X5 Other specified deforming dorsopathies, thoracolumbar region; M48.061 Spinal stenosis, lumbar region without neurogenic claudication; Z98.1 Arthrodesis status
CPT/HCPCS: 72100

== ENCOUNTER → 2020-02-01 | Outpatient (CLI) | payer MEDICARE, OTHER ==
--- NOTE | 2020-02-01 17:10 | RAD ---
CT pelvis without contrast HISTORY: Coccyx fracture. COMPARISON: CT lumbar spine October 01, 2019 FINDINGS: Grade 2 anterolisthesis L4 on L5 associated with bilateral pedicle screws and rods, the L5 pedicle screws may breech the superior and lateral pedicular cortex although somewhat similar to the prior exam. There is increased L4-5 disc height loss and discogenic bony sclerosis of the endplates since the prior study. L4 laminotomy. There are bone drill tracks from removed hardware of the iliac crests. 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 There is no fracture of the sacrum evident. No diastases, arthrosis or ankylosis of the sacroiliac joints. No fracture or dislocation of the pelvis. Soft tissues unremarkable. IMPRESSION: 1. No acute osseous injury of the pelvis. No fracture of the sacrum or coccyx evident. See above. 2. Postsurgical changes of the lumbar spine as described above. Exposure: One or more of the following individualized dose reduction techniques were utilized for this examination: 1. Automated exposure control 2. Adjustment of the mA and/or kV according to patient size 3. Use of iterative reconstruction technique Electronically signed by: Antoine Verde MD (02/01/2020 5:07 PM) [facility]
== END ==
LOC: CT 14:08
PROVIDERS: ATTEND Neurological Surgery
DX: S32.2XXA Fracture of coccyx, initial encounter for closed fracture (principal); M43.16 Spondylolisthesis, lumbar region; Z98.1 Arthrodesis status; X58.XXXA Exposure to other specified factors, initial encounter; Y93.89 Activity, other specified; Y92.89 Other specified places as the place of occurrence of the external cause; Y99.8 Other external cause status
CPT/HCPCS: 72192

== ENCOUNTER → 2020-03-13 | Outpatient (CLI) | payer MEDICARE, OTHER ==
[~2020-03-13] MED LIST changes: +ASCO100T4 PO; +CHOL2400 MC; +HYDR-2763 PO; +IOHEXOL 180 MG/ML 10 ML VIAL. ONE; +ISOS30TA68 PO; +LEVO25TA4 PO; +LISI10TA16 PO; -LISI10TA2 PO; +MEMA10TA PO; +MIRT-8 PO; +OXYB5TAB10 PO; +PARO20TA99 PO; +PRAM0.255 PO; +PREG-9 PO; +SILO4CAP PO; +methylPREDNISolone ACETATE 40 MG/ML VIAL. ONE; +methylPREDNISolone ACETATE 80 MG/ML VIAL. ONE
--- NOTE | 2020-03-13 12:53 | PDOC ---
Progress Note - Pain Clinic Date of Service: DOS: DATE: 03/13/20 TIME: 12:48 Diagnosis: Dx: Lumbar radiculopathy with lumbar degenerative disc disease lumbar spinal stenosis and post lumbar laminectomy syndrome History or Present Illness: HPI: 79-year-old female returns for follow-up last seen April 2019. Patient underwent lumbar epidural steroid injections x3 with good initial results in did eventually have surgery with lumbar fusion and instrumentation and then instrumentation removed and replaced shortly after. Patient reports that she did well for several months after the surgery however over the past month or 2 the pain began to return and she fell about a week and a half ago landed on her tailbone with CT scans and x-rays reviewed which shows no fractures but still significant pain radiating to the left lower extremity especially with a bandlike feeling in the left thigh. Patient ports is becoming more constant sharp difficulty with changing position especially lying down is keeping awake from sleep at night and has an aching quality in the back itself with a shooting pain in the left leg. Patient reports it wakes her from sleep at least 4-5 times a night does not affect her bowel bladder control does affect ability walks using a walker which she has with her today also taking hydrocodone as well as [id number] anti-inflammatories which helped but only by about 20%. Patient reports no loss of motor function but significant fatigability of the left leg compared to the right and is very difficult for her to ambulate secondary to the pain in the low back and tailbone itself. Patient reports no motor or sensory deficits no bowel or bladder incontinence. Physical Exam: VS: Blood pressure is 145/78 pulse 83 respirations 18 temperature 90.4 F height is 4 feet 10 inches weight is 92 pounds PE: PHYSICAL EXAMINATION: GENERAL: The patient is awake, alert, oriented, appropriate, very pleasant demeanor, patient accompanied by her daughter. HEENT: Shows normocephalic, atraumatic. Extraocular movements are intact and symmetrical. Oral cavity: Mucous membranes moist and pink. NECK: Shows anterior throat supple without palpable lymphadenopathy noted. Swallow reflex symmetrical. CHEST: Shows normal on inspection. Breath sounds are clear bilaterally, no rales or rhonchi. HEART: Shows S1, S2 clear. No murmurs auscultated. ABDOMEN: Soft, nontender, nondistended, obese. No palpable organomegaly is noted. No rebound or guarding demonstrated. BACK: Shows spine grossly in the midline. Normal-appearing cervical lordotic curvature. There is slightly increased thoracic kyphosis, some moderate fla ttening of the lumbar lordotic curvature. Well-healed midline surgical scars are noted. Lumbar paraspinous muscles show symmetrical on inspection, on palpation shows some moderate tenderness diffusely throughout the upper, middle and lower distribution of the paraspinous muscles bilaterally and also into the lower thoracic paraspinous musculature, firm and tender, but without specific trigger points, without radiation of pain. The patient has good rotational motion of the lumbar spine, both laterally as well as extension and flexion without significant difficulty. No tenderness over the spinous processes or sacroiliac regions. With palpation shows some moderate tenderness over the mid to lower sacrum and coccyx very tender over this region with even moderate palpation. EXTREMITIES: Lower extremities show deep tendon reflexes 1+ in the patellar and tendo calcaneus tendons. Motor exam is 4 on a scale of 5 with right dorsiflexion, extension, quadriceps and hamstring flexion and 4/5 on the left. Peripheral pulses are 1+ posterior tibial. No peripheral edema is noted bilaterally. Lower extremities are warm and dry to touch, equal in color and appearance. SKIN: Shows warm and dry, good turgor. No edema. No sores, rashes or bruising throughout. Procedure: Procedure: Options were discussed with the patient. Patient chart was reviewed as her current medication regimen updated current review of systems updated today as well. We will proceed with a lumbar epidural steroid injection today with fluoroscopic guidance. Risks were discussed including but not limited to: Bleeding, infection, possibility of epidural hematoma and subsequent neurological compromise, dural puncture, headaches, spinal cord and/or nerve damage, side effects of steroid medication, and poor results regarding pain control. Patient understands wished to proceed. Patient will return to clinic in approximately 2 weeks for follow-up, was counseled as return appointment, activity level, and side effects to be aware of. Medication Injected: Med Injected: Procedure is lumbar epidural steroid injection under local anesthetic using sterile prep and drape at the L5-S1 level using C-arm fluoroscopic guidance in both AP and lateral views medications injected is 120 mg Depo-Medrol + 10 mL preservative-free normal saline and 2 mL contrast- condition at discharge is stable patient tolerated procedure well had no complications. Condition at Discharge: Condition at Discharge: Condition at discharge is stable, patient tolerated the procedure well and had no complications. ERIK FORD MD Mar 13, 2020 12:53
== END | disposition home or self-care (01) ==
LOC: PNCL 11:18
PROVIDERS: ATTEND Anesthesiology
DX: M51.16 Intervertebral disc disorders with radiculopathy, lumbar region (principal); M48.061 Spinal stenosis, lumbar region without neurogenic claudication; M96.1 Postlaminectomy syndrome, not elsewhere classified; I11.0 Hypertensive heart disease with heart failure; I50.9 Heart failure, unspecified; E78.00 Pure hypercholesterolemia, unspecified; K21.9 Gastro-esophageal reflux disease without esophagitis; E03.9 Hypothyroidism, unspecified; M19.90 Unspecified osteoarthritis, unspecified site; M81.0 Age-related osteoporosis without current pathological fracture; F41.9 Anxiety disorder, unspecified; Z90.49 Acquired absence of other specified parts of digestive tract; Z98.890 Other specified postprocedural states; Z79.899 Other long term (current) drug therapy; Z88.1 Allergy status to other antibiotic agents; Z88.2 Allergy status to sulfonamides; Z88.8 Allergy status to other drugs, medicaments and biological substances; Z82.49 Family history of ischemic heart disease and other diseases of the circulatory system; Z80.3 Family history of malignant neoplasm of breast
CPT/HCPCS: 62323; J1030; J1040; Q9965

== ENCOUNTER → 2020-03-27 | Outpatient (CLI) | payer MEDICARE, OTHER ==
--- NOTE | 2020-03-27 11:56 | PDOC ---
Progress Note - Pain Clinic Date of Service: DOS: DATE: 03/27/20 TIME: 11:52 Diagnosis: Dx: Lumbar radiculopathy with lumbar degenerative disc disease lumbar spinal stenosis and post lumbar laminectomy syndrome History or Present Illness: HPI: 79-year-old female returns follow-up status post lumbar epidural steroid injection x1 on March 13, 2020. Patient reports she did very well about 90% improvement in the pain in her legs is much better still some pain in the low back itself into the posterior hips and gluteus regions which is radiating bilaterally right equal to left. Patient reports otherwise doing much better with walking and standing household activities traveling and changing transfers from sitting to standing and vice versa. Patient reports she is sleeping much better occasionally wakes her from sleep but not every night patient reports the pain now is mostly in the low back and in the posterior gluteus bilaterally rated as a 9 on scale 10 is worse over the past week 7 on average 3 displeasing is a 5 today. Patient scribes aching and radiating can be unbearable at times but if she is laying on her stomach. She reports no new motor or sensory deficits no new bowel or bladder or other complaints. Physical Exam: VS: Blood pressure is 120/66 pulse 90 respirations 20 temperature 98.8 F height is 4 feet 10 inches weight is 91 pounds PE: PHYSICAL EXAMINATION: GENERAL: The patient is awake, alert, oriented, appropriate, very pleasant demeanor HEENT: Shows normocephalic, atraumatic. Extraocular movements are intact and symmetrical. NECK: Shows anterior throat supple without palpable lymphadenopathy noted. Swallow reflex symmetrical. CHEST: Shows normal on inspection. Breath sounds are clear bilaterally. HEART: Shows S1, S2 clear. No murmurs auscultated. ABDOMEN: Soft, nontender, nondistended. No palpable organomegaly is noted. No rebound or guarding demonstrated. BACK: Shows spine grossly in the midline. Normal-appearing cervical lordotic curvature. There is slightly increased thoracic kyphosis, some minor flattening of the lumbar lordotic curvature. Well-healed midline and lateral surgical scars noted in the lumbar distribution. Lumbar paraspinous muscles show symmetrical on inspection, on palpation shows some moderate tenderness diffusely throughout the upper, middle and lower distribution of the paraspinous muscles without specific trigger points, without radiation of pain. The patient has good rotational motion of the lumbar spine, both laterally as well as extension and flexion without significant difficulty. Moderate tenderness over the bilateral posterior superior iliac spines but only moderate pain, without radiation. EXTREMITIES: Lower extremities show deep tendon reflexes 1+ in the patellar and tendo calcaneus tendons. Motor exam is 4 on a scale of 5 with right dorsiflexion, extension, quadriceps and hamstring flexion and 4/5 on the left. Peripheral pulses are 1+ posterior tibial. No peripheral edema is noted bilaterally. Lower extremities are warm and dry to touch, equal in color and appearance. SKIN: Shows warm and dry, good turgor. No edema. No sores, rashes or bruising throughout. Procedure: Procedure: Options were discussed with the patient. Patient chart reviews her current medication regimen updated current review of systems updated today as well. We will proceed with a second in the series lumbar epidural steroid injection today with fluoroscopic guidance. Risks were discussed including but not limited to: Bleeding, infection, possibility of epidural hematoma and subsequent neurological compromise, dural puncture, headaches, spinal cord and/or nerve damage, side effects of steroid medication, and poor results regarding pain control. Patient understands and wished to proceed. Patient will return to clinic in approximate 2 weeks for follow-up, was counseled as to return ap pointment activity level and side effects to be aware of. Medication Injected: Med Injected: Procedure is lumbar epidural steroid injection under local anesthetic using sterile prep and drape at the L5-S1 level using C-arm fluoroscopic guidance in both AP and lateral views medications injected is 120 mg Depo-Medrol + 10 mL preservative-free normal saline and 2 mL contrast- condition at discharge is stable patient tolerated procedure well had no complications. Condition at Discharge: Condition at Discharge: Condition at discharge stable, patient tolerated the procedure well and had no complications. ERIK FORD MD Mar 27, 2020 11:55
== END | disposition home or self-care (01) ==
LOC: PNCL 11:11
PROVIDERS: ATTEND Anesthesiology
DX: M51.16 Intervertebral disc disorders with radiculopathy, lumbar region (principal); M48.061 Spinal stenosis, lumbar region without neurogenic claudication; M96.1 Postlaminectomy syndrome, not elsewhere classified; I11.0 Hypertensive heart disease with heart failure; I50.9 Heart failure, unspecified; E78.00 Pure hypercholesterolemia, unspecified; M19.90 Unspecified osteoarthritis, unspecified site; M81.0 Age-related osteoporosis without current pathological fracture; F41.9 Anxiety disorder, unspecified; K21.9 Gastro-esophageal reflux disease without esophagitis; E03.9 Hypothyroidism, unspecified; Z90.49 Acquired absence of other specified parts of digestive tract; Z90.710 Acquired absence of both cervix and uterus; Z98.890 Other specified postprocedural states; Z79.899 Other long term (current) drug therapy; Z88.2 Allergy status to sulfonamides; Z88.8 Allergy status to other drugs, medicaments and biological substances; Z82.49 Family history of ischemic heart disease and other diseases of the circulatory system; Z80.3 Family history of malignant neoplasm of breast
CPT/HCPCS: 62323; J1030; J1040; Q9965

== ENCOUNTER → 2020-05-22 | Outpatient (CLI) | payer MEDICARE, OTHER ==
[~2020-05-22] MED LIST changes: +BUPIVACAINE MPF 0.25% 10 ML VIAL. ONE; -MIRT-8 PO; -PRAM0.255 PO; -SILO4CAP PO; -methylPREDNISolone ACETATE 40 MG/ML VIAL. ONE
--- NOTE | 2020-05-22 13:05 | PDOC ---
Progress Note - Pain Clinic Date of Service: DOS: DATE: 05/22/20 TIME: 12:56 Diagnosis: Dx: Lumbar radiculopathy with lumbar degenerative disc disease and lumbar spinal stenosis with post lumbar laminectomy syndrome and lumbar spondylosis Rectal pain History or Present Illness: HPI: 79-year-old female returns in follow-up status post lumbar epidural steroid action x2. Patient reports only minimal decrease in pain after the first few days it is much improved but the pain in the back is returning and now patient reports significant pain in the rectum. Patient had cold about a week ago we did talk with her on the phone regarding this as it is more in the rectal region as well as the perineal region in the inferior gluteus as well. Patient reports that the tightness in her legs feels better when she does wear her lumbar support brace but has not been wearing it consistently. Patient's daughter is here with her and helps with some of her history and confirms that she has not been wearing her lumbar brace. Patient reports the pain is in the rectal region and the perineum also of the inferior gluteus rated as a 9 on scale 10 is worse over the past week 7 on average 5 its least is a 7 today patient scribes aching and tight can be constant unbearable worse with sitting for prolonged periods also changing positions walking standing and wakes her from sleep sporadically. Patient reports no bowel or bladder incontinence. Physical Exam: VS: Blood pressure is 118/57 pulse 75 respirations 16 temperature 98.5 F weight is 108 pounds PE: PHYSICAL EXAMINATION: GENERAL: The patient is awake, alert, oriented, appropriate, very pleasant demeanor HEENT: Shows normocephalic, atraumatic. Extraocular movements are intact and symmetrical. NECK: Shows anterior throat supple without palpable lymphadenopathy noted. Swallow reflex symmetrical. CHEST: Shows normal on inspection. Breath sounds are clear bilaterally, no rales or rhonchi bilaterally. HEART: Shows S1, S2 clear. No murmurs auscultated. ABDOMEN: Soft, nontender, nondistended, obese. No palpable organomegaly is noted. BACK: Shows spine grossly in the midline. Normal-appearing cervical lordotic curvature. There is slightly increased thoracic kyphosis, some minor flattening of the lumbar lordotic curvature. Patient has well-healed surgical scarring. Lumbar paraspinous muscles show symmetrical on inspection, on palpation shows some moderate tenderness diffusely throughout the upper, middle and lower distribution of the paraspinous muscles without specific trigger points, without radiation of pain. The patient has good rotational motion of the lumbar spine, both laterally as well as extension and flexion without significant difficulty. Patient shows significant tenderness near the rectum itself with even light palpation as well as in the perineum and in the inferior gluteus bilaterally significantly tender even to moderate palpation and touch. Right side essentially equal to the left no masses are palpated no other abnormalities appr eciated. EXTREMITIES: Lower extremities show deep tendon reflexes 1+ in the patellar and tendo calcaneus tendons. Motor exam is 4 on a scale of 5 with right dorsiflexion, extension, quadriceps and hamstring flexion and 4/5 on the left. Peripheral pulses are 1+ posterior tibial. No peripheral edema is noted bilaterally. Lower extremities are warm and dry to touch, equal in color and appearance. SKIN: Shows warm and dry, good turgor. No edema. No sores, rashes or bruising throughout. Procedure: Procedure: Options were discussed with the patient patient's daughter who accompanied her visit today. We will proceed with an Impar ganglion block today with fluoroscopic guidance. Risks including but not limited to bleeding infection possibility of intravascular injection sequelae spread to local anesthetic and numbness side effects steroid medications post fluoroscopy puncture of pelvic and abdominal viscera and poor results regarding pain control. Patient understands wished to proceed. Patient return to clinic in approximate 2 weeks for follow-up, was counseled as to return appointment activity level and side effects to be aware of. Medication Injected: Med Injected: Under sterile prep and drape patient in a prone position using C-arm fluoroscopic guidance the sacrum and sacrococcygeal ligament was identified. Using a 22-gauge needle under direct fluoroscopic visualization, the sacrococcygeal ligament was penetrated with the tip of the needle to lie just anterior to the ligament itself. Aspiration was noted to be negative at this time 1.5 cc of contrast was injected with good spread in the area of the anterior sacrum without uptake. At this time 3 cc of 0.25% bupivacaine and 80 mg of Depo-Medrol was then injected needle was withdrawn and sterile bandage was applied. Patient tolerated the procedure well and had no complications. Condition at Discharge: Condition at Discharge: Condition at discharge stable, patient alert procedure well had no complications. ERIK FORD MD May 22, 2020 13:05
--- NOTE | 2020-05-22 13:06 | PDOC4 ---
PROCEDURE Procedure Patient was consented for Impar ganglion block with fluoroscopic guidance. Risk were discussed including but not limited to bleeding infection possibility of intravascular injection sequelae spread to local anesthetic numbness side effects of steroid medication spoke to fluoroscopy potential perforation of the pelvic and abdominal viscera, and poor results regarding pain control. Patient understands wished to proceed. Under sterile prep and drape patient in a prone position using C-arm fluoroscopic guidance the sacrum and sacrococcygeal ligament was identified. Using a 22-gauge needle under direct fluoroscopic visualization, the sacrococcygeal ligament was penetrated with the tip of the needle to lie just anterior to the ligament itself. Aspiration was noted to be negative at this time 1.5 cc of contrast was injected with good spread in the area of the anterior sacrum without uptake. At this time 3 cc of 0.25% bupivacaine and 80 mg of Depo-Medrol was then injected needle was withdrawn and sterile bandage was applied. Patient tolerated the procedure well and had no complications. ERIK FORD MD May 22, 2020 13:06
== END | disposition home or self-care (01) ==
LOC: PNCL 11:17
PROVIDERS: ATTEND Anesthesiology
DX: M51.16 Intervertebral disc disorders with radiculopathy, lumbar region (principal); M48.061 Spinal stenosis, lumbar region without neurogenic claudication; M96.1 Postlaminectomy syndrome, not elsewhere classified; M47.26 Other spondylosis with radiculopathy, lumbar region; I11.0 Hypertensive heart disease with heart failure; I50.9 Heart failure, unspecified; E78.00 Pure hypercholesterolemia, unspecified; K21.9 Gastro-esophageal reflux disease without esophagitis; M19.90 Unspecified osteoarthritis, unspecified site; M81.0 Age-related osteoporosis without current pathological fracture; F41.9 Anxiety disorder, unspecified; Z90.710 Acquired absence of both cervix and uterus; Z90.49 Acquired absence of other specified parts of digestive tract; Z98.890 Other specified postprocedural states; Z79.899 Other long term (current) drug therapy; Z88.2 Allergy status to sulfonamides; Z88.8 Allergy status to other drugs, medicaments and biological substances; Z82.49 Family history of ischemic heart disease and other diseases of the circulatory system; Z80.3 Family history of malignant neoplasm of breast
CPT/HCPCS: 64520; 77002; J1040; J3490; Q9965; 64450

== ENCOUNTER → 2020-05-30 | Outpatient (CLI) | payer MEDICARE, OTHER ==
[~2020-05-30] MED LIST changes: +MIRT-8 PO; +PRAM0.255 PO; +SILO4CAP PO; +methylPREDNISolone ACETATE 40 MG/ML VIAL. ONE
--- NOTE | 2020-05-30 10:15 | PDOC ---
Progress Note - Pain Clinic Date of Service: DOS: DATE: 05/30/20 TIME: 10:12 Diagnosis: Dx: Lumbar radiculopathy with lumbar degenerative disease lumbar spinal stenosis post lumbar macular syndrome and lumbar and lumbosacral spondylosis History or Present Illness: HPI: 79-year-old female returns for follow-up status post impar ganglion block. Patient reports about 40% improvement for about 2 days and the pain returned in the low back and in the rectum after the injection patient reports is a 9 on scale 10 at this time it is worst 8 on average 6 its least and is an 8 today patient reports is aching and constant in the low back and in the rectum itself. Patient reports no new motor or sensory deficits but the significant pain especially in the mornings when she first gets up and around as the day goes by to still see her fairly painful patient has decreased her Lyrica to only once daily taken at night because it was causing some significant sedation during the day although it was decreasing the pain to a moderate extent patient reports no new motor or sensory deficits no new bowel or bladder incontinence or other complaints. Physical Exam: VS: Blood pressure is 125/61 pulse 82 respirations 18 temperature 90.9 F height is 4 foot 11 inches weight is 108 pounds PE: PHYSICAL EXAMINATION: GENERAL: The patient is awake, alert, oriented, appropriate, very pleasant demeanor, patient come to by her daughter HEENT: Shows normocephalic, atraumatic. Extraocular movements are intact and symmetrical. Oral cavity: Mucous membranes moist and pink. NECK: Shows anterior throat supple without palpable lymphadenopathy noted. Swallow reflex symmetrical. CHEST: Shows normal on inspection. Breath sounds are clear bilaterally, no rales or rhonchi. HEART: Shows S1, S2 clear. No murmurs auscultated. ABDOMEN: Soft, nontender, nondistended, obese. No palpable organomegaly is noted. BACK: Shows spine grossly in the midline. Normal-appearing cervical lordotic curvature. There is slightly increased thoracic kyphosis, some minor flattening of the lumbar lordotic curvature. Well-healed surgical scarring is noted in the lumbar distribution bilaterally. Lumbar paraspinous muscles show symmetrical on inspection, on palpation shows some moderate tenderness diffusely throughout the upper, middle and lower distribution of the paraspinous muscles, but without specific trigger points, without radiation of pain. The patient has good rotational motion of the lumbar spine, both laterally with moderate pain reported with right and left lateral rotation greater than 10 degrees also significant pain with extension of the lumbar spine and axial loading greater than 10 degrees better with forward flexion which is somewhat limited but without significant pain. No tenderness over the spinous processes, sacrum or sacroiliac regions. EXTREMITIES: Lower extremities show deep tendon reflexes 1+ in the patellar and tendo calcaneus tendons. Motor exam is 4 on a scale of 5 with right dorsiflexion, extension, quadriceps and hamstring flexion and 4/5 on the left. Peripheral pulses are 1+ posterior tibial. No peripheral edema is noted bilaterally. Lower extremities are warm and dry to touch, equal in color and appearance. SKIN: Shows warm and dry, good turgor. No edema. No sores, rashes or bruising throughout. Procedure: Procedure: Options were discussed with the patient and patient's daughter who accompanied her visit today. We will proceed with bilateral lumbar facet medial branch blocks today with fluoroscopic guidance. Risks were discussed including but not limited to: Bleeding, infection, possibility of epidural hematoma and subsequent neurological compromise, dural puncture, headaches, spinal cord and/or nerve damage, side effects of steroid medication, and poor results regarding pain control. Patient understands and wished to proceed. Patient return to clinic approximate 2 weeks for follow-up, was counseled as return appointment activity level and side effects to be aware of. Medication Injected: Med Injected: Under sterile prep and drape using C-arm fluoroscopic guidance AP and lateral and oblique views, bilateral L4-5 and L5-S1 facet joint injections were performed, medications injected: 120 mg Depo-Medrol +4 cc 0.25% bupivacaine +2 cc contrast. Condition at discharge stable patient tolerated the procedure well and no complications. Condition at Discharge: Condition at Discharge: Condition at discharge stable, patient already procedure well and had no complications. ERIK FORD MD May 30, 2020 10:15
--- NOTE | 2020-05-30 10:16 | PDOC4 ---
PROCEDURE Procedure Patient was consented for bilateral L4-5 and L5-S1 medial branch facet injec tions. Risks were discussed including but not limited to: Bleeding, infection, possibility of epidural hematoma and subsequent neurological compromise, dural puncture, headaches, spinal cord and/or nerve damage, side effects of steroid medication, and poor results regarding pain control. Patient understands and wished to proceed. Under sterile prep and drape using C-arm fluoroscopic guidance AP and lateral and oblique views, bilateral L4-5 and L5-S1 facet joint injections were performed, medications injected: 120 mg Depo-Medrol +4 cc 0.25% bupivacaine +2 cc contrast. Condition at discharge stable patient tolerated the procedure well and no complications. ERIK FORD MD May 30, 2020 10:16
== END | disposition home or self-care (01) ==
LOC: PNCL 09:23
PROVIDERS: ATTEND Anesthesiology
DX: M51.16 Intervertebral disc disorders with radiculopathy, lumbar region (principal); M48.061 Spinal stenosis, lumbar region without neurogenic claudication; M47.26 Other spondylosis with radiculopathy, lumbar region; M96.1 Postlaminectomy syndrome, not elsewhere classified; M47.897 Other spondylosis, lumbosacral region; I11.0 Hypertensive heart disease with heart failure; I50.9 Heart failure, unspecified; M81.0 Age-related osteoporosis without current pathological fracture; E03.9 Hypothyroidism, unspecified; F41.9 Anxiety disorder, unspecified; E78.00 Pure hypercholesterolemia, unspecified; M19.90 Unspecified osteoarthritis, unspecified site; Z90.49 Acquired absence of other specified parts of digestive tract; Z98.890 Other specified postprocedural states; Z79.899 Other long term (current) drug therapy; Z90.710 Acquired absence of both cervix and uterus; Z82.49 Family history of ischemic heart disease and other diseases of the circulatory system; Z80.3 Family history of malignant neoplasm of breast; Z88.2 Allergy status to sulfonamides; Z88.8 Allergy status to other drugs, medicaments and biological substances
CPT/HCPCS: 64493; 64494; J1030; J1040; J3490; Q9965; 77002

== ENCOUNTER → 2020-07-18 | Outpatient (CLI) | payer MEDICARE, OTHER ==
[~2020-07-18] MED LIST changes: -BUPIVACAINE MPF 0.25% 10 ML VIAL. ONE; -IOHEXOL 180 MG/ML 10 ML VIAL. ONE; +LIDOCAINE 1% PF 2 ML VIAL. ONE; -MIRT-8 PO; -PRAM0.255 PO; -SILO4CAP PO; -methylPREDNISolone ACETATE 40 MG/ML VIAL. ONE; -methylPREDNISolone ACETATE 80 MG/ML VIAL. ONE
--- NOTE | 2020-07-18 15:07 | PDOC ---
Progress Note - Pain Clinic Date of Service: DOS: DATE: 07/18/20 TIME: 15:03 Diagnosis: Dx: Lumbar radiculopathy with lumbar degenerative disc disease lumbar spinal stenosis lumbar postlaminectomy syndrome and lumbar spondylosis History or Present Illness: HPI: 79-year-old female returns for follow-up status post evaluation preauthorization for spinal cord stimulator temporary leads placement. Patient has completed psychological evaluation and would like to proceed today. Patient reports pain in the low back and in the inferior aspect of the sacrum as well as the lower extremities posteriorly is a 9-10 on scale 10 is worse over the past week and 9 on average 6 at its least and is a 9 today. Patient reports no new motor or sensory deficit still significant pain rating the bilateral lower extremity as well as in the low back and rectal region as well it is tight to severe and unbearable worse with walking standing better with sitting or laying down generally not awaken her from sleep at night but can on some occasions. Patient reports no new motor or sensory deficits or other complaints. Physical Exam: VS: Blood pressure is 92/45 pulse 79 respirations 16 temperature 99.1 F weight is 108 pounds PE: PHYSICAL EXAMINATION: GENERAL: The patient is awake, alert, oriented, appropriate, very pleasant demeanor HEENT: Shows normocephalic, atraumatic. Extraocular movements are intact and symmetrical. Oral cavity: Mucous membranes moist and pink. NECK: Shows anterior throat supple without palpable lymphadenopathy noted. Swallow reflex symmetrical. CHEST: Shows normal on inspection. Breath sounds are clear bilaterally, distant but no rales or rhonchi. HEART: Shows S1, S2 clear. No murmurs auscultated. ABDOMEN: Soft, nontender, nondistended. No palpable organomegaly is noted. No rebound or guarding demonstrated. BACK: Shows spine grossly in the midline. Normal-appearing cervical lordotic curvature. There is moderately increased thoracic kyphosis, some flattening of the lumbar lordotic curvature. Well-healed surgical scarring is noted once again. Lumbar paraspinous muscles show symmetrical on inspection, on palpation shows some moderate tenderness diffusely throughout the upper, middle and lower distribution of the paraspinous muscles without specific trigger points, without radiation of pain. The patient has good rotational motion of the lumbar spine, both laterally as well as extension and flexion without significant difficulty. No tenderness over the spinous processes, sacrum or sacroiliac regions. EXTREMITIES: Lower extremities show deep tendon reflexes 1+ in the patellar and tendo calcaneus tendons. Motor exam is 4 on a scale of 5 with right dorsiflexion, extension, quadriceps and hamstring flexion and 4/5 on the left. Peripheral pulses are 1 posterior tibial. No peripheral edema is noted bilaterally. Lower extremities are warm and dry. SKIN: Shows warm and dry, good turgor. No edema. No sores, rashes or bruising throughout. Procedure: Procedure: Options were discussed with the patient and patient's daughter who accompanied her today. We will proceed with spinal cord stimulator temporary lead placement x2 with fluoroscopic guidance. Risks were discussed including but not limited to: Bleeding, infection, possibility of epidural hematoma and subsequent neurological compromise, dural puncture, headaches, spinal cord and/or nerve damage, and poor results regarding pain control. Patient understands and wished to proceed. Patient will return to clinic in approximately 1 week or sooner if necessary and will reevaluate patient's pain level at that time as well as schedule removal of the temporary leads. Patient was given instructions with the spinal cord stimulator also will be in contact with our stimulator claim service representative daily over the next week. Medication Injected: Med Injected: Under sterile prep and drape patient in prone position using C-arm fluoroscopic guidance patient's lumbar spine was identified and vertebral levels were counted did put external marker on the T8 level. This time the lumbar spine was revisualized and using 1% lidocaine, the area over the L3 4 level was anesthetized and then using a 14-gauge DailyLooktead needle with stylette was entered to the epidural space at the L2-3 level using a paramedian approach to the right with preservative-free normal saline [id number] technique aspiration was noted to be negative and using direct fluoroscopy visualization spinal cord stimulator lead was then advanced without significant resistance in the midline and confirmed posterior with both AP and lateral views, and advanced to the superior endplate of the T8 vertebral level superimposed with the superior spinal cord stimulator electrode lead. Fluoroscopy was used in a lateral view to verify posterior placement in the epidural space at this point as well. At this time a second lead was then introduced in similar fashion at the L 3-4 level and inserted and in the epidural space at the L2-3 level once again with preservative-free normal saline byyr-vv-jlacaczeqp technique. Aspiration was again noted to be negative and using direct visualization with fluoroscopy second lumbar spinal cord stimulator lead was advanced without significant resistance in the midline with the superior electrode superimposed over the superior endplate of the T9 vertebral body. Lateral visualization was again confirmed with placement of the stimulator in the posterior epidural space. At this time the needles and stylette were removed with intermittent fluoroscopic visualization maintaining that the leads had not moved during this process and this was confirmed. This time 1% lidocaine was used to anesthetize the skin next to the insertion sites of the stimulator wires and using a 2-0 silk were then sutured in place. Mastisol and Tegaderm was then applied as well as reinforcing tape and gauze. Patient was transferred to the recovery area under his own power walking without difficulty and had no immediate complications from the procedure. Stimulation was then carried out with [facility] representatives. Patient will return to the clinic in approximately 1 week for removal of the temporary leads and reassessment of the patient's pain level. Condition at Discharge: Condition at Discharge: Condition at discharge stable, patient tolerated the procedure well and had no complications. ERIK FORD MD July 18, 2020 15:07
== END | disposition home or self-care (01) ==
LOC: PNCL 13:09
PROVIDERS: ATTEND Anesthesiology
DX: M51.16 Intervertebral disc disorders with radiculopathy, lumbar region (principal); M48.061 Spinal stenosis, lumbar region without neurogenic claudication; M96.1 Postlaminectomy syndrome, not elsewhere classified; M47.26 Other spondylosis with radiculopathy, lumbar region; I11.0 Hypertensive heart disease with heart failure; I50.9 Heart failure, unspecified; E78.00 Pure hypercholesterolemia, unspecified; K21.9 Gastro-esophageal reflux disease without esophagitis; M19.90 Unspecified osteoarthritis, unspecified site; M81.0 Age-related osteoporosis without current pathological fracture; E03.9 Hypothyroidism, unspecified; F41.9 Anxiety disorder, unspecified; Z90.49 Acquired absence of other specified parts of digestive tract; Z98.890 Other specified postprocedural states; Z90.710 Acquired absence of both cervix and uterus; Z79.899 Other long term (current) drug therapy; Z88.2 Allergy status to sulfonamides; Z88.8 Allergy status to other drugs, medicaments and biological substances
CPT/HCPCS: 63650; C1897; J3490

== ENCOUNTER → 2020-07-25 | Outpatient (CLI) | payer MEDICARE, OTHER ==
[~2020-07-25] MED LIST changes: -LIDOCAINE 1% PF 2 ML VIAL. ONE
--- NOTE | 2020-07-25 15:27 | PDOC4 ---
PROCEDURE Procedure Patient was consented for removal spinal cord stimulator temporary leads. Under sterile prep, patient's spinal cord stimulator temporary leads were examined and sutures got leads removed x2 with tips intact sites are clean and dry without erythema no tenderness no exudate or drainage. Sterile bandage was applied. ERIK FORD MD July 25, 2020 15:27
--- NOTE | 2020-07-25 15:27 | PDOC ---
Progress Note - Pain Clinic Date of Service: DOS: DATE: 07/25/20 TIME: 15:22 Diagnosis: Dx: Lumbar radiculopathy with lumbar degenerative disc disease lumbar spinal stenosis and post lumbar laminectomy syndrome Rectal pain History or Present Illness: HPI: 79-year-old female returns for follow-up status post final cord stimulator temporary leads placement times two 1 week ago. Patient reports initially she did fairly well with the pain reduced significantly in the low back but the rectal pain never really controlled very well with the stimulation. Patient reports that it did get better of it initially but then after a few days the pain began to go back to its baseline level and that is where it is today. Patient reports that while her low back was doing much better the rectal pain was really not significantly improved over time. Patient rates that pain is a 9 on scale 10 is worse over the past week 8 on average 6 its least and is an 8 today patient has aching and tight constant severe unbearable. Patient reports no new motor or sensory deficits no other difficulties with the stimulation trial and was in close contact with the representatives from her stimulator company and they were in contact with me as well very closely throughout the week with progress reported daily. Physical Exam: VS: Blood pressure is 119/66 pulse 85 respirations 16 temperature 98.9 F PE: PHYSICAL EXAMINATION: GENERAL: The patient is awake, alert, oriented, appropriate, very pleasant demeanor, accompanied by her daughter. HEENT: Shows normocephalic, atraumatic. Extraocular movements are intact and symmetrical. NECK: Shows anterior throat supple without palpable lymphadenopathy noted. Swallow reflex symmetrical. CHEST: Shows normal on inspection. Breath sounds are clear bilaterally. HEART: Shows S1, S2 clear. No murmurs auscultated. ABDOMEN: Soft, nontender, nondistended. No palpable organomegaly is noted. No rebound or guarding demonstrated. BACK: Shows spine grossly in the midline. Patient is lumbar spine shows bandages once bandages taken down medical stimulator leads were defined clean and dry no erythema no tenderness no exudate using sterile technique and prep sutures were cut and five-point stimulator leads were removed x2 with tips intact. EXTREMITIES: Lower extremities show deep tendon reflexes 1+ in the patellar and tendo calcaneus tendons. Motor exam is full on a scale of 5 with right dorsiflexion, extension, quadriceps and hamstring flexion and 4/5 on the left. Peripheral pulses are 1+ posterior tibial. No peripheral edema is noted bilaterally. Lower extremities are warm and dry. SKIN: Shows warm and dry, good turgor. No edema. No sores, rashes or bruising throughout. Procedure: Procedure: Under sterile prep, patient's spinal cord stimulator temporary leads were examined and sutures got leads removed x2 with tips intact sites are clean and dry without erythema no tenderness no exudate or drainage. Sterile bandage was applied. Discussed with patient and her daughter that pain may return to some extent in the low back if she feels this is significant enough to warrant keeping a stimulator permanently she will report that to us. Medication Injected: Med Injected: None Condition at Discharge: Condition at Discharge: Condition at discharge stable, patient tolerated the removal of the stimulator leads without difficulty. ERIK FORD MD July 25, 2020 15:27
== END | disposition home or self-care (01) ==
LOC: PNCL 14:12
PROVIDERS: ATTEND Anesthesiology
DX: M51.16 Intervertebral disc disorders with radiculopathy, lumbar region (principal); M48.061 Spinal stenosis, lumbar region without neurogenic claudication; M96.1 Postlaminectomy syndrome, not elsewhere classified; K62.89 Other specified diseases of anus and rectum; I11.0 Hypertensive heart disease with heart failure; I50.9 Heart failure, unspecified; E78.00 Pure hypercholesterolemia, unspecified; K21.9 Gastro-esophageal reflux disease without esophagitis; M19.90 Unspecified osteoarthritis, unspecified site; E03.9 Hypothyroidism, unspecified; F41.9 Anxiety disorder, unspecified; M81.0 Age-related osteoporosis without current pathological fracture; Z90.49 Acquired absence of other specified parts of digestive tract; Z90.710 Acquired absence of both cervix and uterus; Z98.890 Other specified postprocedural states; Z79.899 Other long term (current) drug therapy; Z88.2 Allergy status to sulfonamides; Z88.8 Allergy status to other drugs, medicaments and biological substances
CPT/HCPCS: G0463

== ENCOUNTER 2020-08-11 22:04 | Inpatient (IN) | payer MEDICARE, OTHER ==
[~2020-08-11] VITALS: Ht 152.4 cm; Wt 46.9 kg
--- NOTE | 2020-08-11 22:32 | PHYS DOC ---
Past Medical History Past Medical History: Arthritis, High Cholesterol, Hypertension, Hypothyroid Additional Past Medical Histor: THYROID DZ, RLS Past Surgical History: Appendectomy, Hysterectomy Additional Past Surgical Histo: REMOVED NODULE FROM THYROID, BACK, CATARACT, HERNIA Smoking Status: Never Smoker Alcohol Use: None Drug Use: None General Adult EDM: Chief Complaint: CHEST PAIN HPI: HPI: 79 yo F PMH osetoarthritis, headaches, hypertension, rheumatoid arthritis, ulcers, depression, osteoporosis, and thyroid disease presents to the ED with biological son, (patient consents to his/her/their knowledge and involvement in pts' medical care), complaints of intermittent episodes of chest pressure, at rest, stating " thought it was indigestion," that woke patient up around 8:00. Also c/o chronic back pain, ed stretcher exacerbating this. Review of Systems: Review of Systems: Constitutional: Denies fever or chills. [] Eyes: Denies change in visual acuity. [] HENT: Denies nasal congestion or sore throat. [] Respiratory: Denies cough or shortness of breath. [] Cardiovascular: Denies hemoptysis or syncope GI: Denies abdominal pain, nausea, vomiting, bloody stools or diarrhea. [] : Denies dysuria or hematuria Musculoskeletal: Denies new back pain or joint pain. [] Integument: Denies rash or diaphoresis Neurologic: Denies headache, focal weakness or sensory changes. [] Endocrine: Denies polyuria or polydipsia. [] Lymphatic: Denies swollen glands. [] Psychiatric: Denies depression or anxiety. [] Heart Score: C/O Chest Pain: Yes HEART Score for Chest Pain: HEART Score for Chest Pain Response (Comments) Value History Moderately Suspicious 1 ECG Nonspecific Repolarizatio 1 Age > 65 2 Risk Factors 1 or 2 Risk Factors 1 Troponin < Normal Limit 0 Total 5 Risk Factors: Risk Factors: DM, Current or recent (<one month) smoker, HTN, HLP, family history of CAD, obesity. Risk Scores: Score 0 - 3: 2.5% MACE over next 6 weeks - Discharge Home Score 4 - 6: 20.3% MACE over next 6 weeks - Admit for Clinical Observation Score 7 - 10: 72.7% MACE over next 6 weeks - Early Invasive Strategies Allergies: Allergies: Allergies Coded Allergies Type Severity Reaction Last Updated Verified Sulfa (Sulfonamide Antibiotics) Adverse Reaction Mild Nausea and Vomiting 10/01/19 Yes acetaminophen Adverse Reaction Mild Hallucination 10/01/19 Yes oxycodone Adverse Reaction Mild Hallucination 10/01/19 Yes Physical Exam: PE: Constitutional: Well developed, well nourished, no acute distress, non-toxic appearance, thin/comfortable appearing HENT: Normocephalic, atraumatic, Eyes: EOMI, conjunctiva normal, no discharge. Neck: Normal range of motion, supple, Cardiovascular: S1, S2 present, Lungs & Thorax: Speaking in full sentences, bilateral equal chest rise, no tachypnea or increased work of breathing Abdomen: soft, no tenderness, Skin: Warm, dry, no erythema, no rash. [] Back: No new tenderness, no CVA tenderness. [] Extremities: No tenderness, no cyanosis, Neurologic: Alert and oriented X 3, no focal deficits noted. [] Psychologic: Affect normal, mood -with chronic back pain and becomes anxious while discussing plan for admission EKG: EKG: Sinus rhythm at 75 bpm, left axis deviation, normal intervals, T wave inversion in 3, no ST elevations or ST depressions Course & Med Decision Making: Course & Med Decision Making Pertinent Labs and Imaging studies reviewed. (See chart for details) I have spoken with the patient and/or caregivers. I have explained the patient's condition, diagnosis and treatment plan based on the information available to me at this time. I have answered the patient's and/or caregivers questions and answered any concerns. The patient and/or caregivers have as good an understanding of the patient's diagnosis, condition and treatment plan as can be expected at this point. The patient has been stabilized within the capability of the emergency department. The patient will be transported for further care and management or will be moved to an observation or inpatient service. I have communicated with the staff or medical practitioner taking over this patient's care. Dragon Disclaimer: Draggerri Disclaimer: This electronic medical record was generated, in whole or in part, using a voice recognition dictation system. Departure Departure Impression: Primary Impression: Atypical chest pain Additional Impression: Uncontrolled hypertension Disposition: ADMITTED INPATIENT Admitting Physician: Nyla Kinsey Condition: STABLE Referrals: NYLA KINSEY MD (PCP) ELIZA FONG DO Aug 11, 2020 22:32
[2020-08-11 22:37] LABS: BASO # 0.1 x10^3/uL (0.0-0.2); BASO % 1 % (0-3); EOS # 0.1 x10^3/uL (0.0-0.7); EOS % 1 % (0-3); HEMATOCRIT 37.3 % (36.0-47.0); HEMOGLOBIN 12.6 g/dL (12.0-15.5); LYMPH # 1.9 x10^3/uL (1.0-4.8); LYMPH % 20 % (24-48); MEAN CORPUSCULAR HEMOGLOBIN 31 pg (25-35); MEAN CORPUSCULAR HGB CONC 34 g/dL (31-37); MEAN CORPUSCULAR VOLUME 91 fL (79-100); MONO # 0.8 x10^3/uL (0.0-1.1); MONO % 8 % (0-9); NEUT % 70 % (31-73); PLATELET COUNT 268 x10^3/uL (140-400); RED BLOOD COUNT 4.09 x10^6/uL (3.50-5.40); RED CELL DISTRIBUTION WIDTH 14.5 % (11.5-14.5); WHITE BLOOD COUNT 9.9 x10^3/uL (4.0-11.0)
[2020-08-11 22:49] LABS: CALCIUM 9.3 mg/dL (8.5-10.1); CREATININE 0.6 mg/dL (0.6-1.0); GFR 96.7; POTASSIUM 3.7 mmol/L (3.5-5.1)
[2020-08-11 22:55] LABS: ALBUMIN 4.2 g/dL (3.4-5.0); ALBUMIN/GLOBULIN RATIO 1.1 (1.0-1.7); TOTAL BILIRUBIN 0.4 mg/dL (0.2-1.0); TOTAL PROTEIN 8.1 g/dL (6.4-8.2)
--- NOTE | 2020-08-11 23:23 | RAD ---
Exam: Chest one view INDICATION: Chest pain TECHNIQUE: Frontal view of the chest Comparisons: 01/02/2019 FINDINGS: The cardiomediastinal silhouette and pulmonary vessels are within normal limits. The lung and pleural spaces are clear. IMPRESSION: No acute cardiopulmonary process. Electronically signed by: Thanh Cuevas MD (08/11/2020 11:21 PM) HELGA
[2020-08-11 23:50] LABS: BILIRUBIN,URINE NEGATIVE (NEG); CLARITY,URINE CLEAR; COLOR,URINE YELLOW; NITRITE,URINE NEGATIVE (NEG); PH,URINE 7.5 (<5.0-8.0); PROTEIN,URINE NEGATIVE (NEG-TRACE); UROBILINOGEN,URINE 0.2 mg/dL (0.2 mg/dL)
[2020-08-11 23:55] LABS: BACTERIA,URINE 0 /HPF (0-FEW); RBC,URINE 0 /HPF (0-2); WBC,URINE 0 /HPF (0-4)
[2020-08-11 23:56] LABS: BARBITURATES NEG (NEG); BENZODIAZEPINES NEG (NEG); CANNABINOIDS NEG (NEG); COCAINE NEG (NEG); METHADONE NEG (NEG); OPIATES POS (NEG); PHENCYCLIDINE NEG (NEG)
[2020-08-11 23:57] LABS: AMPHETAMINE/METHAMPHETAMINE NEG (NEG)
[2020-08-12] VITALS (8 sets, daily range): BP systolic 107–168; BP diastolic 57–81
[2020-08-12] MEDS ORDERED: HYDROmorphone 2 MG/ML VIAL IVP ONE (02:15)
--- NOTE | 2020-08-12 04:18 | EKG ---
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
[2020-08-12] MEDS ORDERED: hydrALAZINE 20 MG/ML VIAL. IVP PRN (05:00)
[2020-08-12] MEDS: HYDROcodone/APAP 7.5/325MG 1 TAB TABLET PO PRN ×2 (05:16→09:38)
--- NOTE | 2020-08-12 08:10 | PDOC2 ---
CARDIOLOGY CONSULT NOTE DATE OF SERVICE: DATE: 08/12/20 TIME: 08:07 CHIEF COMPLAINT: Chest pain HPI: 79 y.o woman presenting with chest pain. She initially thought it was heart burn but due to persistent pain she decided to come in. In ER BP was elevated. She reports feeling better now. No specific alleviating or aggravating factors for the pain. She has been limited with activity due to back issues but no prior angina, HF issues. She denies any syncope or palpitations. Initial ER EKG and trop negative. PMHX: Back surgeries Thyroid issues HTN No DM2, Dyslipidemia per pt. SOCHX: Lives with spouse. No alcohol, tob or illicits. FAMHX: NC CURRENT MEDS: Current Medications Medications (Trade) Dose Ordered Sig/Kirk Route PRN Reason Start Time Stop Time Status Last Admin Dose Admin Hydromorphone HCl (Dilaudid) 0.5 mg 1X ONCE IVP 08/12/20 02:15 08/12/20 02:16 DC 08/12/20 02:26 Hydralazine HCl (Apresoline Inj) 10 mg PRN Q4HRS PRN IVP ELEVATED BP, SEE COMMENTS 08/12/20 05:00 08/12/20 06:18 Acetaminophen/ Hydrocodone Bitart (Lortab 7.5/325) 1 tab PRN Q4HRS PRN PO PAIN 08/12/20 05:00 08/12/20 05:16 ALLERGIES: Allergies Coded Allergies Type Severity Reaction Last Updated Verified Sulfa (Sulfonamide Antibiotics) Adverse Reaction Mild Nausea and Vomiting 10/01/19 Yes acetaminophen Adverse Reaction Mild Hallucination 10/01/19 Yes oxycodone Adverse Reaction Mild Hallucination 10/01/19 Yes ROS: Negative for / systems reviewed unless noted above in HPI PHYSICAL EXAM: Vital Signs/I&O: Vital Signs Date Time Temp Pulse Resp B/P (MAP) Pulse Ox O2 Delivery O2 Flow Rate FiO2 08/12/20 07:00 99.1 70 17 134/73 (93) Room Air 99.1 08/12/20 05:46 98 I & O 08/11/20 08/11/20 08/12/20 15:00 23:00 07:00 Intake Total 50 ml Balance 50 ml Physical Exam: GEN.: No apparent distress. Alert and oriented. HEENT: Head is normocephalic, atraumatic NECK: Supple. LUNGS: Clear to auscultation. HEART: RRR, S1, S2 present. Peripheral pulses intact ABDOMEN: Soft, nontender. Positive bowel sounds. EXTREMITIES: Without any cyanosis. NEUROLOGIC: Normal speech, normal tone PSYCHIATRIC: Normal affect, normal mood. SKIN: No ulcerations DIAGNOSTIC TESTING: EKG negative for any acute pathology. SR. Trop neg x 2 BNP wnl CXR clear ASSESSMENT: 1. Atypical chest pain - probably related to HTN, cannot rule out MSK component with her back issues. 2. HTN 3. Arthritis. PLAN: 1. Confirm home meds and restart and monitor BP. 2. Check echo in a.m 3. Consider outpt stress testing depending on progress. Thanks. CASSANDRA MANNING MD Aug 12, 2020 08:10
[2020-08-12] MEDS ORDERED: OXYBUTYNIN CHLORIDE 5 MG TABLET PO SCH (09:00)
--- NOTE | 2020-08-12 09:06 | PDOC ---
Provider Note Date of Service: DATE: 08/12/20 TIME: 09:06 Provider Note dictated Justifications for Admission Other Justification ANU LEE MD Aug 12, 2020 09:06
[2020-08-12] MEDS: PREGABALIN 75 MG CAPSULE PO SCH ×2 (09:37→21:41)
[2020-08-12] MEDS: FAMOTIDINE 20 MG TABLET. PO SCH (09:37)
[2020-08-12] MEDS: DOCUSATE SODIUM 100 MG CAPSULE. PO SCH ×2 (09:38→21:44)
[2020-08-12] MEDS: POTASSIUM CHLORIDE 10 MEQ TABLET.ER. PO SCH ×2 (09:38→17:48)
[2020-08-12] MEDS: MEMANTINE 10 MG TABLET. PO SCH ×2 (09:38→21:44)
[2020-08-12] MEDS: PARoxetine 20 MG TABLET PO SCH (09:39)
--- NOTE | 2020-08-12 10:38 | HP ---
ADMIT DATE: 08/12/2020 CHIEF COMPLAINT: Indigestion. HISTORY OF PRESENT ILLNESS: A 79-year-old white female, patient of Dr. Escalera with history of hypertension and some degree of ____ in her lower chest. She does not really describe a heartburn, dysphagia, vomiting, ____ junctional pain, shortness of breath or diaphoresis. Chest x-ray, CK, troponin and EKGs were normal and she has been feeling better with lower blood pressure after IV hydralazine. PAST MEDICAL HISTORY: No previous cardiac history. She has had multiple surgeries. She is on multiple meds, including amlodipine for hypertension. ALLERGIES: No known drug allergies are present. SOCIAL HISTORY: Nonsmoker, nondrinker. FAMILY HISTORY: Unremarkable. REVIEW OF SYSTEMS: No other complaints. OBJECTIVE: HEENT: Unremarkable. NECK: No bruits or masses. LUNGS: Clear. ____ NEUROLOGIC: Physiologic. ASSESSMENT: Hypertension, dementia, indigestion, which may be acid reflux disease. It does not sound like cardiac symptoms. She also takes high-dose simvastatin, which could lead to some degree of myopathy. PLAN: We will add Pepcid and hold the simvastatin and check her CPK. Transfer to med floor and follow blood pressure for now. SHIRA/MARCELO/SOT DR: SHIRA/shon TID: [id number]
[2020-08-12] MEDS ORDERED: HYDR-2763 PO (11:38)
[2020-08-12] MEDS ORDERED: PRAM0.255 PO (11:38)
[2020-08-12] MEDS ORDERED: MIRT-8 PO (11:38)
[2020-08-12] MEDS ORDERED: SILO4CAP PO (11:38)
[2020-08-12] MEDS: LEVOTHYROXINE 25 MCG TABLET. PO SCH (11:59)
[2020-08-12] MEDS: HYDROcodone/APAP 7.5/325MG 1 TAB TABLET PO SCH ×2 (13:40→21:41)
[2020-08-12] MEDS: TAMSULOSIN 0.4 MG CAP.ER.24H. PO SCH (13:40)
[2020-08-12] MEDS ORDERED: PRAMIPEXOLE 0.25 MG TABLET. PO SCH (21:00)
[2020-08-12] MEDS: PRAMIPEXOLE 0.25 MG TABLET. PO SCH (21:42)
[2020-08-12] MEDS: MIRTAZAPINE 15 MG TABLET PO SCH (21:44)
[2020-08-13 03:00] VITALS: BP 154/69
[2020-08-13] MEDS: LEVOTHYROXINE 25 MCG TABLET. PO SCH (06:14)
[2020-08-13 07:30] VITALS: BP 154/73
--- NOTE | 2020-08-13 08:42 | PDOC ---
Provider Note Date of Service: DATE: 08/13/20 TIME: 08:40 Provider Note [id number] Justifications for Admission Other Justification ANU LEE MD Aug 13, 2020 08:42
[2020-08-13] MEDS: PRAMIPEXOLE 0.25 MG TABLET. PO SCH ×2 (09:00→21:41)
[2020-08-13] MEDS: PREGABALIN 75 MG CAPSULE PO SCH ×2 (09:13→21:41)
[2020-08-13] MEDS: MEMANTINE 10 MG TABLET. PO SCH ×2 (09:13→21:41)
[2020-08-13] MEDS: FAMOTIDINE 20 MG TABLET. PO SCH (09:13)
[2020-08-13] MEDS: HYDROcodone/APAP 7.5/325MG 1 TAB TABLET PO SCH ×3 (09:13→21:42)
[2020-08-13] MEDS: PARoxetine 20 MG TABLET PO SCH (09:14)
[2020-08-13] MEDS: TAMSULOSIN 0.4 MG CAP.ER.24H. PO SCH (09:14)
[2020-08-13] MEDS: DOCUSATE SODIUM 100 MG CAPSULE. PO SCH ×2 (09:14→21:40)
[2020-08-13] MEDS: POTASSIUM CHLORIDE 10 MEQ TABLET.ER. PO SCH ×2 (09:14→17:43)
[2020-08-13 11:26] VITALS: BP 146/65
--- NOTE | 2020-08-13 11:41 | DS ---
DATE OF DISCHARGE: 08/13/2020 HOSPITAL SUMMARY: A 79-year-old white female with no previous cardiac history, who came in with what she described as indigestion and discomfort in her lower chest and upper epigastric area. Physical exam was unremarkable. LABORATORY STUDIES: Troponin and CPK were all normal as was a chest x-ray and EKGs. She was treated with oral famotidine and her symptoms improved and she is feeling better and her blood pressure is better with resumption of home meds. She is comfortable to be followed as an outpatient. FINAL DIAGNOSES: 1. Chest pain secondary to gastroesophageal reflux disease. 2. Hypertension, labile. OPERATIONS, PROCEDURES, COMPLICATIONS: None. CONSULTATION: Dr. Gomez. DISPOSITION: Add famotidine 20 mg twice a day to her home meds. Recommended reducing simvastatin dose to 80 mg 1/2 tablet every other day to avoid interaction with amlodipine. Otherwise, home meds remain the same. Activity as tolerated. Follow up with Dr. Escalera in 1-2 weeks. SHIRA/NEFTALY DR: Sylvester TID: [id number]
[2020-08-13 15:00] VITALS: BP 141/68
[2020-08-13 18:28] LABS: BILIRUBIN,URINE NEGATIVE (NEG); CLARITY,URINE CLEAR; COLOR,URINE YELLOW; NITRITE,URINE NEGATIVE (NEG); PH,URINE 6.5 (<5.0-8.0); PROTEIN,URINE NEGATIVE (NEG-TRACE); UROBILINOGEN,URINE 0.2 mg/dL (0.2 mg/dL)
[2020-08-13 18:33] LABS: BACTERIA,URINE 0 /HPF (0-FEW); RBC,URINE OCC /HPF (0-2); WBC,URINE OCC /HPF (0-4)
--- NOTE | 2020-08-13 18:48 | NUR ---
Pt had discharge order from Dr Rich. Pt has order for Echo which has not been done yet. Daughter reports she spoke to Dr Gomez and he wants Echo done and read prior to discharge. Daughter reports mom is not as active today. I will say that she has been transferring from the bed to the [facility] and having incontinence of urine prior to reaching the commode. Daughter reports that this is unusual for her. Daughter reports that she normally is able to walk to the bathroom and has little incontinent episodes. She is sleeping more today. She does have a history of UTIs. Denies burning or pain with urination. Spoke to Dr Rich, he gave orders for UA and that pt could have Echo outpt or stay. I spoke to Dr Gomez. Echo could be done outpt but pt will stay overnight due to pending ua results, increase sleepiness, weakness and incontinence episodes.
[2020-08-13 19:00] VITALS: BP 145/68
[2020-08-13] MEDS: MIRTAZAPINE 15 MG TABLET PO SCH (21:41)
[2020-08-13 23:00] VITALS: BP 140/62
[2020-08-14 03:00] VITALS: BP 167/76
[2020-08-14] MEDS: LEVOTHYROXINE 25 MCG TABLET. PO SCH (06:27)
[2020-08-14] MEDS: HYDROcodone/APAP 7.5/325MG 1 TAB TABLET PO SCH ×2 (06:29→13:52)
[2020-08-14 07:00] VITALS: BP 139/64
--- NOTE | 2020-08-14 08:36 | PN ---
LOCATION: She is in room 673. SUBJECTIVE: This 79-year-old female remains hospitalized with chest pain. She really is having no further of the same. Workup to date has been negative. Cardiology has an echocardiogram scheduled for today and likely she could go after that as it is felt by cardiology to be probably noncardiac chest pain. OBJECTIVE: VITAL SIGNS: Stable. She is afebrile. CHEST: Clear. HEART: Regular. ABDOMEN: Benign. IMPRESSION: 1. Chest pain, likely gastroesophageal reflux disease related. 2. Mild dementia. 3. Chronic back pain. PLAN: Await the echocardiogram with likely discharge after with outpatient testing as cardiology sees fit. DIEGO DR: Delia TID: [id number]
[2020-08-14] MEDS: TAMSULOSIN 0.4 MG CAP.ER.24H. PO SCH (08:56)
[2020-08-14] MEDS: FAMOTIDINE 20 MG TABLET. PO SCH (08:56)
[2020-08-14] MEDS: PRAMIPEXOLE 0.25 MG TABLET. PO SCH (08:56)
[2020-08-14] MEDS: PARoxetine 20 MG TABLET PO SCH (08:56)
[2020-08-14] MEDS: DOCUSATE SODIUM 100 MG CAPSULE. PO SCH (08:56)
[2020-08-14] MEDS: PREGABALIN 75 MG CAPSULE PO SCH (08:56)
[2020-08-14] MEDS: POTASSIUM CHLORIDE 10 MEQ TABLET.ER. PO SCH (08:56)
[2020-08-14] MEDS: MEMANTINE 10 MG TABLET. PO SCH (08:56)
--- NOTE | 2020-08-14 10:35 | NUR ---
SW following. Discussed with RN, pt from home, room air, sodium controlled diet. Discharge orders for home today. RN advised no SW needs.
[2020-08-14 11:00] VITALS: BP 134/81
[2020-08-14 15:00] VITALS: BP 132/51
--- NOTE | 2020-08-14 15:25 | NUR ---
Discharge Note: JERROD MCCARTNEY V6 BIB Discharge instructions and discharge home medications reviewed with Patient and a copy given. All questions have been answered and understanding verbalized. The following instructions and handouts were given: discharge instructions, education and follow up recommendations. Discontinued lines and drains: Peripheral IV discontinued intact. Patient discharged to Home or Self Care with Family Member via Wheelchair off unit by this RN.
--- NOTE | 2020-08-14 17:31 | CARD ---
MR#: [id number] Date of Study: 08/14/2020 Ordering Physician: CASSANDRA MANNING, Referring Physician: CASSANDRA MANNING, Tech: Kayla Pillai, [facility] APPROVED REPORT EXAM: Two-dimensional and M-mode echocardiogram with Doppler and color Doppler. Other Information Quality : AverageHR: 81bpm INDICATION Chest Pain 2D DIMENSIONS Left Atrium(2D)2.5 (1.6-4.0cm)IVSd0.9 (0.7-1.1cm) Aortic Root(2D)2.9 (2.0-3.7cm)LVDd4.4 (3.9-5.9cm) LVOT Diameter1.8 (1.8-2.4cm)PWd0.7 (0.7-1.1cm) LVDs3.2 (2.5-4.0cm)FS (%) 27.7 % SV48.4 ml Aortic Valve AoV Peak Chad.144.2cm/sAoV VTI27.2cm AO Peak GR.8.3mmHgLVOT Peak Chad.103.2cm/s LVOT VTI 20.75cmAO Mean GR.4mmHg SITA (VMAX)1.91os7DUT (VTI)2.00cm2 Mitral Valve MV E Ywoayjrp86.7cm/sMV DECEL [id number] MV A Dqlfxnea46.2cm/sMV [id number] E/A Ratio1.1MVA (PHT)3.49cm2 TDI E/Lateral E'6.9E/Medial E'6.1 Pulmonary Valve PV Peak Rqowaasn577.2cm/sPV Peak Grad.5mmHg Tricuspid Valve TR P. Yksxziyc896uc/sRAP LFEWGVWV1hcDt TR Peak Gr.33faDsRBSS54heCm Pulmonary Vein S1 Ppudyyau30.2cm/sD2 Skhjiksz89.7cm/s PVa [id number] LEFT VENTRICLE The left ventricle is normal size. There is normal left ventricular wall thickness. The left ventricu lar systolic function is normal and the ejection fraction is within normal range. The Ejection Fracti on is 55-60%. There is normal LV segmental wall motion. Transmitral Doppler flow pattern is Grade II- pseudonormal filling dynamics. RIGHT VENTRICLE The right ventricle is normal size. There is normal right ventricular wall thickness. The right ventr icular systolic function is normal. ATRIA The left atrium size is normal. The right atrium size is normal. The interatrial septum is intact wit h no evidence for an atrial septal defect or patent foramen ovale as noted on 2-D or Doppler imaging. AORTIC VALVE The aortic valve is calcified but opens well. Doppler and Color Flow revealed trace aortic regurgitat ion. There is no significant aortic valvular stenosis. Calculated aortic valve area is 2.22 cm2 with maximum pressure gradient of 9 mmHg and mean pressure gradient of 5 mmHg. MITRAL VALVE The mitral valve is normal in structure and function. There is no evidence of mitral valve prolapse. There is no mitral valve stenosis. Doppler and Color-flow revealed trace mitral regurgitation. TRICUSPID VALVE The tricuspid valve is normal in structure and function. Doppler and Color Flow revealed trace tricus pid regurgitation with an estimated PAP of 35 mmHg. There is no tricuspid valve stenosis. PULMONIC VALVE The pulmonic valve is not well visualized. Doppler and Color Flow revealed trace pulmonic valvular re gurgitation. GREAT VESSELS The aortic root is normal in size. The IVC is normal in size and collapses >50% with inspiration. PERICARDIAL EFFUSION There is no evidence of significant pericardial effusion. Critical Notification Critical Value: No <Conclusion> The left ventricle is normal size. The left ventricular systolic function is normal and the ejection fraction is within normal range. The Ejection Fraction is 55-60%. Doppler and Color Flow revealed trace aortic regurgitation. There is no significant aortic valvular stenosis. Doppler and Color-flow revealed trace mitral regurgitation. Doppler and Color Flow revealed trace tricuspid regurgitation with an estimated PAP of 35 mmHg. Signed by : Roman Goldman MD Electronically Approved : 08/14/2020 17:30:35
== END 2020-08-14 15:29 | disposition home or self-care (01) | DRG 392 ==
LOC: ER 22:04 → 1 WEST ICU 08-12 02:59 → 6 SOUTH 08-12 20:28
PROVIDERS: ADMIT Family Medicine; ATTEND Family Medicine
DX: K21.9 Gastro-esophageal reflux disease without esophagitis (principal); E03.9 Hypothyroidism, unspecified; E78.00 Pure hypercholesterolemia, unspecified; F03.90 Unspecified dementia, unspecified severity, without behavioral disturbance, psychotic disturbance, mood disturbance, and anxiety; G25.81 Restless legs syndrome; G89.29 Other chronic pain; I10 Essential (primary) hypertension; M06.9 Rheumatoid arthritis, unspecified; M19.90 Unspecified osteoarthritis, unspecified site; M81.0 Age-related osteoporosis without current pathological fracture; Z90.49 Acquired absence of other specified parts of digestive tract; Z90.710 Acquired absence of both cervix and uterus; F32.9 Major depressive disorder, single episode, unspecified; Z88.2 Allergy status to sulfonamides; Z88.8 Allergy status to other drugs, medicaments and biological substances; Z79.899 Other long term (current) drug therapy
CPT/HCPCS: 36415; 71045; 80053; 80307; 81001; 82550; 83690; 83735; 83880; 84484; 85025; 93005; 93306; 96374; J0360; J1170; 99285-25; G0378